=== PATIENT | female | born 1950 | race Caucasian/White ===

== ENCOUNTER 2024-01-29 17:59 | Inpatient (IN) | payer OTHER, SELFPAY ==
[2024-01-29] VITALS (7 sets, daily range): BP systolic 113–136; BP diastolic 71–103; BMI 17.2; BMI 16.2
[2024-01-29 16:18] LABS: % Basophils 0.7 % (0-2); % Eosinophils 0.4 % (0-6); % Immature Granulocytes 0.2 % (0-0.5); % Lymphocytes 27.6 % (20.5-51.1); % Monocytes 5.7 % (1.7-9.3); % Neutrophils 65.4 % (42.2-75.2); Absolute Basophils 0.1 10^3/uL (0-0.2); Absolute Lymphocytes 2.3 10^3/uL (1.2-3.4); Absolute Monocytes 0.5 10^3/uL (0.1-0.6); Absolute Neutrophils 5.4 10^3/uL (1.4-6.5); Hematocrit 34.7 % (37.0-47.0); Hemoglobin 11.2 g/dL (12.0-16.0); Mean Corp Hgb Conc. 32.3 g/dL (33.0-37.0); Mean Corpuscular Hgb 35.6 pg (27.0-31.0); Mean Corpuscular Volume 110.2 fL (81.0-99.0); Mean Platelet Volume 10.3 fL (7.4-10.4); Nucleated Red Blood Cells % 0 %; Platelet Count 320 10^3/uL (130-400); Red Blood Cell Count 3.15 10^6/uL (4.20-5.40); Red Cell Dist. Width 14.7 % (11.5-14.5); White Blood Cell Count 8.2 10^3/uL (4.8-10.8)
[2024-01-29 16:34] LABS: ALT (SGPT) 16 U/L (0-35); AST (SGOT) 24 U/L (14-36); Alkaline Phosphatase 95 U/L (38-126); Blood Urea Nitrogen 10 mg/dl (7-17); Calcium 8.8 mg/dl (8.4-10.2); Carbon Dioxide 17 mmol/L (22-30); Chloride 105 mmol/L (98-107); Glucose 169 mg/dl (70-99); Potassium 3.7 mmol/L (3.5-5.1); Sodium 135 mmol/L (135-145); Total Bilirubin 0.5 mg/dl (0.2-1.3); Total Protein 6.6 g/dl (6.3-8.2); eGFR > 60.00
[2024-01-29 16:42] LABS: NT-proBNP 15500 pg/ml; Troponin I < 0.012 ng/ml
--- NOTE | 2024-01-29 17:10 | ED.GENMED ---
History of Present Illness
General
Chief Complaint: Chest Pain
Source: patient and family
Time Seen by Provider: 01/29/24 16:24
Travel History
Have you had any contact with someone who has COVID-19?: No
Do you have any symptoms of coronavirus? Fever > 100 degrees, chills, cough, shortness of breath, sore throat, loss of taste or smell, muscle aches, or headache?: No
History of Present Illness
History of Present Illness:
73-year-old female with past medical history of CAD status post coronary stenting, diabetes, hypertension presenting to the emergency department for evaluation of gradually worsening shortness of breath/dyspnea on exertion over the last few weeks,
yesterday started with bilateral lower extremity edema. Patient states she has been to her primary care provider a couple of times for the shortness of breath with no specific etiology found. Patient states primary care thought her symptoms may be
related to allergies she denies any cough, fevers, chills, rigors, abdominal pain, current chest pain, palpitations, diaphoresis. Patient states symptoms are exacerbated when laying reclined or when bending forward. She denies any history of
similar. Is not on any diuretics. Social history was significant for smoking 1/2 pack/day. Denies any recent travel or recent antibiotics.
Past History
Past History
ED Past Medical History: HTN, NIDDM and Other (Osteoporosis,)
ED Past Surgical History: Orthopedic (Multiple surgeries right elbow/forearm in 2003. Lumbar laminectomy 1992.) and Other (Umbilical hernia repair.)
Social History
Tobacco: Smoker
Alcohol: Occasional
Drug: None
Personal:
Living: with family
Employment: Disabled
Family History
Family History: Other (PE and coronary disease)
Review of Systems
Review of Systems
All Other Systems: ROS reviewed and negative except as documented in HPI and ROS
Phy Exam
Physical Exam
Physical Exam:
GENERAL: Alert , in no apparent distress
EYE: conjunctiva clear
NECK: Supple
ENT: o/p clr, mmm.
CARDIAC: Regular rate and rhythm, systolic murmur left sternal border
LUNGS: Faint bibasilar Rales, no wheezing, no respiratory distress, no accessory muscle use
NEUROLOGICAL: Alert and oriented
SKIN: Warm and dry, skin intact.
MUSCULOSKELETAL: well perfused. 1+ bilateral ankle edema extending into the distal third of the tib-fib region
PSYCH: Normal and appropriate interaction.
Scores
Heart Failure Risk
Heart Failure Risk Score: Yes
History of Stroke or TIA: No
History of intubation for respiratory distress: No
Heart rate on ED arrival >/= 110: No
SaO2 <90% on arrival on room air: No
HR >/=110 during 3min walk test (or too ill to perform test): Yes
ECG has acute ischemic changes: No
Urea >/=12mmol/L (BUN 33.6mg/dL): No
Serum CO2>/=35mmol/L: No
Troponin I or T elevated to WA Level (0.4mg/dL): No
NT-proBNP >/=5,000ng/L (5,000pg/ml): Yes
HF Risk Score: 3
Admission Status: HIGH RISK 15.9% Consider SNF treatment or admission to hospital
Heart Score for Chest Pain Patients
STEMI patient?: Not applicable
Withdrawal Assessment of Alcohol
Withdrawal Assessment Completed?: Not applicable
Course
Orders/Labs/Results
Orders:
Orders
01/29/24 15:43
ECG [Electrocardiogram (*1)] Urgent
Reason for Study: Chest Pain
EKG- Treatment ONCE
01/29/24 16:05
Complete Blood Count/With Diff Urgent
Comprehensive Metabolic Panel Urgent
NT-proBNP Urgent
Troponin I Urgent
01/29/24 16:53
Furosemide [Lasix] 40 mg IV NOW STA
01/29/24 16:54
CR Chest - 2 Views Urgent
Comment:
Reason For Exam: SOB, CHF
01/29/24 17:34
Admit/Transfer Patient As Directed
Co-Sign Provider:
Level of Care: Inpatient admission
Assign to:: Telemetry
Physician / Group: Vince
Diagnosis: Heart Failure
Reason for Telemetry: Acute Heart Failure
Date to Stop Telemetry: 02/01/24
Time to Stop Telemetry: 11:00
Reason for Hospitalization: IV diuretics
Expected length of stay greater than two midnights?: Yes
ELOS- Estimated Length of Stay in days: 3
I certify the patient meets the requirements for IP care: Yes
01/29/24 17:48
DNR Bracelet Application ONCE
01/29/24 17:56
Code Status As Directed
Resuscitation Status: Full Code
02/01/24 11:00
DC Protocol for Telemetry ONCE
Abnormal Lab Results
01/29/24
16:05
RBC 3.15 L 10^6/uL
(4.20-5.40)
Hgb 11.2 L g/dL
(12.0-16.0)
Hct 34.7 L %
(37.0-47.0)
MCV 110.2 H fL
(81.0-99.0)
MCH 35.6 H pg
(27.0-31.0)
MCHC 32.3 L g/dL
(33.0-37.0)
RDW 14.7 H %
(11.5-14.5)
Carbon Dioxide 17 L mmol/L
(22-30)
Creatinine 0.5 L mg/dL
(0.6-1.0)
Glucose 169 H mg/dl
(70-99)
01/29/24 16:05
01/29/24 16:05
Vital Signs
Initial and Last Documented VS:
Initial Vital Signs
Temp Pulse Resp BP Pulse Ox
97.7 F 94 18 136/82 97
01/29/24 15:45 01/29/24 15:45 01/29/24 15:45 01/29/24 15:45 01/29/24 15:45
Last Documented Vital Signs
Temp Pulse Resp BP Pulse Ox
97.7 F 96 22 113/77 97
01/29/24 15:45 01/29/24 17:45 01/29/24 17:45 01/29/24 17:00 01/29/24 15:45
MDM/Problems Addressed
Differential Diagnosis Includes:
Valvular dysfunction, volume overload, kidney disease, CHF
MDM/Problems Addressed:
73-year-old female present emergency department for multiple weeks of gradually worsening shortness of breath and exertional dyspnea, 24 hours of bilateral lower extremity edema. Labs were initiated from triage which show a mild anemia but patient
does have a significant BNP of greater than 15,000. Suspect acute CHF. Patient states she does not believe she has ever had an echocardiogram. She did have a echocardiogram done in October of this year which showed a dilated left ventricle with
severely reduced left ventricular systolic function and ejection fraction of 20 to 25%. There is also mild valvular dysfunction. I suspect this is the main reason for patient's presenting symptoms. 40 mg Lasix IV ordered. Will admit to
hospitalist team and cardiology team to consult.
Chronic conditions affecting care: Other (CHF)
Acute Exacerbation and/or Progression of Chronic Illness: Other (CHF)
*Pulse Oximetry
Patient hypoxic: no
*EKG
Interpreted by ED Provider?: Yes
Comparison EKG: no changes
Heart Rate: 102
Rate: tachycardiac
Rhythm: sinus and PVC's
Pamplico: normal axis
Ischemia: no ischemia
*Proof Technician Helper Interpretation
Rate: normal
Rhythm: sinus
*Critical Care Note
Total Time (30-74mins, 75-104mins- exclusive of procedures): Not Applicable
Data Reviewed
Review of Other/Old Records Reveals: Labs, Records and Testing
Source: patient and family
Patient Management
Discussion with other providers: Hospitalist
Escalation/DeEscalation of care consider admission/obs:
Hospitalist team was notified and accepts patient for continued evaluation and treatment.
ED Attending Note
-
Portions of this chart may have been created with voice recognition software.� Occasional wrong word or��sound alike� substitutions may have occurred due to the inherent limitations of voice recognition software.
Discharge Plan
Departure
Patient Disposition: Admit
Date of Disposition: 01/29/24
Time of Disposition: 17:10
Presentation/result/management discussed w/ accepting MD/DO: Hospitalist
Discharge Problem:
Acute CHF (congestive heart failure)
Prescriptions:
No Action
latanoprost 0.005 % Drops
1 drp BOTH EYES HS
atorvastatin 20 mg Tablet
20 mg PO HS
metoprolol succinate 25 mg Tablet Extended Release 24 Hr
25 mg PO DAILY
acetaminophen 325 mg tablet
650 mg PO Q6H
tramadol 50 mg Tablet
50 mg PO TID
lisinopril 5 mg Tablet
5 mg PO DAILY
ipratropium-albuterol 0.5 mg-3 mg(2.5 mg base)/3 mL solution for nebulization
3 ml inhalation R QID
albuterol sulfate 90 mcg/actuation HFA aerosol inhaler
2 puff inhalation R QIDPRN PRN (Reason: sob)
Referrals:
Raad Randhawa MD [Family Provider] -
Discharge Date and Time
Print Language: WOLOF
[2024-01-29] MEDS: LASIX 40 MG IV (17:16)
--- NOTE | 2024-01-29 17:53 | HPS.HSE ---
Addendum entered and electronically signed by Neftali Clarke MD 01/29/24 18:28:
Seen and examined by me independently in collaboration with the [facility].
Past medical history/social history/medication/allergies reviewed.
Lab data and imaging data reviewed.
Patient presents with increasing shortness of breath. Lower extremity edema and orthopnea. She has bilateral crackles up to mid zones but not in any respiratory distress. Not hypoxic. Chest x-ray pending. BNP is very elevated. She is diagnosed
to have cardiomyopathy October this year but has not followed up with cardiology. Not on any diuretics.
Clinical presentation consistent with acute CHF decompensation. Admit to telemetry. Start on IV diuretics. Consult cardiology. Repeat echocardiogram.
She wishes to be a full code.
Original Note:
Family Physician
-
Family Physician: Raad Randhawa MD
Chief Complaint
-
Shortness of breath and lower ext edema
History of Present Illness
Patient is a 73 y/o female past medical history of CAD, CHF, HTN and DM who presents with increased shortness of breath and lower extremity edema. She reports increased shortness of breath over the past several weeks. She notes she has been using
her nebulizer with only minimal improvement in symptoms. She reports dyspnea on exertion and orthopnea. Over the last day she has noted increased lower extremity edema to the point she could not put on her shoes today. She does not weight herself
on a daily basis, but review of records show a 14lb gain since October.
Medical History
Past Medical History
Past Medical History: Reports Other
Additional Past Medical History:
Coronary Artery Disease s/p Stents
Chronic HFrEF
Essential Hypertension
Hyperlipidemia
Diabetes Mellitus, Type II
COPD
Past Surgical History: Reports Other
Additional Past Surgical History:
Lumbar surgery
Cervical spinal surgery
Umbilical hernia repair
Right arm surgery
Left Hip Replacement
Social History
Tobacco: Former Smoker
Alcohol: Occasional
Drug: None
Personal: Single
Family History
Family History: Not pertinent
Allergies / Home Medications
Allergies reflects when Allergies were last updated in [facility].
Home Medications with original date entered in [facility]
Allergy/Medication List:
Allergies
Allergy/AdvReac Type Severity Reaction Status Date / Time
cat dander Allergy Itching Verified 10/24/23 16:42
house dust Allergy SNEEZING Verified 10/24/23 16:42
pollen extracts Allergy SNEEZING Verified 10/24/23 16:42
pregabalin [From Lyrica] Allergy psychosis Verified 10/04/23 17:41
Home Medications
atorvastatin 20 mg tablet 20 mg PO HS High Cholesterol 10/04/23
latanoprost 0.005 % eye drops 1 drp BOTH EYES HS glaucoma 10/04/23
metoprolol succinate 25 mg tablet,extended release 24 hr 25 mg PO DAILY Blood Pressure 10/04/23
acetaminophen 325 mg tablet 650 mg PO Q6H 10/24/23
albuterol sulfate 90 mcg/actuation aerosol inhaler 2 puff inhalation R QIDPRN PRN sob 01/29/24
ipratropium 0.5 mg-albuterol 3 mg (2.5 mg base)/3 mL nebulization soln 3 ml inhalation R QID 01/29/24
lisinopril 5 mg tablet 5 mg PO DAILY 01/29/24
tramadol 50 mg tablet 50 mg PO TID 01/29/24
Review of Systems
-
A 12 point ROS was completed and negative except as noted: Yes
Constitutional: Reports Weight Gain; Denies Fever or Chills
Respiratory: Reports Trouble Breathing; Denies Cough
Cardiac: Denies Chest Pain or Palpitations
Physical Exam
Vital Signs
Vital Signs
Temp Pulse Resp BP Pulse Ox
97.7 F 98 20 136/82 97
01/29/24 15:45 01/29/24 16:37 01/29/24 16:37 01/29/24 15:45 01/29/24 15:45
Physical Exam
General: Comfortable, Conversant (Slight conversational dyspnea) and Appears Chronically Ill
HEENT: NormoCephalic, Anicteric and Atraumatic
Respiratory: Rales (Diffuse) and Non Labored Respirations
Cardiac: S1/S2 and Regular Rhythm; No Murmur
GI: Soft and Non Tender
Rectal: Deferred by Provider
Musculoskeletal: No Clubbing, No Cyanosis and Other (+4 pitting edema bilateral lower ext)
Skin: Warm and Dry
Neuro: Awake, Alert, Oriented and Nonfocal/grossly intact
Psych: Calm
Laboratory Results
-
01/29/24 16:05
01/29/24 16:05
Laboratory Results
PT Cancelled 01/29/24 15:51
INR Cancelled 01/29/24 15:51
Total Bilirubin 0.5 mg/dl (0.2-1.3) 01/29/24 16:05
AST 24 U/L (14-36) 01/29/24 16:05
ALT 16 U/L (0-35) 01/29/24 16:05
Alkaline Phosphatase 95 U/L (38-126) 01/29/24 16:05
Troponin I < 0.012 ng/ml 01/29/24 16:05
Data Reviewed
-
Lab Data: Labs Reviewed by me
Old Records: Reviewed
Impression/Plan
-
Acute on Chronic HFrEF
-Echo Oct 2023: Dilated left ventricular with severely reduced left ventricular systolic function of 20-25%. Stage I diastolic dysfunction
-Consult Cardiology
-Continue Lasix
-Monitor Is& Os and Daily Weights
Macrocytosis
-Check vitamin b12 and folate level
Coronary Artery Disease s/p Bare Metal Stent
-Patient not on antiplatelets
Essential Hypertension
-Hold lisinopril
-Continue metoprolol
Hyperlipidemia
-Continue atorvastatin
Diabetes Mellitus, Type II
-Check HgbA1c
-Patient is not on any meds as outpatient
-Monitor sugars and continue coverage insulin
COPD, no acute exacerbation
-Continue Duoneb QID
DVT proph: Lovenox
Code Status: Full Code
[2024-01-29] MEDS: DUONEB 3 ML INH (20:09)
[2024-01-29] MEDS: LOVENOX 30 MG SC (20:26)
[2024-01-29] MEDS: LIPITOR 20 MG PO (21:05)
[2024-01-29] MEDS: ULTRAM 50 MG PO (21:06)
[2024-01-29 21:15] LABS: Glucose - Point of Care 188 mg/dl (70-99)
[2024-01-29 22:33] LABS: Troponin I 0.013 ng/ml
--- NOTE | 2024-01-29 22:53 | PTCARENOTE ---
Received pt from ER @ 1950. Pt slid self from stretcher to bed. AAOx3, VSS. 97% on RA, very PHILLIPS. Sinus tach on monitor. Oriented to room, call [facility] and plan of care.
[2024-01-30] VITALS (8 sets, daily range): BP systolic 97–138; BP diastolic 61–83; PULSE 107–117; O2SAT 95; BMI 16.3
[2024-01-30] MEDS: TYLENOL 650 MG PO ×4 (01:56→19:43)
[2024-01-30 02:28] LABS: Troponin I 0.019 ng/ml
[2024-01-30 07:26] LABS: Glucose - Point of Care 145 mg/dl (70-99)
[2024-01-30 07:40] LABS: Hemoglobin 11.2 g/dL (12.0-16.0); Mean Corpuscular Volume 102.9 fL (81.0-99.0); Platelet Count 283 10^3/uL (130-400); Red Blood Cell Count 3.11 10^6/uL (4.20-5.40); Red Cell Dist. Width 14.2 % (11.5-14.5); White Blood Cell Count 11.1 10^3/uL (4.8-10.8)
[2024-01-30 07:49] LABS: Blood Urea Nitrogen 15 mg/dl (7-17); Calcium 8.9 mg/dl (8.4-10.2); Carbon Dioxide 19 mmol/L (22-30); Chloride 105 mmol/L (98-107); Estimated Creatinine Clearance 50 ml/min; Glucose 132 mg/dl (70-99); HDL Cholesterol 59 mg/dl; LDL Cholesterol, Calculated 11 mg/dl; Magnesium 1.2 mg/dl (1.6-2.3); Potassium 3.2 mmol/L (3.5-5.1); Sodium 137 mmol/L (135-145); Total Cholesterol 92 mg/dl (50-199); Triglyceride 113 mg/dl (10-149); Very Low Density Lipoprotein 22 mg/dl (0-30); eGFR > 60.00
[2024-01-30 08:14] LABS: TSH Reflex To Free T4 1.17 uIU/ml (0.47-4.68)
[2024-01-30] MEDS: DUONEB 3 ML INH ×3 (08:14→20:20)
[2024-01-30] MEDS: NOVOLOG FLEXPEN-LOW RESISTANCE SC ×2 (08:22→16:50)
[2024-01-30] MEDS: TOPROL XL 25 MG PO (08:23)
[2024-01-30] MEDS: ASPIR LOW (ENTERIC COATED) 81 MG PO (08:24)
[2024-01-30] MEDS: ULTRAM 50 MG PO ×3 (08:24→21:17)
[2024-01-30] MEDS: LASIX 40 MG IV (08:24)
[2024-01-30 08:50] LABS: Folate 7.8 ng/ml (2.76-20); Vitamin B12 702 pg/ml (239-931)
--- NOTE | 2024-01-30 09:58 | PTCARENOTE ---
Notified provider that while the patient was ambulating with PT, her HR ivy to the 150's. At rest in the chair, the patient's heart went down to the 110-120's and sustained after some time. Patient had received morning dosage of Toprol XL 25 mg PO,
no c/o dizziness, CP, and VSS. MD advised to await therapeutic effects of PO medications. Will continue to monitor.
[2024-01-30] MEDS: KCL 40 MEQ PO (10:13)
[2024-01-30] MEDS: MAGNESIUM SULFATE 50 IV (10:13)
--- NOTE | 2024-01-30 10:39 | CM ---
Patient seen in chair, initial assessment completed. Patient reports she resides independently in an apartment on the first floor, one step to enter, also has a ramp. Patient reports she has two sons who live local, her one son and daughter in law
visit her weekly to assist with cleaning and groceries. Patient reports she has a walker and wheelchair at home. Patient reports history with [facility], patient reports she would not return to any SNF as it was a waist of time and she
did better at home. Patient reports PCP Dr. De La Fuente through [facility], pharmacy [facility] - [place], [place]. Patient reports she does not have pharmacy coverage, denies food insecurities. CM will continue to follow for discharge planning needs.
Plan; watch for PT/OT evals for recommendations.
[2024-01-30 11:20] LABS: Glucose - Point of Care 190 mg/dl (70-99)
--- NOTE | 2024-01-30 11:45 | W.PN.HOSP.TC ---
Today's Communication/Plan
-
Continue the Lasix.
Check an echocardiogram.
Follow cardiology recommendations.
Replete potassium and magnesium.
Assessment / Plan
Assessment / Plan
Acute on Chronic HFrEF
-Echo Oct 2023: Dilated left ventricular with severely reduced left ventricular systolic function of 20-25%. Stage I diastolic dysfunction
-Consulted Cardiology
-Continue Lasix; check ECHO
-Monitor Is& Os and Daily Weights
Tachycardia-telemetry rhythm ?A-fib.
Continue with beta-miryam. Await cardiology input.
Hypokalemia and hypomagnesemia-replete IV
Macrocytosis
-Check vitamin b12 and folate level
Coronary Artery Disease s/p Bare Metal Stent
-cw ASA
Essential Hypertension
-Hold lisinopril
-Continue metoprolol
Hyperlipidemia
-Continue atorvastatin
Diabetes Mellitus, Type II
-Follow HgbA1c
-Patient is not on any meds as outpatient
-Monitor sugars and continue coverage insulin
COPD, no acute exacerbation
-Continue Duoneb QID
DVT proph: Lovenox
Code Status: Full Code
DW RN
Total time spent on today's encounter was 52 minutes which included time spent in counseling the patient regarding diagnosis and treatment plan as listed above, goals of care, and symptom management. Case was discussed with nursing staff,
specialists . All labs and imaging personally reviewed by me. Remainder the time spent in detailed review of previous records, lab data, imaging, and other medical provider documentation.
Anticipated Discharge: > 48 hours
Subjective/Interval History
-
Date of Service: January 30, 2024
Cannot sleep much last night because of interruptions.
Still orthopneic.
No chest pain or palpitations.
When she ambulated to the bathroom her heart rate went to 150s but she did not feel the tachycardia. No dizziness.
Objective Data
-
Labs:
Laboratory Results
01/30/24
06:04
WBC 11.1 H
Hgb 11.2 L
Hct 32.0 L
Plt Count 283
Sodium 137
Potassium 3.2 L
Chloride 105
Carbon Dioxide 19 L
BUN 15
Creatinine 0.5 L
Glucose 132 H
Calcium 8.9
Vital Signs:
Vital Signs
Temp Pulse Resp BP Pulse Ox
97.7 F 104 16 121/77 95
01/30/24 07:18 01/30/24 08:15 01/30/24 08:15 01/30/24 07:18 01/30/24 08:15
I&O
01/29/24 01/30/24 01/31/24
06:59 06:59 06:59
Intake Total 60 / 60
Output Total 900 / 900
Balance -840 / -840
Review of Systems
-
Constitutional: Denies Fever
EENT: Denies Sore Throat
Respiratory: Denies Cough
Abdomen/GI: Denies Abdominal Pain, Nausea or Vomiting
Physical Exam
-
General: No Apparent Distress
HEENT: Moist Mucous Membranes
Respiratory: Crackles (bl basilar area today ;improved from yesterday) and Non Labored Respirations; Negative Wheezes or Accessory Resp Muscle Use
Cardiac: S1/S2, Irregular Rhythm and Tachycardic
GI: Soft
Musculoskeletal: Edema, Right Lower Extrem and Edema, Left Lower Extrem
Neuro: AO x 3
Psych: Calm and Confused
Data Reviewed
-
Labs: Labs Reviewed by me
[2024-01-30] MEDS: NOVOLOG FLEXPEN-LOW RESISTANCE 1 UNITS SC (11:56)
--- NOTE | 2024-01-30 12:12 | CON.CAR ---
Addendum entered and electronically signed by Williams Malik MD 01/30/24 15:52:
I saw and examined the patient.
The Epic Ambulatory Analyst's note was reviewed and I agree with the note.
Comment: Briefly, 73-year-old man past medical history of recent diagnosis of heart failure with reduced ejection fraction presenting in decompensated heart failure
Patient is mildly volume overloaded on exam, agree with IV Lasix, monitor daily weights and renal function
Replete lytes
Cont BB and JONNY as treatment of cardiomyopathy
Would consider adding SGLT2
BP is unlikely to tolerate spironolactone
Was not on diuretic as an outpatient, would discharge on maintainence dose of lasix
Would benefit from outpatient cardiology follow up and consideration of ischemic evaluation
Original Note:
Consultation
Consultation Request
Date/Time Consultation Requested: 01/29/24 at 1940
Date/Time Consultation Performed: 01/30/24 at 1100
Requesting Provider: Dr. Clarke
Performing Provider: Dr. Malik
Reason for Consultation: Acute HF
Medical History
-
History of Present Illness:
Patient came to [facility] yesterday with months worth of SOB and newer LE edema and is now admitted with acute HF so cardiology has been consulted. Patient lives alone, but her sons visit her weekly and help with grocery shopping. Patient says she does
not have a bank and savings securities trader, but that she saw her PCP twice recently for SOB and PHILLIPS. She says that she started with LE edema within in the last 2 days so she came to [facility]. [place]BNP [place] [phone]. Patient was started on Lasix 40 mg IV daily and her edema
and SOB have improved. Patient was admitted to twice in October, during her initial visit she was teated for PNA and influenza, but also for acute HF. She was diuresed and had an echo that showed a worsened EF down to 20-25%. Patient was
recommended to follow up with cardiology, but never did. Patient was not taking a daily diuretic prior to admission.
PMH:
CM EF 20-25% by echo 10/25/23
CAD s/p DE and 2.5 mm Mini Vision BMS to prox OM-2 and 2.5 mm Mini Vision BMS to distal OM-2 08/28/10
Admitted to with CHF, new CM, influenza and PNA 10/04/23 until 10/17/23
Admitted to with diarrhea, hypokalemia and heme positive stools 10/24/23 until 10/26/23
Possible Plavix allergy with h/o rash in 2009
DM 2
Active smoker
Past Medical History
Past Medical History: Other (in HPI)
Past Surgical History: Cardiac (OM-2 BMS x2 2009) and Orthopedic
Social History
Tobacco: Smoker (10/02 ppd now)
Alcohol: None
Drug: None
Living: Alone
Family History
Family History: CAD and Other (FH of PE in brother and 2 sisters)
Allergies / Home Medications
Allergy/AdvReac Type Severity Reaction Status Date / Time
cat dander Allergy Itching Verified 10/24/23 16:42
house dust Allergy SNEEZING Verified 10/24/23 16:42
pollen extracts Allergy SNEEZING Verified 10/24/23 16:42
pregabalin [From Lyrica] Allergy psychosis Verified 10/04/23 17:41
�Medication �Instructions �Recorded �Confirmed �Type
atorvastatin 20 mg tablet 20 mg PO HS High Cholesterol 10/04/23 01/29/24 History
latanoprost 0.005 % eye drops 1 drp BOTH EYES HS glaucoma 10/04/23 01/29/24 History
metoprolol succinate 25 mg 25 mg PO DAILY Blood Pressure 10/04/23 01/29/24 History
tablet,extended release 24 hr
acetaminophen 325 mg tablet 650 mg PO Q6H pain 10/24/23 01/29/24 History
albuterol sulfate 90 mcg/actuation 2 puff inhalation R QIDPRN PRN 01/29/24 01/29/24 History
aerosol inhaler shortness of breath
ipratropium 0.5 mg-albuterol 3 mg 3 ml inhalation R QID 01/29/24 01/29/24 History
(2.5 mg base)/3 mL nebulization Lung/Breathing Issues
soln
lisinopril 5 mg tablet 5 mg PO DAILY Blood Pressure 01/29/24 01/29/24 History
tramadol 50 mg tablet 50 mg PO TID pain 01/29/24 01/29/24 History
Review of Systems
-
History Source: Patient
All other systems: Negative unless noted
Physical Exam
Vital Signs
Temp Pulse Resp BP Pulse Ox
97.7 F 104 16 121/77 95
01/30/24 07:18 01/30/24 08:15 01/30/24 08:15 01/30/24 07:18 01/30/24 08:15
GEN: NAD. AAO to person, place and situation
HEENT: EOMI, MMM
LUNGS: CTA B/L without wheeze or rales
CV: Reg, S1/S2, no murmur
ABD: soft, BS+, NT, ND
EXT: +1 B/L LE edema. No clubbing, cyanosis or lesions B/L
NEURO: Gross non-focal
SKIN: Warm, dry and pink. No rash
Lab Results
01/30/24 06:04
01/30/24 06:04
Troponin I 0.019 ng/ml D 01/30/24 01:59
Dhh-E-Gcoeoqtjjwn Pept 88587 pg/ml 01/29/24 16:05
Impression / Plan
-
PCP: Dr. Chester De La Fuente
Cardiology: None
Impression:
SOB and LE edema in the ER 01/29/24
Acute HFrEF
CM EF 20-25% by echo 10/25/23
CAD s/p DE and 2.5 mm Mini Vision BMS to prox OM-2 and 2.5 mm Mini Vision BMS to distal OM-2 08/28/10
Admitted to with CHF, new CM, influenza and PNA 10/04/23 until 10/17/23
Admitted to with diarrhea, hypokalemia and heme positive stools 10/24/23 until 10/26/23
Possible Plavix allergy with h/o rash in 2009
DM 2
Active smoker
Hypokalemia
Echo 2009: EF 46%
Echo 10/05/23: EF 20-25%, stage I diastolic dysfunction, mild MR, no significant or AR, mild TR with PAP 35 mmHg
Plan:
-Patient came to [facility] yesterday with months worth of SOB and newer LE edema and is now admitted with acute HF so cardiology has been consulted. Patient lives alone, but her sons visit her weekly and help with grocery shopping. Patient says she does
not have a bank and savings securities trader, but that she saw her PCP twice recently for SOB and PHILLIPS. She says that she started with LE edema within in the last 2 days so she came to [facility]. [place] pro-BNP was [phone]. Patient was started on Lasix 40 mg IV daily and her edema
and SOB have improved. Patient was admitted to twice in October, during her initial visit she was teated for PNA and influenza, but also for acute HF. She was diuresed and had an echo that showed a worsened EF down to 20-25%. Patient was
recommended to follow up with cardiology, but never did. Patient was not taking a daily diuretic prior to admission.
-Patient with acute HF and known CM EF 20-25%. Agree with Lasix 40 mg IV daily diuresis.
-EF down to 20-25% by echo 10/05/23. Patient has been taking GDMT including Toprol XL 25 mg daily and lisinopril 5 mg daily although she says she was unaware of a h/o CHF and unaware that she was supposed to be seeing a bank and savings securities trader with her h/o CAD
and DE.
-Will add spironolactone 25 mg daily
-Check on cost of SGLT-2
-Patient lives alone, smokes and weighs 83 lbs. She gave me permission to call her son. I called and talked to her son, Jose, for 17:37 min. Reviewed HF diagnosis, he is a mine analyst and very medically knowledgeable. He is agreeable to the addition
of spironolactone for now. Also agreeable to arranging cardiology f/u with [facility] and for VN services upon discharge. Talked about possible consideration for ICD in the future depending on EF and he would be agreeable to consideration.
-ECG reviewed by me shows SR with PVCs.
[2024-01-30] MEDS: DUONEB INH ×2 (12:29→12:30)
[2024-01-30 16:39] LABS: Glucose - Point of Care 116 mg/dl (70-99)
[2024-01-30] MEDS: LOVENOX 30 MG SC (17:41)
[2024-01-30] MEDS: LIPITOR 20 MG PO (21:17)
[2024-01-30 21:39] LABS: Glucose - Point of Care 164 mg/dl (70-99)
[2024-01-31] VITALS (7 sets, daily range): BP systolic 94–120; BP diastolic 63–73; PULSE 102; O2SAT 98; BMI 15.1
[2024-01-31] MEDS: TYLENOL PO (02:29)
[2024-01-31] MEDS: DUONEB 3 ML INH ×4 (07:14→20:02)
[2024-01-31 08:13] LABS: Glucose - Point of Care 168 mg/dl (70-99)
[2024-01-31 08:21] LABS: Blood Urea Nitrogen 14 mg/dl (7-17); Calcium 8.8 mg/dl (8.4-10.2); Carbon Dioxide 22 mmol/L (22-30); Chloride 101 mmol/L (98-107); Estimated Creatinine Clearance 46 ml/min; Glucose 142 mg/dl (70-99); Magnesium 1.4 mg/dl (1.6-2.3); Potassium 3.6 mmol/L (3.5-5.1); Sodium 134 mmol/L (135-145); eGFR > 60.00
--- NOTE | 2024-01-31 08:40 | PN.CDI ---
CDI
- -
CDI:
Physician Documentation Request
Admit Date: 01/29/24 17:59
Dear Doctor Vince,
Please review the following and provide your response in the progress notes.
Clinical Indicators:
Height: 5 ft
Weight: 77 lbs
BMI:15.1
Other Clinical Notes:
If possible, please provide an associated diagnosis related to the abnormal BMI, such as:
BMI < or = to 19
Cachectic
Underweight
- Other
Use of terms such as suspected, likely, concern for, or probable (associated with a specific diagnosis that is being evaluated, monitored, or treated as if it exists) are acceptable and can be coded in the inpatient setting, when documented at the
time of discharge.
Thank you,
Loretta Turner RN
CDI Specialist
[place] [employer]
Please use your independent medical judgment in providing your response.
[2024-01-31] MEDS: KCL 20 MEQ PO (09:22)
[2024-01-31] MEDS: ASPIR LOW (ENTERIC COATED) 81 MG PO (09:22)
[2024-01-31] MEDS: ULTRAM 50 MG PO ×3 (09:22→21:16)
[2024-01-31] MEDS: TYLENOL 650 MG PO ×3 (09:22→20:09)
[2024-01-31] MEDS: NOVOLOG FLEXPEN-LOW RESISTANCE 1 UNITS SC (09:22)
[2024-01-31] MEDS: TOPROL XL 25 MG PO (09:23)
[2024-01-31] MEDS: LASIX 40 MG IV (09:23)
--- NOTE | 2024-01-31 10:20 | PTCARENOTE ---
Notified provider in person on unit that the patient was c/o SOB, satting fine 96% RA, and HR 100-110's.
--- NOTE | 2024-01-31 10:41 | W.PN.CARDCBS ---
Today's Communication / Plan
-
Cont IV diuresis. Her wt continues to come down and her cr is stable. Her dry wt is unclear and she is very frail.
PT eval.
Reviewed CM with her and discussed eval of coronary anatomy and volume status with left and right heart cath for tomorrow. Pt was agreeable.
Will discuss with son as well.
Replete lytes
Cont beta miryam and ACEI for her CM
Consider Jardiance if affordable.
Consider Aldactone if bp can tolerate.
Will likely need diuretic as outpt.
Cont to monitor for arrhythmia. She has had PACs and PVCs and atrial tachycardia evelin on monitors. Consider outpt monitor as well.
Impression / Plan
-
PCP: Dr. Chester De La Fuente
Cardiology: None
Impression:
SOB and LE edema in the ER 01/29/24
Acute HFrEF
CM EF 20-25% by echo 10/25/23
CAD s/p [place] and 2.5 mm Mini Vision BMS to prox OM-2 and 2.5 mm Mini Vision BMS to distal OM-2 08/28/10
Admitted to with CHF, new CM, influenza and PNA 10/04/23 until 10/17/23
Admitted to with diarrhea, hypokalemia and heme positive stools 10/24/23 until 10/26/23
Possible Plavix allergy with h/o rash in 2009
DM 2
Active smoker
Hypokalemia
Echo 2009: EF 46%
Echo 10/05/23: EF 20-25%, stage I diastolic dysfunction, mild MR, no significant or AR, mild TR with PAP 35 mmHg
Plan:
Cont IV diuresis. Her wt continues to come down and her cr is stable. Her dry wt is unclear and she is very frail.
PT eval.
Reviewed CM with her and discussed eval of coronary anatomy and volume status with left and right heart cath for tomorrow. Pt was agreeable.
Will discuss with son as well.
Replete lytes
Cont beta miryam and ACEI for her CM
Consider Jardiance if affordable.
Consider Aldactone if bp can tolerate.
Will likely need diuretic as outpt.
Cont to monitor for arrhythmia. She has had PACs and PVCs and atrial tachycardia evelin on monitors. Consider outpt monitor as well.
HPI: Patient came to [facility] yesterday with months worth of SOB and newer LE edema and is now admitted with acute HF so cardiology has been consulted. Patient lives alone, but her sons visit her weekly and help with grocery shopping. Patient says she
does not have a sleeve sewer, but that she saw her PCP twice recently for SOB and PHILLIPS. She says that she started with LE edema within in the last 2 days so she came to [facility]. [place] [phone]. Patient was started on Lasix 40 mg IV daily and her
edema and SOB have improved. Patient was admitted to twice in October, during her initial visit she was teated for PNA and influenza, but also for acute HF. She was diuresed and had an echo that showed a worsened EF down to 20-25%. Patient was
recommended to follow up with cardiology, but never did. Patient was not taking a daily diuretic prior to admission.
Progress Note - [employer]
Subjective
Date of Service: January 31, 2024
Pt seen and examined. No cp or dyspnea.
Objective
Labs:
01/30/24 06:04
01/31/24 07:39
Labs
Hgb 11.2 g/dL (12.0-16.0) L 01/30/24 06:04
Hct 32.0 % (37.0-47.0) L 01/30/24 06:04
Plt Count 283 10^3/uL (130-400) 01/30/24 06:04
PT Cancelled 01/29/24 15:51
INR Cancelled 01/29/24 15:51
Sodium 134 mmol/L (135-145) L 01/31/24 07:39
Potassium 3.6 mmol/L (3.5-5.1) 01/31/24 07:39
BUN 14 mg/dl (7-17) 01/31/24 07:39
Creatinine 0.4 mg/dL (0.6-1.0) L 01/31/24 07:39
Glucose 142 mg/dl (70-99) H 01/31/24 07:39
Troponins
01/29/24 01/29/24 01/30/24
16:05 22:04 01:59
Troponin I < 0.012 0.013 0.019 D
Vital Signs and I&O:
Vital Signs
Temp Pulse Resp BP Pulse Ox
97.9 F 109 18 120/64 95
01/31/24 07:30 01/31/24 07:30 01/31/24 07:30 01/31/24 07:30 01/31/24 07:30
Vital Signs
Temp Pulse Resp BP Pulse Ox
97.9 F 109 18 120/64 95
01/31/24 07:30 01/31/24 07:30 01/31/24 07:30 01/31/24 07:30 01/31/24 07:30
Intake & Output
01/29/24 01/30/24 01/31/24 02/01/24
06:59 06:59 06:59 06:59
Intake Total 60 / 60 120 / 120
Output Total 900 / 900
Balance -840 / -840 120 / 120
Physical Exam
Physical Exam
General: No acute distress, AAOX3, frail
Neck: Negative JVD
Heart: Regular, Negative S3 positive S1/S2, Negative S4, No murmur
Lungs: CTA b/l, negative wheezes/rales/rhonchi
Abd: Positive BS, NT/ND, neg rebound/rigidity/guarding
Ext: Negative cyanosis/clubbing/edema
Neuro: nonfocal
[2024-01-31 11:32] LABS: Glucose - Point of Care 139 mg/dl (70-99)
[2024-01-31] MEDS: NOVOLOG FLEXPEN-LOW RESISTANCE SC ×2 (11:34→17:09)
--- NOTE | 2024-01-31 11:42 | W.PN.HOSP.TC ---
Addendum entered and electronically signed by Neftali Clarke MD 02/01/24 17:50:
Sacrum stage 2 pressure injury ,silicone border foam placed.
Pt currently meeting criteria for severe protein/calorie malnutrition (ASPEN/AND guidelines, chronic illness) due to NFPE (nutrition focused physical exam) and decreased intakes estimated to be less than or equal to 75% for greater than or equal to
1 month.
Original Note:
Today's Communication/Plan
-
Continue with diuresis
Assessment / Plan
Assessment / Plan
Acute on Chronic HFrEF
-Echo Oct 2023: Dilated left ventricular with severely reduced left ventricular systolic function of 20-25%. Stage I diastolic dysfunction
-Echo on this admission shows persistently reduced EF currently 19%, moderate MR, stage II diastolic dysfunction.
-Improved clinically and as well as weight.
-Continue Lasix
-Cardiology considering left heart cath and right heart cath.
-Monitor Is& Os and Daily Weights
Tachycardia-telemetry rhythm discussed with cardiology-thinks A. tach. Continue to follow telemetry.
Continue with beta-miryam
Hypomagnesemia-replete IV
Macrocytosis
-TSH, vitamin b12 and folate level normal.
Coronary Artery Disease s/p Bare Metal Stent
-cw ASA
Essential Hypertension
-Hold lisinopril
-Continue metoprolol
Hyperlipidemia
-Continue atorvastatin
Diabetes Mellitus, Type II
- HgbA1c 7.0
-Patient is not on any meds as outpatient
-Monitor sugars and continue coverage insulin
COPD, no acute exacerbation
-Continue Duoneb QID
DVT proph: Lovenox
Code Status: Full Code
DW RN
Discussed with cardiology
Anticipated Discharge: 24 - 48 hours
Subjective/Interval History
-
Date of Service: January 31, 2024
Feeling improved. Denies any chest pain. No palpitations. Improved breathing.
Objective Data
-
Labs:
Laboratory Results
01/31/24
07:39
Sodium 134 L
Potassium 3.6
Chloride 101
Carbon Dioxide 22
BUN 14
Creatinine 0.4 L
Glucose 142 H
Calcium 8.8
Vital Signs:
Vital Signs
Temp Pulse Resp BP Pulse Ox
97.7 F 90 16 102/63 99
01/31/24 11:00 01/31/24 11:14 01/31/24 11:14 01/31/24 11:00 01/31/24 11:14
I&O
01/30/24 01/31/24 02/01/24
06:59 06:59 06:59
Intake Total 60 / 60 120 / 120
Output Total 900 / 900
Balance -840 / -840 120 / 120
Review of Systems
-
Constitutional: Denies Fever
Abdomen/GI: Denies Abdominal Pain, Nausea or Vomiting
Neuro: Denies Dizzy
Physical Exam
-
General: No Apparent Distress
HEENT: Moist Mucous Membranes
Respiratory: Crackles (few bibasal); Negative Wheezes
Cardiac: Regular Rhythm, S1/S2 and Tachycardic
Neuro: AO x 3
Psych: Calm; Negative Confused
Data Reviewed
-
Labs: Labs Reviewed by me
[2024-01-31] MEDS: MAGNESIUM SULFATE 100 IV (12:20)
--- NOTE | 2024-01-31 13:54 | PN.CDI ---
CDI
- -
CDI:
Physician Documentation Request
Admit Date: 01/29/24 17:59
Dear Doctor Vince,
Please review the following and provide your response in the progress notes.
Clinical Indicators:
Pt admitted with Acute on chronic Systolic CHF
Documented in the record BMI 15.1
Nutrition consult 01/29@1730, 'Pt reporting losing weight after her greater than a year ago; feels at one time she was 125 lbs. She also reported just not being hungry with reduced intakes for > 1 month. Estimated needs: .....
During visit today RD observed appearance of severe depression at temples, orbital, protrusion of clavicle, shoulders, visible ribs, arms. Pt currently meeting criteria for severe protein/calorie malnutrition (ASPEN/AND guidelines, chronic illness)
due to NFPE (nutrition focused physical exam) and decreased intakes estimated to be less than or equal to 75% for greater than or equal to [address] to continue to follow and provide education as appropriate per level of care during
hospitalization. '
Based on the information, which of the following most accurately represents the patient's nutritional status?
Severe Protein Calorie Malnutrition
Other (please specify)
Goddard Criteria (ACP Hospitalist 2017)
2 or more criteria must be present for either
non severe or severe malnutrition
Note that the criteria differs related to the
presence of an acute or chronic illness
Acute Illness Chronic Illness
Energy Intake Non Severe: <75% for >7 days Non Severe: <75% for >1 month
Severe: <50% for >5 days Severe: <75% for >1 month
Weight Loss Non Severe: 1-2% over 1 week Non Severe: 5% over 1 month
5% over 1 month 7.5% over 3 months
7.5% over 3 months 10% over 6 months
1 year N/A 20% over 1 year
Severe: >2% over 1 week Severe: >5% over 1 month
>5% over 1 month >7.5% over 3 months
>7.5% over 3 months >10% over 6 months
1 year N/A >20% over 1 year
Body Fat Non Severe: Mild Decrease Non Severe: Mild Loss
Severe: Moderate Decrease Severe: Severe Loss
Muscle Mass Non Severe: Mild Decrease Non Severe: Mild Loss
Severe: Moderate Decrease Severe: Severe Loss
Fluid Accumulation Non Severe: Mild Accumulation Non Severe: Mild Accumulation
Severe: Moderate to severe Severe: Moderate to severe
accumulation accumulation
Reduced Song Writer Strength Non Severe: N/A Non Severe: N/A
Severe: Measurably reduced Severe: Measurably reduced
Use of terms such as suspected, likely, concern for, or probable (associated with a specific diagnosis that is being evaluated, monitored, or treated as if it exists) are acceptable and can be coded in the inpatient setting, when documented at the
time of discharge.
Thank you,
Loretta Truner RN
CDI Specialist
[place] [employer]
Please use your independent medical judgment in providing your response.
--- NOTE | 2024-01-31 14:45 | PN.CDI ---
CDI
- -
CDI:
Physician Documentation Request
Admit Date: 01/29/24 17:59
Dear Doctor Vince,
Please review the following and provide your response in the progress notes.
Clinical Indicators:
Pt admitted with Acute on Chronic Systolic CHF
Documented per Wound care panel 01/28 Sacrum stage 2 pressure injury ,silicone border foam placed.
Physician documentation of the type and location of wounds is required for compliant documentation. Based on the above clinical findings and your assessment, please provide the following in your progress note:
1. Location of the ulcer/wound, including laterality.
2. Type (etiology) of ulcer/wound:
- Pressure (decubitus) ulcer
- Non-pressure ulcer
- Other
Use of terms such as suspected, likely, concern for, or probable (associated with a specific diagnosis that is being evaluated, monitored, or treated as if it exists) are acceptable and can be coded in the inpatient setting, when documented at the
time of discharge.
Thank you,
Loretta Turner RN
CDI Specialist
[place] [employer]
Please use your independent medical judgment in providing your response.
*Source: National Pressure Ulcer Advisory Panel (NPUAP)
--- NOTE | 2024-01-31 15:23 | CM ---
Chapis currently appears safe for discharge home with home care; she has used [facility] in the past and agreeable to referral being sent for services after discharge. Cardiac cath is being considered for tomorrow. Case Management will continue to
follow to coordinate discharge plans/needs.
[2024-01-31] MEDS: ALDACTONE PO (16:05)
--- NOTE | 2024-01-31 16:09 | CM ---
[facility] referral placed via [facility].
[2024-01-31 16:41] LABS: Glucose - Point of Care 127 mg/dl (70-99)
[2024-01-31] MEDS: LOVENOX 30 MG SC (17:10)
[2024-01-31] MEDS: LIPITOR 20 MG PO (21:16)
[2024-01-31 21:37] LABS: Glucose - Point of Care 166 mg/dl (70-99)
[2024-02-01] VITALS (14 sets, daily range): BP systolic 107–158; BP diastolic 62–115; BMI 15.3
[2024-02-01] MEDS: TYLENOL PO (02:20)
[2024-02-01] MEDS: TYLENOL 650 MG PO ×4 (03:34→20:15)
[2024-02-01 06:05] LABS: Glucose - Point of Care 161 mg/dl (70-99)
[2024-02-01] MEDS: NOVOLOG FLEXPEN-LOW RESISTANCE 1 UNITS SC ×3 (07:10→18:29)
[2024-02-01] MEDS: DUONEB 3 ML INH ×3 (07:35→19:34)
[2024-02-01] MEDS: ASPIR LOW (ENTERIC COATED) 81 MG PO (07:50)
[2024-02-01] MEDS: LASIX 40 MG IV (07:50)
[2024-02-01] MEDS: TOPROL XL PO (07:51)
[2024-02-01] MEDS: ULTRAM 50 MG PO ×3 (07:51→21:48)
[2024-02-01 07:54] LABS: Blood Urea Nitrogen 18 mg/dl (7-17); Calcium 9.3 mg/dl (8.4-10.2); Carbon Dioxide 26 mmol/L (22-30); Chloride 98 mmol/L (98-107); Estimated Creatinine Clearance 47 ml/min; Glucose 151 mg/dl (70-99); Magnesium 1.6 mg/dl (1.6-2.3); Potassium 5.4 mmol/L (3.5-5.1); Sodium 132 mmol/L (135-145); eGFR > 60.00
[2024-02-01] MEDS: ALDACTONE PO (08:45)
[2024-02-01] MEDS: KCL PO (11:18)
[2024-02-01] MEDS: DUONEB INH (11:26)
[2024-02-01 12:18] LABS: Glucose - Point of Care 172 mg/dl (70-99)
--- NOTE | 2024-02-01 13:48 | W.PN.HOSP.TC ---
Addendum entered and electronically signed by Neftali Clarke MD 02/01/24 17:41:
Mild hyponatremia -continue to follow
Original Note:
Today's Communication/Plan
-
CW lasix
Hold KCL
Assessment / Plan
Assessment / Plan
Acute on Chronic HFrEF
- Echo Oct 2023: Dilated left ventricular with severely reduced left ventricular systolic function of 20-25%. Stage I diastolic dysfunction
- Echo on this admission shows persistently reduced EF currently 19%, moderate MR, stage II diastolic dysfunction.
- Improved clinically and as well as weight.
- Continue Lasix
- status post left heart cath that-official report pending.
Tachycardia-telemetry rhythm discussed with cardiology-thinks A. tach. Continue to follow telemetry.
Continue with beta-miryam
Hyperkalemia - Hold potassium supplements
Macrocytosis
-TSH, vitamin b12 and folate level normal.
Coronary Artery Disease s/p Bare Metal Stent
-cw ASA
Essential Hypertension
-Hold lisinopril
-Continue metoprolol
Hyperlipidemia
-Continue atorvastatin
Diabetes Mellitus, Type II
- HgbA1c 7.0
-Patient is not on any meds as outpatient
-Monitor sugars and continue coverage insulin
COPD, no acute exacerbation
-Continue Duoneb QID
DVT proph: Lovenox
Code Status: Full Code
DW RN
Discussed with son on phone - asked him to expect a call from cards about plan; report of cath not out yet.
Anticipated Discharge: Today
Subjective/Interval History
-
Date of Service: February 01, 2024
seen in IVU post cardiac cath
No CP
No SOB
Lying comfortable flat in bed
Objective Data
-
Labs:
Laboratory Results
02/01/24
06:40
Sodium 132 L
Potassium 5.4 H D
Chloride 98
Carbon Dioxide 26
BUN 18 H
Creatinine 0.5 L
Glucose 151 H
Calcium 9.3
Vital Signs:
Vital Signs
Temp Pulse Resp BP Pulse Ox
97.7 F 106 16 126/113 95
02/01/24 12:11 02/01/24 13:30 02/01/24 12:11 02/01/24 13:00 02/01/24 12:21
I&O
01/31/24 02/01/24 02/02/24
06:59 06:59 06:59
Intake Total 120 / 120 720 / 720
Balance 120 / 120 720 / 720
Review of Systems
-
Constitutional: Denies Fever
EENT: Denies Sore Throat
Respiratory: Denies Cough
Neuro: Denies Dizzy
Physical Exam
-
General: No Apparent Distress
HEENT: Moist Mucous Membranes
Respiratory: Clear to Auscultation
Cardiac: Regular Rhythm and S1/S2
GI: Soft, Nontender, Nondistended and Normal Bowel Sounds
Neuro: AO x 3
Psych: Calm
Data Reviewed
-
Labs: Labs Reviewed by me
--- NOTE | 2024-02-01 14:00 | CM ---
Chart reviewed. Patient is independent of ADLS, lives in apartment 1st floor, ramp or 1 [address]ACH[address], ambulates with a rolling walker and SPC. Plan is for the patient to return home with Jodie. CM to follow
--- NOTE | 2024-02-01 15:34 | PN.CDI ---
CDI
- -
CDI:
Physician Documentation Request
Admit Date: 01/29/24 17:59
Dear Doctor Vince,
Please review the following and provide your response in the progress notes.
Clinical Indicators:
Pt admitted for Acute on Chronic Diastolic CHF on Lasix
Sodium levels as below / Did get IVFs NS
01/31/24 02/01/24
07:39 06:40
Sodium 134 L 132 L
Based on the above, could you clarify in the progress notes, the appropriate diagnosis, if significant, that supports the above abnormalities and additional evaluation, monitoring and/or treatment rendered:
Hyponatremia
Abnormal lab value only
Other
Use of terms such as suspected, likely, concern for, or probable (associated with a specific diagnosis that is being evaluated, monitored, or treated as if it exists) are acceptable and can be coded in the inpatient setting, when documented at the
time of discharge.
Thank you,
Loretta Turner RN
CDI Specialist
[place] [employer]
Please use your independent medical judgment in providing your response.
[2024-02-01] MEDS: TOPROL XL 25 MG PO (15:38)
--- NOTE | 2024-02-01 18:22 | ITS.CL.CATH ---
Potato Sorter - Catheterization
Cardiac Catheterization
Procedure Report:
LEFT HEART CATHETERIZATION
Date of Procedure: February 01, 2024
Referring: Yadiel Barnes D.O.
PROCEDURES:
1. Left heart catheterization, coronary angiogram.
2. Right heart catheterization.
3. Ultrasound-guided access
INDICATION: Chapis is a 73-year-old female with past medical history of hypertension, hyperlipidemia, type 2 diabetes mellitus, active tobacco abuse, myocardial infarction in 2009 with coronary artery disease status post 2.5 mm mini vision
bare-metal stent to proximal and distal OM 2, 2 recent hospitalizations in early October for decompensated heart failure, new cardiomyopathy, influenza and pneumonia and again at the end of October for diarrhea, hypokalemia and heme positive stools,
questionable Plavix allergy with history of rash in 2009 who is being referred for a left and right heart catheterization in the setting of severe LV dysfunction, LVEF of 19%
ACCESS:
1. Bilateral common femoral arterial access with 5 Polish sheath using a micropuncture kit and ultrasound guidance.
2. Right common femoral vein with 6 Polish sheath under ultrasound guidance using a micropuncture kit
HEMODYNAMICS : (mmHg)
We were unable to complete the right heart catheterization as we could not unfortunately advance the catheter from the RV into the PA despite multiple different attempts using wires as well.
RA (m) : 14
RV (s/d,m) : 43/11, 17
PA (s/d, m) : Not obtained
PCWP (m) : Not obtained
PA saturation: Not obtained
AO saturation: 93% on room air
RA saturation: 46.8% on room air
We were unable to calculate any cardiac output/cardiac index, systemic or pulmonary vascular resistance
AO (s/d) : 132/69
LV (s/d) : 132/20
LVEDP : 30
CORONARY FINDINGS
DOMINANCE: Left
LEFT MAIN: There is a dual LAD and left circumflex takeoff. The left circumflex was engaged using a 5 Polish JL 4 diagnostic catheter and the LAD was selectively engaged using a 5 Polish JL 3.5 diagnostic catheter.
LEFT ANTERIOR DESCENDING: The left anterior descending artery is a medium caliber vessel which gives rise to 1 major diagonal branch. There is pressure dampening and ventricularization upon engagement at the ostium with an eccentric 70% stenosis.
Mid LAD at the level of the takeoff of the diagonal branch has a focal 80% stenosis. Both of these lesions are moderately calcified.
CIRCUMFLEX: The left circumflex artery is a small to medium caliber, dominant vessel which gives rise to a high first obtuse marginal branch which courses in a ramus distribution. There is moderate degree of tortuosity and eccentric 50 to 60%
stenosis in the proximal to midportion. Previously stented OM 2 appears to be a chronically occluded vessel with left to left collaterals. The circumflex also gives rise to posterolateral branches and the left posterior descending artery with mild
diffuse atherosclerotic plaque.
RIGHT CORONARY ARTERY: The right coronary artery is a small, nondominant vessel which gives rise to a large RV marginal branch. There is minimal luminal irregularities.
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 Abdominal aorta into the common iliac arteries all the way up to the femoral arteries appear
to be heavily calcified under fluoroscopy. We had some difficulty also on the left side however with some catheter manipulation we were able to successfully advance despite heavily calcified vessel.
SEDATION: 42 minutes of procedural sedation was utilized. An independent medical assistant per diem was present to assist with and help manage the patient's level of consciousness and physiologic status.
RADIATION SUMMARY: Fluoro Time (min): 22.1, Dose (mGy): 241.4, DAP (Gy.cm2) : 25.4
Closure Device: Manual pressure was held at all access sites with successful hemostasis.
CONCLUSIONS
1. Dual LAD and left circumflex takeoff. Left dominant circulation
2. 70% eccentric ostial LAD and 80% focal mid LAD stenosis at the level of the takeoff of the diagonal branch which is moderately calcified.
3. 50 to 60% stenosis in the proximal to midportion of OM1 and a chronically occluded, previously stented OM 2 with left to left collaterals.
3. Significantly elevated LVEDP and RA pressure as noted above.
RECOMMENDATIONS
1. Heart team discussion with patient and CT surgery in regards to management of LAD and left circumflex disease in the setting of severe LV dysfunction, LVEF of 19% along with multiple significant comorbid conditions and severe protein
malnutrition, frailty and cachexia (BMI of 15 kg/m�) and significant peripheral artery disease.
2. In the meantime we will focus on IV diuresis with goal to improve filling pressures.
3. Optimization of goal-directed medical therapy for ischemic cardiomyopathy.
Copy to: Yadiel Barnes D.O.
Isidra Amador MD, FACC, [facility]
[2024-02-01 18:26] LABS: Glucose - Point of Care 180 mg/dl (70-99)
[2024-02-01] MEDS: LOVENOX 30 MG SC (18:28)
--- NOTE | 2024-02-01 18:49 | PTCARENOTE ---
Pt received post cardiac cath done via bilateral femoral groin sites, both dressings dry and intact, no sign of bleeding or hematoma, doppler pedal pulses. Telemetry shows sinus tach/atrial tachycardia to 120. Pt identified as a fall risk, all
precautions in place as well as bed and chair alarms. Pt is oriented but impetuous with impaired gait. Sacrum stage 2 pressure sore present prior to admission. Pt learning about CHF and CAD.
[2024-02-01 21:12] LABS: Glucose - Point of Care 141 mg/dl (70-99)
[2024-02-01] MEDS: LIPITOR 20 MG PO (21:48)
[2024-02-02] VITALS (8 sets, daily range): BP systolic 91–111; BP diastolic 63–86; BMI 14.9
[2024-02-02] MEDS: TYLENOL PO ×2 (03:48→09:49)
[2024-02-02 04:06] LABS: Hematocrit 32.3 % (37.0-47.0); Hemoglobin 10.7 g/dL (12.0-16.0); Mean Corp Hgb Conc. 33.1 g/dL (33.0-37.0); Mean Corpuscular Hgb 35.5 pg (27.0-31.0); Mean Corpuscular Volume 107.3 fL (81.0-99.0); Mean Platelet Volume 10.4 fL (7.4-10.4); Platelet Count 228 10^3/uL (130-400); Red Blood Cell Count 3.01 10^6/uL (4.20-5.40); Red Cell Dist. Width 14.6 % (11.5-14.5); White Blood Cell Count 8.8 10^3/uL (4.8-10.8)
[2024-02-02 04:52] LABS: Blood Urea Nitrogen 15 mg/dl (7-17); Calcium 9.2 mg/dl (8.4-10.2); Carbon Dioxide 25 mmol/L (22-30); Chloride 95 mmol/L (98-107); Estimated Creatinine Clearance 47 ml/min; Glucose 138 mg/dl (70-99); Potassium 4.8 mmol/L (3.5-5.1); Sodium 130 mmol/L (135-145); eGFR > 60.00
[2024-02-02] MEDS: DUONEB 3 ML INH ×3 (07:27→15:09)
[2024-02-02 07:55] LABS: Glucose - Point of Care 150 mg/dl (70-99)
[2024-02-02] MEDS: NOVOLOG FLEXPEN-LOW RESISTANCE 1 UNITS SC (08:17)
[2024-02-02] MEDS: ASPIR LOW (ENTERIC COATED) 81 MG PO (09:48)
[2024-02-02] MEDS: ALDACTONE 12.5 MG PO (09:48)
--- NOTE | 2024-02-02 09:48 | W.PN.HOSP.TC ---
Today's Communication/Plan
-
Continue with medical treatment for CAD and cardiomyopathy.
Follow weights.
Follow sodium.
Assessment / Plan
Assessment / Plan
Acute on Chronic HFrEF
- Echo Oct 2023: Dilated left ventricular with severely reduced left ventricular systolic function of 20-25%. Stage I diastolic dysfunction
- Echo on this admission shows persistently reduced EF currently 19%, moderate MR, stage II diastolic dysfunction.
- Improved clinically and as well as weight.
- Continue Lasix
Multivessel CAD-cardiology input noted. For medical management. Patient asymptomatic without chest pain..
History of coronary Artery Disease s/p Bare Metal Stent
-cw ASA, statins
Tachycardia-telemetry rhythm discussed with cardiology-thinks A. tach. Continue to follow telemetry.
Continue with beta-miryam
Hyperkalemia -resolved.
Hyponatremia-in the setting of CHF. Continue the Lasix. Mild in nature. Continue to follow.
Macrocytosis
-TSH, vitamin b12 and folate level normal.
Essential Hypertension
-Hold lisinopril
-Continue metoprolol
Hyperlipidemia
-Continue atorvastatin
Diabetes Mellitus, Type II
- HgbA1c 7.0
-Patient is not on any meds as outpatient
-Monitor sugars and continue coverage insulin
COPD, no acute exacerbation
-Continue Duoneb QID
DVT proph: Lovenox
Code Status: Full Code
Anticipated Discharge: 24 - 48 hours
Subjective/Interval History
-
Date of Service: February 02, 2024
Patient feels comfortable. No shortness of breath or chest pain.
Objective Data
-
Labs:
Laboratory Results
02/02/24
03:42
WBC 8.8
Hgb 10.7 L
Hct 32.3 L
Plt Count 228
Sodium 130 L
Potassium 4.8
Chloride 95 L
Carbon Dioxide 25
BUN 15
Creatinine 0.5 L
Glucose 138 H
Calcium 9.2
Vital Signs:
Vital Signs
Temp Pulse Resp BP Pulse Ox
98.0 F 94 18 103/68 98
02/02/24 07:00 02/02/24 08:00 02/02/24 07:30 02/02/24 07:07 02/02/24 09:05
I&O
02/01/24 02/02/24 02/03/24
06:59 06:59 06:59
Intake Total 720 / 720 160 / 160
Output Total 400 / 400
Balance 720 / 720 -240 / -240
Review of Systems
-
Constitutional: Denies Fever
Respiratory: Denies Trouble Breathing
Cardiac: Denies Chest Pain or Palpitations
Abdomen/GI: Denies Abdominal Pain, Nausea or Vomiting
Neuro: Denies Dizzy
Physical Exam
-
General: No Apparent Distress
HEENT: Moist Mucous Membranes
Respiratory: Crackles (Right basilar more than left base); Negative Wheezes
Cardiac: Regular Rhythm, S1/S2 and Tachycardic
GI: Soft
Neuro: AO x 3
Data Reviewed
-
Labs: Labs Reviewed by me
[2024-02-02] MEDS: ULTRAM PO ×2 (09:49→16:58)
[2024-02-02] MEDS: LASIX 20 MG IV (09:57)
[2024-02-02] MEDS: TOPROL XL 25 MG PO (10:02)
--- NOTE | 2024-02-02 10:40 | W.PN.CARDCBS ---
Addendum entered and electronically signed by Yennifer Apodaca MD 02/02/24 12:27:
Dr. Amador spoke with the patient's son Jose for 25 minutes and leaning towards medications only and conservative management right now but will confirm with the patient and rest of the family. Will continue ongoing discussions. Continue to
optimize guideline directed medical therapy.
Original Note:
Today's Communication / Plan
-
Await decision with interventional radiology regarding candidacy for high risk LAD intervention.
Continue diuresis.
Guideline directed medical therapy for heart failure with reduced ejection fraction as tolerates.
Nutrition and physical therapy.
Impression / Plan
-
PCP: Dr. Chester De La Fuente
Cardiology: None
Impression:
Coronary artery disease with severe complex LAD lesion 70% ostial and 80% mid with 50 to 60% proximal to mid OM1 lesion.
Cachexia
Acute HFrEF
CM EF 20-25% by echo 10/25/23
CAD s/p MT and 2.5 mm Mini Vision BMS to prox OM-2 and 2.5 mm Mini Vision BMS to distal OM-2 08/28/10
Admitted to with CHF, new CM, influenza and PNA 10/04/23 until 10/17/23
Admitted to with diarrhea, hypokalemia and heme positive stools 10/24/23 until 10/26/23
Possible Plavix allergy with h/o rash in 2009
DM 2
Active smoker
Hypokalemia
Anemia
Echo 2009: EF 46%
Echo 10/05/23: EF 20-25%, stage I diastolic dysfunction, mild MR, no significant or AR, mild TR with PAP 35 mmHg
Cardiac catheterization 02/01/2024: RV pressure 43/11 with mean of 17 other pressures unable to be obtained. LVEDP 30. Dual LAD and left circumflex takeoff. There is a 70% eccentric ostial LAD and 80% focal mid LAD stenosis at the level of the
takeoff of the diagonal branch which is moderately calcified. There is a 50 to 60% stenosis in the proximal to midportion of OM1 and a chronically occluded, previously stented OM 2 with left to left collaterals.
Plan:
Significant coronary disease discussed. High risk for interventional procedure on LAD. CT surgery did see the patient and await official consult. Patient declines any CT surgical intervention.
Interventional cardiology to discuss with her son. They tried to reach yesterday x 2 unsuccessfully.
Given cachexia patient is at high risk for any procedures.
Unknown cause of cachexia but may be cardiac cachexia and failure to thrive.
Heart failure with reduced ejection fraction. Cont IV diuresis. Her wt continues to decrease. Her creatinine is stable.
PT and nutritional consults.
Currently on beta miryam and spironolactone for guideline directed medical treatment in the setting of heart failure with reduced ejection fraction. Eventually add back JONNY inhibitor or Entresto. Hold for now until plan with interventional
cardiology known. Follow blood pressure which is on the low side.
Consider Jardiance if affordable.
Will likely need diuretic as outpt.
Cont to monitor for arrhythmia. She has had PACs and PVCs and PAT atrial tachycardia evelin on monitors. Consider outpt monitor as well. No clear A-fib noted.
HPI: Patient came to [facility] yesterday with months worth of SOB and newer LE edema and is now admitted with acute HF so cardiology has been consulted. Patient lives alone, but her sons visit her weekly and help with grocery shopping. Patient says she
does not have a forestry consultant, but that she saw her PCP twice recently for SOB and PHILLIPS. She says that she started with LE edema within in the last 2 days so she came to [facility]. [place] [id number]. Patient was started on Lasix 40 mg IV daily and her
edema and SOB have improved. Patient was admitted to twice in October, during her initial visit she was teated for PNA and influenza, but also for acute HF. She was diuresed and had an echo that showed a worsened EF down to 20-25%. Patient was
recommended to follow up with cardiology, but never did. Patient was not taking a daily diuretic prior to admission.
Progress Note - Salvage Grinder
Subjective
Date of Service: February 02, 2024
She denies chest pain palpitations and dizziness.
Objective
Labs:
02/02/24 03:42
02/02/24 03:42
Labs
Hgb 10.7 g/dL (12.0-16.0) L 02/02/24 03:42
Hct 32.3 % (37.0-47.0) L 02/02/24 03:42
Plt Count 228 10^3/uL (130-400) 02/02/24 03:42
PT Cancelled 01/29/24 15:51
INR Cancelled 01/29/24 15:51
Sodium 130 mmol/L (135-145) L 02/02/24 03:42
Potassium 4.8 mmol/L (3.5-5.1) 02/02/24 03:42
BUN 15 mg/dl (7-17) 02/02/24 03:42
Creatinine 0.5 mg/dL (0.6-1.0) L 02/02/24 03:42
Glucose 138 mg/dl (70-99) H 02/02/24 03:42
Vital Signs and I&O:
Vital Signs
Temp Pulse Resp BP Pulse Ox
98.0 F 94 18 107/69 98
02/02/24 07:00 02/02/24 10:02 02/02/24 07:30 02/02/24 10:02 02/02/24 09:05
Vital Signs
Temp Pulse Resp BP Pulse Ox
98.0 F 94 18 107/69 98
02/02/24 07:00 02/02/24 10:02 02/02/24 07:30 02/02/24 10:02 02/02/24 09:05
Intake & Output
01/31/24 02/01/24 02/02/24 02/03/24
06:59 06:59 06:59 06:59
Intake Total 120 / 120 720 / 720 160 / 160
Output Total 400 / 400
Balance 120 / 120 720 / 720 -240 / -240
Physical Exam
Physical Exam
General: Cachectic
Heart: Tachycardia lateral PMI, 3/6 apical holosystolic murmur
Lungs: Crackles at the bases bilateral
Extremities: No clubbing, cyanosis or edema bilaterally.
Neuro: Grossly nonfocal, awake, alert
[2024-02-02 12:15] LABS: Glucose - Point of Care 129 mg/dl (70-99)
--- NOTE | 2024-02-02 12:23 | W.PN.UPDATE ---
Update Note
Progress Note Update
Interventional Cardiology Update Note
Spoke to Jose, patient's son at length over the phone just now.
We discussed patients recent admissions and current admission, LVEF 19%, significant LAD CAD, her other co-morbid conditions, severe cachexia and frailty, significant PAD and limited vascular access options etc.
We discussed management options including medications only, vs. medications and high risk PCI vs medications and CABG. We discussed risk and benefits in detail associated with each treatment option.
Similar to patient's view during my conversation yesterday, Jose is also leaning towards medications only option given he says he doesnt think his mom would want additional procedures but rather to just be home. He understands potential risk of
this option including increased morbidity and mortality. He would like the day to discuss again with his mom and remainder of family to make sure everyone on same page and we plan to follow up tomorrow.
For now plan is to continue Iv diuresis given elevated filling pressures and optimized GDMT with goal to discharge home. Requesting CM to weigh in regarding PT/OT and visiting nursing support services at home.
Son knows to reach out with additional questions/concerns.
Discussed all of the above with rounding senior water resources engineer, Dr. Yennifer Apodaca.
Isidra Amador MD, FAC, [facility]
--- NOTE | 2024-02-02 12:46 | CONSULT.CT ---
Consultation
-
Date/Time Consultation Requested: 01/31
Date/Time Consultation Performed: 02/01
Requesting Provider: Isidra Amador
Performing Provider: Chrystal Staley for Shawn Ashton
Reason for Consultation: CABG evaluation
Patient History
Physicians
Family Physician: Raad Randhawa
History of Present Illness
73 year old female with known CAD with prior OM2 stent (2009) and recent admission for decompensated heart failure (10/04-10/17/23) was admitted 01/29/24 for increasing shortness of breath over past week, with associated B/L LE edema and
orthopnea. Pro BNP 15,500 from 3140 (10/2023). TTE on 01/29 reported severely depressed LV function (19%) and cardiac cath on 01/31 reported multivessel CAD. Patient is extremely thin and frail appearing. States she uses a walker @ home for balance.
Patient lives alone and states is able to afford her food and cooks for herself. States max weight was 105lb. Denies dysphagia or dental issues preventing adequate caloric intake.
TTE 01/29:
LVEF 19%. Stage II diastolic dysfunction. Normal right ventricular size and function. Moderate mitral regurgitation.
Cardiac Cath 01/31:
LVEDP 30
DOMINANCE: Left
LEFT MAIN: There is a dual LAD and left circumflex takeoff. The left circumflex was engaged using a 5 Moldovan JL 4 diagnostic catheter and the LAD was selectively engaged using a 5 Moldovan JL 3.5 diagnostic catheter.
LEFT ANTERIOR DESCENDING: The left anterior descending artery is a medium caliber vessel which gives rise to 1 major diagonal branch. There is pressure dampening and ventricularization upon engagement at the ostium with an eccentric 70% stenosis.
Mid LAD at the level of the takeoff of the diagonal branch has a focal 80% stenosis. Both of these lesions are moderately calcified.
CIRCUMFLEX: The left circumflex artery is a small to medium caliber, dominant vessel which gives rise to a high first obtuse marginal branch which courses in a ramus distribution. There is moderate degree of tortuosity and eccentric 50 to 60%
stenosis in the proximal to midportion. Previously stented OM 2 appears to be a chronically occluded vessel with left to left collaterals. The circumflex also gives rise to posterolateral branches and the left posterior descending artery with mild
diffuse atherosclerotic plaque.
RIGHT CORONARY ARTERY: The right coronary artery is a small, nondominant vessel which gives rise to a large RV marginal branch. There is minimal luminal irregularities.
Past Medical History
Past Medical History: CAD (BMS OM2 2009), PHILLIPS, HTN, Hypercholesterolemia, NIDDM ((A1C 7)), [place] (2010), SOB and Other (deformity RUE d/t fracture R radius/ulna; fracture C2 s/p fall; sacral pressure sore)
Past Surgical History
Past Surgical History: Orthopedic (L THR) and Other (umbilical hernia repair)
Family History
Mother: N/A
Father: N/A
Family Medical History: CAD
Social History
Alcohol: None
Drug: None
Tobacco: Former Smoker (quit 10/2023)
Personal:
Living: Alone
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
Allergies
Allergy/AdvReac Type Severity Reaction Status Date / Time
cat dander Allergy Itching Verified 10/24/23 16:42
house dust Allergy SNEEZING Verified 10/24/23 16:42
pollen extracts Allergy SNEEZING Verified 10/24/23 16:42
pregabalin [From Lyrica] Allergy psychosis Verified 10/04/23 17:41
Home Medications
�Medication �Instructions �Recorded �Confirmed �Type
atorvastatin 20 mg tablet 20 mg PO HS High Cholesterol 10/04/23 01/29/24 History
latanoprost 0.005 % eye drops 1 drp BOTH EYES HS glaucoma 10/04/23 01/29/24 History
metoprolol succinate 25 mg 25 mg PO DAILY Blood Pressure 10/04/23 01/29/24 History
tablet,extended release 24 hr
acetaminophen 325 mg tablet 650 mg PO Q6H pain 10/24/23 01/29/24 History
albuterol sulfate 90 mcg/actuation 2 puff inhalation R QIDPRN PRN 01/29/24 01/29/24 History
aerosol inhaler shortness of breath
ipratropium 0.5 mg-albuterol 3 mg 3 ml inhalation R QID 01/29/24 01/29/24 History
(2.5 mg base)/3 mL nebulization Lung/Breathing Issues
soln
lisinopril 5 mg tablet 5 mg PO DAILY Blood Pressure 01/29/24 01/29/24 History
tramadol 50 mg tablet 50 mg PO TID pain 01/29/24 01/29/24 History
Review of Systems
-
History Source: Patient
HEENT: Reports No Symptoms
Respiratory: Reports SOB
Cardiac: Reports Edema
Abdomen/GI: Reports No Symptoms
: Reports No Symptoms
Musculoskeletal: Reports No Symptoms
Skin: Reports Other (sacral pressure sore)
Neurological: Reports No Symptoms
Vascular: Reports No Symptoms
Physical Exam
Vital Signs
Temp 98.0 F 02/02/24 07:00
Temp route: Oral 02/02/24 07:00
Pulse 93 02/02/24 11:24
Rhythm: Normal sinus rhythm 02/02/24 08:10
With- PVC's Monomorphic, Atrial tachycardia 02/02/24 08:10
Resp Rate 16 02/02/24 11:24
Blood pressure 107/69 02/02/24 10:02
Blood pressure extremity used: Right upper arm 02/02/24 07:00
Position: Lying 02/02/24 07:00
MAP (cuff-Pete Monitor) 77 02/02/24 09:51
SaO2 98 02/02/24 09:05
Oxygen Mode of Delivery Room air 02/02/24 09:05
Pulse Ox at Rest 98 01/31/24 10:42
Can the patient verbally communicate their pain? Yes 02/02/24 08:10
Pain scale ratin 02/01/24 15:01
Actual Weight 34.5 kg 02/02/24 06:00
Body Mass Index (BMI) 14.9 02/02/24 06:00
Supine- Blood Pressure 138/83 01/30/24 09:30
Supine- Pulse 107 01/30/24 09:30
Sitting- Blood Pressure 102/63 01/31/24 10:42
Sitting- Pulse 102 01/31/24 10:42
Heart rate after activity 107 01/31/24 10:42
Oxygen Saturation with Activity 98 01/31/24 10:42
Labs
02/02/24 03:42
02/02/24 03:42
PT Cancelled 01/29/24 15:51
Hemoglobin A1c 7.0 % (4.0-5.6) H 01/30/24 06:04
Troponin I 0.019 ng/ml D 01/30/24 01:59
Jxz-D-Lliqpdnhppn Pept 70723 pg/ml 01/29/24 16:05
Exam
General: Other (extremely underweight (BMI 15), frail, chronically ill appearing)
HEENT: PERRLA and Other (temporal wasting)
Neck: JVD (+JVD @ 45 degree HOB elevation; HJR)
Respiratory: Crackles (bibase)
Cardiac: S1/S2, Regular Rhythm, Murmur (II/ HSM LSB 5th ICS), JVD, Carotid Pulses (no bruit) and HJR
GI: Soft, Non Tender and Normal Bowel Sounds
Rectal: Deferred by Provider
Skin: Warm and Dry
Neuro: AO x 3
Extremities: Lower Level Edema (trace B/L tibial edema)
Lymph: No Lymphadenopathy
Psych: Calm
Assessment / Plan
-
73 year old female admitted with decompensated HF (EF 19%) and found to have multivessel coronary disease and PAD with R common iliac occlusion
- Dr Ashton reviewed imaging and spoke with patient who does not want to pursue surgical intervention. Cachexia and severe LV dysfunction make surgical risk prohibitive
- current GDMT includes ASA, beta-miryam, statin, spironolactone with plans to maximize per primary and cardiology teams
STS RISK SCORE
Procedure Type:�Isolated CABG
PERIOPERATIVE OUTCOME ESTIMATE %
Operative Mortality 11.3%
Morbidity & Mortality 25.6%
Stroke 4.15%
Renal Failure 3.71%
Reoperation 7.65%
Prolonged Ventilation 14.9%
Deep Sternal Wound Infection 0.18%
Long Hospital Stay (>14 days) 18%
Short Hospital Stay (<6 days)* 15.4%
Clinical Summary
Planned Surgery: Isolated CABG, Urgent, First cardiovascular surgery
Demographics: 73 year old, White, female, 35.5kg, 152cm, BMI: 15.4 kg/m�
Lab Values: Creatinine: 0.5 mg/dL, Hematocrit: 32.3%, WBC Count: 8.8 10�/�L, Platelet Count: 546566 cells/�L
Substance Abuse: Former smoker
Risk Factors / Comorbidities: Diabetes Mellitus , Hypertension
Pulmonary RF: Mild CLD
Vascular RF: Cerebrovascular Disease: Other CVD, Peripheral Artery Disease
Cardiac Status: Acute heart failure, NYHA Class III, Ejection Fraction = 19%
Coronary Artery Disease: 2 vessels diseased, Proximal LAD Stenosis >=70%, Unstable Angina, [place]: > 21 Days
Valve Disease: Moderate MR
Prev. Cardiac Interv: Previous PCI: At this facility, > 6 hours
Data Reviewed
-
EKG: Report Reviewed by me
Esl Instructor: Report Reviewed by me and Discussed with Physician
Echo: Report Reviewed by me and Discussed with Physician
Radiology: Report Reviewed by me and Discussed with Physician
Labs: Labs Reviewed by me and Discussed with Physician
Old Records: Reviewed
[2024-02-02] MEDS: NOVOLOG FLEXPEN-LOW RESISTANCE SC ×2 (13:03→16:59)
[2024-02-02] MEDS: TYLENOL 650 MG PO ×2 (14:11→20:17)
[2024-02-02 16:48] LABS: Glucose - Point of Care 149 mg/dl (70-99)
[2024-02-02] MEDS: LOVENOX 30 MG SC (17:29)
--- NOTE | 2024-02-02 18:23 | PTCARENOTE ---
Pt 's diet switched to regular, pt eating more protein but still small portions. Pt denies any SOB today, pt OOB independently to bedside commode and walked in halls with PT without problem. Telemetry shows sinus tach/atrial tach @90-110.
[2024-02-02 21:50] LABS: Glucose - Point of Care 152 mg/dl (70-99)
[2024-02-02] MEDS: LIPITOR 20 MG PO (22:28)
[2024-02-02] MEDS: ULTRAM 50 MG PO (22:28)
[2024-02-03] VITALS (7 sets, daily range): BP systolic 105–131; BP diastolic 59–78; BMI 15.2
[2024-02-03] MEDS: TYLENOL PO (02:47)
[2024-02-03 06:00] LABS: Blood Urea Nitrogen 21 mg/dl (7-17); Calcium 8.8 mg/dl (8.4-10.2); Carbon Dioxide 27 mmol/L (22-30); Chloride 96 mmol/L (98-107); Estimated Creatinine Clearance 40 ml/min; Glucose 141 mg/dl (70-99); Potassium 4.3 mmol/L (3.5-5.1); Sodium 131 mmol/L (135-145); eGFR > 60.00
[2024-02-03 08:38] LABS: Glucose - Point of Care 184 mg/dl (70-99)
[2024-02-03] MEDS: TYLENOL 650 MG PO ×3 (08:57→19:55)
[2024-02-03] MEDS: ASPIR LOW (ENTERIC COATED) 81 MG PO (08:57)
[2024-02-03] MEDS: TOPROL XL 25 MG PO ×2 (08:57→19:55)
[2024-02-03] MEDS: ALDACTONE 12.5 MG PO (08:57)
[2024-02-03] MEDS: LASIX 20 MG IV (08:58)
[2024-02-03] MEDS: NOVOLOG FLEXPEN-LOW RESISTANCE 1 UNITS SC ×2 (08:58→17:41)
[2024-02-03] MEDS: ULTRAM PO ×2 (09:33→17:40)
--- NOTE | 2024-02-03 09:35 | W.PN.HOSP.TC ---
Addendum entered and electronically signed by Yennifer Apodaca MD 02/04/24 13:44:
I saw and examined the patient.
The [employer] Consultant's note was reviewed and I agree with the note.
Comment: Patient tolerating low-dose guideline directed medical therapy. Unfortunately SGLT2 inhibitor is not can to be affordable given she does not have prescription coverage.
proBNP has improved from initial now down to 9700. She received 20 mg of IV Lasix today we will give another 20 mg of IV Lasix.
Likely will be able to switch to 40 mg oral Lasix tomorrow.
She will need close follow-up in the office.
Continue medical management of coronary artery disease. Continue medical management of heart failure.
On discharge VN, heart failure team.
On discharge will need chemistry and proBNP in 1 week.
1 week follow-up in office.
Original Note:
Today's Communication/Plan
-
CW Diuretics
DC planning
Assessment / Plan
Assessment / Plan
Acute on Chronic HFrEF
- Echo Oct 2023: Dilated left ventricular with severely reduced left ventricular systolic function of 20-25%. Stage I diastolic dysfunction
- Echo on this admission shows persistently reduced EF currently 19%, moderate MR, stage II diastolic dysfunction.
- Improved clinically and as well as weight.
- Continue Lasix per cards
- GDMT as tolerated
- Cr is ok
Multivessel CAD-cardiology input noted. For medical management -see CTS and cardiology discussions With patient and family in the recommendation.. Patient asymptomatic without chest pain..
History of coronary Artery Disease s/p Bare Metal Stent
-cw ASA, statins
Tachycardia-telemetry rhythm discussed with cardiology-thinks A. tach. Continue to follow telemetry.
Continue with beta-miryam
Hyperkalemia -resolved.
Hyponatremia-in the setting of CHF. Continue the Lasix. Mild in nature. Continue to follow.
Macrocytosis
-TSH, vitamin b12 and folate level normal.
Essential Hypertension
-Hold lisinopril
-Continue metoprolol
Hyperlipidemia
-Continue atorvastatin
Diabetes Mellitus, Type II
- HgbA1c 7.0
-Patient is not on any meds as outpatient
-Monitor sugars and continue coverage insulin
COPD, no acute exacerbation
-Continue Duoneb QID
DVT proph: Lovenox
Code Status: Full Code
DC when ok from cardiology standpoint
Anticipated Discharge: 24 - 48 hours
Subjective/Interval History
-
Date of Service: February 03, 2024
Patient without any chest pain or shortness of breath. Not feeling any dizzy with the new medications.
Objective Data
-
Labs:
Laboratory Results
02/03/24
05:12
Sodium 131 L
Potassium 4.3
Chloride 96 L
Carbon Dioxide 27
BUN 21 H
Creatinine 0.7
Glucose 141 H
Calcium 8.8
Vital Signs:
Vital Signs
Temp Pulse Resp BP Pulse Ox
98.1 F 102 24 131/76 96
02/03/24 08:51 02/03/24 08:57 02/03/24 08:51 02/03/24 08:57 02/03/24 08:51
I&O
02/02/24 02/03/24 02/04/24
06:59 06:59 06:59
Intake Total 160 / 160 420 / 420 120 / 120
Output Total 400 / 400 1400 / 1400 400 / 400
Balance -240 / -240 -980 / -980 -280 / -280
Review of Systems
-
Constitutional: Denies Fever
Respiratory: Denies Cough
Abdomen/GI: Denies Abdominal Pain, Nausea or Vomiting
Physical Exam
-
General: No Apparent Distress
HEENT: Moist Mucous Membranes
Respiratory: Clear to Auscultation
Cardiac: Regular Rhythm and S1/S2
GI: Soft
Neuro: AO x 3
Psych: Calm
Data Reviewed
-
Labs: Labs Reviewed by me
--- NOTE | 2024-02-03 10:08 | W.PN.CARDCBS ---
Today's Communication / Plan
-
After discussion with her son she request conservative management/medical management of coronary artery disease at this time.
Check proBNP in the morning. If elevated would increase diuretic. Weight is flat.
Very low-dose JONNY inhibitor added. Toprol-XL increased.
Await case management assessment of cost of SGLT2 inhibitor.
Primary service has replete electrolytes.
Impression / Plan
-
PCP: Dr. Chester De La Fuente
Cardiology: None
Impression:
Coronary artery disease with severe complex LAD lesion 70% ostial and 80% mid with 50 to 60% proximal to mid OM1 lesion.
Cachexia
Acute HFrEF
CM EF 20-25% by echo 10/25/23
CAD s/p SC and 2.5 mm Mini Vision BMS to prox OM-2 and 2.5 mm Mini Vision BMS to distal OM-2 08/28/10
Admitted to with CHF, new CM, influenza and PNA 10/04/23 until 10/17/23
Admitted to with diarrhea, hypokalemia and heme positive stools 10/24/23 until 10/26/23
Possible Plavix allergy with h/o rash in 2009
DM 2
Active smoker
Hypokalemia
Anemia
Echo 2009: EF 46%
Echo 10/05/23: EF 20-25%, stage I diastolic dysfunction, mild MR, no significant or AR, mild TR with PAP 35 mmHg
Cardiac catheterization 02/01/2024: RV pressure 43/11 with mean of 17 other pressures unable to be obtained. LVEDP 30. Dual LAD and left circumflex takeoff. There is a 70% eccentric ostial LAD and 80% focal mid LAD stenosis at the level of the
takeoff of the diagonal branch which is moderately calcified. There is a 50 to 60% stenosis in the proximal to midportion of OM1 and a chronically occluded, previously stented OM 2 with left to left collaterals.
Plan:
Stable overnight with no complaints. Still feels some shortness of breath but overall improved.
Significant coronary disease discussed and discussed with Dr. Amador and patient's son yesterday as noted. High risk for interventional procedure on LAD. CT surgery did see the patient in consultation. Patient declines any CT surgical
intervention and given comorbidities is not an acceptable candidate.
Interventional cardiology discussed with her son. The patient and her son also discussed. And she request conservative management/medical management of coronary artery disease at this time.
Given cachexia patient is at high risk for any procedures.
Unknown cause of cachexia but may be cardiac cachexia and failure to thrive.
Heart failure with reduced ejection fraction. Her weight is without change overnight. Her diet is liberalized to help with her nutrition. Cont IV diuresis. Her creatinine is stable.
PT and nutritional consults. Check proBNP in the morning. If still elevated may need to increase dose of diuretic.
Currently on beta miryam and spironolactone for guideline directed medical treatment in the setting of heart failure with reduced ejection fraction. At this time had added low-dose JONNY inhibitor and have increased Toprol-XL. Blood pressure is on
the low side. Eventually could consider Entresto if blood pressure is stable. Await case management assessment of cost of SGLT2 inhibitor.
Cont to monitor for arrhythmia. She has had PACs and PVCs and PAT atrial tachycardia previously on monitor. Currently sinus rhythm. No clear A-fib noted.
HPI: Patient came to [facility] yesterday with months worth of SOB and newer LE edema and is now admitted with acute HF so cardiology has been consulted. Patient lives alone, but her sons visit her weekly and help with grocery shopping. Patient says she
does not have a data analyst report writer, but that she saw her PCP twice recently for SOB and PHILLIPS. She says that she started with LE edema within in the last 2 days so she came to [facility]. [place] pro-BNP was 9[address]24. Patient was started on Lasix 40 mg IV daily and her
edema and SOB have improved. Patient was admitted to twice in October, during her initial visit she was teated for PNA and influenza, but also for acute HF. She was diuresed and had an echo that showed a worsened EF down to 20-25%. Patient was
recommended to follow up with cardiology, but never did. Patient was not taking a daily diuretic prior to admission.
Progress Note - Radiation Protection Technician
Subjective
Date of Service: February 03, 2024
Shortness of breath but improving. Denies chest pain and edema.
Objective
Labs:
02/02/24 03:42
02/03/24 05:12
Labs
Hgb 10.7 g/dL (12.0-16.0) L 02/02/24 03:42
Hct 32.3 % (37.0-47.0) L 02/02/24 03:42
Plt Count 228 10^3/uL (130-400) 02/02/24 03:42
PT Cancelled 01/29/24 15:51
INR Cancelled 01/29/24 15:51
Sodium 131 mmol/L (135-145) L 02/03/24 05:12
Potassium 4.3 mmol/L (3.5-5.1) 02/03/24 05:12
BUN 21 mg/dl (7-17) H 02/03/24 05:12
Creatinine 0.7 mg/dL (0.6-1.0) 02/03/24 05:12
Glucose 141 mg/dl (70-99) H 02/03/24 05:12
Vital Signs and I&O:
Vital Signs
Temp Pulse Resp BP Pulse Ox
98.1 F 102 24 131/76 96
02/03/24 08:51 02/03/24 08:57 02/03/24 08:51 02/03/24 08:57 02/03/24 08:51
Vital Signs
Temp Pulse Resp BP Pulse Ox
98.1 F 102 24 131/76 96
02/03/24 08:51 02/03/24 08:57 02/03/24 08:51 02/03/24 08:57 02/03/24 08:51
Intake & Output
0502/02/24 02/03/24 02/04/24
06:59 06:59 06:59 06:59
Intake Total 720 / 720 160 / 160 420 / 420 120 / 120
Output Total 400 / 400 1400 / 1400 400 / 400
Balance 720 / 720 -240 / -240 -980 / -980 -280 / -280
Physical Exam
Physical Exam
General: Cachexia
Neck: JVD 7 cm with positive HJR
Heart: Lateral PMI, RRR, 2/6 basal systolic murmur and positive S3
Lungs: Crackles bilateral
Extremities: No clubbing, cyanosis or edema bilaterally.
Neuro: Grossly nonfocal, awake, alert
[2024-02-03] MEDS: ZESTRIL 2.5 MG PO (10:37)
[2024-02-03 11:51] LABS: Glucose - Point of Care 122 mg/dl (70-99)
[2024-02-03] MEDS: NOVOLOG FLEXPEN-LOW RESISTANCE SC (11:51)
[2024-02-03 16:57] LABS: Glucose - Point of Care 176 mg/dl (70-99)
[2024-02-03] MEDS: LOVENOX 30 MG SC (17:41)
--- NOTE | 2024-02-03 18:12 | PTCARENOTE ---
Pt tolerating lisinopril. Pt enjoying a regular diet but eats small amounts only. Pt walked in [place] with walker @200 feet with a rest group home. Left groin cyst/lipoma noted verified by Chrystal Staley NP. Telemetry shows sinus rhythm at rate of
80-105.
[2024-02-03 22:13] LABS: Glucose - Point of Care 135 mg/dl (70-99)
[2024-02-03] MEDS: LIPITOR 20 MG PO (22:54)
[2024-02-03] MEDS: ULTRAM 50 MG PO (22:57)
[2024-02-04] VITALS (9 sets, daily range): BP systolic 94–106; BP diastolic 52–66; PULSE 81; O2SAT 94; BMI 14.8
--- NOTE | 2024-02-04 01:09 | PTCARENOTE ---
No complaints of pain or discomfort. Sleeping at intervals. SR on the monitor in the 80's.
[2024-02-04] MEDS: TYLENOL PO (02:00)
[2024-02-04 04:29] LABS: Blood Urea Nitrogen 20 mg/dl (7-17); Calcium 8.6 mg/dl (8.4-10.2); Carbon Dioxide 27 mmol/L (22-30); Chloride 98 mmol/L (98-107); Estimated Creatinine Clearance 46 ml/min; Glucose 160 mg/dl (70-99); Sodium 133 mmol/L (135-145); eGFR > 60.00
[2024-02-04 04:36] LABS: NT-proBNP 9700 pg/ml
[2024-02-04 07:03] LABS: Glucose - Point of Care 165 mg/dl (70-99)
--- NOTE | 2024-02-04 08:00 | PTCARENOTE ---
Assumed care of patient at 0645.
Assessed patient and documented in shift assessment. Patient is pleasant, cooperative and appropriate. Presently ordering breakfast. No true complaints.
[2024-02-04] MEDS: TYLENOL 650 MG PO ×3 (08:28→20:01)
[2024-02-04] MEDS: ULTRAM 50 MG PO ×3 (08:28→21:36)
[2024-02-04] MEDS: LASIX 20 MG IV ×2 (08:29→13:45)
[2024-02-04] MEDS: ALDACTONE 12.5 MG PO (08:29)
[2024-02-04] MEDS: ASPIR LOW (ENTERIC COATED) 81 MG PO (08:29)
[2024-02-04] MEDS: TOPROL XL 25 MG PO (08:29)
[2024-02-04] MEDS: NOVOLOG FLEXPEN-LOW RESISTANCE 1 UNITS SC (08:30)
[2024-02-04] MEDS: ZESTRIL 2.5 MG PO (08:30)
--- NOTE | 2024-02-04 09:26 | W.PN.HOSP.TC ---
Today's Communication/Plan
-
IV Lasix today. Monitor renal function.
Assessment / Plan
Assessment / Plan
Physical exam:
General: Acute and chronically ill
HEENT: Normocephalic, Atraumatic and Moist Mucous Membranes
Respiratory: Decreased breath sounds bilateral; Negative Wheezes, Rales or Rhonchi
Cardiac: Regular Rhythm and S1/S2
GI: Soft, Nontender and Nondistended
Musculoskeletal: No Clubbing, No Cyanosis and No Edema
Neuro: Awake, Alert and Oriented
Psych: Calm
A/P:
Acute on Chronic HFrEF
-IV Lasix today by cardiology. Might be able to switch to oral over the next 24 hours
-Cardiology recommend probably schedule oral diuretics upon discharge
-BNP overall down today
Prior to today:
- Echo Oct 2023: Dilated left ventricular with severely reduced left ventricular systolic function of 20-25%. Stage I diastolic dysfunction
- Echo on this admission shows persistently reduced EF currently 19%, moderate MR, stage II diastolic dysfunction.
- Improved clinically and as well as weight.
- Continue Lasix per cards
- GDMT as tolerated
- Cr is ok
Multivessel CAD-cardiology input noted. For medical management -see CTS and cardiology discussions With patient and family in the recommendation.. Patient asymptomatic without chest pain..
History of coronary Artery Disease s/p Bare Metal Stent
-cw ASA, statins
Tachycardia-telemetry rhythm discussed with cardiology-thinks A. tach. Continue to follow telemetry.
Continue with beta-miryam
Hyperkalemia -resolved.
Hyponatremia-in the setting of CHF. Continue the Lasix. Mild in nature. Continue to follow.
Macrocytosis
-TSH, vitamin b12 and folate level normal.
Essential Hypertension
-Hold lisinopril
-Continue metoprolol
Hyperlipidemia
-Continue atorvastatin
Diabetes Mellitus, Type II
- HgbA1c 7.0
-Patient is not on any meds as outpatient
-Monitor sugars and continue coverage insulin
COPD, no acute exacerbation
-Continue Duoneb QID
DVT proph: Lovenox
Code Status: Full Code
Anticipated Discharge: Within 24 hours
Subjective/Interval History
-
Date of Service: February 04, 2024
Patient denies worsening shortness of breath. No chest pain.
Objective Data
-
Labs:
Laboratory Results
02/04/24
03:43
Sodium 133 L
Potassium 4.0
Chloride 98
Carbon Dioxide 27
BUN 20 H
Creatinine 0.5 L
Glucose 160 H
Calcium 8.6
Vital Signs:
Vital Signs
Temp Pulse Resp BP Pulse Ox
98.0 F 80 20 106/59 92
02/04/24 07:06 02/04/24 08:30 02/04/24 07:06 02/04/24 08:30 02/04/24 07:06
I&O
02/03/24 02/04/24 02/05/24
06:59 06:59 06:59
Intake Total 420 / 420 360 / 360 240 / 240
Output Total 1400 / 1400 1600 / 1600
Balance -980 / -980 -1240 / -1240 240 / 240
--- NOTE | 2024-02-04 12:43 | CM ---
Chart reviewed. Patient is independent of ADLS, lives alone a 1st level apartment , [address] along with a ramp, patient uses a rolling walker and wheelchair. Referral sent to [facility]. Plan is for the patient to return home with [facility]. CM to follow
--- NOTE | 2024-02-04 12:44 | CM ---
Pricing on Farxiga and Jardiance through patient's [employer] plan. Patient does not have drug coverage. Printed out information on [employer], along with an application for the patient
--- NOTE | 2024-02-04 13:14 | W.PN.CARDCBS ---
Today's Communication / Plan
-
Lasix 20 mg IV x1 now
Will need to go home on Lasix 20 mg PO daily as well
Agreeable to VN
Impression / Plan
-
PCP: Dr. Chester De La Fuente
Cardiology: None
Impression:
Cachexia
Acute HFrEF
CM EF 20-25% by echo 10/25/23
CAD
s/p TN and 2.5 mm Mini Vision BMS to prox OM-2 and 2.5 mm Mini Vision BMS to distal OM-2 08/28/10
severe complex LAD lesion 70% ostial and 80% mid with 50 to 60% proximal to mid OM1 lesion by cath 02/01/24
Admitted to with CHF, new CM, influenza and PNA 10/04/23 until 10/17/23
Admitted to with diarrhea, hypokalemia and heme positive stools 10/24/23 until 10/26/23
Possible Plavix allergy with h/o rash in 2009
DM 2
Active smoker
Hypokalemia
Anemia
Echo 2009: EF 46%
Echo 10/05/23: EF 20-25%, stage I diastolic dysfunction, mild MR, no significant or AR, mild TR with PAP 35 mmHg
Cardiac catheterization 02/01/2024: RV pressure 43/11 with mean of 17 other pressures unable to be obtained. LVEDP 30. Dual LAD and left circumflex takeoff. There is a 70% eccentric ostial LAD and 80% focal mid LAD stenosis at the level of the
takeoff of the diagonal branch which is moderately calcified. There is a 50 to 60% stenosis in the proximal to midportion of OM1 and a chronically occluded, previously stented OM 2 with left to left collaterals.
Plan:
-pro[place] [address] to 9700. Weight is down 2 lbs overnight after Lasix 20 mg IV x1. Will give another Lasix 20 mg IV x1 now. Patient was not taking a diuretic prior to admission, patient should probably go home on Lasix 20 mg PO daily.
-EF down to 20-25%. LAD disease seen on cath will be medically managed following conversations with patient and her son, Jose. New to aspirin 81 mg daily this admission.
-Outpatient dose of Toprol XL increased to 25 mg BID
-Outpatient dose of lisinopril decreased to 2.5 mg daily
-New to spironolactone 12.5 mg daily
-Cannot add SGLT-2 because patient does not have an Rx plan.
-Cont to monitor for arrhythmia. She has had PACs and PVCs and PAT atrial tachycardia previously on monitor. Currently sinus rhythm. No clear A-fib noted.
-Patient is agreeable to VN, will arrange for cardiology f/u as well
HPI: Patient came to [facility] yesterday with months worth of SOB and newer LE edema and is now admitted with acute HF so cardiology has been consulted. Patient lives alone, but her sons visit her weekly and help with grocery shopping. Patient says she
does not have a animal physiology teacher, but that she saw her PCP twice recently for SOB and PHILLIPS. She says that she started with LE edema within in the last 2 days so she came to [facility]. Her pro-BNP was 84828. Patient was started on Lasix 40 mg IV daily and her
edema and SOB have improved. Patient was admitted to twice in October, during her initial visit she was teated for PNA and influenza, but also for acute HF. She was diuresed and had an echo that showed a worsened EF down to 20-25%. Patient was
recommended to follow up with cardiology, but never did. Patient was not taking a daily diuretic prior to admission.
Progress Note - It Audit Manager
Subjective
Date of Service: February 04, 2024
She says she feels well enough to go home
Objective
Labs:
02/02/24 03:42
02/04/24 03:43
Labs
Hgb 10.7 g/dL (12.0-16.0) L 02/02/24 03:42
Hct 32.3 % (37.0-47.0) L 02/02/24 03:42
Plt Count 228 10^3/uL (130-400) 02/02/24 03:42
PT Cancelled 01/29/24 15:51
INR Cancelled 01/29/24 15:51
Sodium 133 mmol/L (135-145) L 02/04/24 03:43
Potassium 4.0 mmol/L (3.5-5.1) 02/04/24 03:43
BUN 20 mg/dl (7-17) H 02/04/24 03:43
Creatinine 0.5 mg/dL (0.6-1.0) L 02/04/24 03:43
Glucose 160 mg/dl (70-99) H 02/04/24 03:43
Vital Signs and I&O:
Vital Signs
Temp Pulse Resp BP Pulse Ox
97.7 F 84 16 94/52 94
02/04/24 12:15 02/04/24 13:00 02/04/24 12:15 02/04/24 11:19 02/04/24 12:15
Vital Signs
Temp Pulse Resp BP Pulse Ox
97.7 F 84 16 94/52 94
02/04/24 12:15 02/04/24 13:00 02/04/24 12:15 02/04/24 11:19 02/04/24 12:15
Intake & Output
02/02/24 02/03/24 02/04/24 02/05/24
06:59 06:59 06:59 06:59
Intake Total 160 / 160 420 / 420 360 / 360 240 / 240
Output Total 400 / 400 1400 / 1400 1600 / 1600
Balance -240 / -240 -980 / -980 -1240 / -1240 240 / 240
Physical Exam
Physical Exam
GEN: AAO to person, place and situation
HEENT: EOMI, MMM
LUNGS: CTA B/L without wheeze or rales
CV: Reg, S1/S2, no murmur
ABD: soft, BS+, NT, ND
EXT: Trace B/L LE edema. No clubbing, cyanosis or lesions B/L
NEURO: Gross non-focal
SKIN: Warm, dry and pink. No rash
[2024-02-04 13:32] LABS: Glucose - Point of Care 163 mg/dl (70-99)
[2024-02-04] MEDS: NOVOLOG FLEXPEN-LOW RESISTANCE SC ×2 (13:35→16:41)
[2024-02-04 16:42] LABS: Glucose - Point of Care 139 mg/dl (70-99)
[2024-02-04] MEDS: LOVENOX 30 MG SC (17:49)
--- NOTE | 2024-02-04 19:00 | PTCARENOTE ---
Assumed care at 1900. Patient sitting up watching TV. Denies pain, NSR, VSS, call hamilton with in reach
[2024-02-04] MEDS: TOPROL XL PO (20:01)
[2024-02-04 21:36] LABS: Glucose - Point of Care 211 mg/dl (70-99)
[2024-02-04] MEDS: LIPITOR 20 MG PO (21:36)
--- NOTE | 2024-02-04 21:59 | PTCARENOTE ---
Report called to [facility].Patient agreeable to transfer to a telemetry floor
[2024-02-05] MEDS: TYLENOL PO (03:01)
--- NOTE | 2024-02-05 03:30 | PTCARENOTE ---
Patient arrive on unit @2225 from IVU via wheelchair. Patient AAOx3, denies any pain or discomfort, skin assessment completed, oriented to unit, call hamilton within reach.
[2024-02-05 03:43] VITALS: BP 118/72
[2024-02-05 06:00] VITALS: BMI 14.6
[2024-02-05 07:00] VITALS: BP 114/69
[2024-02-05 07:00] LABS: Hematocrit 32.6 % (37.0-47.0); Hemoglobin 10.7 g/dL (12.0-16.0); Mean Corp Hgb Conc. 32.8 g/dL (33.0-37.0); Mean Corpuscular Hgb 35.5 pg (27.0-31.0); Mean Corpuscular Volume 108.3 fL (81.0-99.0); Mean Platelet Volume 10.7 fL (7.4-10.4); Platelet Count 232 10^3/uL (130-400); Red Blood Cell Count 3.01 10^6/uL (4.20-5.40); Red Cell Dist. Width 14.6 % (11.5-14.5); White Blood Cell Count 8.2 10^3/uL (4.8-10.8)
[2024-02-05 07:25] LABS: Blood Urea Nitrogen 15 mg/dl (7-17); Calcium 8.9 mg/dl (8.4-10.2); Carbon Dioxide 31 mmol/L (22-30); Chloride 97 mmol/L (98-107); Estimated Creatinine Clearance 45 ml/min; Glucose 142 mg/dl (70-99); Potassium 4.3 mmol/L (3.5-5.1); Sodium 135 mmol/L (135-145); eGFR > 60.00
[2024-02-05 07:49] LABS: Glucose - Point of Care 149 mg/dl (70-99)
[2024-02-05] MEDS: NOVOLOG FLEXPEN-LOW RESISTANCE SC ×2 (07:53→11:40)
[2024-02-05] MEDS: ULTRAM 50 MG PO ×2 (07:53→15:49)
[2024-02-05] MEDS: ASPIR LOW (ENTERIC COATED) 81 MG PO (07:53)
[2024-02-05] MEDS: ZESTRIL 2.5 MG PO (07:53)
[2024-02-05] MEDS: TOPROL XL 25 MG PO (07:54)
[2024-02-05] MEDS: TYLENOL 650 MG PO ×2 (07:54→13:00)
[2024-02-05] MEDS: ALDACTONE 12.5 MG PO (07:54)
[2024-02-05] MEDS: LASIX 20 MG IV (07:54)
--- NOTE | 2024-02-05 09:00 | W.PN.HOSP.TC ---
Today's Communication/Plan
-
Continue current management. Discharge planning possibly today.
Assessment / Plan
Assessment / Plan
Physical exam:
General: chronically ill
HEENT: Normocephalic, Atraumatic and Moist Mucous Membranes
Respiratory: Decreased breath sounds bilateral; Negative Wheezes, Rales or Rhonchi
Cardiac: Regular Rhythm and S1/S2
GI: Soft, Nontender and Nondistended
Musculoskeletal: No Clubbing, No Cyanosis and No Edema
Neuro: Awake, Alert and Oriented
Psych: Calm
A/P:
Acute on Chronic HFrEF
-IV Lasix by cardiology. Might be able to switch to oral over the next 24 hours
-Cardiology recommend probably schedule oral diuretics upon discharge
-BNP overall down yesterday
-Will arrange for possible discharge today as long as cardiology okay
Prior to today:
- Echo Oct 2023: Dilated left ventricular with severely reduced left ventricular systolic function of 20-25%. Stage I diastolic dysfunction
- Echo on this admission shows persistently reduced EF currently 19%, moderate MR, stage II diastolic dysfunction.
- Improved clinically and as well as weight.
- Continue Lasix per cards
- GDMT as tolerated
- Cr is ok
Multivessel CAD-cardiology input noted. For medical management -see CTS and cardiology discussions With patient and family in the recommendation.. Patient asymptomatic without chest pain..
History of coronary Artery Disease s/p Bare Metal Stent
-cw ASA, statins
Tachycardia-telemetry rhythm discussed with cardiology-thinks A. tach. Continue to follow telemetry.
Continue with beta-miryam
Hyperkalemia -resolved.
Hyponatremia-in the setting of CHF. Continue the Lasix. Mild in nature. Continue to follow.
Macrocytosis
-TSH, vitamin b12 and folate level normal.
Essential Hypertension
-Hold lisinopril
-Continue metoprolol
Hyperlipidemia
-Continue atorvastatin
Diabetes Mellitus, Type II
- HgbA1c 7.0
-Patient is not on any meds as outpatient. Ideally she should be on SGLT-2 inhibitor that cannot afford. Metformin not ideal in heart failure. Will start low-dose of glipizide 2.5 mg p.o. daily.
-Monitor sugars and continue coverage insulin while inpatient.
COPD, no acute exacerbation
-Continue Duoneb QID
DVT proph: Lovenox
Code Status: Full Code
Anticipated Discharge: Today
Subjective/Interval History
-
Date of Service: February 05, 2024
She denies any chest pain or shortness of breath.
Objective Data
-
Labs:
Laboratory Results
02/05/24
06:31
WBC 8.2
Hgb 10.7 L
Hct 32.6 L
Plt Count 232
Sodium 135
Potassium 4.3
Chloride 97 L
Carbon Dioxide 31 H
BUN 15
Creatinine 0.5 L
Glucose 142 H
Calcium 8.9
Vital Signs:
Vital Signs
Temp Pulse Resp BP Pulse Ox
97.6 F 82 18 114/62 96
02/05/24 07:00 02/05/24 07:54 02/05/24 07:00 02/05/24 07:54 02/05/24 07:00
I&O
02/04/24 02/05/24 02/06/24
06:59 06:59 06:59
Intake Total 360 / 360 360 / 360
Output Total 1600 / 1600
Balance -1240 / -1240 360 / 360
--- NOTE | 2024-02-05 09:05 | CM ---
Addendum entered by GAYLA Mejia 02/05/24 15:17:
Patient updated that [facility] is aware of discharge. She had no further questions or concerns.
Addendum entered by GAYLA Mejia 02/05/24 14:14:
Received return call from Breanna who stated that fax# for discharge summary is [phone]
Addendum entered by GAYLA Mejia 02/05/24 13:48:
Placed a call to Breanna at [facility]. Left message to notify her of patient's discharge.
Original Note:
Reviewed chart, patient progressing well in PT. Would like to return home when stable for discharge.
Plan: Case management will continue to follow and assist with discharge planning. Home with [facility].
[2024-02-05 11:00] VITALS: BP 102/53
[2024-02-05 11:40] LABS: Glucose - Point of Care 131 mg/dl (70-99)
--- NOTE | 2024-02-05 11:57 | W.PN.CARDCBS ---
Today's Communication / Plan
-
Change lasix to 20 mg daily.
Wt is down to 74.
VN as outpt
EF 20-25%, LAD seen on cath to be managed medially as family wishes conservative care
Cont ASA.
Cont Toprl and Lisinopril. Toprol XL increased to 25 mg BID and her Lisinopril was decreased to 2.5 mg daily
New to spironolactone 12.5 mg daily
She can not take SGLT-2 because patient does not have an Rx plan.
Outpt follow up with cardiology to be arranged.
Impression / Plan
-
PCP: Dr. Chester De La Fuente
Cardiology: None
Impression:
Cachexia
Acute HFrEF
CM EF 20-25% by echo 10/25/23
CAD
s/p GA and 2.5 mm Mini Vision BMS to prox OM-2 and 2.5 mm Mini Vision BMS to distal OM-2 08/28/10
severe complex LAD lesion 70% ostial and 80% mid with 50 to 60% proximal to mid OM1 lesion by cath 02/01/24
Admitted to with CHF, new CM, influenza and PNA 10/04/23 until 10/17/23
Admitted to with diarrhea, hypokalemia and heme positive stools 10/24/23 until 10/26/23
Possible Plavix allergy with h/o rash in 2009
DM 2
Active smoker
Hypokalemia
Anemia
Echo 2009: EF 46%
Echo 10/05/23: EF 20-25%, stage I diastolic dysfunction, mild MR, no significant or AR, mild TR with PAP 35 mmHg
Cardiac catheterization 02/01/2024: RV pressure 43/11 with mean of 17 other pressures unable to be obtained. LVEDP 30. Dual LAD and left circumflex takeoff. There is a 70% eccentric ostial LAD and 80% focal mid LAD stenosis at the level of the
takeoff of the diagonal branch which is moderately calcified. There is a 50 to 60% stenosis in the proximal to midportion of OM1 and a chronically occluded, previously stented OM 2 with left to left collaterals.
Plan:
Change lasix to 20 mg daily.
Wt is down to 74.
VN as outpt
EF 20-25%, LAD seen on cath to be managed medially as family wishes conservative care
Cont ASA.
Cont Toprl and Lisinopril. Toprol XL increased to 25 mg BID and her Lisinopril was decreased to 2.5 mg daily
New to spironolactone 12.5 mg daily
She can not take SGLT-2 because patient does not have an Rx plan.
Outpt follow up with cardiology to be arranged.
Discussed with primary service
HPI: Patient came to [facility] yesterday with months worth of SOB and newer LE edema and is now admitted with acute HF so cardiology has been consulted. Patient lives alone, but her sons visit her weekly and help with grocery shopping. Patient says she
does not have a manager voice, but that she saw her PCP twice recently for SOB and PHILLIPS. She says that she started with LE edema within in the last 2 days so she came to [facility]. [place] [id number]. Patient was started on Lasix 40 mg IV daily and her
edema and SOB have improved. Patient was admitted to twice in October, during her initial visit she was teated for PNA and influenza, but also for acute HF. She was diuresed and had an echo that showed a worsened EF down to 20-25%. Patient was
recommended to follow up with cardiology, but never did. Patient was not taking a daily diuretic prior to admission.
Progress Note - Adjunct Mathematics Instructor
Subjective
Date of Service: February 05, 2024
Pt seen and examined. No complaints. No chest pain or shortness of breath.
Objective
Labs:
02/05/24 06:31
02/05/24 06:31
Labs
Hgb 10.7 g/dL (12.0-16.0) L 02/05/24 06:31
Hct 32.6 % (37.0-47.0) L 02/05/24 06:31
Plt Count 232 10^3/uL (130-400) 02/05/24 06:31
PT Cancelled 01/29/24 15:51
INR Cancelled 01/29/24 15:51
Sodium 135 mmol/L (135-145) 02/05/24 06:31
Potassium 4.3 mmol/L (3.5-5.1) 02/05/24 06:31
BUN 15 mg/dl (7-17) 02/05/24 06:31
Creatinine 0.5 mg/dL (0.6-1.0) L 02/05/24 06:31
Glucose 142 mg/dl (70-99) H 02/05/24 06:31
Vital Signs and I&O:
Vital Signs
Temp Pulse Resp BP Pulse Ox
98.3 F 80 16 102/53 94
02/05/24 11:00 02/05/24 11:00 02/05/24 11:00 02/05/24 11:00 02/05/24 11:00
Vital Signs
Temp Pulse Resp BP Pulse Ox
98.3 F 80 16 102/53 94
02/05/24 11:00 02/05/24 11:00 02/05/24 11:00 02/05/24 11:00 02/05/24 11:00
Intake & Output
02/03/24 02/04/24 02/05/24 02/06/24
06:59 06:59 06:59 06:59
Intake Total 420 / 420 360 / 360 360 / 360
Output Total 1400 / 1400 1600 / 1600
Balance -980 / -980 -1240 / -1240 360 / 360
Physical Exam
Physical Exam
General: No acute distress, frail appearing
Neck: Negative JVD
Heart: Regular, Negative S3 positive S1/S2, Negative S4, No murmur
Lungs: CTA b/l, negative wheezes/rales/rhonchi
Abd: Positive BS, NT/ND, neg rebound/rigidity/guarding
Ext: Negative cyanosis/clubbing/edema
Neuro: nonfocal
--- NOTE | 2024-02-05 12:10 | W.DCSUMMARY ---
Discharge Summary
Discharge Data
Date of Admission: 01/29/24
Date of Discharge: 02/05/24
-
Pending Results: No
Hospital Course
Patient 73 years old female who has history of CAD, CHF, probable COPD, presented to the hospital with shortness of breath and found to be in decompensated heart failure. She was started on IV Lasix. Cardiology was consulted. Echocardiogram
showed severe reduced left ventricular function at 19% and stage II diastolic dysfunction with moderate mitral regurgitation and global hypokinesis. She underwent cardiac catheterization and was found multiple obstructive CAD and increased filling
pressures. She had the followin% eccentric ostial LAD and 80% focal mid LAD stenosis at the level of the takeoff of the diagonal branch which is moderately calcified and also 50 to 60% stenosis in the proximal to midportion of OM1 and a
chronically occluded, previously stented OM 2 with left to left collaterals. CT surgery was consulted for evaluation. CT surgery noticed that given her underlying multiple comorbidities including but not limited to her severe left ventricular
dysfunction and cachexia makes her surgical risk very prohibitive and also patient and family decided medical management. Her medications were adjusted as per her discharge medications list. Otherwise, patient is hemodynamically stable and feels
symptomatically improved. Overall prognosis remains guarded but noticed improvement during this hospitalization. Cardiology cleared her for discharge today. She will be discharged in stable condition today.
Discharge duration: 38 minutes
Discharge Plan
-
Patient Disposition: Home with Home Care
Discharge Diagnosis/Procedures: Acute on chronic systolic congestive heart failure. Coronary artery disease. Sinus tachycardia. Anemia. Hyponatremia. Hypokalemia. Hypertension. Hyperlipidemia. Diabetes mellitus type 2. Chronic obstructive
pulmonary disease.
Diet: 2 Gram Sodium, Diabetic, Carb Controlled and Restrict fluids to 48 oz
Activity: As tolerated
Blood Work: Please PCP to order CBC, BMP within 1 week.
Other Services: VN
Specialty Instructions: Weigh Daily- Call MD for wt gain/loss 3 lbs overnight/5 lbs in 1 week
Instructions: *PCP/Other Sulky Driver Heart Failure Instructions
Stand Alone Forms: DC Instructions- Cath/EP Lab
Referrals:
[facility] [Outside]
Monica Muir CRNP [Specified Professional Personl] - 02/18/24 4:00 pm
Raad Randhawa MD [Family Provider] -
Prescriptions:
New
aspirin 81 mg Tablet,Delayed Release (Dr/Ec)
81 mg PO DAILY 30 Days Qty: 30 0RF
spironolactone 25 mg Tablet
12.5 mg PO DAILY 30 Days Qty: 15 0RF
metoprolol succinate 25 mg Tablet Extended Release 24 Hr
25 mg PO BID 30 Days Qty: 60 0RF
lisinopril 2.5 mg Tablet
2.5 mg PO DAILY 30 Days Qty: 30 0RF
furosemide [Lasix] 20 mg tablet
20 mg PO DAILY Qty: 30 0RF
glipizide 2.5 mg tablet
2.5 mg PO DAILY Qty: 30 0RF
Continued
latanoprost 0.005 % Drops
1 drp BOTH EYES HS
atorvastatin 20 mg Tablet
20 mg PO HS
acetaminophen 325 mg tablet
650 mg PO Q6H
tramadol 50 mg Tablet
50 mg PO TID
albuterol sulfate 90 mcg/actuation HFA aerosol inhaler
2 puff inhalation R QIDPRN PRN (Reason: shortness of breath )
Changed
ipratropium-albuterol 0.5 mg-3 mg(2.5 mg base)/3 mL solution for nebulization
3 ml inhalation R QID Qty: 90 0RF
Discontinued
metoprolol succinate 25 mg Tablet Extended Release 24 Hr
25 mg PO DAILY
lisinopril 5 mg Tablet
5 mg PO DAILY
Discharge Orders:
Discharge Patient (As Directed); Ordered 02/05/24
Ordered By: Sundar Guerrero
Care Plan Goals
Care Plan Goals:
Problem: Readiness for enhanced knowledge related to diagnosis and treatment plan
Goal: Understand your diagnosis and treatment plan needs, including medications if applicable.
Instructions: Know your diagnosis, underlying causes and treatment plan options, including medications if applicable. Consult with your health care team to learn about your diagnosis and treatment plan, including medications if applicable.
Discharge Date and Time
Discharge Date/Time: 02/05/24 16:32
Print Language: DANISH
[2024-02-05] MEDS: GLUCOTROL 2.5 MG PO (12:56)
[2024-02-05 15:00] VITALS: BP 125/63
--- NOTE | 2024-02-06 08:48 | W.HF.CON ---
Heart Failure
- LV Function
Left ventricular function study result: LV Ejection fraction </= 35%
Ejection Fraction Percentage: 19
- ARNI
Patient already on ARNI: No
Heart Failure ARNI Contraindication: Hypotension
- ACEI/ARB
Patient already on ACEI/ARB: Yes
- Beta Eliu
Patient already on Evidence Based Beta Eliu: Yes
- Mineralocorticord Receptor Antagonist
Patient already on MRA: Yes
- SGLT-2 Inhibitor
Patient already on SGLT-2 Inhibitor: No
Heart Failure SGLT-2 Inhibitor Contraindication: Patient Refusal
- NYHA CHF Classification
NYHA CHF Classification Level: Class III - Symptoms w/ min exertion, interferes w/ nml daily activity (active smoker)
- ACC/AHA Stage
ACC/AHA Stage: Stage C: Symptomatic Heart Failure
== END 2024-02-05 16:32 | disposition home health service (06) | DRG 286 ==
LOC: 3 WEST ACU 17:59
PROVIDERS: Internal Medicine Cardiovascular Disease; Nuclear Medicine Nuclear Cardiology; Nurse Practitioner Adult Health; Physician Assistant Medical; ADMITTING PHYSICIAN Internal Medicine; ATTENDING PHYSICIAN Hospitalist; EMERGENCY PHYSICIAN Emergency Medicine; FAMILY PHYSICIAN Family Medicine; OTHER PHYSICIAN Internal Medicine Cardiovascular Disease; OTHER PHYSICIAN Thoracic Surgery (Cardiothoracic Vascular Surgery)
PROC: B2111ZZ Fluoroscopy of Multiple Coronary Arteries using Low Osmolar Contrast (ICD-10-PCS; 2024-02-01)
PROC: B2151ZZ Fluoroscopy of Left Heart using Low Osmolar Contrast (ICD-10-PCS; 2024-02-01)
PROC: 4A023N8 Measurement of Cardiac Sampling and Pressure, Bilateral, Percutaneous Approach (ICD-10-PCS; 2024-02-01)
DX: I11.0 Hypertensive heart disease with heart failure (principal); E43 Unspecified severe protein-calorie malnutrition; I50.23 Acute on chronic systolic (congestive) heart failure; J44.0 Chronic obstructive pulmonary disease with (acute) lower respiratory infection; Z68.1 Body mass index [BMI] 19.9 or less, adult; E87.1 Hypo-osmolality and hyponatremia; R64 Cachexia; F17.210 Nicotine dependence, cigarettes, uncomplicated; I42.9 Cardiomyopathy, unspecified; Z66 Do not resuscitate; E87.6 Hypokalemia; D75.89 Other specified diseases of blood and blood-forming organs; I25.119 Atherosclerotic heart disease of native coronary artery with unspecified angina pectoris; E78.00 Pure hypercholesterolemia, unspecified; E11.51 Type 2 diabetes mellitus with diabetic peripheral angiopathy without gangrene; L89.152 Pressure ulcer of sacral region, stage 2; E87.5 Hyperkalemia
CPT/HCPCS: 71046; 80048; 80053; 80061; 82607; 82746; 82962; 83036; 83735; 83880; 84443; 84484; 85025; 85027; 93005; 93306; 93460; 94640; 96374; 97116; 97162; 97166; 97530; 99152; 99153; 99285; C1769; C1894; Q9967

== ENCOUNTER 2024-03-27 18:34 | Inpatient (IN) | payer OTHER, SELFPAY ==
[2024-03-27] VITALS (11 sets, daily range): BP systolic 106–140; BP diastolic 64–96; BMI 18.9; BMI 15.6
[2024-03-27 13:21] LABS: % Basophils 0.2 % (0-2); % Immature Granulocytes 0.6 % (0-0.5); % Lymphocytes 7.1 % (20.5-51.1); % Monocytes 2.3 % (1.7-9.3); % Neutrophils 89.8 % (42.2-75.2); Absolute Immature Granulocytes 0.1 10^3/uL (0-0.05); Absolute Lymphocytes 0.7 10^3/uL (1.2-3.4); Absolute Monocytes 0.2 10^3/uL (0.1-0.6); Absolute Neutrophils 9.2 10^3/uL (1.4-6.5); Hematocrit 38.9 % (37.0-47.0); Hemoglobin 13.4 g/dL (12.0-16.0); Mean Corp Hgb Conc. 34.4 g/dL (33.0-37.0); Mean Corpuscular Hgb 34.1 pg (27.0-31.0); Mean Platelet Volume 11.2 fL (7.4-10.4); Nucleated Red Blood Cells % 0.2 %; Platelet Count 209 10^3/uL (130-400); Red Blood Cell Count 3.93 10^6/uL (4.20-5.40); Red Cell Dist. Width 15.7 % (11.5-14.5); White Blood Cell Count 10.2 10^3/uL (4.8-10.8)
[2024-03-27] MEDS: NSS 1000 IV (14:58)
[2024-03-27] MEDS: PROTONIX IV 40 MG IV (15:02)
[2024-03-27 15:12] LABS: Urine Albumin 2+ (Neg - Trace); Urine Bilirubin Negative (Negative); Urine Character Slightly Cloudy (Clear); Urine Color Yellow; Urine Glucose Negative (Negative); Urine Ketone Trace (Negative); Urine Leukocyte 2+ (Negative); Urine Nitrite Negative (Negative); Urine Occult Blood 1+ (Negative); Urine Urobilinogen Negative (Neg - 1+)
[2024-03-27 15:28] LABS: Urine Bacteria Many (Negative); Urine Red Blood Cell 0-2 /HPF (0-2); Urine White Cell 30-40 /HPF (0-5)
[2024-03-27 15:32] LABS: ALT (SGPT) 150 U/L (0-35); AST (SGOT) 156 U/L (14-36); Albumin 3.9 g/dl (3.5-5.0); Alkaline Phosphatase 129 U/L (38-126); Blood Urea Nitrogen 29 mg/dl (7-17); Calcium 9.4 mg/dl (8.4-10.2); Carbon Dioxide 19 mmol/L (22-30); Chloride 99 mmol/L (98-107); Estimated Creatinine Clearance 50 ml/min; Glucose 199 mg/dl (70-99); Lipase 36 U/L (23-300); Potassium 5.2 mmol/L (3.5-5.1); Sodium 132 mmol/L (135-145); Total Bilirubin 1.5 mg/dl (0.2-1.3); Total Protein 6.5 g/dl (6.3-8.2); eGFR > 60.00
--- NOTE | 2024-03-27 15:32 | ED.GENMED ---
History of Present Illness
General
Chief Complaint: Failure to Thrive
Source: patient and family (son)
Exam Limitations: none
Time Seen by Provider: 03/27/24 14:05
Nursing documentation reviewed up to this point in time: agreed with
History of Present Illness
History of Present Illness:
73-year-old female with a past medical history of CAD, CHF, COPD, diabetes who presents to the emergency room with her son for evaluation of shortness of breath and nausea, severe weakness. Patient reports onset of symptoms over the past 24 hours
and have been constant and worsening since that time. She reports that she has been feeling weak since yesterday evening and that last night she had significant nausea and she has been running to the bathroom multiple times to vomit since. She
describes mostly nonbloody vomitus but did have few episodes of dark-colored vomitus prior to arrival. She says she has had some associated diarrhea. She reports increased shortness of breath and increased swelling as compared to usual. She
denies any chest pain. She denies any abdominal pain. She has not had any fevers or chills and has not had any coughing recently. Son notes that she recently started calcium chloride supplementation for hypokalemia in the settings of chronic
diuretic�he thinks that swallowing large pills may be contributory to nausea.
Past History
Past History
ED Past Medical History: HTN, NIDDM and Other (Osteoporosis,)
ED Past Surgical History: Orthopedic (Multiple surgeries right elbow/forearm in 2003. Lumbar laminectomy 1992.) and Other (Umbilical hernia repair.)
Social History
Tobacco: Smoker
Alcohol: Occasional
Drug: None
Personal:
Living: with family
Employment: Disabled
Family History
Family History: Other (PE and coronary disease)
Review of Systems
Review of Systems
All Other Systems: ROS reviewed and negative except as documented in HPI and ROS
Constitutional: Reports fatigue; Denies fever or chills
EENT: Denies sore throat or runny nose
Respiratory: Reports trouble breathing; Denies cough
Cardiac: Denies chest pain or palpitations
ABD/GI: Reports nausea, vomiting and diarrhea; Denies abdominal pain
Musculoskeletal: Reports edema
Neurological: Denies headache
Phy Exam
Physical Exam
Physical Exam:
General: Awake, alert, chronically ill-appearing and cachectic
Head: Normocephalic, atraumatic
Eyes: Conjunctiva normal, EOMI
Throat: Airway intact, handling secretions
Neck: Trachea midline, supple without meningismus
Lungs: Breath sounds somewhat diminished at the lung bases, mildly tachypneic, acceptable pulse ox on room air
Heart: Tachycardia with regular rhythm, no murmurs, gallops, or rubs
Abd: Soft, non distended, nontender
Neuro: Cranial nerves grossly intact, speech fluid
Extremities: Bilateral lower extremity pitting edema, equal pulses in all extremities
Scores
Heart Failure Risk
Heart Failure Risk Score: Yes
History of Stroke or TIA: No
History of intubation for respiratory distress: No
Heart rate on ED arrival >/= 110: Yes
SaO2 <90% on arrival on room air: No
HR >/=110 during 3min walk test (or too ill to perform test): Yes
ECG has acute ischemic changes: No
Urea >/=12mmol/L (BUN 33.6mg/dL): No
Serum CO2>/=35mmol/L: No
Troponin I or T elevated to MO Level (0.4mg/dL): No
NT-proBNP >/=5,000ng/L (5,000pg/ml): Yes
HF Risk Score: 3
Admission Status: HIGH RISK 15.9% Consider SNF treatment or admission to hospital
Heart Score for Chest Pain Patients
STEMI patient?: Not applicable
Withdrawal Assessment of Alcohol
Withdrawal Assessment Completed?: Not applicable
Course
Orders/Labs/Results
Orders:
Orders
03/27/24 12:43
Electrocardiogram (*1) Urgent
Reason for Study: Fatigue / Weakness
03/27/24 12:44
EKG- Treatment ONCE
03/27/24 12:45
Complete Blood Count/With Diff Urgent
03/27/24 14:18
Pantoprazole [Protonix IV] 40 mg IV NOW STA
03/27/24 14:19
0.9% Sodium Chloride 1000 ml [Nss] 1,000 ml IV BOLUS
03/27/24 14:23
CR Chest Portable - 1 View Urgent
Comment:
Reason For Exam: sob
Reason Study Needs to be Portable: Unable to Transport
03/27/24 14:54
Comprehensive Metabolic Panel Urgent
Lipase Urgent
Urinalysis Reflex To Culture Urgent
Date Specimen was Collected: 03/27/24
Time Specimen was Collected: 14:42
Urine Microscopic Reflex Cult Urgent
Urine Culture Urgent
CROW Source: U
Specimen Description:
Date Specimen was Collected: 03/27/24
Time Specimen was Collected: 14:42
03/27/24 15:31
CefTRIAXone [Rocephin] 1,000 mg IV NOW STA
Furosemide [Lasix] 40 mg IV NOW STA
03/27/24 15:45
NT-proBNP Urgent
Troponin I Urgent
Abnormal Lab Results
03/27/24 03/27/24 03/27/24
12:45 14:54 15:45
RBC 3.93 L 10^6/uL
(4.20-5.40)
MCH 34.1 H pg
(27.0-31.0)
RDW 15.7 H %
(11.5-14.5)
MPV 11.2 H fL
(7.4-10.4)
Abs Immat Gran (auto) 0.1 H 10^3/uL
(0-0.05)
Absolute Neuts (auto) 9.2 H 10^3/uL
(1.4-6.5)
Absolute Lymphs (auto) 0.7 L 10^3/uL
(1.2-3.4)
Immature Gran % 0.6 H %
(0-0.5)
Neutrophils % 89.8 H %
(42.2-75.2)
Lymphocytes % 7.1 L %
(20.5-51.1)
Sodium 132 L mmol/L
(135-145)
Potassium 5.2 H mmol/L
(3.5-5.1)
Carbon Dioxide 19 L mmol/L
(22-30)
BUN 29 H mg/dl
(7-17)
Glucose 199 H mg/dl
(70-99)
Total Bilirubin 1.5 H mg/dl
(0.2-1.3)
AST 156 H U/L
(14-36)
ALT 150 H U/L
(0-35)
Alkaline Phosphatase 129 H U/L
(38-126)
Troponin I 0.047 H* ng/ml
Urine Ketones Trace A
(Negative)
Ur Occult Blood Reflex 1+ A
(Negative)
Leukocyte Esterase Rfl 2+ A
(Negative)
Urine WBC (Reflex) 30-40 A /HPF
(0-5)
Urine Bacteria (Reflex) Many A
(Negative)
Urine Albumin (Reflex) 2+ A
(Neg - Trace)
03/27/24 12:45
03/27/24 14:54
Vital Signs
Initial and Last Documented VS:
Initial Vital Signs
BP
140/96
03/27/24 12:37
Last Documented Vital Signs
Temp Pulse Resp BP Pulse Ox
36.9 C 111 25 120/92 97
03/27/24 12:38 03/27/24 13:45 03/27/24 13:45 03/27/24 13:00 03/27/24 13:45
MDM/Problems Addressed
Differential Diagnosis Includes:
Nausea/vomiting: Gastroenteritis, gastritis, pill esophagitis, anginal equivalent
Shortness of breath: CHF, anemia, dehydration, deconditioning, dysrhythmia
MDM/Problems Addressed:
73-year-old female presents to the emergency room for evaluation of nausea, vomiting, profound fatigue and shortness of breath. Vital signs significant for tachycardia and mild tachypnea. Physical exam as above. Plan to place an IV check labs
including a CBC and a CMP, troponin, BNP. Will check urinalysis. Will check chest x-ray. EKG reviewed shows sinus rhythm. Will provide some fluids as she does appear somewhat dry and reports vomiting and diarrhea. Reassess after the above.
Labs reviewed: CBC unremarkable, CMP shows mild hyperkalemia to 5.2, mild transaminitis with markedly elevated proBNP greater than 27,000. Troponin marginally elevated. Chest x-ray shows pulmonary edema. Suspect likely CHF with hepatic congestion
resulting in transaminitis and significantly elevated BNP and troponin. Her urinalysis did show positive bacteria and pyuria, UTI also consideration. She has no abdominal pain or tenderness to suggest cholelithiasis or acute cholecystitis. Will
cover with Rocephin for possible UTI. Will treat with IV Lasix. Fluids were discontinued due to concern for CHF. Will admit for continued management. Case discussed with hospitalist.
Chronic conditions affecting care:
CHF
*Radiology
Radiology exam reviewed: radiology read reviewed
*Pulse Oximetry
Patient hypoxic: no
*EKG
Interpreted by ED Provider?: Yes
Heart Rate: 111
Rate: tachycardiac
Rhythm: sinus
[place]: left axis deviation
QRS Pattern: low voltage
Ischemia: other (Nonspecific T wave abnormalities)
*Critical Care Note
Total Time (30-74mins, 75-104mins- exclusive of procedures): Not Applicable
Data Reviewed
Review of Other/Old Records Reveals: Labs and Records
Source: patient, records and family
Further Testing Considered But Not Given:
Considered need for emergent upper abdominal ultrasound but with no pain or tenderness suspect abnormal LFTs more likely due to CHF
Patient Management
Discussion with other providers: Hospitalist (Discussed with hospitalist)
Escalation/DeEscalation of care consider admission/obs:
Admission indicated
ED Attending Note
-
Portions of this chart may have been created with voice recognition software.� Occasional wrong word or��sound alike� substitutions may have occurred due to the inherent limitations of voice recognition software.
Discharge Plan
Departure
Patient Disposition: Admit
Date of Disposition: 03/27/24
Time of Disposition: 16:40
Admit to doctor: [place]
Presentation/result/management discussed w/ accepting MD/DO: Hospitalist
Discharge Problem:
Acute exacerbation of congestive heart failure, Acute UTI
Prescriptions:
No Action
latanoprost 0.005 % Drops
1 drp BOTH EYES HS
atorvastatin 20 mg Tablet
20 mg PO HS
acetaminophen 325 mg tablet
650 mg PO Q6HPRN PRN (Reason: MILD PAIN)
tramadol 50 mg Tablet
50 mg PO BID
albuterol sulfate 90 mcg/actuation HFA aerosol inhaler
2 puff inhalation R QIDPRN PRN (Reason: shortness of breath )
aspirin 81 mg Tablet,Delayed Release (Dr/Ec)
81 mg PO DAILY 30 Days Qty: 30 0RF
spironolactone 25 mg Tablet
12.5 mg PO DAILY 30 Days Qty: 15 0RF
glipizide 2.5 mg tablet
2.5 mg PO DAILY Qty: 30 0RF
potassium chloride 20 mEq Tablet Extended Release
20 meq PO BID
ipratropium-albuterol 0.5 mg-3 mg(2.5 mg base)/3 mL solution for nebulization
3 ml inhalation R QIDPRN PRN (Reason: sob)
furosemide [Lasix] 20 mg tablet
20 mg PO SUTUTHSA
metoprolol succinate 25 mg tablet extended release 24 hr
25 mg PO DAILY
lisinopril 2.5 mg tablet
5 mg PO DAILY
Referrals:
Chester De La Fuente MD [Family Provider] -
Interventions
Interventions:
*Risk Screen - Suicide Last Done: 03/27/24 12:38
*General Assessment Last Done: 03/27/24 12:38
*Neglect/Abuse Screening Last Done: 03/27/24 12:38
ED- Fall Risk Assessment Last Done: 03/27/24 12:41
*ED COVID-19 Vaccine History Last Done: 03/27/24 12:38
Discharge Date and Time
Print Language: TURKISH
[2024-03-27] MEDS: LASIX 40 MG IV (15:46)
[2024-03-27] MEDS: ROCEPHIN 1000 MG IV (15:46)
[2024-03-27 16:31] LABS: NT-proBNP > 27000 pg/ml; Troponin I 0.047 ng/ml
--- NOTE | 2024-03-27 16:56 | HPS.HSE ---
Family Physician
-
Family Physician: Chester De La Fuente
Chief Complaint
-
Shortness of breath
History of Present Illness
73F CAD stent Multivessel Disease, HFrEF, COPD, Diabetes p/w shortness of breath, nausea, vomiting, severe weakness. Progressively worsening over past 24 hours. Reports nonbloody vomitus but few episodes of dark-colored vomitus prior to arrival.
Patient also reported diarrhea. Reported leg swelling with associate 10 lb weight gain since discharge from this facility a month ago. Ambulates with walker at baseline. Denied chest abdominal pain fevers chills coughing. Stable respiratory
status on room air, sinus tachy, afebrile, BP stable, labs were notable for mild hyponatremia hyperkalemia transaminitis and significant BNP elevation>75171 (increased from last BNP 9700). CXR noted cardiomegaly w/ mild pulm edema and small left
pleural effusion.
Medical History
Past Medical History
Past Medical History: Reports Other (as above)
Past Surgical History: Reports Other (as above)
Social History
Tobacco: Former Smoker (smoked for years before quitting in October)
Alcohol: Occasional
Drug: None
Personal:
Living: Alone
Family History
Family History: Not pertinent (reviewed)
Allergies / Home Medications
Allergies reflects when Allergies were last updated in [facility].
Home Medications with original date entered in [facility]
Allergy/Medication List:
Allergies
Allergy/AdvReac Type Severity Reaction Status Date / Time
cat dander Allergy Itching Verified 10/24/23 16:42
house dust Allergy SNEEZING Verified 10/24/23 16:42
pollen extracts Allergy SNEEZING Verified 10/24/23 16:42
pregabalin [From Lyrica] Allergy psychosis Verified 10/04/23 17:41
Home Medications
atorvastatin 20 mg tablet 20 mg PO HS High Cholesterol 10/04/23
latanoprost 0.005 % eye drops 1 drp BOTH EYES HS glaucoma 10/04/23
acetaminophen 325 mg tablet 650 mg PO Q6HPRN PRN MILD PAIN 10/24/23
albuterol sulfate 90 mcg/actuation aerosol inhaler 2 puff inhalation R QIDPRN PRN shortness of breath 01/29/24
tramadol 50 mg tablet 50 mg PO BID pain 01/29/24
aspirin 81 mg tablet,delayed release 81 mg PO DAILY 30 days #30 tabs 02/05/24
glipizide 2.5 mg tablet 2.5 mg PO DAILY #30 tabs 02/05/24
spironolactone 25 mg tablet 12.5 mg (1/2 x 25 mg) PO DAILY 30 days #15 tabs 02/05/24
furosemide 20 mg tablet (Lasix) 20 mg PO SUTUTHSA 03/27/24
ipratropium 0.5 mg-albuterol 3 mg (2.5 mg base)/3 mL nebulization soln 3 ml inhalation R QIDPRN PRN sob 03/27/24
lisinopril 2.5 mg tablet 5 mg PO DAILY 03/27/24
metoprolol succinate 25 mg tablet,extended release 24 hr 25 mg PO DAILY 03/27/24
potassium chloride 20 mEq tablet,extended release 20 meq PO BID 03/27/24
Review of Systems
-
A 12 point ROS was completed and negative except as noted: Yes
Constitutional: Reports Other (as below)
Physical Exam
Vital Signs
Vital Signs
Temp Pulse Resp BP Pulse Ox
98.4 F 111 27 124/77 96
03/27/24 12:38 03/27/24 16:30 03/27/24 16:30 03/27/24 16:00 03/27/24 16:30
Physical Exam
General: Other (as below)
Laboratory Results
-
03/27/24 12:45
03/27/24 14:54
Laboratory Results
Total Bilirubin 1.5 mg/dl (0.2-1.3) H 03/27/24 14:54
AST 156 U/L (14-36) H 03/27/24 14:54
ALT 150 U/L (0-35) H 03/27/24 14:54
Alkaline Phosphatase 129 U/L (38-126) H 03/27/24 14:54
Troponin I 0.047 ng/ml H* 03/27/24 15:45
Lipase 36 U/L (23-300) 03/27/24 14:54
Impression/Plan
-
ROS
General: Denies fever chills night sweats unexpected weight loss
Neuro: Denies seizure shaking loss of consciousness dizziness vertigo
Psych: denies depression hallucinations confusion manic episodes
Endocrine: Denies polyuria polydipsia polyphagia heat/cold intolerance
HEENT: Denies blindness visual disturbances epistaxis
Pulmonary: denies coughing hemoptysis sneezing sob dyspnea on exertion
Cardiovascular: denies chest pain palpitations leg swelling
Hematology: denies signs symptoms of anemia easy bruising/bleeding
Gastrointestinal: denies nausea vomiting diarrhea constipation hematemesis hematochezia melena
Genito-Urinary: denies retention incontinence dysuria
Musculoskeletal: denies joint pain weakness
Dermatology: denies rash laceration bruising
Physical Exam
General: No pallor, cyanosis, or jaundice. Cachectic Appearing
HEENT: Throat clear. PERRLA Normocephalic atraumatic
NECK: Supple. No JVD Carotid Bruits
RESPIRATORY: Bibasilar crackles
CVS: Sinus tachy. No murmur, rub or gallop.
ABDOMEN: Soft, non-tender. No distension. BS+/normal.
EXTREMITIES: No peripheral cyanosis. +2 pitting edema lower ext's.
CUSTOMER SERVICE DRIVER: AOx3.
IMPRESSION:
73F CAD stent Multivessel Disease, HFrEF, COPD, Diabetes p/w shortness of breath, nausea, vomiting, severe weakness. Progressively worsening over past 24 hours. Reports nonbloody vomitus but few episodes of dark-colored vomitus prior to arrival.
Patient also reported diarrhea. Reported leg swelling with associate 10 lb weight gain since discharge from this facility a month ago. Ambulates with walker at baseline. Denied chest abdominal pain fevers chills coughing. Stable respiratory
status on room air, sinus tachy, afebrile, BP stable, labs were notable for mild hyponatremia hyperkalemia transaminitis and significant BNP elevation>39419 (increased from last BNP 9700). CXR noted cardiomegaly w/ mild pulm edema and small left
pleural effusion
PLAN:
#Acute on Chronic HFrEF
#CAD stent Multivessel Disease
Tele admit
daily weights I/O
Lasix 40 mg IV BID
Cardio eval
Check ECHO
cont home metoprolol with holding parameters
cont ASA statin
cont home metoprolol with holding parameters
lisinopril and spironolactone on hold d/t hyperkalemia
#Mild Hyponatremia likely d/t fluid overload
monitor
#Mild Hyperkalemia
will likely correct with lasix diuresis
monitor
#Urinalysis suggestive UTI
Patient however denies urinary symptoms
received IV ceftriaxone in ED
follow urine cx
observe off abx at this time
#Nausea/vomiting/diarrhea
appears resolved at this time
will cont to monitor
#SIRs criteria positive tachycardia tachypnea
most likely d/t heart failure
check lactic acid procalcitatonin
#COPD
no wheezing noted
stable respiratory status room air
Xopenex prn d/t tachycardia
#Diabetes
Low dose sliding scale
cont home glipizide
#Glaucoma
cont home latanoprost
dvt ppx Lovenox
Full Code as per patient
I spent a total of 80 minutes with the patient or on the floor. More than 50% of this time involved counseling and coordination of care.
--- NOTE | 2024-03-27 19:12 | EDRN ---
Report received, patient yelling needed to go to the bathroom, placed on bedpan and pulled up in bed, will be going upstairs shortly. Made sure call hamilton working for patient so she doesn't have to yell
[2024-03-27 20:08] LABS: Lactic Acid 1.9 mmol/L (0.7-2.0)
[2024-03-27 20:24] LABS: Procalcitonin 0.11 ng/ml (0.0-0.25)
[2024-03-27 20:57] LABS: Troponin I 0.108 ng/ml
[2024-03-27 21:01] LABS: COVID-19 Antigen Negative (Negative)
[2024-03-27] MEDS: XALATAN OPHTHALMIC SOLUTION 1 DROP BOTH EYES (21:49)
[2024-03-27] MEDS: TYLENOL 650 MG PO (21:49)
[2024-03-27] MEDS: LIPITOR 20 MG PO (21:49)
[2024-03-27 23:58] LABS: Glucose - Point of Care 139 mg/dl (70-99)
[2024-03-28] VITALS (24 sets, daily range): BP systolic 88–133; BP diastolic 51–83; BMI 15.4
--- NOTE | 2024-03-28 00:55 | PTCARENOTE ---
Addendum entered by Reed Sanabria RN 03/28/24 07:41:
Pt hr in 99-115 not sustaining. PT asymptomatic.resting comfortably.
Addendum entered by Reed Sanabria RN 03/28/24 06:30:
INTERNET SECURITY SPECIALIST made aware of pt Troponin level is 0.144. Pt asymptomatic, pt resting comfortably. Denies pain or SOB.No new orders at this time.Plan of care continued.
Original Note:
Pt received from ER oob with 1 person assist. LUMBER STRAIGHTENER installation specialist made aware of pt repeat troponin 0.108 & before 0.047. EKG done as ordered.Plan of care continued as ordered.Pt oriented to room & call hamilton in reach.
[2024-03-28 03:42] LABS: Troponin I 0.144 ng/ml
[2024-03-28 07:07] LABS: Glucose - Point of Care 114 mg/dl (70-99)
--- NOTE | 2024-03-28 07:20 | W.PN.HOSP.TC ---
Today's Communication/Plan
-
cont diuresis
Transfer to IVU, nitro gtt as per cardio
pain control
Glycemic control
Assessment / Plan
Assessment / Plan
Physical Exam
General: No pallor, cyanosis, or jaundice. Cachectic Appearing
HEENT: Throat clear. PERRLA Normocephalic atraumatic
NECK: Supple. No JVD Carotid Bruits
RESPIRATORY: Bibasilar crackles
CVS: Sinus tachy. No murmur, rub or gallop.
ABDOMEN: Soft, non-tender. No distension. BS+/normal.
EXTREMITIES: No peripheral cyanosis. +2 pitting edema lower ext's.
COMMAND AND CONTROL OFFICER: AOx3.
IMPRESSION:
73F CAD stent Multivessel Disease, HFrEF, COPD, Diabetes p/w shortness of breath, nausea, vomiting, severe weakness. Progressively worsening over past 24 hours. Reports nonbloody vomitus but few episodes of dark-colored vomitus prior to arrival.
Patient also reported diarrhea. Reported leg swelling with associate 10 lb weight gain since discharge from this facility a month ago. Ambulates with walker at baseline. Denied chest abdominal pain fevers chills coughing. Stable respiratory
status on room air, sinus tachy, afebrile, BP stable, labs were notable for mild hyponatremia hyperkalemia transaminitis and significant BNP elevation>62581 (increased from last BNP 9700). CXR noted cardiomegaly w/ mild pulm edema and small left
pleural effusion
PLAN:
#Acute on Chronic HFrEF
#CAD stent Multivessel Disease
Tele admit transferred to IVU as per cardiology significant concern incipient cardiogenic shock
daily weights I/O
Lasix 40 mg IV BID
Cardio eval appreciated nitro gtt started prn morphine
ECHO appreciated EF 10-15% mod severe MR
BB discontinued as per cardio
cont ASA statin
lisinopril and spironolactone on hold d/t hyperkalemia
Troponin trended to peak 0.144 since trended down
#Mild Hyponatremia likely d/t fluid overload
improved w/ diuresis
#Mild Hyperkalemia
resolved w/ diuresis
#Urinalysis suggestive UTI
Patient however denies urinary symptoms
received IV ceftriaxone in ED
urine cx notes mixed sunitha
observe off abx at this time
#Nausea/vomiting/diarrhea
appears resolved at this time
will cont to monitor
#SIRs criteria positive tachycardia tachypnea
most likely d/t heart failure
lactic acid procalcitatonin wnl
#COPD
no wheezing noted
stable respiratory status room air
Xopenex prn d/t tachycardia
#Diabetes
Low dose sliding scale
cont home glipizide
#Glaucoma
cont home latanoprost
dvt ppx Lovenox
DNR as per patient's discussion w/ cardio, patient agreeable to pressor use if necesary
discussed with patient and updated patient's son Temo over phone.
Total Critical Care Time___40__ minutes. I was immediately available to the patient and staff. I personally examined, reviewed labs, diagnostic images/reports, interpretations, treatment plans, discussed patient care with other providers, patient
and her son Temo, entered orders as appropriate and documented the medical record.
Anticipated Discharge: > 48 hours
Subjective/Interval History
-
Date of Service: March 28, 2024
Seen and examined at bedside in no acute distress resting comfortably in bed. Stable respiratory status on room air at rest. Endorses exertional dyspnea. Lower ext swelling significantly improved since start of diuresis.
Objective Data
-
Labs:
Laboratory Results
03/28/24
06:00
WBC Pending
Hgb Pending
Hct Pending
Plt Count Pending
Sodium Pending
Potassium Pending
Chloride Pending
Carbon Dioxide Pending
BUN Pending
Creatinine Pending
Glucose Pending
Calcium Pending
Total Bilirubin Pending
AST Pending
ALT Pending
Alkaline Phosphatase Pending
Vital Signs:
Vital Signs
Temp Pulse Resp BP Pulse Ox
98.2 F 108 16 131/76 93
03/28/24 03:35 03/28/24 03:35 03/28/24 03:35 03/28/24 03:35 03/28/24 05:50
I&O
03/27/24 03/28/24 03/29/24
06:59 06:59 06:59
Intake Total 480 / 480
Output Total 700 / 700
Balance -220 / -220
--- NOTE | 2024-03-28 08:27 | CON.CAR ---
Addendum entered and electronically signed by Christine Cornelius PA-C 03/28/24 11:55:
discussed with patient's son, Jose via telephone for 8:49 and updated. he is very in tune with his mother's medical conditions and care. he expressed understanding of severity of her conditions. he confirmed her code status wishes as outlined below
as consistent with what they had previously discussed. He states she did not respond as well on 20mg lasix days as she did on 40mg lasix days, so we discussed increased po lasix dose upon DC. we also discussed that more frequent OP visits would
hopefully help to prevent decompensations such as this and would help to keep her out of the hospital. For time being she may need to be followed closely with visits every 1-2 months.
Addendum entered and electronically signed by Tino Blunt MD 03/28/24 11:33:
Complex 73-year-old woman admitted yesterday with chest pain and CHF, proBNP greater than 70,000, troponin of approximately 0.2. History of 2 bare-metal stents to the obtuse marginal for non-ST segment elevation VA in 2009, lost to cardiac
follow-up until October 2023 at which time she had influenza A with bacterial pneumonia and EF 20-25%. Subsequently patient underwent cardiac catheterization early January with LVEDP 30, cloacal left main with ostial 70% LAD followed by 80% mid LAD
stenosis with 50 to 60% mid circumflex and occluded obtuse marginal with nondominant RCA, turndown for CABG and PCI. She had very severe peripheral arterial disease. EF was approximately 20%'s. Now readmitted with chest pain, marginal blood
pressure, heart rate 110, proBNP greater than 27,000, normal lactic acid and peak troponin 0.144. Intermittent mild waxing and waning chest pressure. EKG without acute ST segment changes, sinus tach, right axis deviation, low voltage, nonspecific
T wave changes, PVCs
PMH: CAD, ischemic cardiomyopathy, EF 20-25%, influenza pneumonia in October 2023, diabetes, ongoing smoker, cachexia, COPD, glaucoma, history of UTIs, hyponatremia, decubitus ulcers, peripheral arterial disease, degenerative joint disease,
hypertension, hyperlipidemia
PSH: Lumbar surgery, umbilical hernia, cervical spine surgery, left hip, ORIF right arm
Tobacco: Reports ongoing tobacco use alcohol occasional, , lives alone, 2 sons
FH: Not pertinent
Allergies: Lyrica, possibly Plavix
Outpatient meds: Acetaminophen, albuterol, aspirin 81 mg a day, atorvastatin 20 mg a day, furosemide 20 mg 4 days a week, glipizide, DuoNebs,Potassium, spironolactone, tramadol
Current meds: Reviewed
ROS negative except as above
108/62, pulse 110, respiratory 20, afebrile, sats 93%
Cachectic, chronically ill, mildly distressed, temporal wasting, dentition poor, diminished breath sounds with some crackles, neck veins probably elevated, tachycardic, soft MR murmur urged, abdomen scaphoid, extremities with edema, distal pulses
diminished
Chest x-ray: Small left effusion, vascular congestion, COPD
White count 11.2, hemoglobin 12, platelets 175, BUN and creatinine 31 and 0.7
Echo: Global hypokinesis, EF 19%, normal RV, mildly dilated left atrium, moderate MR, aortic sclerosis, could not determine right heart pressure
Impression:
Ischemic cardiomyopathy with acute on chronic HFrEF and ischemic myocardial injury related to increased demand in the setting of HFrEF and CAD
Severe CAD, not amenable to PCI or CABG given comorbidities
Severe PAD
Diabetes
Hypertension
Hyperlipidemia
COPD
History of OM PCI 2009
History of spinal surgery
Tobacco abuse
DNR
Plan:
She presents with acute on chronic HFrEF and ongoing chest pain with what is likely incipient cardiogenic shock.
She is not a candidate for intervention based on her recent catheterization with severe comorbidities. She is now appropriately a DNR.
Options are very limited and risk for in-hospital mortality is significant. Long-term prognosis is very guarded.
At present, we will try to optimize treatment of heart failure and hopefully will alleviate ongoing angina. Her Killip class is high, she has a resting tachycardia with a marginal blood pressure and evidence of heart failure.
Will continue IV Lasix and use morphine and IV nitro. Currently she is not a candidate for beta-miryam.
It may be that best option will be ivabradine. Currently this is contraindicated with acute HFrEF but if we can stabilize her this may be of great benefit if she remains tachycardic as I suspect she will.
Ideally would like to add an SGLT2 antagonist, resume spironolactone, and JONNY inhibitor or possibly even Entresto. However it is unclear we can ever stabilize her to the point where we can institute these things.
The next step can be determined based upon her clinical response. Our team has updated her son.
Original Note:
Consultation
Consultation Request
Date/Time Consultation Performed: 03/28/24
Requesting Provider: Dr. Calabrese
Performing Provider: Christine Cornelius PA-C for Dr. LUPILLO Blunt
Reason for Consultation: CHF
Medical History
-
Chief Complaint: N/V/D
History of Present Illness:
Patient is a 73-year-old female with past medical history of multivessel CAD, previously turndown for CABG/intervention, so medically managed with ischemic cardiomyopathy EF 20 to 25% by echo 10/2023, chronic heart failure with reduced EF, type 2
diabetes, ongoing tobacco use who presents to due to complaints of N/V/D, LE edema. She had called to report weight gain to our office 03/11/24. She was placed on dose of po lasix 40mg MWF and 20mg SuTuThSa at office visit 02/26, so she was
recommended taking 40mg po lasix for following 3 days then go back to prior dosing. She then had blood work 03/17 with K of 3.1. She was prescribed potassium pills on 03/24 and advised to take 60mEq for 3 days then decrease to 20mEq BID. She states
she took this however then started with N/V/D and dark stools. She also reported continued LE edema. K 5.2, ProBNP on arrival >77115. This morning she complains of waxing and waning L chest discomfort and heart burn symptoms up to her neck/throat.
EKG sinus tachycardia. most recent trop 0.144. She lives alone independently. She has 2 sons, one of which lives locally. She reports compliance with her medications.
PMH:
Chronic HFrEF
ICM EF 20-25% by echo 10/25/23
CAD
s/p VA and 2.5 mm Mini Vision BMS to prox OM-2 and 2.5 mm Mini Vision BMS to distal OM-2 08/28/10
severe complex LAD lesion 70% ostial and 80% mid with 50 to 60% proximal to mid OM1 lesion by cath 02/01/24
Admitted to with CHF, new CM, influenza and PNA 10/04/23 until 10/17/23
Admitted to with diarrhea, hypokalemia and heme positive stools 10/24/23 until 10/26/23
Possible Plavix allergy with h/o rash in 2009
DM 2
Active smoker
Past Medical History
Past Medical History: Other (in HPI)
Past Surgical History: Cardiac (OM-2 BMS x2 2009) and Orthopedic
Social History
Tobacco: Smoker (10/02 ppd now)
Alcohol: None
Drug: None
Living: Alone
Family History
Family History: CAD and Other (FH of PE in brother and 2 sisters)
Allergies / Home Medications
Allergy/AdvReac Type Severity Reaction Status Date / Time
cat dander Allergy Itching Verified 10/24/23 16:42
house dust Allergy SNEEZING Verified 10/24/23 16:42
pollen extracts Allergy SNEEZING Verified 10/24/23 16:42
pregabalin [From Lyrica] Allergy psychosis Verified 10/04/23 17:41
�Medication �Instructions �Recorded �Confirmed �Type
atorvastatin 20 mg tablet 20 mg PO HS High Cholesterol 10/04/23 03/27/24 History
latanoprost 0.005 % eye drops 1 drp BOTH EYES HS glaucoma 10/04/23 03/27/24 History
acetaminophen 325 mg tablet 650 mg PO Q6HPRN PRN MILD PAIN 10/24/23 03/27/24 History
albuterol sulfate 90 mcg/actuation 2 puff inhalation R QIDPRN PRN 01/29/24 03/27/24 History
aerosol inhaler shortness of breath
tramadol 50 mg tablet 50 mg PO BID pain 01/29/24 03/27/24 History
aspirin 81 mg tablet,delayed 81 mg PO DAILY 30 days #30 tabs 02/05/24 03/27/24 Rx
release
glipizide 2.5 mg tablet 2.5 mg PO DAILY #30 tabs 02/05/24 03/27/24 Rx
spironolactone 25 mg tablet 12.5 mg (1/2 x 25 mg) PO DAILY 30 02/05/24 03/27/24 Rx
days #15 tabs
furosemide 20 mg tablet (Lasix) 20 mg PO SUTUTHSA 03/27/24 03/27/24 History
ipratropium 0.5 mg-albuterol 3 mg 3 ml inhalation R QIDPRN PRN sob 03/27/24 03/27/24 History
(2.5 mg base)/3 mL nebulization
soln
lisinopril 2.5 mg tablet 5 mg PO DAILY 03/27/24 03/27/24 History
metoprolol succinate 25 mg 25 mg PO DAILY 03/27/24 03/27/24 History
tablet,extended release 24 hr
potassium chloride 20 mEq 20 meq PO BID 03/27/24 03/27/24 History
tablet,extended release
Review of Systems
-
History Source: Patient
All other systems: Negative unless noted
Physical Exam
Vital Signs
Temp Pulse Resp BP Pulse Ox
98.2 F 108 16 131/76 93
03/28/24 03:35 03/28/24 03:35 03/28/24 03:35 03/28/24 03:35 03/28/24 05:50
Lab Results
Troponin I 0.144 ng/ml H* D 03/28/24 02:57
Sux-S-Jlwprheobul Pept > 80477 pg/ml 03/27/24 15:45
Physical Exam
General: Other (frail, cachectic, chronically ill appearing)
HEENT: Anicteric and Moist Mucous Membranes
Respiratory: Crackles and Non Labored Respirations
Cardiac: S1/S2, Regular Rhythm and Murmur
GI: Soft, Non Tender, Non Distended and Normal Bowel Sounds
Musculoskeletal: No Clubbing, No Cyanosis and Edema (trace of B/L LE)
Skin: Warm and Dry
Neuro: AO x 3
Impression / Plan
-
Primary Automotive Airconditioning Mechanic: Dr. Malik
Assessment:
Presentation with N/V/D
Acute on chronic HFrEF
Concern for cardiogenic shock
Sinus tachycardia
Elevated LFTs
CP with elevated troponin, suspected type 2
ICM EF 20-25% by echo 10/25/23
CAD
s/p VA and 2.5 mm Mini Vision BMS to prox OM-2 and 2.5 mm Mini Vision BMS to distal OM-2 08/28/10
severe complex LAD lesion 70% ostial and 80% mid with 50 to 60% proximal to mid OM1 lesion by cath 02/01/24
Admitted to with CHF, new CM, influenza and PNA 10/04/23 until 10/17/23
Admitted to with diarrhea, hypokalemia and heme positive stools 10/24/23 until 10/26/23
Possible Plavix allergy with h/o rash in 2009
DM 2
Active smoker
Hypomagnesemia
ECHO 10/05/23: EF 20 to 25%, stage I diastolic dysfunction, dilated LV, MAC, mild MR, mild TR, PAP 35 mmHg, IVC dilated
ECHO 01/30/2024: EF 19%, global hypokinesis, stage II diastolic dysfunction, moderate MR, aortic sclerosis
Plan:
-Patient presents with nausea/vomiting/diarrhea in the setting of recent supplemental potassium initiation
-Holding further potassium at this time as potassium on arrival was 5.2
-Concern for cardiogenic shock with sinus tachycardia, elevated LFTs in setting of acute CHF with known significant ischemic cardiomyopathy from multivessel CAD with no revascularization options
-She complains of waxing and waning left-sided chest discomfort with 'heartburn' and radiation up to her neck and throat. obtained stat trop and EKG.
-Troponin peaked at 0.144 and trending down
-EKG sinus tachycardia with prior septal infarct, no evidence of acute ST changes
-proBNP greater than 27,000 on arrival. Chest x-ray with mild pulmonary edema and small left pleural effusion. Continue diuresis. Creatinine stable at 0.7. During 01/2024 admission, weight was ~75 pounds, dry weight unclear.
-transfer patient to IVU, order placed. d/w hospitalist and nursing
-IV morphine x1 ordered
-plan for IV nitro gtt @5 as concern her chest pain is ischemic. if hypotensive with this, could consider utility of inotrope.
-BPs fortunately stable. continue toprol with hold parameters. holding OP lisinopril/spironolactone
-continue asa, statin
-replete mag
-will give dose of maalox x1
-discussed code status with patient. she wishes to be DNR, however is agreeable to pressors if needed, but no intubation, compressions, defibrillation.
-prognosis appears poor
-comfort/hospice care would be appropriate
-will call to update patient's son
-CCT 35 minutes
Data Reviewed
-
EKG: Tracing Personally Visualized and interpreted
Radiology: Report Reviewed by me
Medical Tests (Nuc Med, Echo etc): Report Reviewed by me
Labs: Labs Reviewed by me
Old Records: Reviewed
[2024-03-28 08:50] LABS: Hematocrit 36.2 % (37.0-47.0); Mean Corp Hgb Conc. 33.1 g/dL (33.0-37.0); Mean Corpuscular Hgb 33.4 pg (27.0-31.0); Mean Corpuscular Volume 100.8 fL (81.0-99.0); Mean Platelet Volume 11.3 fL (7.4-10.4); Platelet Count 175 10^3/uL (130-400); Red Blood Cell Count 3.59 10^6/uL (4.20-5.40); Red Cell Dist. Width 15.9 % (11.5-14.5); White Blood Cell Count 11.2 10^3/uL (4.8-10.8)
[2024-03-28] MEDS: NOVOLOG FLEXPEN-LOW RESISTANCE SC ×3 (08:59→17:35)
[2024-03-28] MEDS: GLUCOTROL 2.5 MG PO (09:00)
[2024-03-28] MEDS: LASIX 40 MG IV ×2 (09:03→17:36)
[2024-03-28] MEDS: ASPIR LOW (ENTERIC COATED) 81 MG PO (09:04)
[2024-03-28] MEDS: TOPROL XL 25 MG PO (09:17)
[2024-03-28 09:28] LABS: ALT (SGPT) 150 U/L (0-35); AST (SGOT) 142 U/L (14-36); Albumin 3.8 g/dl (3.5-5.0); Alkaline Phosphatase 110 U/L (38-126); Blood Urea Nitrogen 31 mg/dl (7-17); Calcium 8.9 mg/dl (8.4-10.2); Carbon Dioxide 21 mmol/L (22-30); Chloride 102 mmol/L (98-107); Estimated Creatinine Clearance 43 ml/min; Glucose 112 mg/dl (70-99); Magnesium 1.3 mg/dl (1.6-2.3); Phosphorus 4.6 mg/dl (2.5-4.5); Potassium 4.4 mmol/L (3.5-5.1); Sodium 135 mmol/L (135-145); Total Bilirubin 1.1 mg/dl (0.2-1.3); Total Protein 6.3 g/dl (6.3-8.2); eGFR > 60.00
[2024-03-28 09:29] LABS: Troponin I 0.102 ng/ml
--- NOTE | 2024-03-28 09:30 | PTCARENOTE ---
Patient with complaints of chest pain that is substernal and radiates into neck area. EKG done. Troponin pending. Cardiology aware. Patient made DNR. DNR band placed. Cardiology will update patient's son.
[2024-03-28] MEDS: MAGNESIUM SULFATE 50 IV (09:40)
[2024-03-28] MEDS: MORPHINE SULFATE 1 MG IV (09:48)
--- NOTE | 2024-03-28 09:50 | PTCARENOTE ---
Patient given 0.5 mg IV morphine for CP. Morphine wasted as per protocol with another RN and was not scanned due to disposal in sharps bin. Patient started on Magnesium IV as ordered. Mag - 1.2 this morning.
[2024-03-28 09:52] LABS: TSH Reflex To Free T4 1.24 uIU/ml (0.47-4.68)
[2024-03-28] MEDS: NITROGLYCERIN PREMIX 250 IV (10:58)
--- NOTE | 2024-03-28 11:00 | PTCARENOTE ---
Report called to IVU RN. Patient transferred in bed to IVU without incident.
[2024-03-28] MEDS: MAALOX 30 ML PO (11:23)
[2024-03-28] MEDS: PROTONIX IV 40 MG IV (11:24)
[2024-03-28] MEDS: NSS (PRESERVATIVE FREE) 10 ML IV (11:24)
[2024-03-28] MEDS: DESENEX/MITRAZOL/ZEASORB 1 APPLIC TOPICAL ×2 (11:25→20:14)
--- NOTE | 2024-03-28 14:26 | PTCARENOTE ---
received pt from 4th floor. started nitro gtt due to CP 2/10. VSS. Pt is SR on the monitor, hr in the 80s-90s. pt c/o CP 2/10 radiating from sternum to back. pt found relief from CP with nitro gtt. pt also c/o of indigestion, maalox given as
ordered, see documentation. pt educated on plan of care and pt verbalized understanding of plan. call hamilton within reach.
--- NOTE | 2024-03-28 15:29 | CM ---
Reviewed chart. Met with Mrs. Cool to review discharge plans. She states prior to admission she resides alone in a first floor apartment with one step. She states theere is a ramp also. She states prior to admission she ambulates with a rolling
walker. She states she has a wheelchair she also uses for mobility. She states she has had [facility] in the past. She states she has been to SNF/Rehab at [facility] in the past. She states she has denise son who are supportive. One
resides locally and one in [place]. Her son in [place] stops in to see her on Sunday and helps with preparing food and cleaning. Will need to see her functional level to see if she will have any skilled care needs. If she needs SNF/Rehab. will
need to pre-cert with her insurance. Medical work-up in progress. The discharge plan is to return home with resumption of [facility] versus SNF/Rehab. if indicated when medically stable.
[2024-03-28 17:03] LABS: Glucose - Point of Care 130 mg/dl (70-99)
[2024-03-28] MEDS: LOVENOX 40 MG SC (17:36)
--- NOTE | 2024-03-28 19:13 | PTCARENOTE ---
pt continues to be SR/ST on the monitor, hr in the 90s-100s, vss. pt offers no complaints at this time. son is at bedside visiting. pt educated on plan of care and pt verbalized understanding. nitro gtt running per protocol, see documentation. call
hamilton within reach.
[2024-03-28 21:34] LABS: Glucose - Point of Care 165 mg/dl (70-99)
[2024-03-28] MEDS: XALATAN OPHTHALMIC SOLUTION 1 DROP BOTH EYES (22:23)
[2024-03-28] MEDS: LIPITOR 20 MG PO (22:23)
[2024-03-29] VITALS (11 sets, daily range): BP systolic 92–132; BP diastolic 48–81; BMI 13.7
--- NOTE | 2024-03-29 02:27 | PTCARENOTE ---
Patient drowsy but awakens easily to voice. SR-ST on the monitor. NTG drip continues at 5mcg/min. Patient without complaints.
--- NOTE | 2024-03-29 07:11 | W.PN.HOSP.TC ---
Today's Communication/Plan
-
diuresis
low dose lisinopril as per cardio
maalox w/ meals
glycemic control
Assessment / Plan
Assessment / Plan
Physical Exam
General: No pallor, cyanosis, or jaundice. Cachectic Appearing
HEENT: Throat clear. PERRLA Normocephalic atraumatic
NECK: Supple. No JVD Carotid Bruits
RESPIRATORY: Bibasilar crackles
CVS: Sinus tachy. No murmur, rub or gallop.
ABDOMEN: Soft, non-tender. No distension. BS+/normal.
EXTREMITIES: No peripheral cyanosis. +2 pitting edema lower ext's.
SKIP LOAD DRIVER: AOx3.
IMPRESSION:
73F CAD stent Multivessel Disease, HFrEF, COPD, Diabetes p/w shortness of breath, nausea, vomiting, severe weakness. Progressively worsening over past 24 hours. Reports nonbloody vomitus but few episodes of dark-colored vomitus prior to arrival.
Patient also reported diarrhea. Reported leg swelling with associate 10 lb weight gain since discharge from this facility a month ago. Ambulates with walker at baseline. Denied chest abdominal pain fevers chills coughing. Stable respiratory
status on room air, sinus tachy, afebrile, BP stable, labs were notable for mild hyponatremia hyperkalemia transaminitis and significant BNP elevation>[id number] (increased from last BNP 9700). CXR noted cardiomegaly w/ mild pulm edema and small left
pleural effusion
PLAN:
#Acute on Chronic HFrEF
#CAD stent Multivessel Disease
Tele admit transferred to IVU as per cardiology significant concern incipient cardiogenic shock
daily weights I/O
Lasix 40 mg IV BID
Cardio eval appreciated briefly treated w/ nitro gtt since completed
prn morphine
ECHO appreciated EF 10-15% mod severe MR
BB on hold as per cardio
cont ASA statin
lisinopril and spironolactone held d/t hyperkalemia since resolved
Lisinopril resumed 2.5 mg bid as per cardio
Troponin trended to peak 0.144 since trended down
#GERD/heartburn w/ meals
cont ppi
maalox w/ meals started
#Mild Hyponatremia likely d/t fluid overload
improved w/ diuresis
#Mild Hyperkalemia
resolved w/ diuresis
#Hypomagnesemia
monitor and replete as necessary
#Urinalysis suggestive UTI (ruled out)
Patient however denies urinary symptoms
received IV ceftriaxone in ED
urine cx notes mixed sunitha
observe off abx at this time
#Nausea/vomiting/diarrhea
appears resolved at this time
will cont to monitor
#SIRs criteria positive tachycardia tachypnea
most likely d/t heart failure
lactic acid procalcitonin wnl
#COPD
no wheezing noted
stable respiratory status room air
Xopenex prn d/t tachycardia
#Diabetes
Low dose sliding scale
cont home glipizide
#Glaucoma
cont home latanoprost
dvt ppx Lovenox
DNR as per patient's discussion w/ cardio, patient agreeable to pressor use if necesary
discussed with patient and updated patient's son Jose over phone.
I spent a total of 55 minutes with the patient or on the floor. More than 50% of this time involved counseling and coordination of care.
Anticipated Discharge: Today
Subjective/Interval History
-
Date of Service: March 29, 2024
Seen and examined at bedside in no acute distress sitting up comfortably in chair. Reports heartburn with meal. Continues to report exertional dyspnea.
Objective Data
-
Labs:
Laboratory Results
03/29/24
06:00
WBC Pending
Hgb Pending
Hct Pending
Plt Count Pending
Sodium Pending
Potassium Pending
Chloride Pending
Carbon Dioxide Pending
BUN Pending
Creatinine Pending
Glucose Pending
Calcium Pending
Total Bilirubin Pending
AST Pending
ALT Pending
Alkaline Phosphatase Pending
Vital Signs:
Vital Signs
Temp Pulse Resp BP Pulse Ox
98.3 F 102 20 117/79 95
03/29/24 06:48 03/29/24 06:48 03/29/24 04:46 03/29/24 04:47 03/29/24 06:48
I&O
03/28/24 03/29/24 03/30/24
06:59 06:59 06:59
Intake Total 480 / 480 240 / 240
Output Total 700 / 700 875 / 875
Balance -220 / -220 -635 / -635
[2024-03-29 08:41] LABS: Glucose - Point of Care 117 mg/dl (70-99)
[2024-03-29] MEDS: ZESTRIL 2.5 MG PO ×2 (08:43→19:35)
[2024-03-29] MEDS: NOVOLOG FLEXPEN-LOW RESISTANCE SC ×2 (08:43→16:55)
[2024-03-29] MEDS: GLUCOTROL 2.5 MG PO (08:43)
[2024-03-29] MEDS: ASPIR LOW (ENTERIC COATED) 81 MG PO (08:43)
[2024-03-29] MEDS: NSS (PRESERVATIVE FREE) 10 ML IV (08:44)
[2024-03-29] MEDS: PROTONIX IV 40 MG IV (08:44)
[2024-03-29] MEDS: LASIX 40 MG IV ×2 (08:44→16:07)
[2024-03-29] MEDS: FLUSH (NSS) 1 FLUSH IV ×2 (08:49→16:09)
--- NOTE | 2024-03-29 08:52 | W.PN.CARDCBS ---
Today's Communication / Plan
-
Low-dose afterload reduction
Diuresis
Follow labs
Prognosis poor
Impression / Plan
-
Primary Warehouse Supervisor: Dr. Malik
Assessment:
Presentation with N/V/D
Acute on chronic HFrEF
Concern for cardiogenic shock
Sinus tachycardia
Elevated LFTs
CP with elevated troponin, suspected type 2
ICM EF 20-25% by echo 10/25/23
CAD
s/p MT and 2.5 mm Mini Vision BMS to prox OM-2 and 2.5 mm Mini Vision BMS to distal OM-2 08/28/10
severe complex LAD lesion 70% ostial and 80% mid with 50 to 60% proximal to mid OM1 lesion by cath 02/01/24
Admitted to with CHF, new CM, influenza and PNA 10/04/23 until 10/17/23
Admitted to with diarrhea, hypokalemia and heme positive stools 10/24/23 until 10/26/23
Possible Plavix allergy with h/o rash in 2009
DM 2
Active smoker
Hypomagnesemia
ECHO 10/05/23: EF 20 to 25%, stage I diastolic dysfunction, dilated LV, MAC, mild MR, mild TR, PAP 35 mmHg, IVC dilated
ECHO 01/30/2024: EF 19%, global hypokinesis, stage II diastolic dysfunction, moderate MR, aortic sclerosis
Plan:
-Patient presents with nausea/vomiting/diarrhea in the setting of recent supplemental potassium initiation
-Concern for cardiogenic shock with sinus tachycardia, elevated LFTs in setting of acute CHF with known significant ischemic cardiomyopathy from multivessel CAD with no revascularization options
-EKG sinus tachycardia with prior septal infarct, no evidence of acute ST changes
-proBNP greater than 27,000 on arrival. Chest x-ray with mild pulmonary edema and small left pleural effusion. Continue diuresis. Creatinine stable at 0.7. During 01/2024 admission, weight was ~75 pounds, dry weight unclear.
-plan for IV nitro gtt @5 as concern her chest pain is ischemic. if hypotensive with this, could consider utility of inotrope.
-Holding Toprol for now but will plan to resume in the next few days
-continue asa, statin
-discussed code status with patient. she wishes to be DNR, however is agreeable to pressors if needed, but no intubation, compressions, defibrillation.
-Continue diuresis
-Will add low-dose lisinopril given relatively tolerable blood pressures for some afterload reduction to see if we can improve diuresis and cardiac performance. Follow daily BMP particularly potassium
Progress Note - Warehouse Supervisor
Subjective
Date of Service: March 29, 2024
Total Time Spent with Patient (in minutes): Feels about the same
Objective
Labs:
Labs
Hgb 12.0 g/dL (12.0-16.0) 03/28/24 08:38
Hct 36.2 % (37.0-47.0) L 03/28/24 08:38
Plt Count 175 10^3/uL (130-400) 03/28/24 08:38
Sodium 135 mmol/L (135-145) 03/28/24 08:38
Potassium 4.4 mmol/L (3.5-5.1) 03/28/24 08:38
BUN 31 mg/dl (7-17) H 03/28/24 08:38
Creatinine 0.7 mg/dL (0.6-1.0) 03/28/24 08:38
Glucose 112 mg/dl (70-99) H 03/28/24 08:38
Troponins
03/27/24 03/27/24 03/27/24
14:54 15:45 20:27
Troponin I Cancelled 0.047 H* 0.108 H* D
03/28/24 03/28/24 03/28/24
02:57 08:38 08:59
Troponin I 0.144 H* D 0.102 H* D Cancelled
03/28/24
14:00
Troponin I Cancelled
Vital Signs and I&O:
Vital Signs
Temp Pulse Resp BP Pulse Ox
98.3 F 105 20 129/81 95
03/29/24 06:48 03/29/24 08:44 03/29/24 04:46 03/29/24 08:44 03/29/24 06:48
Vital Signs
Temp Pulse Resp BP Pulse Ox
98.3 F 105 20 129/81 95
03/29/24 06:48 03/29/24 08:44 03/29/24 04:46 03/29/24 08:44 03/29/24 06:48
Intake & Output
03/27/24 03/28/24 03/29/24 03/30/24
06:59 06:59 06:59 06:59
Intake Total 480 / 480 240 / 240
Output Total 700 / 700 875 / 875
Balance -220 / -220 -635 / -635
Physical Exam
Physical Exam
�
����Physical Exam
�
��������������������General:�Cachectic, distress
�
��������������������������Neck:� supple. no meningeal signs. normal psoterior pharynx
������������������������
���������������������������Heart:� s1/s2 regular rate and rhythm, no murmur. equal radial pulses.
�
��������������������������Lungs:�� no acute respiratory distress. clear bilaterally
�
����������������������Abdomen:normal bowel sounds. not tender. no CVAT
�
��������������������������Neuro:� alert and oriented. no focal neurological deficits
�
������������������������������Skin:�� no rash
�
�����������������������Psychiatric:well kept. interactive and cooperative
�
����������������������Extremities:� no edema. no calf tenderness. negative homans. good distal pulses
�
�
�
��
�
[2024-03-29 09:04] LABS: Hematocrit 37.5 % (37.0-47.0); Hemoglobin 12.4 g/dL (12.0-16.0); Mean Corp Hgb Conc. 33.1 g/dL (33.0-37.0); Mean Corpuscular Hgb 33.2 pg (27.0-31.0); Mean Corpuscular Volume 100.5 fL (81.0-99.0); Mean Platelet Volume 10.9 fL (7.4-10.4); Platelet Count 199 10^3/uL (130-400); Red Blood Cell Count 3.73 10^6/uL (4.20-5.40); Red Cell Dist. Width 15.8 % (11.5-14.5); White Blood Cell Count 9.1 10^3/uL (4.8-10.8)
[2024-03-29 09:22] LABS: ALT (SGPT) 148 U/L (0-35); AST (SGOT) 110 U/L (14-36); Albumin 3.6 g/dl (3.5-5.0); Alkaline Phosphatase 110 U/L (38-126); Blood Urea Nitrogen 21 mg/dl (7-17); Calcium 8.6 mg/dl (8.4-10.2); Carbon Dioxide 33 mmol/L (22-30); Chloride 96 mmol/L (98-107); Estimated Creatinine Clearance 50 ml/min; Glucose 120 mg/dl (70-99); Magnesium 1.4 mg/dl (1.6-2.3); Phosphorus 3.5 mg/dl (2.5-4.5); Potassium 3.6 mmol/L (3.5-5.1); Sodium 136 mmol/L (135-145); Total Bilirubin 1.1 mg/dl (0.2-1.3); Total Protein 6.1 g/dl (6.3-8.2); eGFR > 60.00
[2024-03-29] MEDS: MAGNESIUM SULFATE 50 IV (10:09)
[2024-03-29] MEDS: MAALOX 30 ML PO ×3 (10:09→16:08)
--- NOTE | 2024-03-29 10:16 | PTCARENOTE ---
received patient this am in bed, patient awake, oriented, patient states that it is difficult for her to walk with out assistance, informed patient that we will use walker for her to get OOB today for meals, patient verbalizes understanding. morning
labs were drawn by me and sent to lab. mag level 1.4, supplemented as ordered please see MAR. INT in right ant. leaking, therefore D/C'd. patient c/o indigestion, Maalox po given as ordered. IV nitroglycerin @ 5mcg or .8cc/hr via left arm without
difficulties. monitor shows NSR, VSS.
[2024-03-29] MEDS: DESENEX/MITRAZOL/ZEASORB 1 APPLIC TOPICAL ×2 (12:48→19:34)
[2024-03-29 12:51] LABS: Glucose - Point of Care 161 mg/dl (70-99)
[2024-03-29] MEDS: NOVOLOG FLEXPEN-LOW RESISTANCE 1 UNITS SC (13:26)
[2024-03-29] MEDS: TYLENOL 650 MG PO (16:25)
[2024-03-29 16:47] LABS: Glucose - Point of Care 88 mg/dl (70-99)
[2024-03-29] MEDS: LOVENOX 40 MG SC (17:14)
[2024-03-29] MEDS: LIPITOR 20 MG PO (21:39)
[2024-03-29] MEDS: XALATAN OPHTHALMIC SOLUTION 1 DROP BOTH EYES (21:39)
[2024-03-29 22:03] LABS: Glucose - Point of Care 114 mg/dl (70-99)
[2024-03-30] VITALS (14 sets, daily range): BP systolic 82–119; BP diastolic 54–77; PULSE 103; O2SAT 88; BMI 13.3
--- NOTE | 2024-03-30 00:40 | SUR.OPER ---
Denies any complaints of pain or discomfort. Sleeping at intervals, Silicone border foam changed to sacral area, skin intact. Purewick in use thru the nite.
[2024-03-30 05:01] LABS: Hematocrit 35.5 % (37.0-47.0); Hemoglobin 12.1 g/dL (12.0-16.0); Mean Corp Hgb Conc. 34.1 g/dL (33.0-37.0); Mean Corpuscular Hgb 33.2 pg (27.0-31.0); Mean Corpuscular Volume 97.3 fL (81.0-99.0); Mean Platelet Volume 10.6 fL (7.4-10.4); Platelet Count 211 10^3/uL (130-400); Red Blood Cell Count 3.65 10^6/uL (4.20-5.40); Red Cell Dist. Width 15.5 % (11.5-14.5); White Blood Cell Count 10.3 10^3/uL (4.8-10.8)
[2024-03-30 05:17] LABS: ALT (SGPT) 128 U/L (0-35); AST (SGOT) 92 U/L (14-36); Albumin 3.5 g/dl (3.5-5.0); Alkaline Phosphatase 117 U/L (38-126); Blood Urea Nitrogen 19 mg/dl (7-17); Calcium 8.5 mg/dl (8.4-10.2); Carbon Dioxide 35 mmol/L (22-30); Chloride 91 mmol/L (98-107); Estimated Creatinine Clearance 44 ml/min; Glucose 103 mg/dl (70-99); Magnesium 1.6 mg/dl (1.6-2.3); Potassium 3.1 mmol/L (3.5-5.1); Sodium 133 mmol/L (135-145); Total Bilirubin 1.2 mg/dl (0.2-1.3); Total Protein 5.9 g/dl (6.3-8.2); eGFR > 60.00
--- NOTE | 2024-03-30 06:32 | W.PN.HOSP.TC ---
Today's Communication/Plan
-
cont diuresis
PT/OT
replete Mg
home oxygen assessment
glycemic control
blood pressure control
Assessment / Plan
Assessment / Plan
Physical Exam
General: No pallor, cyanosis, or jaundice. Cachectic Appearing
HEENT: Throat clear. PERRLA Normocephalic atraumatic
NECK: Supple. No JVD Carotid Bruits
RESPIRATORY: Bibasilar crackles
CVS: Sinus tachy. No murmur, rub or gallop.
ABDOMEN: Soft, non-tender. No distension. BS+/normal.
EXTREMITIES: No peripheral cyanosis. +2 pitting edema lower ext's.
IRISH MOSS OPERATOR: AOx3.
IMPRESSION:
73F CAD stent Multivessel Disease, HFrEF, COPD, Diabetes p/w shortness of breath, nausea, vomiting, severe weakness. Progressively worsening over past 24 hours. Reports nonbloody vomitus but few episodes of dark-colored vomitus prior to arrival.
Patient also reported diarrhea. Reported leg swelling with associate 10 lb weight gain since discharge from this facility a month ago. Ambulates with walker at baseline. Denied chest abdominal pain fevers chills coughing. Stable respiratory
status on room air, sinus tachy, afebrile, BP stable, labs were notable for mild hyponatremia hyperkalemia transaminitis and significant BNP elevation>53739 (increased from last BNP 9700). CXR noted cardiomegaly w/ mild pulm edema and small left
pleural effusion
PLAN:
#Acute on Chronic HFrEF
#CAD stent Multivessel Disease
Tele admit transferred to IVU as per cardiology significant concern incipient cardiogenic shock
daily weights I/O
Lasix 40 mg IV BID
Cardio eval appreciated briefly treated w/ nitro gtt since completed
prn morphine
ECHO appreciated EF 10-15% mod severe MR
BB on hold as per cardio
cont ASA statin
lisinopril and spironolactone held d/t hyperkalemia since resolved
Lisinopril resumed 2.5 mg bid as per cardio, tolerating well
Troponin trended to peak 0.144 since trended down
#GERD/heartburn w/ meals
cont ppi
maalox w/ meals started, symptoms since improved
#Mild Hyponatremia likely d/t fluid overload
improved w/ diuresis
#Mild Hyperkalemia
resolved w/ diuresis
#Hypomagnesemia
monitor and replete as necessary
#Urinalysis suggestive UTI (ruled out)
Patient however denies urinary symptoms
received IV ceftriaxone in ED
urine cx notes mixed sunitha
observe off abx at this time
#Nausea/vomiting/diarrhea
appears resolved at this time
will cont to monitor
#SIRs criteria positive tachycardia tachypnea
most likely d/t heart failure
lactic acid procalcitonin wnl
#COPD
no wheezing noted
stable respiratory status room air
Xopenex prn d/t tachycardia
Patient is in need of oxygen on exertion due to pulse oximetry of 95% on room air at rest; 87% on room air with exertion.
Patient was placed on 1.5L O2 via nasal cannula with saturation of 95%. Oxygen will help to improve hypoxemia.
Patient is mobile within the home. Albuterol therapy has been discussed and is ineffective in treating hypoxemia-related symptoms.
Oxygen will improve the patient's symptoms.
#Diabetes
Low dose sliding scale
cont home glipizide
#Glaucoma
cont home latanoprost
PT/OT eval appreciated SNF rehab (patient family however prefer home rehab)
dvt ppx Lovenox
DNR as per patient's discussion w/ cardio, patient agreeable to pressor use if necessary
discussed with patient and updated patient's son Jose over phone.
I spent a total of 55 minutes with the patient or on the floor. More than 50% of this time involved counseling and coordination of care.
Anticipated Discharge: 24 - 48 hours
Subjective/Interval History
-
Date of Service: March 30, 2024
no acute distress resting comfortably in bed. reports heartburn improved with premeal maalox. Reports generalized fatigue.
Objective Data
-
Labs:
Laboratory Results
03/30/24
04:49
WBC 10.3
Hgb 12.1
Hct 35.5 L
Plt Count 211
Sodium 133 L
Potassium 3.1 L
Chloride 91 L
Carbon Dioxide 35 H
BUN 19 H
Creatinine 0.5 L
Glucose 103 H
Calcium 8.5
Total Bilirubin 1.2
AST 92 H
ALT 128 H
Alkaline Phosphatase 117
Vital Signs:
Vital Signs
Temp Pulse Resp BP Pulse Ox
97.6 F 99 20 103/66 97
03/30/24 05:23 03/30/24 06:00 03/30/24 05:23 03/30/24 05:08 03/30/24 05:23
I&O
03/28/24 03/29/24 03/30/24
06:59 06:59 06:59
Intake Total 480 / 480 240 / 240
Output Total 700 / 700 875 / 875 1250 / 1250
Balance -220 / -220 -635 / -635 -1250 / -1250
--- NOTE | 2024-03-30 08:25 | W.PN.CARDCBS ---
Today's Communication / Plan
-
Continue diuresis as blood pressure and creatinine allow
Tolerating afterload reduction with lisinopril
Stopped IV nitroglycerin
PT OT evaluation
Goals of care
Impression / Plan
-
Primary Bottom Liquor Attendant: Dr. Malik
Assessment:
Presentation with N/V/D
Acute on chronic HFrEF
Concern for cardiogenic shock
Sinus tachycardia
Elevated LFTs
CP with elevated troponin, suspected type 2
ICM EF 20-25% by echo 10/25/23
CAD
s/p OR and 2.5 mm Mini Vision BMS to prox OM-2 and 2.5 mm Mini Vision BMS to distal OM-2 08/28/10
severe complex LAD lesion 70% ostial and 80% mid with 50 to 60% proximal to mid OM1 lesion by cath 02/01/24
Admitted to with CHF, new CM, influenza and PNA 10/04/23 until 10/17/23
Admitted to with diarrhea, hypokalemia and heme positive stools 10/24/23 until 10/26/23
Possible Plavix allergy with h/o rash in 2009
DM 2
Active smoker
Hypomagnesemia
ECHO 10/05/23: EF 20 to 25%, stage I diastolic dysfunction, dilated LV, MAC, mild MR, mild TR, PAP 35 mmHg, IVC dilated
ECHO 01/30/2024: EF 19%, global hypokinesis, stage II diastolic dysfunction, moderate MR, aortic sclerosis
Plan:
-Patient presents with nausea/vomiting/diarrhea in the setting of recent supplemental potassium initiation
-Concern for cardiogenic shock with sinus tachycardia, elevated LFTs in setting of acute CHF with known significant ischemic cardiomyopathy from multivessel CAD with no revascularization options
-EKG sinus tachycardia with prior septal infarct, no evidence of acute ST changes
-proBNP greater than 27,000 on arrival. Chest x-ray with mild pulmonary edema and small left pleural effusion. Continue diuresis. Creatinine stable at 0.7. During 01/2024 admission, weight was ~75 pounds, dry weight unclear.
-Discontinued IV nitro to allow afterload reduction
-Holding Toprol for now but will plan to resume in the next few days
-continue asa, statin
-discussed code status with patient. she wishes to be DNR, however is agreeable to pressors if needed, but no intubation, compressions, defibrillation.
-Continue diuresis
-Will add low-dose lisinopril given relatively tolerable blood pressures for some afterload reduction to see if we can improve diuresis and cardiac performance. Follow daily BMP particularly potassium and agree with repletion
-PT OT evaluation
Progress Note - Bottom Liquor Attendant
Subjective
Date of Service: March 30, 2024
Total Time Spent with Patient (in minutes): Feels a little better today with diuresis
Objective
Labs:
03/30/24 04:49
03/30/24 04:49
Labs
Hgb 12.1 g/dL (12.0-16.0) 03/30/24 04:49
Hct 35.5 % (37.0-47.0) L 03/30/24 04:49
Plt Count 211 10^3/uL (130-400) 03/30/24 04:49
Sodium 133 mmol/L (135-145) L 03/30/24 04:49
Potassium 3.1 mmol/L (3.5-5.1) L 03/30/24 04:49
BUN 19 mg/dl (7-17) H 03/30/24 04:49
Creatinine 0.5 mg/dL (0.6-1.0) L 03/30/24 04:49
Glucose 103 mg/dl (70-99) H 03/30/24 04:49
Troponins
03/27/24 03/27/24 03/27/24
14:54 15:45 20:27
Troponin I Cancelled 0.047 H* 0.108 H* D
03/28/24 03/28/24 03/28/24
02:57 08:38 08:59
Troponin I 0.144 H* D 0.102 H* D Cancelled
03/28/24
14:00
Troponin I Cancelled
Vital Signs and I&O:
Vital Signs
Temp Pulse Resp BP Pulse Ox
97.6 F 99 20 103/66 97
03/30/24 05:23 03/30/24 06:00 03/30/24 05:23 03/30/24 05:08 03/30/24 05:23
Vital Signs
Temp Pulse Resp BP Pulse Ox
97.6 F 99 20 103/66 97
03/30/24 05:23 03/30/24 06:00 03/30/24 05:23 03/30/24 05:08 03/30/24 05:23
Intake & Output
03/28/24 03/29/24 03/30/24 03/31/24
06:59 06:59 06:59 06:59
Intake Total 480 / 480 240 / 240
Output Total 700 / 700 875 / 875 1250 / 1250
Balance -220 / -220 -635 / -635 -1250 / -1250
Physical Exam
Physical Exam
�
����Physical Exam
�
��������������������General:� no apparent distress, not acutely ill
�
��������������������������Neck:� supple. no meningeal signs. normal psoterior pharynx
������������������������
���������������������������Heart:� s1/s2 regular rate and rhythm, no murmur. equal radial pulses.
�
��������������������������Lungs:�� no acute respiratory distress. clear bilaterally
�
����������������������Abdomen:normal bowel sounds. not tender. no CVAT
�
��������������������������Neuro:� alert and oriented. no focal neurological deficits
�
������������������������������Skin:�� no rash
�
�����������������������Psychiatric:well kept. interactive and cooperative
�
����������������������Extremities:� no edema. no calf tenderness. negative homans. good distal pulses
�
�
�
��
�
[2024-03-30] MEDS: NOVOLOG FLEXPEN-LOW RESISTANCE SC ×2 (08:30→17:51)
[2024-03-30] MEDS: ASPIR LOW (ENTERIC COATED) 81 MG PO (08:39)
[2024-03-30] MEDS: PROTONIX IV 40 MG IV (08:39)
[2024-03-30] MEDS: ZESTRIL 2.5 MG PO ×2 (08:39→20:17)
[2024-03-30] MEDS: NSS (PRESERVATIVE FREE) 10 ML IV (08:39)
[2024-03-30] MEDS: LASIX 40 MG IV ×2 (08:39→16:09)
[2024-03-30] MEDS: MAALOX 30 ML PO ×3 (08:40→16:09)
[2024-03-30] MEDS: DESENEX/MITRAZOL/ZEASORB 1 APPLIC TOPICAL ×2 (08:40→20:14)
[2024-03-30] MEDS: MAGNESIUM SULFATE 50 IV (08:41)
[2024-03-30] MEDS: FLUSH (NSS) 1 FLUSH IV ×2 (08:41→16:11)
[2024-03-30] MEDS: GLUCOTROL 2.5 MG PO (08:49)
[2024-03-30] MEDS: KCL 270 MEQ IV (08:50)
[2024-03-30] MEDS: KCL ELIXIR 40 MEQ PO (08:50)
--- NOTE | 2024-03-30 09:02 | PTCARENOTE ---
received patient lying in bed, monitor shows ST, VSS. K 3.1 and mag levels this am 1.6, supplemented as ordered, please see MAR. patient repositioned in bed, breakfast was ordered.
[2024-03-30 12:02] LABS: Glucose - Point of Care 246 mg/dl (70-99)
[2024-03-30] MEDS: NOVOLOG FLEXPEN-LOW RESISTANCE 2 UNITS SC (12:03)
--- NOTE | 2024-03-30 16:06 | PTCARENOTE ---
Addendum entered by Mkcenzie Dolan RN 03/30/24 16:44:
patient was working with OT.
Original Note:
patient was working with o2 and o2 sat on RA below 90%, put 2 LNC on patient, o2 sat 95%.
[2024-03-30 17:50] LABS: Glucose - Point of Care 114 mg/dl (70-99)
[2024-03-30] MEDS: LOVENOX 40 MG SC (18:06)
[2024-03-30] MEDS: TYLENOL 650 MG PO (20:19)
[2024-03-30 21:32] LABS: Glucose - Point of Care 152 mg/dl (70-99)
[2024-03-30] MEDS: LIPITOR 20 MG PO (21:37)
[2024-03-30] MEDS: XALATAN OPHTHALMIC SOLUTION 1 DROP BOTH EYES (21:37)
[2024-03-31] VITALS (10 sets, daily range): BP systolic 81–110; BP diastolic 43–66; PULSE 99; BMI 13.8
[2024-03-31 04:58] LABS: Hematocrit 37.1 % (37.0-47.0); Hemoglobin 12.4 g/dL (12.0-16.0); Mean Corp Hgb Conc. 33.4 g/dL (33.0-37.0); Mean Corpuscular Hgb 32.9 pg (27.0-31.0); Mean Corpuscular Volume 98.4 fL (81.0-99.0); Mean Platelet Volume 10.8 fL (7.4-10.4); Platelet Count 216 10^3/uL (130-400); Red Blood Cell Count 3.77 10^6/uL (4.20-5.40); Red Cell Dist. Width 15.3 % (11.5-14.5); White Blood Cell Count 7.8 10^3/uL (4.8-10.8)
[2024-03-31 05:23] LABS: ALT (SGPT) 109 U/L (0-35); AST (SGOT) 75 U/L (14-36); Albumin 3.9 g/dl (3.5-5.0); Alkaline Phosphatase 116 U/L (38-126); Blood Urea Nitrogen 19 mg/dl (7-17); Carbon Dioxide 32 mmol/L (22-30); Chloride 88 mmol/L (98-107); Estimated Creatinine Clearance 43 ml/min; Glucose 121 mg/dl (70-99); Magnesium 1.8 mg/dl (1.6-2.3); Phosphorus 2.4 mg/dl (2.5-4.5); Potassium 4.4 mmol/L (3.5-5.1); Sodium 128 mmol/L (135-145); Total Bilirubin 1.3 mg/dl (0.2-1.3); Total Protein 6.4 g/dl (6.3-8.2); eGFR > 60.00
[2024-03-31 06:52] LABS: Glucose - Point of Care 124 mg/dl (70-99)
--- NOTE | 2024-03-31 07:36 | W.PN.CARDCBS ---
Today's Communication / Plan
-
Transition to PO lasix 40mg daily
Follow BMP in 1 week
Continue lisinopril 2.5mg BID
Resume Toprol 12.5mg daily as BP allows
Wean O2 as able
Follow up arranged
Impression / Plan
-
Primary Tax Senior Associate: Dr. Malik
Assessment:
Presentation with N/V/D
Acute on chronic HFrEF
Concern for cardiogenic shock
Sinus tachycardia
Elevated LFTs
CP with elevated troponin, suspected type 2
ICM EF 10-15% by echo 03/28/2024
CAD
s/p VT and 2.5 mm Mini Vision BMS to prox OM-2 and 2.5 mm Mini Vision BMS to distal OM-2 08/28/10
severe complex LAD lesion 70% ostial and 80% mid with 50 to 60% proximal to mid OM1 lesion by cath 02/01/24
Admitted to with CHF, new CM, influenza and PNA 10/04/23 until 10/17/23
Admitted to with diarrhea, hypokalemia and heme positive stools 10/24/23 until 10/26/23
Possible Plavix allergy with h/o rash in 2009
DM 2
Active smoker
Hypomagnesemia
ECHO 10/05/2023: EF 20 to 25%, stage I diastolic dysfunction, dilated LV, MAC, mild MR, mild TR, PAP 35 mmHg, IVC dilated
ECHO 01/30/2024: EF 19%, global hypokinesis, stage II diastolic dysfunction, moderate MR, aortic sclerosis
Echo 03/28/2024: EF 10-15%, severe global hypokinesis, stage II diastolic dysfunction
Plan:
-Presented with nausea/vomiting/diarrhea. Concern for cardiogenic shock on arrival w/ evidence of acute heart failure.
-Diuresing with IV lasix 40mg BID. Weight down to 74lbs 03/31. Previously dry weight felt to be about 75lbs.
-Creat stable at 0.5. Would transition to PO lasix 40mg daily. Check BMP in 1 week
-Breathing feels improved. Edema resolved.
-Still on 2L NC. Wean as able.
-Toprol remains on hold due to hypotension. HRs elevated at times, around 90 - 100 in SR. Will resume at low dose 12.5mg daily.
-Lisinopril continued at 2.5mg BID.
-Continue aspirin, statin.
-Code status noted. She wishes to be DNR, however is agreeable to pressors if needed, but no intubation, compressions, defibrillation.
-PCI of LAD would potentially be an option for patient, however procedure would be higher risk and unclear if this would improve her symptoms.
-Follow up arranged.
Progress Note - Tax Senior Associate
Subjective
Date of Service: March 31, 2024
Reports she is feeling better. Edema resolved. No SOB.
Objective
Labs:
03/31/24 04:49
03/31/24 04:49
Labs
Hgb 12.4 g/dL (12.0-16.0) 03/31/24 04:49
Hct 37.1 % (37.0-47.0) 03/31/24 04:49
Plt Count 216 10^3/uL (130-400) 03/31/24 04:49
Sodium 128 mmol/L (135-145) L 03/31/24 04:49
Potassium 4.4 mmol/L (3.5-5.1) D 03/31/24 04:49
BUN 19 mg/dl (7-17) H 03/31/24 04:49
Creatinine 0.5 mg/dL (0.6-1.0) L 03/31/24 04:49
Glucose 121 mg/dl (70-99) H 03/31/24 04:49
Troponins
03/28/24 03/28/24 03/28/24
08:38 08:59 14:00
Troponin I 0.102 H* D Cancelled Cancelled
Vital Signs and I&O:
Vital Signs
Temp Pulse Resp BP Pulse Ox
98.2 F 90 20 82/59 100
03/31/24 06:45 03/31/24 06:00 03/31/24 06:45 03/30/24 22:47 03/31/24 06:45
Vital Signs
Temp Pulse Resp BP Pulse Ox
98.2 F 90 20 82/59 100
03/31/24 06:45 03/31/24 06:00 03/31/24 06:45 03/30/24 22:47 03/31/24 06:45
Intake & Output
03/29/24 03/30/24 03/31/24 04/01/24
06:59 06:59 06:59 06:59
Intake Total 240 / 240 420 / 420
Output Total 875 / 875 1250 / 1250 650 / 650
Balance -635 / -635 -1250 / -1250 -230 / -230
Physical Exam
Physical Exam
GEN: No distress, awake, alert, oriented x3, cachectic
HEENT: supple, anicteric, mmm
LUNGS: CTA b/l, no wheezes/rales
CV: Reg, S1/S2, no murmur
EXT: No clubbing, cyanosis, or edema
NEURO: Gross non-focal
SKIN: Warm, dry, no rash
[2024-03-31] MEDS: NOVOLOG FLEXPEN-LOW RESISTANCE SC ×3 (08:13→17:06)
[2024-03-31] MEDS: DESENEX/MITRAZOL/ZEASORB 1 APPLIC TOPICAL ×2 (09:03→19:42)
[2024-03-31] MEDS: ASPIR LOW (ENTERIC COATED) 81 MG PO (09:03)
[2024-03-31] MEDS: ZESTRIL 2.5 MG PO ×2 (09:03→19:42)
[2024-03-31] MEDS: GLUCOTROL 2.5 MG PO (09:03)
[2024-03-31] MEDS: MAALOX 30 ML PO ×3 (09:03→17:31)
[2024-03-31] MEDS: PROTONIX IV 40 MG IV (09:04)
[2024-03-31] MEDS: LASIX 40 MG IV (09:04)
[2024-03-31] MEDS: NSS (PRESERVATIVE FREE) 10 ML IV (09:04)
--- NOTE | 2024-03-31 09:13 | W.PN.HOSP.TC ---
Today's Communication/Plan
-
Discharge tomorrow if cleared by cardiology
Assessment / Plan
Assessment / Plan
IMPRESSION:
73F CAD stent Multivessel Disease, HFrEF, COPD, Diabetes p/w shortness of breath, nausea, vomiting, severe weakness. Progressively worsening over past 24 hours. Reports nonbloody vomitus but few episodes of dark-colored vomitus prior to arrival.
Patient also reported diarrhea. Reported leg swelling with associate 10 lb weight gain since discharge from this facility a month ago. Ambulates with walker at baseline. Denied chest abdominal pain fevers chills coughing. Stable respiratory
status on room air, sinus tachy, afebrile, BP stable, labs were notable for mild hyponatremia hyperkalemia transaminitis and significant BNP elevation>25648 (increased from last BNP 9700). CXR noted cardiomegaly w/ mild pulm edema and small left
pleural effusion
PLAN:
#Acute on Chronic HFrEF
#CAD stent Multivessel Disease
Status post nitroglycerin drip
Appreciate cardiology input, resolving status post Lasix 40 mg IV twice daily
Changed to Lasix 40 mg p.o. daily starting 04/01
ECHO appreciated EF 10-15% mod severe MR
cont ASA statin
lisinopril and spironolactone held d/t hyperkalemia since resolved
Metoprolol resumed on 03/28, lisinopril 2.5 mg twice a day resumed on 03/29
Troponin trended to peak 0.144 since trended down
PT/OT eval appreciated SNF rehab (patient family however prefer home rehab)
#GERD/heartburn w/ meals
cont ppi
maalox w/ meals started, symptoms since improved
#Mild Hyponatremia likely d/t fluid overload
improved w/ diuresis
#Mild Hyperkalemia
resolved w/ diuresis
#Hypomagnesemia
monitor and replete as necessary
#Urinalysis suggestive UTI (ruled out)
Patient however denies urinary symptoms
received IV ceftriaxone in ED
urine cx notes mixed sunitha
observe off abx at this time
#Nausea/vomiting/diarrhea
appears resolved at this time
will cont to monitor
#SIRs criteria positive tachycardia tachypnea
most likely d/t heart failure
lactic acid procalcitonin wnl
#COPD
no wheezing noted
stable respiratory status room air
Xopenex prn d/t tachycardia
Patient is in need of oxygen on exertion due to pulse oximetry of 95% on room air at rest; 87% on room air with exertion.
Patient was placed on 1.5L O2 via nasal cannula with saturation of 95%. Oxygen will help to improve hypoxemia.
Patient is mobile within the home. Albuterol therapy has been discussed and is ineffective in treating hypoxemia-related symptoms.
Oxygen will improve the patient's symptoms.
#Diabetes
Low dose sliding scale
cont home glipizide
#Glaucoma
cont home latanoprost
DVT prophylaxis�subcu Lovenox
DNR as per patient's discussion w/ cardio, patient agreeable to pressor use if necessary
Total time spent to see the patient on the floor, examine the patient, review data and lab results, discuss treatment plan with patient, nursing staff around 37 minutes.
Physical Exam
General: No pallor, cyanosis, or jaundice. Cachectic Appearing
HEENT: Throat clear. PERRLA Normocephalic atraumatic
NECK: Supple. No JVD Carotid Bruits
RESPIRATORY: Bibasilar crackles
CVS: Sinus tachy. No murmur, rub or gallop.
ABDOMEN: Soft, non-tender. No distension. BS+/normal.
EXTREMITIES: No peripheral cyanosis. +2 pitting edema lower ext's.
CHEMIST ASSISTANT: AOx3.
Anticipated Discharge: Within 24 hours
Subjective/Interval History
-
Date of Service: March 31, 2024
Patient reports feeling better. She denies chest pain, shortness of breath, palpitations. No nausea, no vomiting.
Objective Data
-
Labs:
Laboratory Results
03/31/24
04:49
WBC 7.8
Hgb 12.4
Hct 37.1
Plt Count 216
Sodium 128 L
Potassium 4.4 D
Chloride 88 L
Carbon Dioxide 32 H
BUN 19 H
Creatinine 0.5 L
Glucose 121 H
Calcium 9.0
Total Bilirubin 1.3
AST 75 H
ALT 109 H
Alkaline Phosphatase 116
Vital Signs:
Vital Signs
Temp Pulse Resp BP Pulse Ox
98.2 F 106 20 110/58 95
03/31/24 06:45 03/31/24 09:04 03/31/24 06:45 03/31/24 09:04 03/31/24 08:17
I&O
03/30/24 03/31/24 04/01/24
06:59 06:59 06:59
Intake Total 420 / 420
Output Total 1250 / 1250 650 / 650
Balance -1250 / -1250 -230 / -230
--- NOTE | 2024-03-31 12:56 | CM ---
Reviewed chart. Met [facility] Mrs. Cool to review discharge plans. We reviewed VNA services and she is agreeable to VNA Services with [facility], Telephone call to [facility] to make the referral. Sent the referral, Prior to admission she resides
alone in a first floor apartment with one step. She also has a ramp to enter. She ambulates 35 x 2 with a walker. She states she has a nebulizer and inhalers at home. Medical work-up in progress. The discharge plan is to return [facility] with
[facility] when medically stable. .
--- NOTE | 2024-03-31 14:09 | PTCARENOTE ---
received patient this am in bed, monitor showing NSR, VSS. patient voices no concerns at this time. I ordered breakfast for patient.
[2024-03-31 17:06] LABS: Glucose - Point of Care 91 mg/dl (70-99)
[2024-03-31] MEDS: LOVENOX 40 MG SC (17:30)
[2024-03-31] MEDS: LIPITOR 20 MG PO (22:26)
[2024-03-31] MEDS: XALATAN OPHTHALMIC SOLUTION 1 DROP BOTH EYES (22:27)
[2024-03-31 22:40] LABS: Glucose - Point of Care 157 mg/dl (70-99)
[2024-04-01] VITALS (11 sets, daily range): BP systolic 82–106; BP diastolic 52–72; PULSE 110; BMI 13.6
[2024-04-01 03:31] LABS: Hemoglobin 12.3 g/dL (12.0-16.0); Mean Corp Hgb Conc. 34.2 g/dL (33.0-37.0); Mean Corpuscular Hgb 32.9 pg (27.0-31.0); Mean Corpuscular Volume 96.3 fL (81.0-99.0); Mean Platelet Volume 10.5 fL (7.4-10.4); Platelet Count 257 10^3/uL (130-400); Red Blood Cell Count 3.74 10^6/uL (4.20-5.40); Red Cell Dist. Width 15.2 % (11.5-14.5)
[2024-04-01 03:56] LABS: ALT (SGPT) 93 U/L (0-35); AST (SGOT) 62 U/L (14-36); Albumin 3.6 g/dl (3.5-5.0); Alkaline Phosphatase 126 U/L (38-126); Blood Urea Nitrogen 17 mg/dl (7-17); Carbon Dioxide 34 mmol/L (22-30); Chloride 87 mmol/L (98-107); Estimated Creatinine Clearance 44 ml/min; Glucose 97 mg/dl (70-99); Magnesium 1.9 mg/dl (1.6-2.3); Phosphorus 2.6 mg/dl (2.5-4.5); Potassium 4.1 mmol/L (3.5-5.1); Sodium 128 mmol/L (135-145); Total Bilirubin 1.2 mg/dl (0.2-1.3); Total Protein 6.1 g/dl (6.3-8.2); eGFR > 60.00
--- NOTE | 2024-04-01 06:22 | PTCARENOTE ---
Patient with no complaints overnight. Incontinent of large amount of urine, purwick replaced. VSS, call hamilton in reach
[2024-04-01 08:11] LABS: Glucose - Point of Care 126 mg/dl (70-99)
[2024-04-01] MEDS: LASIX 40 MG PO (09:14)
[2024-04-01] MEDS: PROTONIX IV 40 MG IV (09:14)
[2024-04-01] MEDS: MAALOX 30 ML PO ×3 (09:14→17:07)
[2024-04-01] MEDS: NSS (PRESERVATIVE FREE) 10 ML IV (09:14)
[2024-04-01] MEDS: GLUCOTROL 2.5 MG PO (09:14)
[2024-04-01] MEDS: NOVOLOG FLEXPEN-LOW RESISTANCE SC ×2 (09:15→17:33)
[2024-04-01] MEDS: ASPIR LOW (ENTERIC COATED) 81 MG PO (09:15)
[2024-04-01] MEDS: ZESTRIL 2.5 MG PO ×2 (09:15→20:01)
[2024-04-01] MEDS: TOPROL XL 12.5 MG PO (09:15)
[2024-04-01] MEDS: DESENEX/MITRAZOL/ZEASORB 1 APPLIC TOPICAL ×2 (09:23→20:04)
--- NOTE | 2024-04-01 09:44 | W.PN.HOSP.TC ---
Today's Communication/Plan
-
see bold
Assessment / Plan
Assessment / Plan
IMPRESSION:
73F CAD stent Multivessel Disease, HFrEF, COPD, Diabetes p/w shortness of breath, nausea, vomiting, severe weakness. Progressively worsening over past 24 hours. Reports nonbloody vomitus but few episodes of dark-colored vomitus prior to arrival.
Patient also reported diarrhea. Reported leg swelling with associate 10 lb weight gain since discharge from this facility a month ago. Ambulates with walker at baseline. Denied chest abdominal pain fevers chills coughing. Stable respiratory
status on room air, sinus tachy, afebrile, BP stable, labs were notable for mild hyponatremia hyperkalemia transaminitis and significant BNP elevation>66514 (increased from last BNP 9700). CXR noted cardiomegaly w/ mild pulm edema and small left
pleural effusion
PLAN:
#Acute on Chronic HFrEF
#CAD stent Multivessel Disease
Status post nitroglycerin drip
Appreciate cardiology input, resolving status post Lasix 40 mg IV twice daily
Changed to Lasix 40 mg p.o. daily starting 04/01
ECHO appreciated EF 10-15% mod severe MR
cont ASA statin
lisinopril and spironolactone held d/t hyperkalemia since resolved
Metoprolol resumed on 03/28, lisinopril 2.5 mg twice a day resumed on 03/29
Troponin trended to peak 0.144 since trended down
PT/OT eval appreciated SNF rehab (patient family however prefer home rehab)
#Worsening hyponatremia
Sodium decreased to 128 today despite Lasix and fluid restriction
Check urine sodium, urine osmolality, serum osmolality, TSH, a.m. cortisol
Consult nephrology
#Severe protein calorie malnutrition
Start chocolate Ensure twice daily
Diet changed to regular
#GERD/heartburn w/ meals
cont ppi
maalox w/ meals started, symptoms since improved
#Mild Hyponatremia likely d/t fluid overload
improved w/ diuresis
#Mild Hyperkalemia
resolved w/ diuresis
#Hypomagnesemia
monitor and replete as necessary
#Urinalysis suggestive UTI (ruled out)
Patient however denies urinary symptoms
received IV ceftriaxone in ED
urine cx notes mixed sunitha
observe off abx at this time
#Nausea/vomiting/diarrhea
appears resolved at this time
will cont to monitor
#SIRs criteria positive tachycardia tachypnea
most likely d/t heart failure
lactic acid procalcitonin wnl
#COPD
no wheezing noted
stable respiratory status room air
Xopenex prn d/t tachycardia
Patient is in need of oxygen on exertion due to pulse oximetry of 95% on room air at rest; 87% on room air with exertion.
Patient was placed on 1.5L O2 via nasal cannula with saturation of 95%. Oxygen will help to improve hypoxemia.
Patient is mobile within the home. Albuterol therapy has been discussed and is ineffective in treating hypoxemia-related symptoms.
Oxygen will improve the patient's symptoms.
#Diabetes
Low dose sliding scale
cont home glipizide
#Glaucoma
cont home latanoprost
DVT prophylaxis�subcu Lovenox
DNR as per patient's discussion w/ cardio, patient agreeable to pressor use if necessary
Total time spent to see the patient on the floor, examine the patient, review data and lab results, discuss treatment plan with patient, nursing staff around 51 minutes.
Physical Exam
General: No pallor, cyanosis, or jaundice. Cachectic Appearing
HEENT: Throat clear. PERRLA Normocephalic atraumatic
NECK: Supple. No JVD Carotid Bruits
RESPIRATORY: Bibasilar crackles
CVS: Sinus tachy. No murmur, rub or gallop.
ABDOMEN: Soft, non-tender. No distension. BS+/normal.
EXTREMITIES: No peripheral cyanosis. +2 pitting edema lower ext's.
PHARMACY INFORMATICIST: AOx3.
Anticipated Discharge: 24 - 48 hours
Subjective/Interval History
-
Date of Service: April 01, 2024
No chest pain, shortness of breath, palpitations.
Objective Data
-
Labs:
Laboratory Results
04/01/24
03:01
WBC 8.0
Hgb 12.3
Hct 36.0 L
Plt Count 257
Sodium 128 L
Potassium 4.1
Chloride 87 L
Carbon Dioxide 34 H
BUN 17
Creatinine 0.5 L
Glucose 97
Calcium 9.0
Total Bilirubin 1.2
AST 62 H
ALT 93 H
Alkaline Phosphatase 126
Vital Signs:
Vital Signs
Temp Pulse Resp BP Pulse Ox
98.0 F 104 16 99/61 100
04/01/24 08:11 04/01/24 03:00 04/01/24 08:11 04/01/24 02:55 04/01/24 08:11
I&O
03/31/24 04/01/24 04/02/24
06:59 06:59 06:59
Intake Total 420 / 420 100 / 100
Output Total 650 / 650 500 / 500 450 / 450
Balance -230 / -230 -400 / -400 -450 / -450
--- NOTE | 2024-04-01 10:20 | W.PN.CARDCBS ---
Addendum entered and electronically signed by Isidra Amador MD 04/01/24 10:53:
I saw and examined the patient.
The Ip Counsel's note was reviewed and I agree with the note.
Comment: Overall patient does not offer any complaints. Improve appetite and denies any CP or SOB.
Vitals and labs reviewed. Borderline BPs. Tele with short runs of atrial tachycardia which are non-sustained. One exam patient is extremely cachectic and frail, NAD, A+Ox 3, RR, normal S1 and S2, 2/6 HSM, Lung CTAB, abd soft, NT, ND, +BS, warm ext.
Labs notable for hyponatremia, stable renal function, mildly elevated LFTs.
Reccs:
1. Natalia GDMT for ischemic CM--unable to further titrate ACEi and BB for now given borderline BPs. Cont ASA and statin. Daily 40mg PO lasix to maintain euvolemia.
2. Defer management of hyponatremia to primary team.
3. HF education and dietary/nutrition consult. Daily upright weights. OOB and ambulate. PT/OT/
4. Recommend overall goals of care discussions with patient and son per primary team. Previous discussions post cath with son and patient lead to agreement of conservative approach as given severe cachexia, patient and son did not want to pursue any
high risk procedures incluing PCI with plan for medical therapy only. Overall, prognosis is guarded.
5. Outpt cards follow up is arranged. We will sign off, please call with any questions or concerns.
Isidra Amador MD, FAC, [facility]
Original Note:
Today's Communication / Plan
-
po lasix 40mg daily
CMP in 1 week
hyponatremia mgmt per hospitalist
dietary consult
continue low dose toprol, lisinopril
OP cardiac follow up arranged
Impression / Plan
-
Primary Wire Coiner: Dr. Malik
Assessment:
Presentation with N/V/D
Acute on chronic HFrEF
Concern for cardiogenic shock
Sinus tachycardia
Elevated LFTs
CP with elevated troponin, suspected type 2
ICM EF 10-15% by echo 03/28/2024
CAD
s/p WI and 2.5 mm Mini Vision BMS to prox OM-2 and 2.5 mm Mini Vision BMS to distal OM-2 08/28/10
severe complex LAD lesion 70% ostial and 80% mid with 50 to 60% proximal to mid OM1 lesion by cath 02/01/24
Admitted to with CHF, new CM, influenza and PNA 10/04/23 until 10/17/23
Admitted to with diarrhea, hypokalemia and heme positive stools 10/24/23 until 10/26/23
Possible Plavix allergy with h/o rash in 2009
DM 2
Active smoker
Hypomagnesemia
ECHO 10/05/2023: EF 20 to 25%, stage I diastolic dysfunction, dilated LV, MAC, mild MR, mild TR, PAP 35 mmHg, IVC dilated
ECHO 01/30/2024: EF 19%, global hypokinesis, stage II diastolic dysfunction, moderate MR, aortic sclerosis
Echo 03/28/2024: EF 10-15%, severe global hypokinesis, stage II diastolic dysfunction
Plan:
-Presented with nausea/vomiting/diarrhea. with evidence of cardiogenic shock on arrival w/ acute heart failure. of note, with dusky fingertips of 2nd and 3rd fingers B/L (patient reports this is chronic).
-weight down over 10 pounds from admission if accurate, currently 72 pounds. now on RA
-LFTs trending down
-transitioned to po lasix 40mg daily 04/01.
-CMP in 1 week upon DC
-continue medical mgmt of CAD and ICM with asa, statin
-continue toprol 12.5mg daily, lisinopril 2.5mg BID as BP will tolerate
-remains in ST upon review of tele overnight. occasional brief runs of what appears to be atrial tachycardia. continue low dose toprol. could consider benefit of corlanor as OP
-mgmt of hyponatremia per primary service
-dietary consult due to significant cachexia. may benefit from dietary supplement ok with CHF
-Code status noted. She wishes to be DNR, however is agreeable to pressors if needed, but no intubation, compressions, defibrillation.
-OP cardiac follow up arranged.
Progress Note - Wire Coiner
Subjective
Date of Service: April 01, 2024
Patient feeling improved. No chest pain, shortness of breath. Eager for discharge.
Objective
Labs:
04/01/24 03:01
04/01/24 03:01
Labs
Hgb 12.3 g/dL (12.0-16.0) 04/01/24 03:01
Hct 36.0 % (37.0-47.0) L 04/01/24 03:01
Plt Count 257 10^3/uL (130-400) 04/01/24 03:01
Sodium 128 mmol/L (135-145) L 04/01/24 03:01
Potassium 4.1 mmol/L (3.5-5.1) 04/01/24 03:01
BUN 17 mg/dl (7-17) 04/01/24 03:01
Creatinine 0.5 mg/dL (0.6-1.0) L 04/01/24 03:01
Glucose 97 mg/dl (70-99) 04/01/24 03:01
Vital Signs and I&O:
Vital Signs
Temp Pulse Resp BP Pulse Ox
98.0 F 104 16 99/61 100
04/01/24 08:11 04/01/24 03:00 04/01/24 08:11 04/01/24 02:55 04/01/24 08:11
Vital Signs
Temp Pulse Resp BP Pulse Ox
98.0 F 104 16 99/61 100
04/01/24 08:11 04/01/24 03:00 04/01/24 08:11 04/01/24 02:55 04/01/24 08:11
Intake & Output
03/30/24 03/31/24 04/01/24 04/02/24
07:59 07:59 07:59 07:59
Intake Total 420 / 420 100 / 100
Output Total 1250 / 1250 650 / 650 500 / 500 450 / 450
Balance -1250 / -1250 -230 / -230 -400 / -400 -450 / -450
Physical Exam
Physical Exam
GEN: No distress, awake, alert, oriented to self, place. cachectic
HEENT: supple, anicteric, mmm, eomi
LUNGS: CTA B/L, no wheezes/rales
CV: Reg and tachy, S1/S2, no murmur
EXT: No cyanosis, clubbing, edema
NEURO: Gross non-focal
SKIN: Warm, pink, dry. No rash. dusky finger tips of 2nd and 3rd fingers B/L UE
[2024-04-01] MEDS: NOVOLOG FLEXPEN-LOW RESISTANCE 2 UNITS SC (12:29)
[2024-04-01 12:30] LABS: Glucose - Point of Care 207 mg/dl (70-99)
--- NOTE | 2024-04-01 14:19 | PN.CDI ---
CDI
- -
CDI:
Physician Documentation Request
Admit Date: 03/27/24 18:34
Dear Doctor Do,
03/31 learning disabilities resource teacher assessment reports severe subcutaneous loss over rib cab, severe muscle loss over calf, deltoids, clavicle, temporal. 03/31 BMI 13.8 underweight; 'as with recent admission pt meeting criteria for severe protein calorie malnutrition
(ASPEN/AND guidelines, chronic illness)'
Cardiology progress notes 'on exam patient is extremely cachectic and frail...'
Based on the above information and your assessment, which of the following most accurately represents the patient's nutritional status?
Severe Malnutrition
Cachexia without malnutrition
Underweight without malnutrition
Other (please specify)
Jarratt Criteria ([facility] Hospitalist 2017)
2 or more criteria must be present for either
non severe or severe malnutrition
Note that the criteria differs related to the
presence of an acute or chronic illness
Acute Illness Chronic Illness
Energy Intake Non Severe: <75% for >7 days Non Severe: <75% for >1 month
Severe: <50% for >5 days Severe: <75% for >1 month
Weight Loss Non Severe: 1-2% over 1 week Non Severe: 5% over 1 month
5% over 1 month 7.5% over 3 months
7.5% over 3 months 10% over 6 months
1 year N/A 20% over 1 year
Severe: >2% over 1 week Severe: >5% over 1 month
>5% over 1 month >7.5% over 3 months
>7.5% over 3 months >10% over 6 months
1 year N/A >20% over 1 year
Body Fat Non Severe: Mild Decrease Non Severe: Mild Loss
Severe: Moderate Decrease Severe: Severe Loss
Muscle Mass Non Severe: Mild Decrease Non Severe: Mild Loss
Severe: Moderate Decrease Severe: Severe Loss
Fluid Accumulation Non Severe: Mild Accumulation Non Severe: Mild Accumulation
Severe: Moderate to severe Severe: Moderate to severe
accumulation accumulation
Reduced Alignment Specialist Strength Non Severe: N/A Non Severe: N/A
Severe: Measurably reduced Severe: Measurably reduced
Additional criteria that can be used to Determine if Mild or Moderate Malnutrition (Merck Manual 2018)
Mild Moderate Severe
Albumin gm/dl <3.0 gm/dl <2.5 gm/dl <2.0 gm/dl
Pre Albumin mg/dl <15 gm/dl <10 mg/dl <5.0 mg/dl
BMI <18.5 <17 <16
Use of terms such as suspected, likely, concern for, or probable (associated with a specific diagnosis that is being evaluated, monitored, or treated as if it exists) are acceptable and can be coded in the inpatient setting, when documented at the
time of discharge.
Thank you,
Nicky Mendoza RN, BSN
CDI Specialist
tiger text
Please use your independent medical judgment in providing your response.
[2024-04-01 14:48] LABS: Osmolality Serum 268 mOsm/kg (275-300)
[2024-04-01] MEDS: LOVENOX 40 MG SC (17:07)
[2024-04-01 17:33] LABS: Glucose - Point of Care 117 mg/dl (70-99)
--- NOTE | 2024-04-01 17:47 | W.CON.NEPH ---
Consultation
-
Date/Time Consultation Requested: April 01, 2024 4 PM
Date/Time Consultation Performed: April 01, 2024 5 PM
Requesting Provider: Dr. Perkins
Performing Provider: Dr. Moura
Reason for Consultation: Hyponatremia
Medical History
-
Chief Complaint: Chest pain
History of Present Illness:
This is a 73-year-old female with met in the past around October of this year when she was initially admitted at that time with influenza A and bacterial pneumonia. She had hyponatremia which was treated conservatively. She also has heart failure
with reduced ejection fraction on chronic diuretic therapy. She had undergone cardiac catheterization in January which had shown multivessel disease but she was turned down for intervention given severe comorbidities and poor quality of life. She was
managed with medical therapy only. She has overall cardiac cachexia. There is history of diabetes but she is only on glipizide. She was admitted for chest pain hypotension. There was some concern that she was volume overloaded but given her
overall comorbidities like diuresis with Lasix 40 mg daily by mouth was preferred. In the last few days her sodium level has begun to fall now down to 128. We are asked to assist with management of her electrolyte issues.
Past Medical History
CAD, ischemic cardiomyopathy, EF 20-25%, influenza pneumonia in October 2023, diabetes, ongoing smoker, cachexia, COPD, glaucoma, history of UTIs, hyponatremia, decubitus ulcers, peripheral arterial disease, degenerative joint disease,
hypertension, hyperlipidemia
Social History
Tobacco: Smoker
Alcohol: Occasional
Family History
Family History: Not Pertinent
Allergies / Home Medications
Allergy/AdvReac Type Severity Reaction Status Date / Time
cat dander Allergy Itching Verified 10/24/23 16:42
house dust Allergy SNEEZING Verified 10/24/23 16:42
pollen extracts Allergy SNEEZING Verified 10/24/23 16:42
pregabalin [From Lyrica] Allergy psychosis Verified 10/04/23 17:41
�Medication �Instructions �Recorded �Confirmed �Type
atorvastatin 20 mg tablet 20 mg PO HS High Cholesterol 10/04/23 03/27/24 History
latanoprost 0.005 % eye drops 1 drp BOTH EYES HS glaucoma 10/04/23 03/27/24 History
acetaminophen 325 mg tablet 650 mg PO Q6HPRN PRN MILD PAIN 10/24/23 03/27/24 History
albuterol sulfate 90 mcg/actuation 2 puff inhalation R QIDPRN PRN 01/29/24 03/27/24 History
aerosol inhaler shortness of breath
tramadol 50 mg tablet 50 mg PO BID pain 01/29/24 03/27/24 History
aspirin 81 mg tablet,delayed 81 mg PO DAILY 30 days #30 tabs 02/05/24 03/27/24 Rx
release
glipizide 2.5 mg tablet 2.5 mg PO DAILY #30 tabs 02/05/24 03/27/24 Rx
spironolactone 25 mg tablet 12.5 mg (1/2 x 25 mg) PO DAILY 30 02/05/24 03/27/24 Rx
days #15 tabs
furosemide 20 mg tablet (Lasix) 20 mg PO SUTUTHSA 03/27/24 03/27/24 History
ipratropium 0.5 mg-albuterol 3 mg 3 ml inhalation R QIDPRN PRN sob 03/27/24 03/27/24 History
(2.5 mg base)/3 mL nebulization
soln
lisinopril 2.5 mg tablet 5 mg PO DAILY 03/27/24 03/27/24 History
metoprolol succinate 25 mg 25 mg PO DAILY 03/27/24 03/27/24 History
tablet,extended release 24 hr
potassium chloride 20 mEq 20 meq PO BID 03/27/24 03/27/24 History
tablet,extended release
Review of Systems
-
No current chest pain. No dyspnea on exertion. Mildly decreased urine output.
All other systems: Negative unless noted
Physical Exam
Vital Signs
Vital Signs
Temp Pulse Resp BP Pulse Ox
98.4 F 106 20 92/56 100
04/01/24 14:59 04/01/24 16:00 04/01/24 14:59 04/01/24 15:01 04/01/24 14:59
Lab Results
WBC 8.0 10^3/uL (4.8-10.8) 04/01/24 03:01
RBC 3.74 10^6/uL (4.20-5.40) L 04/01/24 03:01
Hgb 12.3 g/dL (12.0-16.0) 04/01/24 03:01
Hct 36.0 % (37.0-47.0) L 04/01/24 03:01
Plt Count 257 10^3/uL (130-400) 04/01/24 03:01
Sodium 128 mmol/L (135-145) L 04/01/24 03:01
Potassium 4.1 mmol/L (3.5-5.1) 04/01/24 03:01
Chloride 87 mmol/L (98-107) L 04/01/24 03:01
Carbon Dioxide 34 mmol/L (22-30) H 04/01/24 03:01
BUN 17 mg/dl (7-17) 04/01/24 03:01
Creatinine 0.5 mg/dL (0.6-1.0) L 04/01/24 03:01
eGFR > 60.00 04/01/24 03:01
Glucose 97 mg/dl (70-99) 04/01/24 03:01
Calcium 9.0 mg/dl (8.4-10.2) 04/01/24 03:01
Phosphorus 2.6 mg/dl (2.5-4.5) 04/01/24 03:01
Epm-N-Reutukxsmsh Pept > 52688 pg/ml 03/27/24 15:45
Albumin 3.6 g/dl (3.5-5.0) 04/01/24 03:01
Physical Exam
Patient is awake alert oriented and in no distress. Severely cachectic. Mood and affect were pleasant, insight and judgment were good. Pupils are equal round and reactive to light, extraocular movements are intact, sclera were anicteric. Hearing
was normal, ears and nose are intact. Oropharynx was clear. Neck was supple with trachea midline and no thyromegaly. Heart was regular rate and rhythm without rubs. Lower extremities without edema. Lungs were clear to auscultation bilaterally and
with normal excursion. Abdomen was soft, nontender, with normal active bowel sounds, and no hepatosplenomegaly. Skin was without rash and with normal turgor.
Data Reviewed
-
Radiology: Image Personally Visualized and interpreted (Chest x-ray on March 27, 2024 shows cardiomegaly with vascular prominence)
Medical Tests (Nuc Med, Echo etc): Image Personally Visualized and interpreted (EKG on 03/28/2023 by my read shows sinus tachycardia right axis deviation septal infarct) and Report Reviewed by me (Echocardiogram on March 28, 2024 shows EF 10% global
hypokinesis stage II diastolic dysfunction severe MR mild TR)
Labs: Labs Reviewed by me (Hemoglobin 12.3, sodium 128, chloride 87, bicarbonate 34, creatinine 0.5, BUN 17, AST 62, ALT 93)
Assessment/Plan
-
Assessment
Acute on chronic HFrEF
cardiogenic shock
Sinus tachycardia
Elevated LFTs
ICM EF 10-15% by echo 03/28/2024
CAD multivessel
DM 2
Active smoker
Hyponatremia
Plan
Samsca 7.5 mg today
Continue Lasix
If BP falls further, use midodrine to maintain systolic greater than 90
Follow LFTs likely due to hypotension/decompensated heart failure
Prognosis poor
--- NOTE | 2024-04-01 18:00 | PTCARENOTE ---
Pt remains SR/ST 90's-112. BP 92/56 MAP 69. Pulse oximetry 96-100% on room air. Pt with purewick in place. Awaiting urine sample. Bladder scanned 195mL. Pt remains awake, alert, and oriented. Improved appetite. Pt with bowel movement today.
Discussed fluid restriction. Encouraged ambulation and being OOB. Currently resting comfortably in bed with call hamilton within reach.
[2024-04-01] MEDS: SAMSCA 7.5 MG PO (19:06)
[2024-04-01] MEDS: XALATAN OPHTHALMIC SOLUTION 1 DROP BOTH EYES (20:04)
[2024-04-01] MEDS: LIPITOR 20 MG PO (20:04)
[2024-04-01 22:39] LABS: Glucose - Point of Care 192 mg/dl (70-99)
[2024-04-02 03:38] VITALS: BP 123/77
[2024-04-02 04:03] LABS: Hematocrit 36.7 % (37.0-47.0); Hemoglobin 12.4 g/dL (12.0-16.0); Mean Corp Hgb Conc. 33.8 g/dL (33.0-37.0); Mean Corpuscular Volume 97.6 fL (81.0-99.0); Mean Platelet Volume 10.2 fL (7.4-10.4); Platelet Count 278 10^3/uL (130-400); Red Blood Cell Count 3.76 10^6/uL (4.20-5.40); Red Cell Dist. Width 15.5 % (11.5-14.5); White Blood Cell Count 9.3 10^3/uL (4.8-10.8)
[2024-04-02 04:15] LABS: Osmolality Urine 90 mOsm/kg (300-900)
[2024-04-02 04:26] LABS: Urine Sodium 12 mmol/L (30-90)
[2024-04-02 04:32] LABS: ALT (SGPT) 76 U/L (0-35); AST (SGOT) 46 U/L (14-36); Albumin 3.8 g/dl (3.5-5.0); Alkaline Phosphatase 113 U/L (38-126); Blood Urea Nitrogen 19 mg/dl (7-17); Calcium 9.3 mg/dl (8.4-10.2); Carbon Dioxide 33 mmol/L (22-30); Chloride 93 mmol/L (98-107); Estimated Creatinine Clearance 44 ml/min; Glucose 125 mg/dl (70-99); Magnesium 2.1 mg/dl (1.6-2.3); Phosphorus 2.5 mg/dl (2.5-4.5); Potassium 4.3 mmol/L (3.5-5.1); Sodium 132 mmol/L (135-145); Total Bilirubin 1.4 mg/dl (0.2-1.3); Total Protein 6.4 g/dl (6.3-8.2); eGFR > 60.00
[2024-04-02 04:59] LABS: Cortisol, Random 14.1 ug/dl
[2024-04-02 06:00] VITALS: BMI 13.3
[2024-04-02 07:32] VITALS: BP 106/58
[2024-04-02 08:12] LABS: Glucose - Point of Care 137 mg/dl (70-99)
--- NOTE | 2024-04-02 08:29 | W.PN.HOSP.TC ---
Today's Communication/Plan
-
Discharge today
Assessment / Plan
Assessment / Plan
IMPRESSION:
73F CAD stent Multivessel Disease, HFrEF, COPD, Diabetes p/w shortness of breath, nausea, vomiting, severe weakness. Progressively worsening over past 24 hours. Reports nonbloody vomitus but few episodes of dark-colored vomitus prior to arrival.
Patient also reported diarrhea. Reported leg swelling with associate 10 lb weight gain since discharge from this facility a month ago. Ambulates with walker at baseline. Denied chest abdominal pain fevers chills coughing. Stable respiratory
status on room air, sinus tachy, afebrile, BP stable, labs were notable for mild hyponatremia hyperkalemia transaminitis and significant BNP elevation>21620 (increased from last BNP 9700). CXR noted cardiomegaly w/ mild pulm edema and small left
pleural effusion
PLAN:
#Acute on Chronic HFrEF
#CAD stent Multivessel Disease
Status post nitroglycerin drip
Appreciate cardiology input, resolving status post Lasix 40 mg IV twice daily
Changed to Lasix 40 mg p.o. daily starting 04/01
ECHO appreciated EF 10-15% mod severe MR
cont ASA statin
lisinopril and spironolactone held d/t hyperkalemia since resolved
Metoprolol resumed on 03/28, lisinopril 2.5 mg twice a day resumed on 03/29
Troponin trended to peak 0.144 since trended down
PT/OT eval appreciated SNF rehab (patient family however prefer home rehab)
Goals of care conversation held with her son Temo 04/02, her poor prognosis has been relayed
Family understands, and states she will be living with them
Cleared by cardiology for discharge today, follow-up cardiology in the office
#Worsening hyponatremia
#SIADH
Appreciate nephrology input, sodium improved status post Samsca
Will discharge on fluid restriction, needs repeat CMP with PCP in 1 week
#Elevated LFTs, likely from hepatic congestion
#Severe protein calorie malnutrition
BMI 13.3
Started chocolate Ensure twice daily
Diet changed to regular
#GERD/heartburn w/ meals
cont ppi
maalox w/ meals started, symptoms since improved
#Mild Hyperkalemia
resolved w/ diuresis
#Hypomagnesemia
monitor and replete as necessary
#Urinalysis suggestive UTI (ruled out)
Patient however denies urinary symptoms
received IV ceftriaxone in ED
urine cx notes mixed sunitha
observe off abx at this time
#Nausea/vomiting/diarrhea
appears resolved at this time
will cont to monitor
#SIRs criteria positive tachycardia tachypnea
Yes, cardiogenic shock is related to/associated with/due to SIRS.
most likely d/t heart failure
lactic acid procalcitonin wnl
#COPD
no wheezing noted
stable respiratory status room air
Xopenex prn d/t tachycardia
Patient is in need of oxygen on exertion due to pulse oximetry of 95% on room air at rest; 87% on room air with exertion.
Patient was placed on 1.5L O2 via nasal cannula with saturation of 95%. Oxygen will help to improve hypoxemia.
Patient is mobile within the home. Albuterol therapy has been discussed and is ineffective in treating hypoxemia-related symptoms.
Oxygen will improve the patient's symptoms.
#Diabetes
Low dose sliding scale
cont home glipizide
#Glaucoma
cont home latanoprost
DVT prophylaxis�subcu Lovenox
DNR as per patient's discussion w/ cardio, patient agreeable to pressor use if necessary
Updated son Temo on phone 04/02
Physical Exam
General: No pallor, cyanosis, or jaundice. Cachectic Appearing
HEENT: Throat clear. PERRLA Normocephalic atraumatic
NECK: Supple. No JVD Carotid Bruits
RESPIRATORY: Bibasilar crackles
CVS: Sinus tachy. No murmur, rub or gallop.
ABDOMEN: Soft, non-tender. No distension. BS+/normal.
EXTREMITIES: No peripheral cyanosis. +2 pitting edema lower ext's.
HEALTHCARE ECONOMICS CONSULTANT: AOx3.
Anticipated Discharge: Today
Subjective/Interval History
-
Date of Service: April 02, 2024
Patient denies shortness of breath, chest pain, palpitations. No fever, no vomiting.
Objective Data
-
Labs:
Laboratory Results
04/02/24
03:47
WBC 9.3
Hgb 12.4
Hct 36.7 L
Plt Count 278
Sodium 132 L
Potassium 4.3
Chloride 93 L
Carbon Dioxide 33 H
BUN 19 H
Creatinine 0.5 L
Glucose 125 H
Calcium 9.3
Total Bilirubin 1.4 H
AST 46 H
ALT 76 H
Alkaline Phosphatase 113
Vital Signs:
Vital Signs
Temp Pulse Resp BP Pulse Ox
99 F 100 20 106/58 96
04/02/24 07:32 04/02/24 07:32 04/02/24 07:32 04/02/24 07:32 04/02/24 07:32
I&O
04/01/24 04/02/24 04/03/24
06:59 06:59 06:59
Intake Total 100 / 100 240 / 240
Output Total 500 / 500 1550 / 1550 300 / 300
Balance -400 / -400 -1310 / -1310 -300 / -300
[2024-04-02] MEDS: TOPROL XL 12.5 MG PO (08:58)
[2024-04-02] MEDS: ASPIR LOW (ENTERIC COATED) 81 MG PO (08:58)
[2024-04-02] MEDS: GLUCOTROL 2.5 MG PO (08:58)
[2024-04-02] MEDS: ZESTRIL 2.5 MG PO (08:58)
[2024-04-02] MEDS: NSS (PRESERVATIVE FREE) 10 ML IV (08:59)
[2024-04-02] MEDS: PROTONIX IV 40 MG IV (08:59)
[2024-04-02] MEDS: FLUSH (NSS) 1 FLUSH IV (09:00)
[2024-04-02] MEDS: DESENEX/MITRAZOL/ZEASORB 1 APPLIC TOPICAL (09:00)
[2024-04-02] MEDS: NOVOLOG FLEXPEN-LOW RESISTANCE SC ×2 (09:00→17:30)
[2024-04-02] MEDS: MAALOX 30 ML PO ×3 (09:02→17:31)
[2024-04-02] MEDS: LASIX 40 MG PO (09:02)
--- NOTE | 2024-04-02 09:47 | W.PN.NEPH.PH ---
Today's Communication / Plan
-
samsca
Assessment/Plan
-
Assessment
Acute on chronic HFrEF
cardiogenic shock
Sinus tachycardia
Elevated LFTs
ICM EF 10-15% by echo 03/28/2024
CAD multivessel
DM 2
Active smoker
Hyponatremia
Plan
Samsca 7.5 mg today again
Continue Lasix
If BP falls further, use midodrine to maintain systolic greater than 90
Follow LFTs-improving
Prognosis poor
-
-
Date of Service: April 02, 2024
CC / HPI / ROS
-
Chief Complaint:
hyponatremia
History of Present Illness:
BP low stable
on lasix for severe HFrEF
Na up to 132 with samsca
Review of Systems:
no CP/SOB
Labs
-
Labs:
WBC 9.3 10^3/uL (4.8-10.8) 04/02/24 03:47
RBC 3.76 10^6/uL (4.20-5.40) L 04/02/24 03:47
Hgb 12.4 g/dL (12.0-16.0) 04/02/24 03:47
Hct 36.7 % (37.0-47.0) L 04/02/24 03:47
Plt Count 278 10^3/uL (130-400) 04/02/24 03:47
Sodium 132 mmol/L (135-145) L 04/02/24 03:47
Potassium 4.3 mmol/L (3.5-5.1) 04/02/24 03:47
Chloride 93 mmol/L (98-107) L 04/02/24 03:47
Carbon Dioxide 33 mmol/L (22-30) H 04/02/24 03:47
BUN 19 mg/dl (7-17) H 04/02/24 03:47
Creatinine 0.5 mg/dL (0.6-1.0) L 04/02/24 03:47
eGFR > 60.00 04/02/24 03:47
Glucose 125 mg/dl (70-99) H 04/02/24 03:47
Calcium 9.3 mg/dl (8.4-10.2) 04/02/24 03:47
Phosphorus 2.5 mg/dl (2.5-4.5) 04/02/24 03:47
Ujb-N-Eteyzbdwiao Pept > 01467 pg/ml 03/27/24 15:45
Albumin 3.8 g/dl (3.5-5.0) 04/02/24 03:47
Physical Exam
-
Vital Signs:
Vital Signs
Temp Pulse Resp BP Pulse Ox
99 F 100 20 106/58 96
04/02/24 07:32 04/02/24 07:32 04/02/24 07:32 04/02/24 07:32 04/02/24 09:33
Cardiovascular:: Regular rate and rhythm
Respiratory:: Bilateral: Coarse
Lung Excursion:: Normal
Abdomen:: Nontender and Soft
Bowel Sounds:: Normal
Extremity Edema:: None: Bilateral:
[2024-04-02] MEDS: SAMSCA 7.5 MG PO (10:07)
--- NOTE | 2024-04-02 11:02 | PN.CDI ---
CDI
- -
CDI:
Physician Documentation Request
Admit Date: 03/27/24 18:34
Dear Doctor Do,
Patient is admitted with acute on chronic HFrEF.
Hospitalist progress notes contain a diagnosis of 'SIRs criteria positive tachycardia tachypnea most likely d/t heart failure '
Cardiology progress notes state 'concern for cardiogenic shock'
Cardiology consult states 'She presents with acute on chronic HFrEF and ongoing chest pain with what is likely incipient cardiogenic shock.'
Please clarify if a relationship exist between these conditions:
Yes, cardiogenic shock is related to/associated with/due to SIRS.
No, cardiogenic shock is not related to/associated with/due to SIRS.
Unable to determine
Use of terms such as suspected, likely, concern for, or probable (associated with a specific diagnosis that is being evaluated, monitored, or treated as if it exists) are acceptable and can be coded in the inpatient setting, when documented at the
time of discharge.
Thank you,
Nicky Mendoza RN, BSN
CDI Specialist
tiger text
Please use your independent medical judgment in providing your response.
[2024-04-02 11:12] VITALS: BP 102/55
--- NOTE | 2024-04-02 11:54 | W.DCSUMMARY ---
Discharge Summary
Discharge Data
Date of Admission: 03/27/24
Date of Discharge: 04/02/24
-
Pending Results: No
Hospital Course
Discharge diagnosis:
Acute on chronic heart failure with reduced ejection fraction, ejection fraction 10-15%
Systemic inflammatory response syndrome likely due to cardiogenic shock
Coronary artery disease
Worsening hyponatremia
Syndrome of inappropriate antidiuretic hormone secretion
Elevated liver function test
Severe protein calorie malnutrition
Nausea/vomiting/diarrhea
Gastroesophageal reflux disease with heartburn
Hypokalemia
Hypomagnesemia
Pyuria
Type 2 diabetes
Glaucoma
Consults: Cardiology, nephrology
Chest x-ray:
Cardiomegaly with mild pulmonary edema and small left pleural effusion
B/l LE US:
No evidence of deep venous thrombosis in the bilateral lower extremities as described above.
Echo:
Left ventricle is mildly dilated. Normal left ventricular wall thickness.
Severely reduced left ventricular systolic function. Severe global hypokinesis.
LV ejection fraction is 10-15% by visual estimate, 20% by Mortensen's method of
discs. Stage II diastolic dysfunction suggestive of abnormal relaxation and
increased filling pressures.
Normal right ventricular size and function.
Indexed LA volume is moderately abnormal (42-48 mL/m2).
Mildly dilated right atrium.
Moderate to severe mitral regurgitation with likely restricted posterior
leaflet.
Mild tricuspid regurgitation. Estimated pulmonary artery pressure of 45-50
mmHg. Assuming a right atrial pressure of 8 mmHg.
Left pleural effusion present.
Compared to previous echo 01/30/24, the LVEF remains severely depressed.
Hospital course:
73-year-old female with a past medical history of coronary artery disease, heart failure with reduced ejection fraction, COPD, and type 2 diabetes was admitted for nausea, vomiting, severe weakness. Patient was found to have acute heart failure
with a reduced ejection fraction. Her chest x-ray shows pulmonary edema, her BNP was greater than 27,000.
Patient was seen in conjunction with cardiology. She was diuresed with IV Lasix. Patient had tachycardia and tachypnea, qualifying her for systemic inflammatory response syndrome. This is secondary to her cardiogenic shock, as her ejection
fraction is 10-15%. Patient's blood pressure was on the low side. Metoprolol was held, then resumed on 03/28. Her spironolactone was discontinued. After several days, her fluid status improved. Cardiology transitioned her to Lasix 40 mg p.o.
daily.
Patient had hyperkalemia. Her lisinopril was held, then resumed on 03/29.
Patient's hospital course was complicated by hyponatremia. Patient's sodium dropped to 128 despite Lasix and fluid restriction. TSH and a.m. cortisol were normal. Patient was seen in conjunction with nephrology, who suspects SIADH. She received
2 doses of Samsca, her sodium improved to 132.
Patient had nausea/vomiting/diarrhea upon admission. She received supportive care. Her symptoms improved. She did have some vomiting the night prior and the day of discharge. She was monitored during dinner, her vomiting resolved. She tolerated
dinner. She was adamant about going home.
Patient has a very guarded prognosis. Her ejection fraction is 10-15%. She also has severe protein malnutrition with a BMI of 13.3. Her poor prognosis was relayed to her family. She likely will need hospice sometime in the near future. Family
reports understanding.
Patient was seen in conjunction with PT, who recommended short-term rehab. Patient declines, and wishes to go home with home care.
Patient's multiple medical conditions have been optimized. She will be discharged home with home care. She needs to follow-up with her primary care doctor in 1 week, and cardiology in the office in 2-3 weeks.
Disposition: Home with home care
Discharge planning: Required 50 minutes
Discharge Plan
-
Patient Disposition: Home with Home Care
Discharge Diagnosis/Procedures: Acute on chronic heart failure with reduced ejection fraction, coronary artery disease, hyponatremia, severe protein calorie malnutrition, gastroesophageal reflux disease, nausea/vomiting/diarrhea, chronic obstructive
pulmonary disease, type 2 diabetes
Diet: 2 Gram Sodium and Restrict fluids to 48 oz
Activity: As tolerated
Blood Work: CMP in 1 week with your PCP
Other Services: VN, PT and OT
Specialty Instructions: Weigh Daily- Call MD for wt gain/loss 3 lbs overnight/5 lbs in 1 week
Instructions: *[facility] Heart Failure Instructions
Referrals:
[facility] [Outside]
Chester De La Fuente MD [Family Provider] - in one week ([phone])
Williams Malik MD [Active] - 04/18/24 8:40 am (You have a cardiology follow-up appointment at the [facility] in [facility]. Please call with questions or if you need to reschedule.)
Prescriptions:
New
furosemide 40 mg Tablet
40 mg PO DAILY Qty: 30 0RF
miconazole nitrate [Miconazorb AF] 2 % Powder
1 applic topical BID 7 Days Qty: 100 0RF
metoprolol succinate 25 mg Tablet Extended Release 24 Hr
12.5 mg PO DAILY Qty: 30 0RF
alum-mag hydroxide-simeth [Antacid-Antigas] 200-200-20 mg/5 mL Suspension
30 ml PO AC 30 Days Qty: 2700 0RF
pantoprazole [Protonix] 40 mg tablet,delayed release (DR/EC)
40 mg PO DAILY Qty: 30 0RF
Continued
latanoprost 0.005 % Drops
1 drp BOTH EYES HS
atorvastatin 20 mg Tablet
20 mg PO HS
acetaminophen 325 mg tablet
650 mg PO Q6HPRN PRN (Reason: MILD PAIN)
tramadol 50 mg Tablet
50 mg PO BID
albuterol sulfate 90 mcg/actuation HFA aerosol inhaler
2 puff inhalation R QIDPRN PRN (Reason: shortness of breath )
aspirin 81 mg Tablet,Delayed Release (Dr/Ec)
81 mg PO DAILY 30 Days Qty: 30 0RF
glipizide 2.5 mg tablet
2.5 mg PO DAILY Qty: 30 0RF
ipratropium-albuterol 0.5 mg-3 mg(2.5 mg base)/3 mL solution for nebulization
3 ml inhalation R QIDPRN PRN (Reason: sob)
Changed
lisinopril 2.5 mg tablet
5 mg PO BID Qty: 30 0RF
Discontinued
spironolactone 25 mg Tablet
12.5 mg PO DAILY 30 Days Qty: 15 0RF
potassium chloride 20 mEq Tablet Extended Release
20 meq PO BID
furosemide [Lasix] 20 mg tablet
20 mg PO SUTUTHSA
metoprolol succinate 25 mg tablet extended release 24 hr
25 mg PO DAILY
Discharge Orders:
Discharge Patient (As Directed); Ordered 04/02/24
Ordered By: Radhames Perkins
Care Plan Goals
Care Plan Goals:
Problem: Readiness for enhanced knowledge related to diagnosis and treatment plan
Goal: Understand your diagnosis and treatment plan needs, including medications if applicable.
Instructions: Know your diagnosis, underlying causes and treatment plan options, including medications if applicable. Consult with your health care team to learn about your diagnosis and treatment plan, including medications if applicable.
Discharge Date and Time
Discharge Date/Time: 04/02/24 18:43
Print Language: BELIZEAN
[2024-04-02 12:35] LABS: Glucose - Point of Care 177 mg/dl (70-99)
[2024-04-02] MEDS: NOVOLOG FLEXPEN-LOW RESISTANCE 1 UNITS SC (12:51)
--- NOTE | 2024-04-02 14:42 | PTCARENOTE ---
While going over the patient's discharge instructions, the patient began to vomit. After she vomited twice, she stated 'I'm not staying here, I'm going home!' Her [id number], who was in the room at the time, asked if she should be going home
now. I contacted Dr. dover and explained the situation. Dr. Dover ordered a Phenergan rectal suppository and said if she was okay after dinner, she could be discharged. I explained the plan of care with both the patient and her [id number] and both
were in agreement with the martins.
[2024-04-02 14:49] VITALS: BP 104/54
[2024-04-02] MEDS: PHENERGAN 25 MG RECTAL (14:53)
--- NOTE | 2024-04-02 15:19 | CM ---
Reviewed chart. Met with Mrs. Cool to review discharge plans. She states she is feeling well and maybe able to go home soon. Reviewed VNA services with [facility]. She is agreeable to [facility]. Medical work-up in progress. The
discharge plan is to return home with [facility] when medically stable.
[2024-04-02 17:15] LABS: Glucose - Point of Care 123 mg/dl (70-99)
[2024-04-02] MEDS: LOVENOX SC (18:09)
== END 2024-04-02 18:43 | disposition home health service (06) | DRG 280 ==
LOC: IVU 18:34
PROVIDERS: ADMITTING PHYSICIAN Internal Medicine; ATTENDING PHYSICIAN Family Medicine; CONSULT PHYSICIAN Specialist; EMERGENCY PHYSICIAN Emergency Medicine; FAMILY PHYSICIAN Family Medicine; OTHER PHYSICIAN Internal Medicine Cardiovascular Disease
DX: I11.0 Hypertensive heart disease with heart failure (principal); E43 Unspecified severe protein-calorie malnutrition; I21.A1 Myocardial infarction type 2; I50.23 Acute on chronic systolic (congestive) heart failure; R57.0 Cardiogenic shock; R65.11 Systemic inflammatory response syndrome (SIRS) of non-infectious origin with acute organ dysfunction; E22.2 Syndrome of inappropriate secretion of antidiuretic hormone; Z68.1 Body mass index [BMI] 19.9 or less, adult; E11.51 Type 2 diabetes mellitus with diabetic peripheral angiopathy without gangrene; I25.10 Atherosclerotic heart disease of native coronary artery without angina pectoris; Z66 Do not resuscitate; K21.9 Gastro-esophageal reflux disease without esophagitis; E87.6 Hypokalemia; E83.42 Hypomagnesemia; J44.9 Chronic obstructive pulmonary disease, unspecified; I25.5 Ischemic cardiomyopathy; R74.01 Elevation of levels of liver transaminase levels; H40.9 Unspecified glaucoma; E78.5 Hyperlipidemia, unspecified; E88.A Wasting disease (syndrome) due to underlying condition; F17.210 Nicotine dependence, cigarettes, uncomplicated; R74.8 Abnormal levels of other serum enzymes; R11.2 Nausea with vomiting, unspecified; R19.7 Diarrhea, unspecified; R82.81 Pyuria; I25.2 Old myocardial infarction; Z95.5 Presence of coronary angioplasty implant and graft; Z79.82 Long term (current) use of aspirin; Z79.84 Long term (current) use of oral hypoglycemic drugs; Z79.899 Other long term (current) drug therapy; Z82.49 Family history of ischemic heart disease and other diseases of the circulatory system; Z11.52 Encounter for screening for COVID-19
CPT/HCPCS: 93308; 71045; 80053; 81003; 81015; 82533; 82570; 82962; 83036; 83605; 83690; 83735; 83880; 83930; 83935; 84100; 84145; 84300; 84443; 84484; 85025; 85027; 87040; 87086; 87502; 87811; 93005; 93321; 93325; 93970; 96361; 96374; 96375; 97116; 97162; 97166; 97530; 99285

== ENCOUNTER 2024-09-05 23:52 | Inpatient (IN) | payer OTHER, SELFPAY ==
[2024-09-05 18:45] VITALS: BP 119/65
[2024-09-05 18:47] LABS: Glucose - Point of Care < 10 mg/dl (70-99)
[2024-09-05 18:48] VITALS: BP 119/65
[2024-09-05] MEDS: DEXTROSE 50% SYRINGE 25 GRAMS IV (18:50)
[2024-09-05 19:00] VITALS: BP 99/63
[2024-09-05 19:05] LABS: Glucose - Point of Care < 10 mg/dl (70-99)
[2024-09-05 19:29] LABS: % Basophils 0.2 % (0-2); % Lymphocytes 3.7 % (20.5-51.1); % Monocytes 2.1 % (1.7-9.3); Absolute Basophils 0.1 10^3/uL (0-0.2); Absolute Immature Granulocytes 0.2 10^3/uL (0-0.05); Absolute Lymphocytes 0.8 10^3/uL (1.2-3.4); Absolute Monocytes 0.4 10^3/uL (0.1-0.6); Absolute Neutrophils 19.6 10^3/uL (1.4-6.5); Hematocrit 27.1 % (37.0-47.0); Hemoglobin 9.5 g/dL (12.0-16.0); Mean Corp Hgb Conc. 35.1 g/dL (33.0-37.0); Mean Corpuscular Hgb 38.5 pg (27.0-31.0); Mean Corpuscular Volume 109.7 fL (81.0-99.0); Mean Platelet Volume 10.7 fL (7.4-10.4); Nucleated Red Blood Cells % 0 %; Platelet Count 183 10^3/uL (130-400); Red Blood Cell Count 2.47 10^6/uL (4.20-5.40); White Blood Cell Count 21.1 10^3/uL (4.8-10.8)
[2024-09-05 19:50] LABS: AST (SGOT) 72 U/L (14-36); Albumin 2.2 g/dl (3.5-5.0); Alkaline Phosphatase 125 U/L (38-126); Blood Urea Nitrogen 17 mg/dl (7-17); Calcium 7.2 mg/dl (8.4-10.2); Carbon Dioxide 32 mmol/L (22-30); Chloride 89 mmol/L (98-107); Estimated Creatinine Clearance 34 ml/min; Glucose 391 mg/dl (70-99); Potassium 2.3 mmol/L (3.5-5.1); Sodium 133 mmol/L (135-145); Total Bilirubin 1.2 mg/dl (0.2-1.3); Total Protein 4.4 g/dl (6.3-8.2); eGFR > 60.00
[2024-09-05 19:59] LABS: ALT (SGPT) 31 U/L (0-35)
[2024-09-05 20:00] VITALS: BP 113/63
[2024-09-05 20:02] LABS: Lactic Acid 4.1 mmol/L (0.7-2.0)
[2024-09-05] MEDS: NSS 1000 ML IV (20:19)
[2024-09-05 20:25] LABS: TSH Reflex To Free T4 0.98 uIU/ml (0.47-4.68)
[2024-09-05] MEDS: KCL ELIXIR 40 MEQ PO (20:46)
[2024-09-05] MEDS: ZOSYN 100 IV (20:47)
[2024-09-05 21:00] VITALS: BP 113/61
[2024-09-05] MEDS: KCL 270 MEQ IV (21:11)
--- NOTE | 2024-09-05 21:45 | ED.GENMED ---
History of Present Illness
General
Chief Complaint: Failure to Thrive
Source: patient and family (Son)
Exam Limitations: none
Time Seen by Provider: 09/05/24 19:07
History of Present Illness
History of Present Illness:
Patient was found on the floor. She apparently slid off the couch this morning was unable to get up. She did not answer her phone last evening or this morning. She however had no loss of consciousness. She had a low blood sugar reading was given
D10. Repeat blood sugar reading remain low and was given amp of D50. She complains of pain in the right hip. No other specific complaint.
Past History
Past History
ED Past Medical History: HTN, NIDDM and Other (Osteoporosis,)
ED Past Surgical History: Orthopedic (Multiple surgeries right elbow/forearm in 2003. Lumbar laminectomy 1992.) and Other (Umbilical hernia repair.)
Social History
Tobacco: Smoker
Alcohol: Occasional
Drug: None
Personal:
Living: with family
Employment: Disabled
Family History
Family History: Other (PE and coronary disease)
Review of Systems
Review of Systems
All Other Systems: Not applicable
Constitutional: Reports fatigue; Denies fever or chills
Respiratory: Reports no symptoms
Cardiac: Reports no symptoms
Phy Exam
Physical Exam
Physical Exam:
GENERAL: Alert. Very cachectic and thin. Emaciated. No signs of head trauma
EYE: Orbits normal.
NECK: Supple, nontender
ENT: Pharynx without erythema
CARDIAC: Regular rate and rhythm without any obvious murmurs.
LUNGS: Clear breath sounds,normal
ABDOMEN: Soft, without focal tenderness or distention
NEUROLOGICAL: Alert and oriented , grossly non-focal
SKIN: Warm and dry, no rash or lesion, no discoloration, skin intact.
MUSCULOSKELETAL: Bilateral cold lower extremities lower calf down. No palpable pulses distally however Doppler pulses dorsalis pedis bilaterally. Some chronic pressure sore appearance to both heels. Small pressure sore to the right knee. Pain
with right hip rotation. Pelvis is stable. Extremities unremarkable otherwise
PSYCH: Normal and appropriate interaction.
Course
Orders/Labs/Results
Orders:
Orders
09/05/24 18:44
EKG [Electrocardiogram (*1)] Urgent
Reason for Study: Fatigue / Weakness
09/05/24 18:48
Dextrose 50%-Water [Dextrose 50% Syringe] 25 grams .ROUTE .STK-MED ONE
09/05/24 18:50
Dextrose 50%-Water [Dextrose 50% Syringe] 25 grams IV NOW STA
09/05/24 19:08
CBC/With Diff [Complete Blood Count/With Diff] Urgent
CMP [Comprehensive Metabolic Panel] Urgent
Magnesium Urgent
Comment: ADD ON
TSH Reflex To Free T4 Urgent
Comment: ADD ON
09/05/24 19:31
Urinalysis Reflex To Culture Urgent
Date Specimen was Collected: 09/06/24
Time Specimen was Collected: 10:35
0.9% Sodium Chloride 1000 ml [Nss] 1,000 ml IV NOW STA
CR Chest Single View Urgent
Reason For Exam: Sepsis
Hip, Right 2-3 Views [CR Hip - RT w/wo Pel 2-3 Vw*] Urgent
Comment:
Reason For Exam: trauma
Include a pelvis x-ray?: Yes
Pulse Ox/cont/shift [RESP] Urgent
Quantity: 1
09/05/24 19:43
Lactic Acid Q4H
Comment: CANCEL 2nd LACTIC ACID IF 1st LACTIC ACID IS LESS THAN 2
Blood Culture Q30M
CROW Source: Blood/Venous
Specimen Description:
09/05/24 20:06
Piperacillin/Tazo 4.5 Gram [Zosyn] 4.5 gram in 100 ml IV NOW
Potassium Chloride 10% Elixir [KCl Elixir] 40 meq PO NOW STA
Vancomycin 1 Gram/200 ml [Vancocin] 1 gram in 200 ml IV NOW
09/05/24 20:23
Potassium Chloride [KCl] 40 meq 0.9% Sodium Chloride 250 ml [Nss] 250 ml IV NOW
09/05/24 20:46
Blood Culture Q30M
CROW Source: Blood/Venous
Specimen Description:
09/05/24 23:00
Flush (0.9% Sodium Chloride) [Flush (Nss)] See Dose Instructions IV PER PROTOCOL
09/05/24 23:23
COVID-19 Antigen Stat
Source: Nasal Swab
Influenza A+B Rapid Molecular Stat
CROW Source: Nasal Swab
Specimen Description:
09/05/24 23:24
Admit/Transfer Patient As Directed
Co-Sign Provider:
Level of Care: Inpatient admission
Assign to:: Telemetry
Physician / Group: hospitalist
Diagnosis: hypokalemia
Reason for Telemetry: Other
Other Reason for Telemetry: hypokalemia
Date to Stop Telemetry: 09/07/24
Time to Stop Telemetry: 11:00
Reason for Hospitalization: failure to thrive
Expected length of stay greater than two midnights?: Yes
ELOS- Estimated Length of Stay in days: 2
I certify the patient meets the requirements for IP care: Yes
09/05/24 23:25
PRN Pain Medication Management As Directed
May give lesser potent ordered pain med per pt: Yes
preference::
Protocol:: Medication orders for pain may be administered in a
manner that supports deferring to patient preference
when the pt is:
- Requesting an ordered lesser potent pain medication.
Least to most potent pain medications are defined
as: acetaminophen < NSAID < tramadol < opioids
(morphine, oxycodone, hydromorphone).
- Requesting a lesser dose of the same medication IF
ORDERED.
- Requesting a less intrusive route of administration
if both routes are prescribed by the provider (PO <
IV).
09/05/24 23:27
Code Status As Directed
Resuscitation Status: Full Code
09/05/24 23:30
Acetaminophen 10 mg/ml [Ofirmev] 500 mg Empty Viaflex Container 100 ml [Viaflex Empty Container] 0 ml IV ONCE
09/05/24 23:36
Add On- LAB Stat
Tests Added?: magnesium level
09/05/24 23:45
Lactic Acid Q4H
Comment: CANCEL 2nd LACTIC ACID IF 1st LACTIC ACID IS LESS THAN 2
09/06/24 00:10
CT Pelvis W/o Iv Contrast Stat
Reason For Exam: eval for right hip fracture
09/06/24 00:53
Acetaminophen [Tylenol] 650 mg PO Q6HPRN PRN
HYDROmorphone [Dilaudid] 0.25 mg IV Q4HPRN PRN
Lactated Ringers [Lr] 1,000 ml IV 75 mls/hr
Ondansetron Injectable [Zofran] 4 mg IV Q6HPRN PRN
Tramadol HCl [Ultram] 50 mg PO Q6HPRN PRN
09/06/24 00:53
Activity As Directed
Activity Level: With Assistance
Bedside Glucose Monitoring As Directed
Frequency: AC&HS
Intake/ Output As Directed
Frequency: Per unit guidelines
Vital Signs As Directed
Frequency: Per unit guidelines
Pulse Ox/spot Check [RESP] Routine
Quantity: 1
Special Instructions: pulse oximetry on admision then every shift if on oxygen
call if oxygen saturation < ___ %
DX Deep Vein Thrombosis Video Routine
09/06/24 01:40
Lactic Acid Q4H
Comment: repeat q4 hours x 4 or until less than 2 mmol/L
09/06/24 05:20
Lactic Acid Q4H
Comment: repeat q4 hours x 4 or until less than 2 mmol/L
09/06/24 07:06
Basic Metabolic Panel IN AM
Magnesium IN AM
Procalcitonin IN AM
PCT Algorithmm Indication: Sepsis
09/06/24 07:30
Insulin Aspart Corrective Low [Novolog Flexpen-Low Resistance] See Protocol SC AC
09/06/24 08:00
Aspirin Low Dose EC [Aspir Low (Enteric Coated)] 81 mg PO DAILY
Heparin 5,000 units SC Q8
Metoprolol Xl [Toprol Xl] 12.5 mg PO DAILY
Pantoprazole [Protonix] 40 mg PO DAILY
Sacubitril 24/Valsartan 26 [Entresto 24 mg/26 mg] 1 tab PO BID
09/06/24 Dinner
2000 calorie (17 carb) Diabetic
At Your Request: Limited Participation
09/06/24 22:00
Atorvastatin [Lipitor] 20 mg PO HS
Latanoprost [Xalatan Ophthalmic Solution] 1 drop BOTH EYES HS
09/07/24 06:00
US Abdomen Complete/Upper Urgent
Reason For Exam: transaminitis, nausea, seps eval for cholecystitis
09/07/24 11:00
DC Protocol for Telemetry ONCE
Abnormal Lab Results
09/05/24 09/05/24 09/05/24
18:45 19:04 19:08
WBC 21.1 H 10^3/uL
(4.8-10.8)
RBC 2.47 L 10^6/uL
(4.20-5.40)
Hgb 9.5 L g/dL
(12.0-16.0)
Hct 27.1 L %
(37.0-47.0)
MCV 109.7 H fL
(81.0-99.0)
MCH 38.5 H pg
(27.0-31.0)
RDW 19.0 H %
(11.5-14.5)
MPV 10.7 H fL
(7.4-10.4)
Abs Immat Gran (auto) 0.2 H 10^3/uL
(0-0.05)
Absolute Neuts (auto) 19.6 H 10^3/uL
(1.4-6.5)
Absolute Lymphs (auto) 0.8 L 10^3/uL
(1.2-3.4)
Immature Gran % 1.0 H %
(0-0.5)
Neutrophils % 93.0 H %
(42.2-75.2)
Lymphocytes % 3.7 L %
(20.5-51.1)
Sodium 133 L mmol/L
(135-145)
Potassium 2.3 L* mmol/L
(3.5-5.1)
Chloride 89 L mmol/L
(98-107)
Carbon Dioxide 32 H mmol/L
(22-30)
Glucose 391 H mg/dl
(70-99)
Lactic Acid
Calcium 7.2 L mg/dl
(8.4-10.2)
Magnesium 1.5 L mg/dl
(1.6-2.3)
AST 72 H U/L
(14-36)
Total Protein 4.4 L g/dl
(6.3-8.2)
Albumin 2.2 L g/dl
(3.5-5.0)
POC Glucose < 10 L* mg/dl < 10 L* mg/dl
(70-99) (70-99)
09/05/24
19:43
WBC
RBC
Hgb
Hct
MCV
MCH
RDW
MPV
Abs Immat Gran (auto)
Absolute Neuts (auto)
Absolute Lymphs (auto)
Immature Gran %
Neutrophils %
Lymphocytes %
Sodium
Potassium
Chloride
Carbon Dioxide
Glucose
Lactic Acid 4.1 H* mmol/L
(0.7-2.0)
Calcium
Magnesium
AST
Total Protein
Albumin
POC Glucose
09/05/24 19:08
09/05/24 19:08
Vital Signs
Initial and Last Documented VS:
Initial Vital Signs
Temp Pulse Resp BP
97.4 F 90 22 119/65
09/05/24 18:45 09/05/24 18:45 09/05/24 18:45 09/05/24 18:45
Last Documented Vital Signs
Temp Pulse Resp BP Pulse Ox
98.3 F 80 16 108/54 97
09/06/24 15:16 09/06/24 15:58 09/06/24 15:16 09/06/24 15:58 09/06/24 15:16
MDM/Problems Addressed
Differential Diagnosis Includes:
Patient thin emaciated cachectic. Do not feel she was ever likely hypoglycemic. May be the acidosis deflected the check machine. Elevated blood sugar likely from the D10 and 50. I do not feel she has acute vascular issue although clearly has
chronic vascular issues. Both lower extremities are symmetrically cool. They have relatively good color. Clearly failure to thrive. Possible sepsis. Severe hypokalemia. Possible right hip fracture. Workup in progress
*Radiology
Radiology exam reviewed: preliminary read by ED provider (neg)
*Pulse Oximetry
Patient hypoxic: no
*EKG
Interpreted by ED Provider?: Yes
Interpretation: abnormal
Comparison EKG: changes noted
Heart Rate: 89
Rate: normal
Rhythm: sinus and PAC's
[place]: normal axis
Interval: normal interval
QRS Pattern: normal QRS
Ischemia: non-specific ST changes
*Detective Chief Interpretation
Rate: normal
Interpretation: normal
Heart Rate: 70
*Critical Care Note
Total Time (30-74mins, 75-104mins- exclusive of procedures): 45
Data Reviewed
Review of Other/Old Records Reveals: Labs, Records, Testing and Discharge Summary
Update Note
Update Note:
2250... Patient rechecked. Blood pressure mildly low but has been stable here. Reexamined the legs. She clearly has poor circulation but this appears to be a diffuse issue likely secondary to her sepsis or shock. She still may have an occult hip
fracture although I do not see this on x-ray. Antibiotics have been ordered. Potassium replacement. Fluids.
ED Attending Note
-
Portions of this chart may have been created with voice recognition software.� Occasional wrong word or��sound alike� substitutions may have occurred due to the inherent limitations of voice recognition software.
Discharge Plan
Departure
Patient Disposition: Admit
Date of Disposition: 09/05/24
Time of Disposition: 22:25
Presentation/result/management discussed w/ accepting MD/DO: Hospitalist
Discharge Problem:
Severe hypokalemia, Possible sepsis, Anemia, Possible hip fracture
Interventions
Interventions:
*Risk Screen - Suicide Last Done: 09/05/24 18:45
*General Assessment Last Done: 09/05/24 18:45
*Neglect/Abuse Screening Last Done: 09/05/24 18:45
*Nursing Disposition Last Done: 09/06/24 00:49
Discharge Date and Time
Discharge Date/Time: 09/06/24 00:40
--- NOTE | 2024-09-05 23:04 | HPS.HSE ---
Family Physician
-
Family Physician: Chester De La Fuente
Chief Complaint
-
Fall, weakness and failure to thrive
History of Present Illness
This is a 73-year-old female with past medical history of CAD, CVA ischemic cardiomyopathy with a EF of 10 to 15%, CVA protein calorie malnutrition, GERD, chronic pain, diabetes not on insulin presenting to the emergency department after being found
on the floor at home and unable to get up.
Family member provided history. He reported that he was calling her all day today but she did not respond so he came to the house to check up on her. He found laying down on the floor next to the sofa. Patient herself said she slipped off of the
sofa at around 5 AM and has been unable to get up since then. When EMS arrived today apparently check the blood glucose which was reading low so they gave her amp of dextrose. She seemed to wake up and she received another amp en route to the
emergency department. Patient herself was in usual state of health the day before and her son spoke to her the day before without any new findings at that time.
Recently the patient has had immediate of issues including diarrhea for several weeks for which she she started taking antidiarrheal medications recently and has since stopped. She said she has had persistent nausea but no vomiting. She has had
very minimal appetite which appears to be chronic condition. She has ongoing weight loss. She denies any new abdominal pain. She denied having fevers or chills. She denied any other recent falls. Patient denies cough, shortness of breath,
dyspnea on exertion. She has been otherwise compliant with her medications.
Patient denies any urinary symptoms. She denies any joint swelling redness or tenderness. She has been unable to ambulate since being found on the floor today. No prior history of seizures. No loss of consciousness per patient.
On arrival in the emergency department she was afebrile, blood pressure was 119/65 with a pulse of 90. Oxygen saturation was 95% on room air. Chest x-ray shows no acute infiltrates. ECG showed sinus rhythm at 89 with P ACs but otherwise
unremarkable. CBC notable for white count of 21,000 with a left shift, hemoglobin and platelets were unchanged from prior. Sodium was 133 which is similar to prior potassium was markedly reduced at 2.3, the rest of her electrolytes were similar to
prior BUN and creatinine were also similar to prior. Glucose in the ED lab was 391. Lactic acid was elevated at 4. U/A is pending.
Medical History
Past Medical History
Past Medical History: Reports CHF (EF 10%), GERD, HTN and NIDDM
Additional Past Medical History:
chronic back pain
Past Surgical History: Reports Orthopedic (L LOGAN, back surgery, Right elbow surgery)
Social History
Tobacco: Non-smoker
Alcohol: None
Drug: None
Personal: Single
Living: With Family
Family History
Family History: Not pertinent
Allergies / Home Medications
Allergies reflects when Allergies were last updated in [facility].
Home Medications with original date entered in [facility]
Allergy/Medication List:
Allergies
Allergy/AdvReac Type Severity Reaction Status Date / Time
cat dander Allergy Itching Verified 09/05/24 18:44
house dust Allergy SNEEZING Verified 09/05/24 18:44
pollen extracts Allergy SNEEZING Verified 09/05/24 18:44
pregabalin [From Lyrica] Allergy psychosis Verified 09/05/24 18:44
Home Medications
atorvastatin 20 mg tablet 20 mg PO HS High Cholesterol 10/04/23
latanoprost 0.005 % eye drops 1 drp BOTH EYES HS glaucoma 10/04/23
tramadol 50 mg tablet 50 mg PO BIDPRN PRN moderate pain 01/29/24
aspirin 81 mg tablet,delayed release 81 mg PO DAILY 30 days #30 tabs 02/05/24
furosemide 40 mg tablet 40 mg PO DAILY #30 tabs 04/02/24
metoprolol succinate 25 mg tablet,extended release 24 hr 12.5 mg (1/2 x 25 mg) PO DAILY #30 tabs 04/02/24
pantoprazole 40 mg tablet,delayed release (Protonix) 40 mg PO DAILY #30 tabs 04/02/24
glipizide 5 mg tablet 2.5 mg PO DAILY 09/05/24
sacubitril 24 mg-valsartan 26 mg tablet (Entresto) 1 tab PO BID 09/05/24
Review of Systems
-
History Source: Patient
Constitutional: Reports Weight Loss
EENT: Reports No Symptoms
Respiratory: Reports No Symptoms
Cardiac: Reports No Symptoms
Abdomen/GI: Reports Nausea
: Reports No Symptoms
Musculoskeletal: Reports Joint Pain (right hip)
Skin: Reports No Symptoms
Neurological: Reports No Symptoms
Endocrine: Reports No Symptoms
Hematologic/Lymphatic: Reports No Symptoms
Psych: Reports No Symptoms
Physical Exam
Vital Signs
Vital Signs
Temp Pulse Resp BP
97.4 F 90 22 119/65
09/05/24 18:45 09/05/24 18:45 09/05/24 18:45 09/05/24 18:45
Physical Exam
General: Cachectic
HEENT: NormoCephalic, Anicteric, Atraumatic, PERRLA and Neck Nontender
Respiratory: Clear
Cardiac: S1/S2 and Regular Rhythm
Breast: Deferred by me
GI: Soft, Non Tender, Non Distended and Flat
Rectal: Deferred by Provider
Genito-urinary: Deferred by me
Musculoskeletal: No Clubbing
Skin: Warm
Neuro: AO x 3
Hematologic/Lymphatic: No Lymphadenopathy
Psych: Calm
Laboratory Results
-
09/05/24 19:08
09/05/24 19:08
Laboratory Results
Lactic Acid 4.1 mmol/L (0.7-2.0) H* 09/05/24 19:43
Total Bilirubin 1.2 mg/dl (0.2-1.3) 09/05/24 19:08
AST 72 U/L (14-36) H 09/05/24 19:08
ALT 31 U/L (0-35) 09/05/24 19:08
Alkaline Phosphatase 125 U/L (38-126) 09/05/24 19:08
Data Reviewed
-
Diagnostic Radiology: Image Personally Visualized and interpreted
Medical Tests (Nuc Med, Echo, EKG etc): Image Personally Visualized and interpreted
Lab Data: Labs Reviewed by me
Old Records: Reviewed
Impression/Plan
-
IMPRESSION:
73 y.o female with severe CHF EF 10%, chronic malnutrition and failure to thrive presenting to ED with weakness after being found down at home. ED w/u notable for leukocytosis and elevated lactic acid concerning for infection/sepsis. Patient has
no obvious infectious source on initial w/u. Reported to be hypoglycemic when found by EMS (likely laying there since 5 am and id not have any po intake today). Blood glucose elevated on ED arrival after 20g d10 given by MS.
PLAN:
1. Sepsis - Possible sepsis with unclear source versus hypoglycemia and CHF with poor forward flow. Unexplained leukocytosis.
- admit to imu for now
- checking blood cultures, u/a and urine cultures
- check covid, flu, procalcitonin
- skin is clear but there is a small dark spot in the right great toe, will get crp/esr
- empric vanc/zosyn given in ED
- will continue zosyn for now
- mrsa swab
- s/p 1 L resuscitation in ED due to lactic acidosis. Hold further IV fluids for now
- check abdominal u/s (slight elevation in AST)
2. Hip pain - fall wit hpossible right hip fracture.
- CT pelvis
- no weight bearing for now
- pain control
3. Hypokalemia - h/o diarrhea, poor po and on furosemide
- holding diuretics
- replete K, Mag and re-eval
4. CHF - she is dry with poor forward function
- hold diuretics for now
- attempt to restart entresto tomorrow as bp tollerates
- continue metoprolol succinate 12.5
5. DM II - hypoglycemic episode s/p 20g d10
- check fingersticks q 2 hours for now then achs
- hold glipizide
- sliding scale insulin achs
DVT PPX - heparin sq
Code status - Full Code
[2024-09-05] MEDS: VANCOCIN 200 IV (23:17)
[2024-09-05 23:46] LABS: COVID-19 Antigen Negative (Negative)
[2024-09-05] MEDS: OFIRMEV 50 MG IV (23:56)
[2024-09-05 23:57] VITALS: BP 93/64
[2024-09-06] VITALS (11 sets, daily range): BP systolic 83–113; BP diastolic 41–59; BMI 12.3
[2024-09-06 00:13] LABS: Magnesium 1.5 mg/dl (1.6-2.3)
[2024-09-06 00:25] LABS: Lactic Acid 2.7 mmol/L (0.7-2.0)
[2024-09-06] MEDS: LR 1000 IV (01:41)
[2024-09-06] MEDS: ZOSYN 50 IV ×4 (01:52→21:42)
[2024-09-06 02:19] LABS: Lactic Acid 2.4 mmol/L (0.7-2.0)
[2024-09-06] MEDS: DILAUDID 0.25 MG IV ×2 (02:37→08:29)
[2024-09-06] MEDS: ULTRAM 50 MG PO (05:24)
[2024-09-06 05:45] LABS: Lactic Acid 1.8 mmol/L (0.7-2.0)
[2024-09-06 07:26] LABS: Glucose - Point of Care 77 mg/dl (70-99)
[2024-09-06 07:50] LABS: Procalcitonin 21.09 ng/ml (0.0-0.25)
[2024-09-06 08:02] LABS: Blood Urea Nitrogen 15 mg/dl (7-17); Calcium 7.7 mg/dl (8.4-10.2); Carbon Dioxide 31 mmol/L (22-30); Chloride 99 mmol/L (98-107); Estimated Creatinine Clearance 29 ml/min; Glucose 95 mg/dl (70-99); Magnesium 1.5 mg/dl (1.6-2.3); Potassium 3.3 mmol/L (3.5-5.1); Sodium 139 mmol/L (135-145); eGFR > 60.00
[2024-09-06] MEDS: HEPARIN 5000 UNITS SC ×3 (08:12→23:33)
[2024-09-06] MEDS: NOVOLOG FLEXPEN-LOW RESISTANCE SC ×2 (08:12→16:50)
[2024-09-06] MEDS: ASPIR LOW (ENTERIC COATED) 81 MG PO (08:12)
[2024-09-06] MEDS: PROTONIX 40 MG PO (08:12)
[2024-09-06] MEDS: TOPROL XL 12.5 MG PO (08:15)
[2024-09-06] MEDS: ENTRESTO 24 MG/26 MG 1 TAB PO (08:15)
--- NOTE | 2024-09-06 08:33 | W.PN.HOSP.TC ---
Today's Communication/Plan
-
see bold
Assessment / Plan
Assessment / Plan
HPI: 73 y.o female with severe CHF EF 10%, chronic malnutrition and failure to thrive presenting to ED with weakness after being found down at home. ED w/u notable for leukocytosis and elevated lactic acid concerning for infection/sepsis. Patient
has no obvious infectious source on initial w/u. Reported to be hypoglycemic when found by EMS (likely laying there since 5 am and id not have any po intake today). Blood glucose elevated on ED arrival after 20g d10 given by MS.
PLAN:
1. Sepsis with hypotension without septic shock
Possible sepsis with unclear source versus hypoglycemia and CHF with poor forward flow. Unexplained leukocytosis
COVID/flu negative, CXR neg, UA pending, procalcitonin 21.09
Empric vanc/zosyn given in ED
Continue Zosyn, consult ID, follow-up on blood/urine cultures
Patient has a wet cough, consult SPL
Continue IV fluids, midodrine as needed, hold Lasix/metoprolol/Entresto
2. Right hip pain status post fall
CT negative for fracture
Continue pain meds, consult PT
3. Hypokalemia, hypomagnesemia
Hold diuretics, continue repletion
4. CHF - she is dry with poor forward function
Hold diuretics
Hold Entresto and metoprolol succinate secondary to hypotension
5. DM II - hypoglycemic episode s/p 20g d10
Hold glipizide, liberate diet due to hypoglycemia
6. Hypoglycemia
Change IV fluids to D5 NS
DVT prophylaxis�subcu heparin
Full code
Total time spent to see the patient on the floor, examine the patient, review data and lab results, discuss treatment plan with patient, nursing staff around 55 minutes.
Physical Exam
General: No acute distress
HEENT: Normocephalic, Atraumatic, EOMI, MMM
Respiratory: Clear to Auscultation bilaterally
Cardiac: Normal S1/S2, Regular Rate and Rhythm
GI: Soft, Nontender, Nondistended, Normal Bowel Sounds
Extremities: No Clubbing, Cyanosis, or Edema
Musculoskeletal: Right hip is tender to palpation
Neuro: Nonfocal/Grossly Intact
Psych: Calm, Cooperative
Anticipated Discharge: > 48 hours
Subjective/Interval History
-
Date of Service: September 06, 2024
Patient continues to cough, her cough is wet sounding. No fever. No nausea, no vomiting.
Objective Data
-
Labs:
Laboratory Results
09/06/24
07:06
Sodium 139
Potassium 3.3 L D
Chloride 99
Carbon Dioxide 31 H
BUN 15
Creatinine 0.8
Glucose 95
Calcium 7.7 L
Vital Signs:
Vital Signs
Temp Pulse Resp BP Pulse Ox
97.7 F 88 15 110/57 94
09/06/24 03:32 09/06/24 03:32 09/06/24 03:32 09/06/24 03:32 09/06/24 03:32
I&O
09/05/24 09/06/24 09/07/24
06:59 06:59 06:59
Intake Total 0 / 0
Balance 0 / 0
[2024-09-06 09:01] LABS: Hematocrit 31.9 % (37.0-47.0); Hemoglobin 10.7 g/dL (12.0-16.0); Mean Corp Hgb Conc. 33.5 g/dL (33.0-37.0); Mean Corpuscular Hgb 37.7 pg (27.0-31.0); Mean Corpuscular Volume 112.3 fL (81.0-99.0); Platelet Count 213 10^3/uL (130-400); Red Blood Cell Count 2.84 10^6/uL (4.20-5.40); Red Cell Dist. Width 19.3 % (11.5-14.5); White Blood Cell Count 27.5 10^3/uL (4.8-10.8)
[2024-09-06] MEDS: KCL 40 MEQ PO (09:23)
[2024-09-06] MEDS: MAGNESIUM SULFATE 50 IV (09:23)
[2024-09-06 10:46] LABS: Urine Albumin Negative (Neg - Trace); Urine Bilirubin Negative (Negative); Urine Character Clear (Clear); Urine Color Yellow; Urine Glucose Trace (Negative); Urine Ketone Negative (Negative); Urine Leukocyte 1+ (Negative); Urine Nitrite Negative (Negative); Urine Occult Blood 3+ (Negative); Urine Urobilinogen Negative (Neg - 1+)
[2024-09-06 11:23] LABS: Urine Bacteria Few (Negative)
--- NOTE | 2024-09-06 12:06 | PTCARENOTE ---
Addendum entered by Jo-Ann James RN 09/06/24 13:53:
250ml IVF bolus and midodrine ordered. Both given. BP 91/48. Dr Perkins notified.
Original Note:
BP 83/42, repeated 85/45, pulse 89. No fever. Pt resting in bed, responsive. Dr Perkins notified.
[2024-09-06 12:12] LABS: Glucose - Point of Care 163 mg/dl (70-99)
[2024-09-06] MEDS: TYLENOL 650 MG PO ×2 (12:27→21:44)
[2024-09-06] MEDS: NSS 250 IV (12:52)
[2024-09-06] MEDS: ProAmatine 5 MG PO ×2 (12:55→23:34)
[2024-09-06] MEDS: LIDOCAINE 4% PATCH 1 PATCH TOPICAL (12:56)
--- NOTE | 2024-09-06 13:20 | CON.ID ---
Consultation
-
Date/Time Consultation Requested: 09/06/2024 1212
Date/Time Consultation Performed: 09/06/2024 1321
Requesting Provider: Dr. Perkins
Performing Provider: Dr. Chand
Reason for Consultation: Sepsis
Chief Complaint / Past History
History of Present Illness
Chapis Cool is a 73-year-old female being evaluated at the request of Dr. Perkins regarding clinical sepsis. History is obtained from chart review, along with patient interview.
The patient presented to the emergency room here at [facility] following the development of weakness. According to reviewed documents from EMS, the ambulance was called to the hospital following the patient being found on the ground.
Patient's son reports that he had come into check on the patient and he found her on the floor next to the couch. She reportedly has been dealing with generalized weakness, and decreased p.o. intake for some time.
Workup in the emergency room revealed leukocytosis with left shift, along with an elevated lactate acid level. Infectious Diseases is asked to comment upon further antimicrobial therapy management.
Patient reports significant discomfort, but no generalized pain. She denies any cough or shortness of breath. She notes some fingertip numbness. She denies any abdominal pain, but previously noted some nausea. She denies any dysuria.
Past History
Additional Past Medical History:
HTN
DM type II
Osteoporosis
CHF
GERD
Additional Past Surgical History:
Right elbow/forearm surgery
Lumbar laminectomy
Umbilical hernia repair
Left hip replacement
Allergy History:
cat dander Allergy (Verified 09/05/24 18:44)
Itching
house dust Allergy (Verified 09/05/24 18:44)
SNEEZING
pollen extracts Allergy (Verified 09/05/24 18:44)
SNEEZING
pregabalin [From Lyrica] Allergy (Verified 09/05/24 18:44)
psychosis
Medications Reviewed: Yes
Current Antibiotics:
Zosyn 2.25 g IV every 6 hours
Vancomycin x 1 dose
Social History
Tobacco: Former Smoker
Alcohol: Occasional
Drug: None
Personal:
Living: With Family
Family History
Family History: Not Pertinent
Review of Systems
Vital Signs
Temp Pulse Resp BP Pulse Ox
97.3 F 79 16 91/48 100
09/06/24 11:31 09/06/24 13:17 09/06/24 11:31 09/06/24 13:17 09/06/24 07:25
Physical Exam
Physical Exam
Constitutional: No Acute Distress, Comfortable, Chronically Ill, Non-toxic and Cachetic (extreame)
Head: Normocephalic
Eyes: Pupils Equal, Pupils Round, No Conjunctival Hemorrhage and Sclera Anicteric
Oral: No Thrush and No Ulcers
Cardiovascular: S1/S2; Negative S3/S4
Pulmonary: Non Labored
Gastrointestinal: Soft and Non Distended
Extremities: Cyanosis (Mottled fingers noted.); Negative Edema
Skin: Negative Rash or Jaundice
Neurological: Awake
Psychological: Calm
.
Lab / Diagnostic Study Results
09/06/24 08:36
09/06/24 07:06
Abs Immat Gran (auto) 0.2 10^3/uL (0-0.05) H 09/05/24 19:08
Absolute Neuts (auto) 19.6 10^3/uL (1.4-6.5) H 09/05/24 19:08
Absolute Lymphs (auto) 0.8 10^3/uL (1.2-3.4) L 09/05/24 19:08
Absolute Monos (auto) 0.4 10^3/uL (0.1-0.6) 09/05/24 19:08
Absolute Basos (auto) 0.1 10^3/uL (0-0.2) 09/05/24 19:08
Immature Gran % 1.0 % (0-0.5) H 09/05/24 19:08
Neutrophils % 93.0 % (42.2-75.2) H 09/05/24 19:08
Lymphocytes % 3.7 % (20.5-51.1) L 09/05/24 19:08
Monocytes % 2.1 % (1.7-9.3) 09/05/24 19:08
Eosinophils % 0.0 % (0-6) 09/05/24 19:08
Basophils % 0.2 % (0-2) 09/05/24 19:08
Lactic Acid Cancelled 09/06/24 12:53
Procalcitonin 21.09 ng/ml (0.0-0.25) H* 09/06/24 07:06
Ur Squamous Epith Cells 6-10 /LPF (Few) 09/06/24 10:38
Microbiology Results
Micro:
09/06/24 10:38 Urine Culture - Pending
Urine
09/05/24 23:23 Influenza Types A & B (ANTONIO) - Final
Nasal Swab Negative for Influenza A & B, NAAT
Negative results must be combined with clinical observations
and patient history.
Nucleic Acid Amplification test (NAAT)performed on the
[employer] platform.
09/05/24 20:46 Blood Culture - Pending
Blood/Venous
09/05/24 19:43 Blood Culture - Pending
Blood/Venous
Imaging:
09/05/2024 CXR (portable): No acute cardiopulmonary process noted.
Assessment / Plan
Generalized weakness
Marked leukocytosis with significant left shift; rising
Elevated procalcitonin
Severe protein calorie malnutrition (BMI = 12.3)
Profound hypoglycemia at admission
Stage III sacral pressure ulcer
HTN
DM type II
Osteoporosis
CHF
GERD
Recommendations:
Continue with empiric Zosyn for now pending further culture data.
Will increase dose to 3.375 g IV every 6 hours as ideal body weight is approximately 47 kg, giving an estimated creatinine clearance of 46
Monitor white count and temperature curve.
Follow pending cultures.
Further recommendations as data is returned.
May consider nutrition consult
[2024-09-06] MEDS: NOVOLOG FLEXPEN-LOW RESISTANCE 1 UNITS SC (13:27)
[2024-09-06] MEDS: ZOSYN IV (14:35)
--- NOTE | 2024-09-06 15:20 | CM ---
Spoke to son, Jose as per RN patient able to finally sleep. Son reports patient was getting [facility] recently but ended. She is still with Palliative care. She lives in one level apt at ground level. She has rolling walker and w/c. son reports
she has been declining recently.
Patient has used [facility] in past. Son expects she will need snf rehab. He understands she has to go to a [employer] approved SNF.
Patient has started process of applying for AAA waiver services but has not completed process.
Son said part of the AAA program will be for patient to be given a medical alert system.
PCP Dr. Chester De La Fuente,
Patient will need PT and OT evals.
PLAN: SNF rehab.
[2024-09-06 16:44] LABS: Glucose - Point of Care 49 mg/dl (70-99)
[2024-09-06 17:16] LABS: Glucose - Point of Care 51 mg/dl (70-99)
[2024-09-06] MEDS: D5/0.9% SODIUM CHLORIDE 1000 IV (17:21)
[2024-09-06 17:47] LABS: Glucose - Point of Care 36 mg/dl (70-99)
[2024-09-06 21:29] LABS: Glucose - Point of Care 49 mg/dl (70-99)
[2024-09-06] MEDS: XALATAN OPHTHALMIC SOLUTION 1 DROP BOTH EYES (21:42)
[2024-09-06] MEDS: LIPITOR 20 MG PO (21:42)
[2024-09-06 22:01] LABS: Glucose - Point of Care 10 mg/dl (70-99)
[2024-09-06 23:21] LABS: Glucose 207 mg/dl (70-99)
--- NOTE | 2024-09-06 23:34 | W.PN.UPDATE ---
Update Note
Progress Note Update
Patient seen for reported accucheck of 39, treated as per protocol by RN, repeat accucheck 10. Venous glucose ordered, result 207. Due to patient's impaired peripheral circulation, accuchecks not reliable. Recommend venous draws for glucose levels.
[2024-09-07] VITALS (7 sets, daily range): BP systolic 87–122; BP diastolic 45–61; BMI 13.2
[2024-09-07] MEDS: ZOSYN 50 IV ×4 (04:02→21:06)
[2024-09-07 07:05] LABS: Hematocrit 26.3 % (37.0-47.0); Hemoglobin 8.9 g/dL (12.0-16.0); Mean Corp Hgb Conc. 33.8 g/dL (33.0-37.0); Mean Corpuscular Hgb 39.6 pg (27.0-31.0); Mean Corpuscular Volume 116.9 fL (81.0-99.0); Mean Platelet Volume 11.1 fL (7.4-10.4); Platelet Count 169 10^3/uL (130-400); Red Blood Cell Count 2.25 10^6/uL (4.20-5.40); Red Cell Dist. Width 19.9 % (11.5-14.5); White Blood Cell Count 20.1 10^3/uL (4.8-10.8)
[2024-09-07 07:35] LABS: Blood Urea Nitrogen 12 mg/dl (7-17); Calcium 7.4 mg/dl (8.4-10.2); Carbon Dioxide 30 mmol/L (22-30); Chloride 98 mmol/L (98-107); Estimated Creatinine Clearance 36 ml/min; Glucose 134 mg/dl (70-99); Magnesium 1.9 mg/dl (1.6-2.3); Potassium 3.7 mmol/L (3.5-5.1); Sodium 135 mmol/L (135-145); eGFR > 60.00
--- NOTE | 2024-09-07 07:45 | W.PN.HOSP.TC ---
Today's Communication/Plan
-
see bold
Assessment / Plan
Assessment / Plan
HPI: 73 y.o female with severe CHF EF 10%, chronic malnutrition and failure to thrive presenting to ED with weakness after being found down at home. ED w/u notable for leukocytosis and elevated lactic acid concerning for infection/sepsis. Patient
has no obvious infectious source on initial w/u. Reported to be hypoglycemic when found by EMS (likely laying there since 5 am and id not have any po intake today). Blood glucose elevated on ED arrival after 20g d10 given by MS.
PLAN:
1. Sepsis with hypotension without septic shock
Gram-positive cocci bacteremia, unclear primary source
COVID/flu negative, CXR neg, UA pending, procalcitonin 21.09
Empric vanc/zosyn given in ED
Appreciate ID input, Zosyn dose increased, follow-up on blood/urine cultures
Patient has a wet cough, SPL consulted
Continue IV fluids, midodrine as needed, hold Lasix/metoprolol/Entresto
2. Right hip pain status post fall
CT negative for fracture
Continue pain meds, PT/OT
Patient lives alone
3. Hypokalemia, hypomagnesemia
Hold diuretics, continue repletion prn
4. CHF - she is dry with poor forward function
Hold diuretics
Hold Entresto and metoprolol succinate secondary to hypotension
5. DM II - hypoglycemic episode s/p 20g d10
Hold glipizide, liberate diet due to hypoglycemia
Accu-Cheks are not accurate, she needs venous blood draws
Check hemoglobin A1c, she may not need any Accu-Cheks at all
6. Severe protein calorie malnutrition
BMI 13.2. She does not tolerate protein supplements
Diet liberalized to regular
Consult nutrition, consult palliative care�she is seen by them at home
7. Persistent nausea
Son reports she has nausea which limits her oral intake
Unable to order Reglan before meals due to prolonged QTc
Abdominal ultrasound shows gallbladder sludge, negative for cholecystitis
Repeat EKG, consider starting Reglan if QTc is improved, consider GI consult
DVT prophylaxis�subcu heparin
Full code
Updated son, Henry, on phone 09/07
Total time spent to see the patient on the floor, examine the patient, review data and lab results, discuss treatment plan with patient, nursing staff around 60 minutes.
Physical Exam
General: Cachectic, appears chronically ill, no acute distress
HEENT: Normocephalic, Atraumatic, EOMI, MMM
Respiratory: Clear to Auscultation bilaterally
Cardiac: Normal S1/S2, Regular Rate and Rhythm
GI: Soft, Nontender, Nondistended, Normal Bowel Sounds
Extremities: No Clubbing, Cyanosis, or Edema
Musculoskeletal: Right hip is tender to palpation
Neuro: Nonfocal/Grossly Intact
Anticipated Discharge: > 48 hours
Subjective/Interval History
-
Date of Service: September 07, 2024
Patient complains of lower back pain. Denies chest pain. Denies shortness of breath. No fever, no vomiting.
Objective Data
-
Labs:
Laboratory Results
09/06/24 09/07/24
23:06 06:04
WBC 20.1 H
Hgb 8.9 L
Hct 26.3 L
Plt Count 169 D
Sodium 135
Potassium 3.7
Chloride 98
Carbon Dioxide 30
BUN 12
Creatinine 0.7
Glucose 207 H 134 H
Calcium 7.4 L
Vital Signs:
Vital Signs
Temp Pulse Resp BP Pulse Ox
97.7 F 77 16 87/49 97
09/07/24 03:59 09/07/24 03:59 09/07/24 03:59 09/07/24 03:59 09/06/24 15:16
I&O
09/06/24 09/07/24 09/08/24
06:59 06:59 06:59
Intake Total 0 / 0 1390 / 1390
Output Total 200 / 200
Balance 0 / 0 1190 / 1190
[2024-09-07] MEDS: HEPARIN 5000 UNITS SC ×3 (07:49→23:00)
[2024-09-07] MEDS: NOVOLOG FLEXPEN-LOW RESISTANCE SC ×2 (07:49→11:11)
[2024-09-07] MEDS: LIDOCAINE 4% PATCH 1 PATCH TOPICAL (07:50)
[2024-09-07 08:01] LABS: Cortisol, Random 31.6 ug/dl
[2024-09-07] MEDS: ASPIR LOW (ENTERIC COATED) 81 MG PO (10:09)
[2024-09-07] MEDS: PROTONIX 40 MG PO (10:09)
[2024-09-07 11:00] LABS: Glucose 145 mg/dl (70-99)
[2024-09-07] MEDS: D5/0.9% SODIUM CHLORIDE 1000 IV (11:43)
[2024-09-07] MEDS: ULTRAM 50 MG PO (13:46)
--- NOTE | 2024-09-07 13:50 | PTCARENOTE ---
EKG done for QTC monitoring. Afib on EKG, HR 80-90s. Pt asymptomatic. Dr Perkins notified.
--- NOTE | 2024-09-07 14:37 | PTOTSP ---
Speech Therapy Evaluation:
Oral stage appears grossly WFL. Pt with clinical indications of pharyngeal dysphagia as characterized by intermittent s/sx of aspiration throughout PO trials. Of note, pt with coughing prior to PO intake and following PO intake, therefore difficult
to discern if related to aspiration events. Recent CXR unremarkable. Pt at an increased risk of post prandial aspiration d/t hx of GERD.
Recommend:
1. Continue IDDSI Level 7 (regular) solids and thin liquids
2. Medications as tolerated
3. General aspiration and reflux precautions
4. ST to follow to monitor tolerance of current diet and determine need for instrumental assessment.
--- NOTE | 2024-09-07 14:45 | W.PN.UPDATE ---
Update Note
Progress Note Update
Patient with new onset atrial fibrillation, likely from her sepsis.
Check echocardiogram, check TSH, start low-dose metoprolol.
She likely will need to be started on Eliquis -will need to discuss with her prior to starting.
--- NOTE | 2024-09-07 15:11 | W.PN.ID1 ---
Date of Service
Date of Service: September 07, 2024
Today's Communication
Continue antibiotics.
Assessment / Plan
Generalized weakness
Marked leukocytosis with significant left shift; rising
Elevated procalcitonin
Bacteremia with strep species (? Pneumococcus)
Severe protein calorie malnutrition (BMI = 12.3)
Profound hypoglycemia at admission
Stage III sacral pressure ulcer
HTN
DM type II
Osteoporosis
CHF
GERD
Recommendations:
Continue with empiric Zosyn for now pending further culture data.
Monitor white count and temperature curve.
Follow pending cultures.
Further recommendations as data is returned.
����������������������������������������������������������
Chief Complaint
-: Leukocytosis and Clinical Sepsis
Subjective / Review of Systems
Review of Systems: No Fever and No Chills
Vital Signs / Physical Exam
Vital Signs
Vital Signs
Temp Pulse Resp BP Pulse Ox
98.3 F 85 18 122/61 97
09/07/24 12:24 09/07/24 12:24 09/07/24 12:24 09/07/24 12:24 09/06/24 15:16
Physical Exam
Constitutional: Chronically Ill, Non-toxic and Cachetic
Cardiovascular: S1/S2; Negative S3/S4
Pulmonary: Non Labored
Gastrointestinal: Soft and Non Tender
Neurological: Awake and Alert
Psychological: Calm
Objective Data
Lab Data
Lab Results
09/07/24 06:04
Estimated Creat Clear 36 ml/min 09/07/24 06:04
Lactic Acid Cancelled 09/06/24 12:53
Total Bilirubin 1.2 mg/dl (0.2-1.3) 09/05/24 19:08
AST 72 U/L (14-36) H 09/05/24 19:08
ALT 31 U/L (0-35) 09/05/24 19:08
Alkaline Phosphatase 125 U/L (38-126) 09/05/24 19:08
Most recent labs reviewed.
Micro Results:
09/05/24 20:46 Blood Culture - Preliminary
Blood/Venous Streptococcus species
Gram Stain - Preliminary
09/06/24 10:38 Urine Culture - Final
Urine NO GROWTH
09/05/24 19:43 Blood Culture - Preliminary
Blood/Venous Positive culture in progress
Gram Stain - Final
09/05/24 23:23 Influenza Types A & B (ANTONIO) - Final
Nasal Swab Negative for Influenza A & B, NAAT
Negative results must be combined with clinical observations
and patient history.
Nucleic Acid Amplification test (NAAT)performed on the
[employer] platform.
Imaging:
09/05/2024 CXR (portable): No acute cardiopulmonary process noted.
[2024-09-07] MEDS: TOPROL XL 12.5 MG PO (15:20)
[2024-09-07 15:53] LABS: Glucose 171 mg/dl (70-99)
[2024-09-07] MEDS: NOVOLOG FLEXPEN-LOW RESISTANCE 1 UNITS SC (16:12)
[2024-09-07] MEDS: XALATAN OPHTHALMIC SOLUTION 1 DROP BOTH EYES (20:12)
[2024-09-07] MEDS: LIPITOR 20 MG PO (20:12)
[2024-09-07 23:12] LABS: Glucose 124 mg/dl (70-99)
[2024-09-08] VITALS (8 sets, daily range): BP systolic 93–122; BP diastolic 49–67; PULSE 92; BMI 13.8
[2024-09-08] MEDS: ULTRAM 50 MG PO ×3 (00:34→22:00)
[2024-09-08] MEDS: ZOSYN 50 IV ×3 (03:12→15:25)
[2024-09-08] MEDS: DILAUDID 0.25 MG IV (05:54)
[2024-09-08 06:53] LABS: Hematocrit 28.7 % (37.0-47.0); Hemoglobin 9.7 g/dL (12.0-16.0); Mean Corp Hgb Conc. 33.8 g/dL (33.0-37.0); Mean Corpuscular Hgb 39.9 pg (27.0-31.0); Mean Corpuscular Volume 118.1 fL (81.0-99.0); Mean Platelet Volume 10.5 fL (7.4-10.4); Platelet Count 152 10^3/uL (130-400); Red Blood Cell Count 2.43 10^6/uL (4.20-5.40); Red Cell Dist. Width 19.9 % (11.5-14.5); White Blood Cell Count 15.3 10^3/uL (4.8-10.8)
[2024-09-08 07:22] LABS: Blood Urea Nitrogen 8 mg/dl (7-17); Calcium 6.8 mg/dl (8.4-10.2); Carbon Dioxide 24 mmol/L (22-30); Chloride 100 mmol/L (98-107); Estimated Creatinine Clearance 44 ml/min; Glucose 120 mg/dl (70-99); Potassium 3.4 mmol/L (3.5-5.1); Sodium 132 mmol/L (135-145); eGFR > 60.00
[2024-09-08 07:44] LABS: TSH 2.94 uIU/ml (0.47-4.68)
--- NOTE | 2024-09-08 08:25 | VNURNOTE ---
Chart reviewed. Patient is current with [facility] nursing. Will continue to follow hospital course and DC plans.
[2024-09-08] MEDS: LIDOCAINE 4% PATCH 1 PATCH TOPICAL (08:55)
[2024-09-08] MEDS: NOVOLOG FLEXPEN-LOW RESISTANCE SC ×2 (08:55→13:23)
[2024-09-08] MEDS: ASPIR LOW (ENTERIC COATED) 81 MG PO (08:55)
[2024-09-08] MEDS: PROTONIX 40 MG PO (08:55)
[2024-09-08] MEDS: HEPARIN 5000 UNITS SC ×3 (08:55→23:09)
[2024-09-08] MEDS: TOPROL XL 12.5 MG PO (08:57)
[2024-09-08] MEDS: D5/0.9% SODIUM CHLORIDE 1000 IV (09:12)
--- NOTE | 2024-09-08 09:22 | WOUNDNOTE ---
R GREAT TOE TIP
--- NOTE | 2024-09-08 09:24 | WOUNDNOTE ---
[facility] RN note: Patient admitted with hypokalemia, recent diarrhea, found on floor at home. Patient lives alone.
See H&P for complete history.
PMH: CAD, CVA, CM, malnutrition, chronic back pain, CHF, NIDDM, CHF, HTN, L LOGAN, back surgery, R elbow surgery.
Wound Location and type/assessment: Patient admitted with: unstageable sacral/coccyx pressure injury. R heel small black scabbed skin fissures vs unstageable pressure injuries. Heels non blanchable red and boggy. R knee scabbed abrasion.
Appetite: poor.
Pressure redistribution devices in place: Waffle air overlay.
Plan: Sacral/coccyx silicone border foam maintained. Heel foam dressings changed by ALEJANDRINA Cabrera. Air chair cushion given.
Will confirm orders with Dr. Botello and discussed with ALEJANDRINA Mosqueda.
Care plan to be updated and will follow as needed.
Note to case management of equipment requested for discharge: Hospital bed with air mattress.
Recommend follow up at wound care center upon discharge.
--- NOTE | 2024-09-08 09:25 | WOUNDNOTE ---
[facility] RN note: Patient admitted with hypokalemia, recent diarrhea, found on floor at home. Patient lives alone.
See H&P for complete history.
PMH: CAD, CVA, CM, malnutrition, chronic back pain, CHF, NIDDM, CHF, HTN, L LOGAN, back surgery, R elbow surgery.
Wound Location and type/assessment: Patient admitted with: unstageable sacral/coccyx pressure injury. R heel small black scabbed skin fissures vs unstageable pressure injuries. R great toe tip black scabbed abrasion. Heels non blanchable red and
boggy. R knee scabbed abrasions. Pedal pulses heard via portable Doppler as per [facility] RN assist Rick.
Appetite: poor.
Pressure redistribution devices in place: Waffle air overlay.
Plan: Patient stood with assist of 2 during sacral skin assessment. Sacral/coccyx silicone border foam maintained. Air chair cushion placed in recliner chair. Heel foam dressings changed by ALEJANDRINA Cabrera.
Will confirm orders with Dr. Botello and discussed with ALEJANDRINA Mosqueda.
Care plan to be updated and will follow as needed.
Note to case management of equipment requested for discharge: Air mattress.
Recommend follow up at wound care center upon discharge.
--- NOTE | 2024-09-08 11:25 | W.PN.HOSP.TC ---
Addendum entered and electronically signed by Mague Botello MD 09/08/24 15:08:
Hypocalcemia
give oral calcium
recheck in am
Addendum entered and electronically signed by Mague Botello MD 09/08/24 15:02:
- Stage 1 left lower back pressure injury, POA
- Stage 1 left hip pressure injury, POA
Original Note:
Today's Communication/Plan
-
ok for regular diet
Resume home meds
Change to Acu check to BID
Assessment / Plan
Assessment / Plan
HPI: 73 y.o female with severe CHF EF 10%, chronic malnutrition and failure to thrive presenting to ED with weakness after being found down at home. ED w/u notable for leukocytosis and elevated lactic acid concerning for infection/sepsis. Patient
has no obvious infectious source on initial w/u. Reported to be hypoglycemic when found by EMS (likely laying there since 5 am and id not have any po intake today). Blood glucose elevated on ED arrival after 20g d10 given by MS.
PLAN:
# Sepsis with hypotension without septic shock
Gram-positive cocci bacteremia, unclear primary source
COVID/flu negative, CXR neg, procalcitonin 21.09
Empric vanc/zosyn given in ED
Appreciate ID input, Zosyn dose increased
Urine culture no growth
Blood culture showed Streptococcus
repeat blood culture
Patient has a wet cough, SPL consulted, ok to resume regular diet
Stop IV fluids, midodrine as needed,
Resume Lasix/metoprolol/Entresto
2. Right hip pain status post fall
CT negative for fracture
Continue pain meds, PT/OT
Patient lives alone
3. Hypokalemia, hypomagnesemia
Resume diuretics, continue repletion prn
# Chronic HFrEF
Not in acute failure
can resume diuretics
can resume Entresto and metoprolol succinate secondary to hypotension
# DM II - hypoglycemic episode s/p 20g d10
Hold glipizide, liberate diet due to hypoglycemia
Accu-Cheks are not accurate, she needs venous blood draws
Check hemoglobin A1c 6.0'
Change Acu checks to BID for now
# Severe protein calorie malnutrition
BMI 13.2. She does not tolerate protein supplements
Diet liberalized to regular
Consulted nutrition, consult palliative care�she is seen by them at home
# Persistent nausea
Son reports she has nausea which limits her oral intake
Unable to order Reglan before meals due to prolonged QTc
Abdominal ultrasound shows gallbladder sludge, negative for cholecystitis
DVT prophylaxis�subcu heparin
Full code
Total time spent to see the patient on the floor, examine the patient, review data and lab results, discuss treatment plan with patient, nursing staff around 63 minutes.
Physical Exam
General: Cachectic, appears chronically ill, no acute distress
HEENT: Normocephalic, Atraumatic, EOMI, MMM
Respiratory: Clear to Auscultation bilaterally
Cardiac: Normal S1/S2, Regular Rate and Rhythm
GI: Soft, Nontender, Nondistended, Normal Bowel Sounds
Extremities: No Clubbing, Cyanosis, or Edema
Musculoskeletal: Right hip is tender to palpation
Neuro: Nonfocal/Grossly Intact
Psych: calm
Anticipated Discharge: > 48 hours
Subjective/Interval History
-
Date of Service: September 08, 2024
No sob
No chest pain
Objective Data
-
Labs:
Laboratory Results
09/08/24 09/08/24 09/08/24
06:27 11:25 15:00
WBC 15.3 H
Hgb 9.7 L
Hct 28.7 L
Plt Count 152
Sodium 132 L
Potassium 3.4 L
Chloride 100
Carbon Dioxide 24
BUN 8
Creatinine 0.5 L
Glucose 120 H Pending Pending
Calcium 6.8 L*
09/08/24
22:00
WBC
Hgb
Hct
Plt Count
Sodium
Potassium
Chloride
Carbon Dioxide
BUN
Creatinine
Glucose Pending
Calcium
Vital Signs:
Vital Signs
Temp Pulse Resp BP Pulse Ox
97.6 F 76 16 113/58 97
09/08/24 06:45 09/08/24 06:45 09/08/24 06:45 09/08/24 06:45 09/08/24 06:45
I&O
09/07/24 09/08/24 09/09/24
06:59 06:59 06:59
Intake Total 1390 / 1390 2180 / 2180
Output Total 200 / 200
Balance 1190 / 1190 2180 / 2180
[2024-09-08 11:59] LABS: Glucose 105 mg/dl (70-99)
--- NOTE | 2024-09-08 13:05 | W.CON.PAL ---
Consultation
-
Date/Time Consultation Requested: 09/07
Date/Time Consultation Performed: 09/08
Performing Provider: Tamra MUKHERJEE
Reason for Consult: Goals of Care Discussion
Primary Diagnosis: end stage cardiomyopathy
Reason for Admission
Illness Course/HPI
73 year old F with PMH of CVA, end stage ischemic cardiomyopathy EF 10-15%, severe protein calorie malnutrition, GERD, chronic pain, diabetes admitted after being found on the floor at home and unable to get up.
Upon EMS arrival was hypoglycemic, given amp of D50. On admission to hospital was found to be septic - blood cultures growing strep, unclear source. Remains on IV ABX. Was initially on D50 due to persistent hypoglycemia, fluids discontinued this
morning.
Well known to palliative care service as an outpatient.
Functional Status
lives alone
Pain & Symptom Assessment
Berino Symptom Scale 0=none, 10=worst
Pain: 2
Nausea: 5
Appetite: 5
Shortness of Breath: 0
Objective Data
-
Objective Data:
Vital Signs
Temp Pulse Resp BP Pulse Ox
97.5 F 88 18 106/53 95
09/08/24 12:44 09/08/24 12:44 09/08/24 12:44 09/08/24 12:44 09/08/24 12:44
Laboratory Results
09/08/24 06:27
09/08/24 22:00
Hemoglobin A1c 6.0 % (4.0-5.6) H 09/07/24 06:04
Total Protein 4.4 g/dl (6.3-8.2) L 09/05/24 19:08
Albumin 2.2 g/dl (3.5-5.0) L 09/05/24 19:08
TSH 2.94 uIU/ml (0.47-4.68) 09/08/24 06:27
Urine Color Yellow 09/06/24 10:38
Urine Clarity Clear (Clear) 09/06/24 10:38
Urine pH 7.0 (5.0-9.0) 09/06/24 10:38
Ur Specific [place] 1.010 (<1.030) 09/06/24 10:38
Urine Ketones Negative (Negative) 09/06/24 10:38
Urine Bilirubin Negative (Negative) 09/06/24 10:38
Palliative Performance Scale
Palliative Performance Scale:
PPS Level Ambulation Activity & Evidence of Disease Self Care Intake Conscious Level
100% Full Normal Activity & Work; Full Intake Full
No Evidence of Disease
90% Full Normal Activity & Work; Full Normal Full
Some Evidence of Disease
80% Full Normal Activity with Effort Full Normal or Full
Some Evidence of Disease Reduced
70% Reduced Unable Normal Job/Work Full Normal or Full
Significant Disease Reduced
60% Reduced Unable Hobby/Housework Occasional Normal or Full or Confusion
Significant Disease Assistance Reduced
50% Mainly Sit/Lie Unable to do Any Work Considerable Normal or Full or Confusion
Extensive Disease Assistance Req'd Reduced
40% Mainly in Bed Unable to do Most Activity Mainly Assistance Normal or Full or Drowsy;
Extensive Disease Reduced +/- Confusion
30% Totally Bed Unable to do Any Activity Total Care Normal or Full or Drowsy;
Bound Extensive Disease Reduced +/- Confusion
20% Totally Bed Bound Unable to do Any Activity Total Care Minimal to Full or Drowsy;
Extensive Disease Sips +/- Confusion
10% Totally Bed Bound Unable to do Any Activity Total Care Mouth Care Drowsy or Coma;
Extensive Disease Only +/- Confusion
0%
PPS Score Level:
Palliative Performance Score Response
Palliative Performance Score Response: 60%
Physical Exam
-
General: Conversant, Appears Chronically Ill and Cachectic
HEENT: Other (temporal wasting )
Respiratory: Clear to Auscultation
Cardiac: Murmur
Peripheral Vascular: No Edema
GI: Soft and Normal Bowel Sounds
Skin: Warm
Neuro: AO x 3
Psych: Calm
Assessment / Plan
-
Assessment/Plan:
73 year old F with end stage ischemic cardiomyopathy admitted after being found down at home. +bacteremia, unclear source.
- seen at bedside this AM with no family present. Tells me she slid off her bed and couldnt get up and wasnt near her phone. Laid there for a while before someone came to help her. Knows she has an infection in her blood. States this is the 4th time
shes ended up in the hospital this year and doesnt understand why it keeps happening. She is well known to outpatient palliative team and hospice has been discussed on multiple occasions. Again discussed it with her today and explained if she doesnt
want to be coming back and forth to the hospital, which she is at high risk for due to the end stage nature of her heart condition, hospice is appropriate for her. Asked if theyre going to 'stop all of her medications' which I explained they will
not, although Entresto will likely not be covered. She is agreeable to an informational session with hospice.
Called and spoke with patients son Jose. Jose states he and his brother have been working on getting more help in the home for patient vs sending her to a facility although patient is resistant to a facility. They both are in agreement that her
being home alone is no longer sustainable after this event and being on the floor for 12 hours. Jose agrees his mother is declining and feels hospice is appropriate, and was considering a re- eval after her cardiology appointment on the . We
discussed that Entresto may not be covered under hospice - he is working to get it covered under an entresto fund - discussed if this is approved she can continue this on hospice, hospice will just not pay for it. Also discussed if entresto is
providing any benefit to her, as she is on the lowest possible dose, and encouraged continued conversation with cardiology about this. Jose is also interested in a hospice info session.
Updated team and hospice nurse practitioner to the above.
[2024-09-08] MEDS: KCL 20 MEQ PO (13:30)
--- NOTE | 2024-09-08 14:55 | PN.CDI ---
CDI
- -
CDI:
Physician Documentation Request
Admit Date: 09/05/24 23:52
Dear Doctor Rosmery,
Please review the following and provide your response in the progress notes.
Clinical Indicators:
- RN skin assessments indicate:
- Stage 1 left lower back pressure injury, POA
- Stage 1 left hip pressure injury, POA
Physician documentation of the type and location of wounds is required for compliant documentation. Based on the above clinical findings and your assessment, please provide the following in your progress note:
1. Location of the ulcer/wound, including laterality.
2. Type (etiology) of ulcer/wound:
- Diabetic ulcer
- Arterial (ischemic) ulcer
- Traumatic wound
- Venous stasis ulcer
- Pressure (decubitus) ulcer
- Non-healing surgical wound
- Other
- Unable to determine
Use of terms such as suspected, likely, concern for, or probable (associated with a specific diagnosis that is being evaluated, monitored, or treated as if it exists) are acceptable and can be coded in the inpatient setting, when documented at the
time of discharge.
Thank you,
Kathy Vargas RN
CDI Specialist
Please use your independent medical judgment in providing your response.
*Source: National Pressure Ulcer Advisory Panel (NPUAP)
--- NOTE | 2024-09-08 14:55 | WOUNDNOTE ---
WOC RN note: carlos Hendrickson re: recommend air mattress for patient. She came in with a stage 3 vs unstageable sacral pressure injury.
--- NOTE | 2024-09-08 15:00 | PN.CDI ---
CDI
- -
CDI:
Physician Documentation Request
Admit Date: 09/05/24 23:52
Dear Doctor Rosmery,
Please review the following and provide your response in the progress notes.
Clinical Indicators:
- 09/08 1000mg Calcium carbonate/Vitamin D ordered
Laboratory Tests
09/06/24 09/07/24 09/08/24
07:06 06:04 06:27
Calcium 7.7 L 7.4 L 6.8 L*
Please provide a diagnosis for the above lab values that were monitored and treatment rendered:
Hypocalcemia
Clinically insignificant abnormal lab value
Other (please specify)
Use of terms such as suspected, likely, concern for, or probable (associated with a specific diagnosis that is being evaluated, monitored, or treated as if it exists) are acceptable and can be coded in the inpatient setting, when documented at the
time of discharge.
Thank you,
Kathy Vargas RN
CDI Specialist
Please use your independent medical judgment in providing your response.
[2024-09-08] MEDS: ProAmatine 5 MG PO (15:19)
[2024-09-08] MEDS: OSCAL 500 + D 1000 MG PO (15:25)
--- NOTE | 2024-09-08 15:35 | PTCARENOTE ---
Midodrine given per orders. BP 84/59. Patient is asymptomatic.
[2024-09-08] MEDS: TYLENOL 650 MG PO ×2 (15:37→23:12)
--- NOTE | 2024-09-08 16:44 | W.PN.ID1 ---
Date of Service
Date of Service: September 08, 2024
Today's Communication
Continue antibiotics.
Assessment / Plan
Generalized weakness
Marked leukocytosis with significant left shift
Elevated procalcitonin
Bacteremia with strep species
Severe protein calorie malnutrition (BMI = 12.3)
Profound hypoglycemia at admission
Stage III sacral pressure ulcer
HTN
DM type II
Osteoporosis
CHF
GERD
Recommendations:
Narrow to Unasyn.
Monitor white count and temperature curve.
Follow pending cultures.
Further recommendations as data is returned.
Hospice evaluation noted.
����������������������������������������������������������
Chief Complaint
-: Leukocytosis and Clinical Sepsis
Subjective / Review of Systems
Review of Systems: No Fever and No Chills
Vital Signs / Physical Exam
Vital Signs
Vital Signs
Temp Pulse Resp BP Pulse Ox
97.5 F 88 18 84/59 95
09/08/24 12:44 09/08/24 12:44 09/08/24 12:44 09/08/24 15:19 09/08/24 12:44
Physical Exam
Constitutional: Chronically Ill, Non-toxic and Cachetic
Cardiovascular: S1/S2; Negative S3/S4
Pulmonary: Non Labored
Gastrointestinal: Soft and Non Tender
Neurological: Awake and Alert
Psychological: Calm
Objective Data
Lab Data
Lab Results
09/08/24 06:27
09/08/24 22:00
Estimated Creat Clear 44 ml/min 09/08/24 06:27
Lactic Acid Cancelled 09/06/24 12:53
Total Bilirubin 1.2 mg/dl (0.2-1.3) 09/05/24 19:08
AST 72 U/L (14-36) H 09/05/24 19:08
ALT 31 U/L (0-35) 09/05/24 19:08
Alkaline Phosphatase 125 U/L (38-126) 09/05/24 19:08
Most recent labs reviewed.
Micro Results:
09/08/24 12:27 Blood Culture - Pending
Blood/Venous
09/05/24 19:43 Blood Culture - Preliminary
Blood/Venous Diptheroids
Gram Stain - Final
09/05/24 20:46 Blood Culture - Preliminary
Blood/Venous Streptococcus species
Gram Stain - Preliminary
09/06/24 10:38 Urine Culture - Final
Urine NO GROWTH
09/05/24 23:23 Influenza Types A & B (ANTONIO) - Final
Nasal Swab Negative for Influenza A & B, NAAT
Negative results must be combined with clinical observations
and patient history.
Nucleic Acid Amplification test (NAAT)performed on the
[employer] platform.
Imaging:
09/05/2024 CXR (portable): No acute cardiopulmonary process noted.
--- NOTE | 2024-09-08 17:09 | CM ---
PT OT done today.
PT OT indicated SNF.
Pt has [employer] . Will need auth.
PLAN To SNf after located and auth obtained
[2024-09-08] MEDS: ENTRESTO 24 MG/26 MG PO (20:10)
[2024-09-08] MEDS: LIPITOR 20 MG PO (20:10)
[2024-09-08] MEDS: XALATAN OPHTHALMIC SOLUTION 1 DROP BOTH EYES (20:26)
[2024-09-08 21:40] LABS: Glucose - Point of Care 181 mg/dl (70-99)
[2024-09-08] MEDS: UNASYN IV (22:00)
[2024-09-09 03:19] VITALS: BP 95/48
[2024-09-09 06:00] VITALS: BMI 13.7
[2024-09-09] MEDS: UNASYN IV ×3 (06:15→22:15)
[2024-09-09 07:20] VITALS: BP 103/52
[2024-09-09 07:20] LABS: Glucose - Point of Care 73 mg/dl (70-99)
[2024-09-09 08:19] LABS: ALT (SGPT) 43 U/L (0-35); AST (SGOT) 124 U/L (14-36); Albumin 1.8 g/dl (3.5-5.0); Alkaline Phosphatase 114 U/L (38-126); Blood Urea Nitrogen 5 mg/dl (7-17); Calcium 6.8 mg/dl (8.4-10.2); Carbon Dioxide 28 mmol/L (22-30); Chloride 100 mmol/L (98-107); Estimated Creatinine Clearance 43 ml/min; Glucose 74 mg/dl (70-99); Potassium 3.1 mmol/L (3.5-5.1); Sodium 131 mmol/L (135-145); Total Bilirubin 0.7 mg/dl (0.2-1.3); Total Protein 3.8 g/dl (6.3-8.2); eGFR > 60.00
[2024-09-09] MEDS: TOPROL XL 12.5 MG PO (08:26)
[2024-09-09] MEDS: ENTRESTO 24 MG/26 MG PO ×2 (08:27→20:11)
[2024-09-09] MEDS: HEPARIN 5000 UNITS SC ×2 (08:28→15:32)
[2024-09-09] MEDS: PROTONIX 40 MG PO (08:28)
[2024-09-09] MEDS: ASPIR LOW (ENTERIC COATED) 81 MG PO (08:28)
[2024-09-09] MEDS: LIDOCAINE 4% PATCH 1 PATCH TOPICAL (08:28)
[2024-09-09] MEDS: LASIX 40 MG PO (08:28)
[2024-09-09] MEDS: OSCAL 500 + D 1000 MG PO (08:28)
[2024-09-09] MEDS: SANTYL OINTMENT 1 APPLIC TOPICAL (10:02)
--- NOTE | 2024-09-09 10:29 | W.PN.HOSP.TC ---
Today's Communication/Plan
-
Await hospice discussion
c/w potassium replacement
Calcium is normal
c/w Unasyn
Fall precautions.
Assessment / Plan
Assessment / Plan
HPI: 73 y.o female with severe CHF EF 10%, chronic malnutrition and failure to thrive presenting to ED with weakness after being found down at home. ED w/u notable for leukocytosis and elevated lactic acid concerning for infection/sepsis. Patient
has no obvious infectious source on initial w/u. Reported to be hypoglycemic when found by EMS (likely laying there since 5 am and id not have any po intake today). Blood glucose elevated on ED arrival after 20g d10 given by MS.
PLAN:
# Sepsis with hypotension without septic shock
Bacteremia, unclear primary source
COVID/flu negative, CXR neg, procalcitonin 21.09
Empric vanc/zosyn given in ED
Appreciate ID input, Zosyn changed to Unasyn.
WBC is coming down. Afebrile
Urine culture no growth
Blood culture showed Streptococcus & diphtheroids
Repeat blood culture 09/08
Patient has a wet cough, SPL consulted, ok to resume regular diet
Stopped IV fluids, midodrine as needed,
Resume Lasix/metoprolol/Entresto
# Right hip pain status post fall
CT negative for fracture
Continue pain meds, PT/OT
Patient lives alone
# Hypokalemia, hypomagnesemia
Resume diuretics, continue repletion prn
# hypocalcemia, not accurate due to hypoalbuminemia. Corrected calcium is normal.
# Chronic HFrEF, lwo BP at baseline due to advanced heart failure.
Not in acute failure
can resume diuretics
can resume Entresto and metoprolol succinate
# DM II - hypoglycemic episode s/p 20g d10
Hold glipizide, liberate diet due to hypoglycemia
Accu-Cheks are not accurate, she needs venous blood draws
Check hemoglobin A1c 6.0'
Changed Acu checks to BID for now
# Severe protein calorie malnutrition
BMI 13.2. She does not tolerate protein supplements
Diet liberalized to regular
Consulted nutrition, consult palliative care�she is seen by them at home
# Persistent nausea
Resolving. No abdominal pain.
Abdominal ultrasound shows gallbladder sludge, negative for cholecystitis
# Stage 1 left lower back pressure injury, POA
- Stage 1 left hip pressure injury, POA'
Consulted wound care
Change position
Encourage food intake.
DVT prophylaxis�subcu heparin
Full code
Total time spent to see the patient on the floor, examine the patient, review data and lab results, discuss treatment plan with patient, nursing staff around 63 minutes.
Physical Exam
General: Cachectic, appears chronically ill, no acute distress
HEENT: Normocephalic, Atraumatic, EOMI, MMM
Respiratory: Clear to Auscultation bilaterally
Cardiac: Normal S1/S2, Regular Rate and Rhythm
GI: Soft, Nontender, Nondistended, Normal Bowel Sounds
Extremities: No Clubbing, Cyanosis, or Edema
Musculoskeletal: Right hip is tender to palpation
Neuro: Nonfocal/Grossly Intact
Psych: calm
Anticipated Discharge: > 48 hours
Subjective/Interval History
-
Date of Service: September 09, 2024
No chest pain
No sob
Objective Data
-
Labs:
Laboratory Results
09/09/24
06:17
Sodium 131 L
Potassium 3.1 L
Chloride 100
Carbon Dioxide 28
BUN 5 L
Creatinine 0.4 L
Glucose 74
Calcium 6.8 L*
Total Bilirubin 0.7
AST 124 H
ALT 43 H
Alkaline Phosphatase 114
Vital Signs:
Vital Signs
Temp Pulse Resp BP Pulse Ox
97.7 F 81 18 103/52 95
09/09/24 07:20 09/09/24 08:26 09/09/24 07:20 09/09/24 08:26 09/09/24 07:20
I&O
09/08/24 09/09/24 09/10/24
06:59 06:59 06:59
Intake Total 2180 / 2180 480 / 480
Balance 2180 / 2180 480 / 480
--- NOTE | 2024-09-09 10:30 | HOSPNOTE ---
Spoke with son and discussed hospice and the philosophy. The son also needs to address code status. The family will have a meeting this evening to discuss. The family would like CM to start putting referrals to facilities SNF with hospice services.
The family needs to apply for Medicaid. CM updated.
[2024-09-09] MEDS: KCL 270 MEQ IV (11:26)
[2024-09-09 11:47] LABS: Glucose - Point of Care 128 mg/dl (70-99)
[2024-09-09 11:55] VITALS: BP 88/50
--- NOTE | 2024-09-09 13:32 | W.PN.ID1 ---
Date of Service
Date of Service: September 09, 2024
Today's Communication
Continue antibiotics.
Assessment / Plan
Generalized weakness
Marked leukocytosis with significant left shift
Elevated procalcitonin
Bacteremia with strep species
Severe protein calorie malnutrition (BMI = 12.3)
Profound hypoglycemia at admission
Stage III sacral pressure ulcer
HTN
DM type II
Osteoporosis
CHF
GERD
Recommendations:
Continue Unasyn.
Monitor white count and temperature curve.
Follow pending cultures.
Further recommendations as data is returned.
Hospice evaluation noted.
����������������������������������������������������������
Chief Complaint
-: Leukocytosis and Clinical Sepsis
Subjective / Review of Systems
Review of Systems: No Fever and No Chills
Vital Signs / Physical Exam
Vital Signs
Vital Signs
Temp Pulse Resp BP Pulse Ox
97.6 F 82 18 88/50 98
09/09/24 11:55 09/09/24 11:55 09/09/24 11:55 09/09/24 11:55 09/09/24 11:55
Physical Exam
Constitutional: Chronically Ill, Non-toxic and Cachetic
Eyes: Sclera Anicteric
Cardiovascular: S1/S2; Negative S3/S4
Pulmonary: Non Labored
Gastrointestinal: Soft and Non Tender
Neurological: Awake and Alert
Psychological: Calm
Objective Data
Lab Data
Lab Results
09/08/24 06:27
09/09/24 06:17
Estimated Creat Clear 43 ml/min 09/09/24 06:17
Lactic Acid Cancelled 09/06/24 12:53
Total Bilirubin 0.7 mg/dl (0.2-1.3) 09/09/24 06:17
AST 124 U/L (14-36) H 09/09/24 06:17
ALT 43 U/L (0-35) H 09/09/24 06:17
Alkaline Phosphatase 114 U/L (38-126) 09/09/24 06:17
Most recent labs reviewed.
Micro Results:
09/08/24 12:27 Blood Culture - Preliminary
Blood/Venous No Growth in 24 hours- Final report to follow
09/05/24 20:46 Blood Culture - Preliminary
Blood/Venous Streptococcus species
Gram Stain - Preliminary
09/05/24 19:43 Blood Culture - Final
Blood/Venous Diptheroids
Gram Stain - Final
09/06/24 10:38 Urine Culture - Final
Urine NO GROWTH
09/05/24 23:23 Influenza Types A & B (ANTONIO) - Final
Nasal Swab Negative for Influenza A & B, NAAT
Negative results must be combined with clinical observations
and patient history.
Nucleic Acid Amplification test (NAAT)performed on the
[employer] platform.
Imaging:
09/05/2024 CXR (portable): No acute cardiopulmonary process noted.
[2024-09-09] MEDS: TYLENOL 650 MG PO ×2 (14:05→20:19)
[2024-09-09] MEDS: ULTRAM 50 MG PO ×2 (14:06→20:12)
[2024-09-09] MEDS: ProAmatine 5 MG PO (14:10)
[2024-09-09 15:35] VITALS: BP 102/58
--- NOTE | 2024-09-09 17:19 | CM ---
Spoke with Jose son he requested referral for skilled rehab at [facility].
Referral placed in care port.
Spoke with Willow at [facility] she said she can accept pt with a [employer].
Will need to call [facility] for [employer] auth .
[facility]
report [phone]
fax [phone]
PLAN : To [facility] after auth
[2024-09-09 19:55] VITALS: BP 103/54
[2024-09-09] MEDS: LIPITOR 20 MG PO (20:11)
[2024-09-09] MEDS: XALATAN OPHTHALMIC SOLUTION 1 DROP BOTH EYES (20:13)
[2024-09-09 23:55] VITALS: BP 105/83
[2024-09-10] MEDS: HEPARIN 5000 UNITS SC ×4 (00:14→23:58)
[2024-09-10 03:59] VITALS: BP 111/61
[2024-09-10] MEDS: UNASYN IV ×3 (05:43→21:03)
[2024-09-10] MEDS: TYLENOL 650 MG PO ×3 (05:54→20:57)
[2024-09-10] MEDS: ULTRAM 50 MG PO ×3 (05:54→20:58)
[2024-09-10 06:00] VITALS: BMI 13.9
[2024-09-10 06:38] VITALS: BP 116/65
[2024-09-10 07:11] LABS: Glucose - Point of Care 92 mg/dl (70-99)
[2024-09-10] MEDS: TOPROL XL 12.5 MG PO (07:36)
[2024-09-10] MEDS: PROTONIX 40 MG PO (07:37)
[2024-09-10] MEDS: LASIX 40 MG PO (07:37)
[2024-09-10] MEDS: OSCAL 500 + D 1000 MG PO (07:37)
[2024-09-10] MEDS: SANTYL OINTMENT 1 APPLIC TOPICAL (07:48)
[2024-09-10] MEDS: ENTRESTO 24 MG/26 MG PO (07:54)
[2024-09-10] MEDS: LIDOCAINE 4% PATCH 1 PATCH TOPICAL (07:54)
[2024-09-10] MEDS: ASPIR LOW (ENTERIC COATED) 81 MG PO (07:54)
[2024-09-10 08:13] LABS: ALT (SGPT) 47 U/L (0-35); AST (SGOT) 107 U/L (14-36); Alkaline Phosphatase 126 U/L (38-126); Blood Urea Nitrogen 3 mg/dl (7-17); Calcium 6.5 mg/dl (8.4-10.2); Carbon Dioxide 30 mmol/L (22-30); Chloride 98 mmol/L (98-107); Estimated Creatinine Clearance 44 ml/min; Glucose 88 mg/dl (70-99); Potassium 3.8 mmol/L (3.5-5.1); Sodium 131 mmol/L (135-145); Total Bilirubin 0.8 mg/dl (0.2-1.3); Total Protein 4.3 g/dl (6.3-8.2); eGFR > 60.00
--- NOTE | 2024-09-10 11:21 | W.PN.HOSP.TC ---
Today's Communication/Plan
-
Likely dc to SNF
Await to finalize ABx regimen.
Assessment / Plan
Assessment / Plan
HPI: 73 y.o female with severe CHF EF 10%, chronic malnutrition and failure to thrive presenting to ED with weakness after being found down at home. ED w/u notable for leukocytosis and elevated lactic acid concerning for infection/sepsis. Patient
has no obvious infectious source on initial w/u. Reported to be hypoglycemic when found by EMS (likely laying there since 5 am and id not have any po intake today). Blood glucose elevated on ED arrival after 20g d10 given by MS.
PLAN:
# Sepsis with hypotension without septic shock
Bacteremia, unclear primary source
COVID/flu negative, CXR neg, procalcitonin 21.09
Empric vanc/zosyn given in ED
Appreciate ID input, Zosyn changed to Unasyn.
WBC is coming down. Afebrile
Urine culture no growth
Blood culture showed Streptococcus & diphtheroids
Repeat blood culture 09/08
Patient has a wet cough, SPL consulted, ok to resume regular diet
Stopped IV fluids, midodrine as needed,
Resume Lasix/metoprolol/Entresto
# Right hip pain status post fall
CT negative for fracture
Continue pain meds, PT/OT
Patient lives alone
# Hypokalemia, hypomagnesemia
Resume diuretics, continue repletion prn
# hypocalcemia, not accurate due to hypoalbuminemia. Corrected calcium is normal.
# Chronic HFrEF, lwo BP at baseline due to advanced heart failure.
Not in acute failure
can resume diuretics
can resume Entresto and metoprolol succinate
# DM II - hypoglycemic episode s/p 20g d10
Hold glipizide, liberate diet due to hypoglycemia
Accu-Cheks are not accurate, she needs venous blood draws
Check hemoglobin A1c 6.0'
Changed Acu checks to BID for now
# Severe protein calorie malnutrition
BMI 13.2. She does not tolerate protein supplements
Diet liberalized to regular
Consulted nutrition, consult palliative care�she is seen by them at home
# Persistent nausea
Resolving. No abdominal pain.
Abdominal ultrasound shows gallbladder sludge, negative for cholecystitis
# Stage 1 left lower back pressure injury, POA
- Stage 1 left hip pressure injury, POA'
Consulted wound care
Change position
Encourage food intake.
DVT prophylaxis�subcu heparin
Full code
Total time spent to see the patient on the floor, examine the patient, review data and lab results, discuss treatment plan with patient, nursing staff around 63 minutes.
Physical Exam
General: Cachectic, appears chronically ill, no acute distress
HEENT: Normocephalic, Atraumatic, EOMI, MMM
Respiratory: Clear to Auscultation bilaterally
Cardiac: Normal S1/S2, Regular Rate and Rhythm
GI: Soft, Nontender, Nondistended, Normal Bowel Sounds
Extremities: No Clubbing, Cyanosis, or Edema
Musculoskeletal: Right hip is tender to palpation
Neuro: Nonfocal/Grossly Intact
Psych: calm
Anticipated Discharge: Within 24 hours
Subjective/Interval History
-
Date of Service: September 10, 2024
No chest pain or sob
Objective Data
-
Labs:
Laboratory Results
09/10/24
07:08
Sodium 131 L
Potassium 3.8
Chloride 98
Carbon Dioxide 30
BUN 3 L
Creatinine 0.4 L
Glucose 88
Calcium 6.5 L*
Total Bilirubin 0.8
AST 107 H
ALT 47 H
Alkaline Phosphatase 126
Vital Signs:
Vital Signs
Temp Pulse Resp BP Pulse Ox
98.5 F 91 18 109/64 97
09/10/24 06:38 09/10/24 07:36 09/10/24 06:38 09/10/24 07:36 09/10/24 07:50
I&O
09/09/24 09/10/24 09/11/24
06:59 06:59 06:59
Intake Total 480 / 480 720 / 720
Balance 480 / 480 720 / 720
--- NOTE | 2024-09-10 11:25 | W.PN.ID1 ---
Date of Service
Date of Service: September 10, 2024
Today's Communication
Continue Unasyn for today.
Assessment / Plan
Generalized weakness
Marked leukocytosis with significant left shift
Elevated procalcitonin
Bacteremia with strep species
Severe protein calorie malnutrition (BMI = 12.3)
Profound hypoglycemia at admission
Stage III sacral pressure ulcer
HTN
DM type II
Osteoporosis
CHF
GERD
Recommendations:
Continue Unasyn.
Monitor white count and temperature curve.
Follow pending cultures.
Further recommendations as data is returned.
Hospice discussions ongoing.
����������������������������������������������������������
Chief Complaint
-: Leukocytosis and Clinical Sepsis
Subjective / Review of Systems
Review of Systems: No Fever and No Chills
Vital Signs / Physical Exam
Vital Signs
Vital Signs
Temp Pulse Resp BP Pulse Ox
98.5 F 91 18 109/64 97
09/10/24 06:38 09/10/24 07:36 09/10/24 06:38 09/10/24 07:36 09/10/24 07:50
Physical Exam
Constitutional: No Acute Distress and Cachetic (Severe)
Eyes: Sclera Anicteric
Cardiovascular: S1/S2; Negative S3/S4
Pulmonary: Non Labored
Gastrointestinal: Soft and Non Tender
Extremities: Negative Erythema
Neurological: Awake and Alert
Psychological: Calm
Objective Data
Lab Data
Lab Results
09/08/24 06:27
09/10/24 07:08
Estimated Creat Clear 44 ml/min 09/10/24 07:08
Lactic Acid Cancelled 09/06/24 12:53
Total Bilirubin 0.8 mg/dl (0.2-1.3) 09/10/24 07:08
AST 107 U/L (14-36) H 09/10/24 07:08
ALT 47 U/L (0-35) H 09/10/24 07:08
Alkaline Phosphatase 126 U/L (38-126) 09/10/24 07:08
Most recent labs reviewed.
Micro Results:
09/08/24 12:27 Blood Culture - Preliminary
Blood/Venous No Growth in 24 hours- Final report to follow
09/05/24 20:46 Blood Culture - Preliminary
Blood/Venous Streptococcus species
Gram Stain - Preliminary
09/05/24 19:43 Blood Culture - Final
Blood/Venous Diptheroids
Gram Stain - Final
09/06/24 10:38 Urine Culture - Final
Urine NO GROWTH
09/05/24 23:23 Influenza Types A & B (ANTONIO) - Final
Nasal Swab Negative for Influenza A & B, NAAT
Negative results must be combined with clinical observations
and patient history.
Nucleic Acid Amplification test (NAAT)performed on the
[employer] platform.
Imaging:
09/05/2024 CXR (portable): No acute cardiopulmonary process noted.
[2024-09-10 11:51] VITALS: BP 102/54
[2024-09-10 12:11] LABS: Glucose - Point of Care 125 mg/dl (70-99)
[2024-09-10 15:22] VITALS: BP 110/56
[2024-09-10 16:21] VITALS: BP 99/62; PULSE 100
[2024-09-10] MEDS: ENTRESTO 24 MG/26 MG 1 TAB PO (19:33)
[2024-09-10 19:56] LABS: Glucose - Point of Care 138 mg/dl (70-99)
[2024-09-10] MEDS: XALATAN OPHTHALMIC SOLUTION 1 DROP BOTH EYES (20:57)
[2024-09-10] MEDS: LIPITOR 20 MG PO (20:58)
[2024-09-10 23:25] VITALS: BP 120/65
--- NOTE | 2024-09-11 03:30 | DOWNTIME ---
There was a [employer] Client Director Safety Downtime on 09/11/2024 from 0200 to 09/11/2024 at 0325 . Downtime documentation of patient's care, including medication administrations, has been reconciled in the electronic record per guidelines. Refer to the
patient's paper chart under the miscellaneous tab to see printed paper medication records and downtime forms.
[2024-09-11 05:18] VITALS: BMI 14.8
[2024-09-11] MEDS: UNASYN IV ×2 (05:18→13:42)
[2024-09-11 08:03] VITALS: BP 105/63
[2024-09-11] MEDS: LIDOCAINE 4% PATCH 1 PATCH TOPICAL (08:07)
[2024-09-11] MEDS: ASPIR LOW (ENTERIC COATED) 81 MG PO (08:08)
[2024-09-11] MEDS: PROTONIX 40 MG PO (08:08)
[2024-09-11] MEDS: OSCAL 500 + D 1000 MG PO (08:08)
[2024-09-11] MEDS: ENTRESTO 24 MG/26 MG PO ×2 (08:09→20:29)
[2024-09-11] MEDS: TOPROL XL 12.5 MG PO (08:09)
[2024-09-11] MEDS: HEPARIN 5000 UNITS SC ×2 (08:10→16:01)
[2024-09-11] MEDS: LASIX 40 MG PO (08:10)
[2024-09-11] MEDS: SANTYL OINTMENT 1 APPLIC TOPICAL (08:11)
[2024-09-11 08:32] LABS: Glucose - Point of Care 89 mg/dl (70-99)
--- NOTE | 2024-09-11 11:03 | W.PN.HOSP.TC ---
Today's Communication/Plan
-
Discharge planning
Assessment / Plan
Assessment / Plan
HPI: 73 y.o female with severe CHF EF 10%, chronic malnutrition and failure to thrive presenting to ED with weakness after being found down at home. ED w/u notable for leukocytosis and elevated lactic acid concerning for infection/sepsis. Patient
has no obvious infectious source on initial w/u. Reported to be hypoglycemic when found by EMS (likely laying there since 5 am and id not have any po intake today). Blood glucose elevated on ED arrival after 20g d10 given by MS.
PLAN:
# Sepsis with hypotension without septic shock
Bacteremia, unclear primary source
COVID/flu negative, CXR neg, procalcitonin 21.09
Empric vanc/zosyn given in ED
Appreciate ID input, Zosyn changed to Unasyn.
WBC is coming down. Afebrile
Urine culture no growth
Blood culture showed Streptococcus & diphtheroids
Repeat blood culture 09/08, no growth
Patient has a wet cough, SPL consulted, ok to resume regular diet
Stopped IV fluids, midodrine as needed,
Resume Lasix/metoprolol/Entresto
# Right hip pain status post fall
CT negative for fracture
Continue pain meds, PT/OT
Patient lives alone
# Hypokalemia, hypomagnesemia
Resume diuretics, continue repletion prn
# hypocalcemia, not accurate due to hypoalbuminemia. Corrected calcium is normal.
# Chronic HFrEF, lwo BP at baseline due to advanced heart failure.
Not in acute failure
can resume diuretics
can resume Entresto and metoprolol succinate
# DM II - hypoglycemic episode s/p 20g d10
Hold glipizide, liberate diet due to hypoglycemia
Accu-Cheks are not accurate, she needs venous blood draws
Check hemoglobin A1c 6.0'
Changed Acu checks to BID for now
# Severe protein calorie malnutrition
BMI 13.2. She does not tolerate protein supplements
Diet liberalized to regular
Consulted nutrition, consult palliative care�she is seen by them at home
# Persistent nausea
Resolving. No abdominal pain.
Abdominal ultrasound shows gallbladder sludge, negative for cholecystitis
# Stage 1 left lower back pressure injury, POA
- Stage 1 left hip pressure injury, POA'
Consulted wound care
Change position
Encourage food intake.
DVT prophylaxis�subcu heparin
Full code
Total time spent to see the patient on the floor, examine the patient, review data and lab results, discuss treatment plan with patient, nursing staff around 63 minutes.
Physical Exam
General: Cachectic, appears chronically ill, no acute distress
HEENT: Normocephalic, Atraumatic, EOMI, MMM
Respiratory: Clear to Auscultation bilaterally
Cardiac: Normal S1/S2, Regular Rate and Rhythm
GI: Soft, Nontender, Nondistended, Normal Bowel Sounds
Extremities: No Clubbing, Cyanosis, or Edema
Musculoskeletal: Right hip is tender to palpation
Neuro: Nonfocal/Grossly Intact
Psych: calm
Anticipated Discharge: Today
Subjective/Interval History
-
Date of Service: September 11, 2024
No chest pain
No sob
No fevers
Objective Data
-
Vital Signs:
Vital Signs
Temp Pulse Resp BP Pulse Ox
97.7 F 93 18 105/63 100
09/11/24 08:03 09/11/24 08:10 09/11/24 08:03 09/11/24 08:10 09/11/24 08:06
I&O
09/10/24 09/11/24 09/12/24
06:59 06:59 06:59
Intake Total 720 / 720 600 / 600
Balance 720 / 720 600 / 600
[2024-09-11 12:11] VITALS: BMI 14.8
[2024-09-11] MEDS: FLUSH (NSS) 1 FLUSH IV (13:42)
[2024-09-11] MEDS: ULTRAM 50 MG PO ×2 (14:34→21:19)
[2024-09-11] MEDS: TYLENOL 650 MG PO ×2 (14:35→21:20)
--- NOTE | 2024-09-11 15:41 | W.PN.ID1 ---
Date of Service
Date of Service: September 11, 2024
Today's Communication
sign off
Assessment / Plan
Generalized weakness
Marked leukocytosis with significant left shift
Elevated procalcitonin
Bacteremia with strep species
- single blood culture, making contamination highly likely
Severe protein calorie malnutrition (BMI = 12.3)
Profound hypoglycemia at admission
Stage III sacral pressure ulcer
HTN
DM type II
Osteoporosis
CHF
GERD
Recommendations:
Repeat blood cultures negative. Single positive blood culture for strep species makes contamination highly likely.
White count may be reactive.
Narrow to amoxicillin 500 mg p.o. 3 times daily x 7 days.
Little more to offer from a Infectious Diseases standpoint.
Will see again at your request.
����������������������������������������������������������
Chief Complaint
-: Leukocytosis and Clinical Sepsis
Subjective / Review of Systems
Review of Systems: No Fever and No Chills
Vital Signs / Physical Exam
Vital Signs
Vital Signs
Temp Pulse Resp BP Pulse Ox
97.7 F 93 18 105/63 100
09/11/24 08:03 09/11/24 08:10 09/11/24 08:03 09/11/24 08:10 09/11/24 08:06
Physical Exam
Constitutional: No Acute Distress and Cachetic (Severe)
Eyes: Sclera Anicteric
Cardiovascular: S1/S2; Negative S3/S4
Pulmonary: Non Labored
Gastrointestinal: Soft and Non Tender
Extremities: Negative Erythema
Neurological: Awake and Alert
Psychological: Calm
Objective Data
Lab Data
Lab Results
09/08/24 06:27
09/10/24 07:08
Estimated Creat Clear 44 ml/min 09/10/24 07:08
Lactic Acid Cancelled 09/06/24 12:53
Total Bilirubin 0.8 mg/dl (0.2-1.3) 09/10/24 07:08
AST 107 U/L (14-36) H 09/10/24 07:08
ALT 47 U/L (0-35) H 09/10/24 07:08
Alkaline Phosphatase 126 U/L (38-126) 09/10/24 07:08
Most recent labs reviewed.
Micro Results:
09/08/24 12:27 Blood Culture - Preliminary
Blood/Venous No Growth in 72 hours- Final report to follow
09/05/24 20:46 Blood Culture - Preliminary
Blood/Venous Streptococcus species (1 of 2 bottles)
Gram Stain - Preliminary
09/05/24 19:43 Blood Culture - Final
Blood/Venous Diptheroids (1 of 2 bottles)
Gram Stain - Final
09/06/24 10:38 Urine Culture - Final
Urine NO GROWTH
09/05/24 23:23 Influenza Types A & B (ANTONIO) - Final
Nasal Swab Negative for Influenza A & B, NAAT
Negative results must be combined with clinical observations
and patient history.
Nucleic Acid Amplification test (NAAT)performed on the
[employer] platform.
Imaging:
09/05/2024 CXR (portable): No acute cardiopulmonary process noted.
[2024-09-11] MEDS: AMOXIL 500 MG PO (16:00)
[2024-09-11 16:20] VITALS: BP 110/68
--- NOTE | 2024-09-11 16:28 | PTCARENOTE ---
Pt AAO x3, KINCAID; legs weak. Able to turn with assistance; refuses offers of OOB to chair activity- 'I can't do it- that would be torture for me'. VSS. On room air- pulse ox 98%, no SOB noted. Abd soft, flat; abel PO; appetite fair. Incont large
amts urine. Resting quietly at present. Will continue to monitor.
[2024-09-11 20:28] VITALS: BP 107/56
[2024-09-11] MEDS: ZOFRAN 4 MG IV (20:34)
[2024-09-11 20:36] LABS: Glucose - Point of Care 153 mg/dl (70-99)
[2024-09-11] MEDS: LIPITOR 20 MG PO (21:19)
[2024-09-11] MEDS: XALATAN OPHTHALMIC SOLUTION 1 DROP BOTH EYES (21:20)
[2024-09-11 23:35] VITALS: BP 95/55
[2024-09-12] VITALS (9 sets, daily range): BP systolic 74–121; BP diastolic 46–68; BMI 14.4
[2024-09-12] MEDS: AMOXIL 500 MG PO ×3 (00:03→17:08)
[2024-09-12] MEDS: HEPARIN 5000 UNITS SC ×3 (00:03→17:08)
[2024-09-12 08:12] LABS: Glucose - Point of Care 158 mg/dl (70-99)
[2024-09-12] MEDS: ASPIR LOW (ENTERIC COATED) 81 MG PO (08:18)
[2024-09-12] MEDS: PROTONIX 40 MG PO (08:18)
[2024-09-12] MEDS: TOPROL XL 12.5 MG PO (08:18)
[2024-09-12] MEDS: ENTRESTO 24 MG/26 MG 1 TAB PO ×2 (08:18→21:04)
[2024-09-12] MEDS: OSCAL 500 + D 1000 MG PO (08:19)
[2024-09-12] MEDS: LASIX 40 MG PO (08:20)
[2024-09-12] MEDS: LIDOCAINE 4% PATCH 1 PATCH TOPICAL (08:21)
[2024-09-12] MEDS: SANTYL OINTMENT 1 APPLIC TOPICAL (08:22)
[2024-09-12] MEDS: ULTRAM 50 MG PO ×2 (10:17→21:05)
[2024-09-12] MEDS: ZOFRAN 4 MG IV ×2 (10:18→21:05)
[2024-09-12] MEDS: ProAmatine 5 MG PO (10:30)
--- NOTE | 2024-09-12 11:39 | W.PN.HOSP.TC ---
Today's Communication/Plan
-
Amoxicillin 500 mg 3 times daily for 6 more days (last day 09/18)
Discharge to SNF
Assessment / Plan
Assessment / Plan
# Sepsis with hypotension without septic shock
Bacteremia, unclear primary source
COVID/flu negative, CXR neg, procalcitonin 21.09
Empric vanc/zosyn given in ED
Appreciate ID input, Zosyn changed to Unasyn.
WBC is coming down. Afebrile
Urine culture no growth
Blood culture showed Streptococcus & diphtheroids
Repeat blood culture 09/08, no growth
Patient has a wet cough, SPL consulted, ok to resume regular diet
Stopped IV fluids, midodrine as needed,
Resume Lasix/metoprolol/Entresto
Transition antibiotics to amoxicillin 500 mg 3 times daily to complete 6 more days after discharge
# Right hip pain status post fall
CT negative for fracture
Continue pain meds, PT/OT
Patient lives alone
# Hypokalemia, hypomagnesemia
Resume diuretics, continue repletion prn
# hypocalcemia, not accurate due to hypoalbuminemia. Corrected calcium is normal.
# Chronic HFrEF, lwo BP at baseline due to advanced heart failure.
Not in acute failure
can resume diuretics
can resume Entresto and metoprolol succinate
# DM II - hypoglycemic episode s/p 20g d10
Hold glipizide, liberate diet due to hypoglycemia
Accu-Cheks are not accurate, she needs venous blood draws
Check hemoglobin A1c 6.0'
Changed Acu checks to BID for now
# Severe protein calorie malnutrition
BMI 13.2. She does not tolerate protein supplements
Diet liberalized to regular
Consulted nutrition, consult palliative care�she is seen by them at home
# Persistent nausea
Resolving. No abdominal pain.
Abdominal ultrasound shows gallbladder sludge, negative for cholecystitis
# Stage 1 left lower back pressure injury, POA
- Stage 1 left hip pressure injury, POA'
Consulted wound care
Change position
Encourage food intake.
DVT prophylaxis�subcu heparin
Full code
Anticipated Discharge: Today
Subjective/Interval History
-
Date of Service: September 12, 2024
Seen and examined at the bedside. No acute events reported overnight. AFVSS this morning
Patient states she has some mild nausea, denies diarrhea or other acute complaints
Objective Data
-
Vital Signs:
Vital Signs
Temp Pulse Resp BP Pulse Ox
97.5 F 108 18 93/55 97
09/12/24 07:30 09/12/24 08:18 09/12/24 07:30 09/12/24 10:35 09/12/24 07:30
I&O
09/11/24 09/12/24 09/13/24
06:59 06:59 06:59
Intake Total 600 / 600 660 / 660
Balance 600 / 600 660 / 660
Review of Systems
-
History Source: Patient
All other systems: Reviewed and negative
Physical Exam
-
General: No Apparent Distress, Comfortable and Cachectic
HEENT: Normocephalic, Atraumatic, Moist Mucous Membranes and Anicteric
Respiratory: Clear to Auscultation and Non Labored Respirations
Cardiac: Regular Rhythm and S1/S2; Negative Murmur, Rub or Gallop
GI: Soft, Nontender, Nondistended and Normal Bowel Sounds
Musculoskeletal: No Clubbing, No Cyanosis and No Edema
Skin: Warm and Dry; Negative Rash
Neuro: AO x 3, Nonfocal/Grossly Intact and Central Nerve's Intact
Psych: Anxious
--- NOTE | 2024-09-12 13:09 | CM ---
Addendum entered by Jenny Hendrickson RN 09/12/24 15:00:
Updated PT OT done today. .
Called [facility] for auth spoke with Jaylyn Reference #[id number] Clinical fax ed to [phone] .
To go to [facility] after auth obtained .
Will need ambulance set up
Original Note:
MD said ready for discharge.
Pt needs PT OT evals for auth.
Spoke with Jose son he agrees skilled rehab at [facility].
IMM reviewed emailed to Jose [email or web address]
Spoke with Willow yesterday and Ladi at [facility] today. They said she can accepted after auth with [employer].
Will need to call [facility] for [employer] auth .
Son requested ambulance transport.
[facility]
report [phone]
fax [phone]
PLAN : To [facility] after auth
[2024-09-12] MEDS: XALATAN OPHTHALMIC SOLUTION 1 DROP BOTH EYES (21:04)
[2024-09-12] MEDS: LIPITOR 20 MG PO (21:05)
[2024-09-12 21:54] LABS: Glucose - Point of Care 127 mg/dl (70-99)
[2024-09-12] MEDS: TYLENOL 650 MG PO (22:26)
[2024-09-13 00:04] VITALS: BP 112/57
[2024-09-13] MEDS: HEPARIN 5000 UNITS SC ×2 (00:22→08:43)
[2024-09-13] MEDS: AMOXIL 500 MG PO ×3 (00:22→16:14)
[2024-09-13 06:00] VITALS: BMI 14.8
[2024-09-13 07:13] LABS: Glucose - Point of Care 87 mg/dl (70-99)
[2024-09-13 07:20] VITALS: BP 109/59
[2024-09-13] MEDS: LASIX 40 MG PO (08:42)
[2024-09-13] MEDS: TOPROL XL 12.5 MG PO (08:42)
[2024-09-13] MEDS: ENTRESTO 24 MG/26 MG PO (08:42)
[2024-09-13] MEDS: PROTONIX 40 MG PO (08:42)
[2024-09-13] MEDS: ASPIR LOW (ENTERIC COATED) 81 MG PO (08:42)
[2024-09-13] MEDS: LIDOCAINE 4% PATCH 1 PATCH TOPICAL (08:42)
[2024-09-13] MEDS: OSCAL 500 + D 1000 MG PO (08:43)
[2024-09-13] MEDS: SANTYL OINTMENT 1 APPLIC TOPICAL (08:43)
--- NOTE | 2024-09-13 09:49 | W.PN.HOSP.TC ---
Today's Communication/Plan
-
dc planning
Assessment / Plan
Assessment / Plan
# Sepsis with hypotension without septic shock
Bacteremia, unclear primary source
COVID/flu negative, CXR neg, procalcitonin 21.09
Empric vanc/zosyn given in ED
Appreciate ID input, Zosyn changed to Unasyn.
WBC is coming down. Afebrile
Urine culture no growth
Blood culture showed Streptococcus & diphtheroids
Repeat blood culture 09/08, no growth
Patient has a wet cough, SPL consulted, ok to resume regular diet
Stopped IV fluids, midodrine as needed,
Resume Lasix/metoprolol/Entresto
Transition antibiotics to amoxicillin 500 mg 3 times daily to complete 6 more days after discharge
# Right hip pain status post fall
CT negative for fracture
Continue pain meds, PT/OT
Patient lives alone
# Hypokalemia, hypomagnesemia
Resume diuretics, continue repletion prn
# hypocalcemia, not accurate due to hypoalbuminemia. Corrected calcium is normal.
# Chronic HFrEF, lwo BP at baseline due to advanced heart failure.
Not in acute failure
can resume diuretics
can resume Entresto and metoprolol succinate
# DM II - hypoglycemic episode s/p 20g d10
Hold glipizide, liberate diet due to hypoglycemia
Accu-Cheks are not accurate, she needs venous blood draws
Check hemoglobin A1c 6.0'
Changed Acu checks to BID for now
# Severe protein calorie malnutrition
BMI 13.2. She does not tolerate protein supplements
Diet liberalized to regular
Consulted nutrition, consult palliative care�she is seen by them at home
# Persistent nausea
Resolving. No abdominal pain.
Abdominal ultrasound shows gallbladder sludge, negative for cholecystitis
# Stage 1 left lower back pressure injury, POA
- Stage 1 left hip pressure injury, POA'
Consulted wound care
Change position
Encourage food intake.
DVT prophylaxis�subcu heparin
Full code
Total time spent to see the patient on the floor, examine the patient, review data and lab results, discuss treatment plan with patient, nursing staff around 55 minutes.
Anticipated Discharge: Today
Subjective/Interval History
-
Date of Service: September 13, 2024
doing well
Objective Data
-
Vital Signs:
Vital Signs
Temp Pulse Resp BP Pulse Ox
97.1 F 59 14 109/59 96
09/13/24 07:20 09/13/24 08:42 09/13/24 07:20 09/13/24 08:42 09/13/24 07:20
I&O
09/12/24 09/13/24 09/14/24
06:59 06:59 06:59
Intake Total 660 / 660 240 / 240
Balance 660 / 660 240 / 240
[2024-09-13] MEDS: TYLENOL 650 MG PO ×2 (15:11→21:22)
[2024-09-13] MEDS: ULTRAM 50 MG PO ×2 (15:11→21:24)
[2024-09-13 15:20] VITALS: BP 109/57
[2024-09-13] MEDS: ZOFRAN 4 MG IV ×2 (16:15→22:25)
[2024-09-13 21:08] LABS: Glucose - Point of Care 139 mg/dl (70-99)
[2024-09-13 21:13] VITALS: BP 113/56
[2024-09-13] MEDS: XALATAN OPHTHALMIC SOLUTION 1 DROP BOTH EYES (21:22)
[2024-09-13] MEDS: ENTRESTO 24 MG/26 MG 1 TAB PO (21:23)
[2024-09-13] MEDS: LIPITOR 20 MG PO (21:24)
[2024-09-13 23:19] VITALS: BP 98/54
[2024-09-14] MEDS: AMOXIL 500 MG PO ×4 (00:09→23:27)
[2024-09-14 06:00] VITALS: BMI 14.6
[2024-09-14 07:07] LABS: Glucose - Point of Care 84 mg/dl (70-99)
[2024-09-14 07:20] VITALS: BP 105/47
[2024-09-14] MEDS: ENTRESTO 24 MG/26 MG PO ×2 (08:35→20:20)
[2024-09-14] MEDS: TOPROL XL 12.5 MG PO (08:35)
[2024-09-14] MEDS: LIDOCAINE 4% PATCH 1 PATCH TOPICAL (08:36)
[2024-09-14] MEDS: SANTYL OINTMENT 1 APPLIC TOPICAL (08:36)
[2024-09-14] MEDS: LASIX 40 MG PO (08:36)
[2024-09-14] MEDS: PROTONIX 40 MG PO (08:36)
[2024-09-14] MEDS: ASPIR LOW (ENTERIC COATED) 81 MG PO (08:36)
[2024-09-14] MEDS: OSCAL 500 + D 1000 MG PO (08:36)
--- NOTE | 2024-09-14 09:46 | W.PN.HOSP.TC ---
Today's Communication/Plan
-
Avoid diet food/ drinks
c/w current antibiotic
BMP & CBC
Assessment / Plan
Assessment / Plan
# Sepsis with hypotension without septic shock
Bacteremia, unclear primary source
COVID/flu negative, CXR neg, procalcitonin 21.09
Empric vanc/zosyn given in ED
Appreciate ID input, Zosyn changed to Unasyn.
WBC is coming down. Afebrile
Urine culture no growth
Blood culture showed Streptococcus & diphtheroids
Repeat blood culture 09/08, no growth
Patient has a wet cough, SPL consulted, ok to resume regular diet
Stopped IV fluids, midodrine as needed,
Resume Lasix/metoprolol/Entresto
Transition antibiotics to amoxicillin 500 mg 3 times daily to complete 6 more days after discharge
# Right hip pain status post fall
CT negative for fracture
Continue pain meds, PT/OT
Patient lives alone
# Hypokalemia, hypomagnesemia
Resumed diuretics, continue repletion prn
# hypocalcemia, not accurate due to hypoalbuminemia. Corrected calcium is normal.
# Chronic HFrEF, lwo BP at baseline due to advanced heart failure.
Not in acute failure
can resume diuretics
can resume Entresto and metoprolol succinate
# DM II - hypoglycemic episode s/p 20g d10
Hold glipizide, liberate diet due to hypoglycemia
Accu-Cheks are not accurate, she needs venous blood draws
Hemoglobin A1c 6.0'
Changed Acu checks to BID for now
# Severe protein calorie malnutrition due to cardiac cachexia
Some component of anorexia, advised the pt to avoid diet drinks-sodas/ food and focus on high protein- calorie food.
BMI 13.2. She reports intolerance to protein supplements
Diet liberalized to regular
Consulted nutrition, consulted palliative care�she is seen by them at home, she was seen on 09/08
# Persistent nausea
Resolving. No abdominal pain.
Abdominal ultrasound shows gallbladder sludge, negative for cholecystitis
# Stage 1 left lower back pressure injury, POA
- Stage 1 left hip pressure injury, POA'
Consulted wound care
Change position
Encourage food intake.
DVT prophylaxis�subcu heparin, intolerance to the shot due to lack of body fat
Full code, pt wants to be full code but no prolonged intubation or CPR
Total time spent to see the patient on the floor, examine the patient, review data and lab results, discuss treatment plan with patient, nursing staff around 55 minutes.
Anticipated Discharge: Within 24 hours
Subjective/Interval History
-
Date of Service: September 14, 2024
No chest pain
No sob
Objective Data
-
Vital Signs:
Vital Signs
Temp Pulse Resp BP Pulse Ox
97.4 F 82 16 105/47 96
09/14/24 07:20 09/14/24 08:35 09/14/24 07:20 09/14/24 08:35 09/14/24 07:20
I&O
09/13/24 09/14/24 09/15/24
06:59 06:59 06:59
Intake Total 240 / 240 480 / 480
Balance 240 / 240 480 / 480
[2024-09-14 12:04] LABS: Hematocrit 25.3 % (37.0-47.0); Hemoglobin 8.6 g/dL (12.0-16.0); Mean Corpuscular Hgb 38.6 pg (27.0-31.0); Mean Corpuscular Volume 113.5 fL (81.0-99.0); Mean Platelet Volume 11.2 fL (7.4-10.4); Platelet Count 176 10^3/uL (130-400); Red Blood Cell Count 2.23 10^6/uL (4.20-5.40); Red Cell Dist. Width 17.9 % (11.5-14.5); White Blood Cell Count 20.6 10^3/uL (4.8-10.8)
[2024-09-14 12:33] LABS: Blood Urea Nitrogen 7 mg/dl (7-17); Calcium 6.1 mg/dl (8.4-10.2); Carbon Dioxide 29 mmol/L (22-30); Chloride 89 mmol/L (98-107); Estimated Creatinine Clearance 46 ml/min; Glucose 115 mg/dl (70-99); Potassium 2.3 mmol/L (3.5-5.1); Sodium 126 mmol/L (135-145); eGFR > 60.00
[2024-09-14] MEDS: ZOFRAN IV (12:52)
[2024-09-14] MEDS: ULTRAM 50 MG PO ×2 (12:52→23:34)
[2024-09-14] MEDS: TYLENOL 650 MG PO (12:53)
--- NOTE | 2024-09-14 13:07 | HOSPNOTE ---
Spoke with the patient daughter in law today to follow up. Family reports she will not be able to return home and they will need to consider other options. Hospice will continue to communicate with the family.
[2024-09-14] MEDS: KCL ELIXIR 40 MEQ PO (13:28)
[2024-09-14] MEDS: ZOFRAN 4 MG PO (13:44)
[2024-09-14 15:20] VITALS: BP 111/49
[2024-09-14] MEDS: ZOFRAN 4 MG IV (20:23)
[2024-09-14] MEDS: LIPITOR 20 MG PO (21:42)
[2024-09-14] MEDS: XALATAN OPHTHALMIC SOLUTION 1 DROP BOTH EYES (21:42)
[2024-09-14] MEDS: COMPAZINE 5 MG IV (22:18)
[2024-09-14 23:18] VITALS: BP 90/47
[2024-09-14 23:33] LABS: Glucose - Point of Care 152 mg/dl (70-99)
[2024-09-15] VITALS (11 sets, daily range): BP systolic 56–108; BP diastolic 26–63; BMI 13.8; BMI 13.0
[2024-09-15] MEDS: ULTRAM 50 MG PO (06:07)
[2024-09-15] MEDS: ZOFRAN 4 MG IV (06:07)
[2024-09-15] MEDS: ProAmatine 5 MG PO (07:29)
[2024-09-15] MEDS: TOPROL XL PO (08:00)
[2024-09-15] MEDS: ENTRESTO 24 MG/26 MG PO (08:00)
[2024-09-15] MEDS: PROTONIX PO (08:00)
[2024-09-15] MEDS: AMOXIL PO (08:00)
[2024-09-15] MEDS: LASIX PO (08:00)
[2024-09-15] MEDS: ASPIR LOW (ENTERIC COATED) PO (08:00)
[2024-09-15] MEDS: LIDOCAINE 4% PATCH TOPICAL (08:00)
[2024-09-15] MEDS: OSCAL 500 + D PO (08:00)
[2024-09-15 08:32] LABS: Glucose - Point of Care 137 mg/dl (70-99)
--- NOTE | 2024-09-15 08:51 | W.PN.HOSP.TC ---
Today's Communication/Plan
-
Transferr to IMU
Consult pulmonology
Consult hospice
Assessment / Plan
Assessment / Plan
#Acute hypoxic respiratory failure
Transfer to IMU
Consult pulmonology
Consult hospice
# Sepsis with hypotension without septic shock
Bacteremia, unclear primary source
COVID/flu negative, CXR neg, procalcitonin 21.09
Empric vanc/zosyn given in ED
Appreciate ID input, Zosyn changed to Unasyn.
WBC is coming down. Afebrile
Urine culture no growth
Blood culture showed Streptococcus & diphtheroids
Repeat blood culture 09/08, no growth
Patient has a wet cough, SPL consulted, ok to resume regular diet
Stopped IV fluids, midodrine as needed,
Resumed Lasix/metoprolol/Entresto
Transitioned antibiotics to amoxicillin 500 mg 3 times daily to complete 6 more days after discharge
# Right hip pain status post fall
CT negative for fracture
Continue pain meds, PT/OT
Patient lives alone
# Hypokalemia, hypomagnesemia
Resumed diuretics, continue repletion prn
# hypocalcemia, not accurate due to hypoalbuminemia. Corrected calcium is normal.
# Chronic HFrEF, lwo BP at baseline due to advanced heart failure.
Not in acute failure
can resume diuretics
can resume Entresto and metoprolol succinate
# DM II - hypoglycemic episode s/p 20g d10
Hold glipizide, liberate diet due to hypoglycemia
Accu-Cheks are not accurate, she needs venous blood draws
Hemoglobin A1c 6.0'
Changed Acu checks to BID for now
# Severe protein calorie malnutrition due to cardiac cachexia
Some component of anorexia, advised the pt to avoid diet drinks-sodas/ food and focus on high protein- calorie food.
BMI 13.2. She reports intolerance to protein supplements
Diet liberalized to regular
Consulted nutrition, consulted palliative care�she is seen by them at home, she was seen on 09/08
# Persistent nausea
Resolving. No abdominal pain.
Abdominal ultrasound shows gallbladder sludge, negative for cholecystitis
# Stage 1 left lower back pressure injury, POA
- Stage 1 left hip pressure injury, POA'
Consulted wound care
Change position
Encourage food intake.
DVT prophylaxis�subcu heparin, intolerance to the shot due to lack of body fat
DNR
Total time spent to see the patient on the floor, examine the patient, review data and lab results, discuss treatment plan with patient, nursing staff around 55 minutes.
Physical Exam
General: Cachectic, appears chronically ill, respiratory distress noted
HEENT: Normocephalic, Atraumatic, EOMI, MMM
Respiratory: Clear to Auscultation bilaterally
Cardiac: Normal S1/S2, Regular Rate and Rhythm
GI: Soft, Nontender, Nondistended, Normal Bowel Sounds
Extremities: No Clubbing, Cyanosis, or Edema
Musculoskeletal: Right hip is tender to palpation
Neuro: Nonfocal/Grossly Intact
Anticipated Discharge: Within 24 hours
Subjective/Interval History
-
Date of Service: September 15, 2024
Responded to a rapid response, patient became hypoxic, short of breath, hypotensive. She is currently on a nonrebreather. Admits to being short of breath. No fever, no vomiting.
Objective Data
-
Labs:
Laboratory Results
09/15/24
07:38
WBC Pending
Hgb Pending
Hct Pending
Plt Count Pending
Sodium Pending
Potassium Pending
Chloride Pending
Carbon Dioxide Pending
BUN Pending
Creatinine Pending
Glucose Pending
Calcium Pending
Vital Signs:
Vital Signs
Temp Pulse Resp BP Pulse Ox
97.5 F 79 28 108/52 87
09/15/24 08:03 09/15/24 08:10 09/15/24 08:10 09/15/24 08:10 09/15/24 08:10
I&O
09/14/24 09/15/24 09/16/24
06:59 06:59 06:59
Intake Total 480 / 480 480 / 480
Balance 480 / 480 480 / 480
--- NOTE | 2024-09-15 09:10 | CON.PUL ---
Consultation
Consultation Request
Date/Time Consultation Requested: 09/15/2024-10 AM
Date/Time Consultation Performed: 09/15/2024-11 AM
Requesting Provider: Hospitalist
Performing Provider: Dr. Howard
Reason for Consultation: Shortness of breath
Medical History
-
Chief Complaint: Shortness of breath
History of Present Illness:
73-year-old female with a history of CAD, CVA, ischemic cardiomyopathy EF 10-15%, protein calorie malnutrition, GERD, chronic pain and diabetes presented 09/05/2024 with suspected sepsis and hip pain with ongoing deterioration with increasing
hypoxemia and pulmonary consulted 09/15/2024 with impending respiratory failure. Patient does complain of significant shortness of breath, vague chest pains, some headache as well but no nausea, chest congestion, productive sputum.
Past Medical History
Past Medical History: None (CHF-EF 10%. COPD dwjyrctia-75-cpwf-year smoker. Hypertension. Diabetes. Protein calorie malnutrition. Cachexia. Left LOGAN. Back surgery. Right elbow surgery.)
Social History
Tobacco: Former Smoker (85-brny-gyjx quit several months ago)
Alcohol: None
Drug: None
Personal: Single
Living: With Family
Occupational Exposures: No known asbestos exposure
Environmental Exposures: No known tuberculosis exposure
Family History
Family History: Reviewed & Not Pertinent
Allergies / Home Medications
Allergies
Allergy/AdvReac Type Severity Reaction Status Date / Time
cat dander Allergy Itching Verified 09/05/24 18:44
house dust Allergy SNEEZING Verified 09/05/24 18:44
pollen extracts Allergy SNEEZING Verified 09/05/24 18:44
pregabalin [From Lyrica] Allergy psychosis Verified 09/05/24 18:44
Home Medications
�Medication �Instructions �Recorded �Confirmed �Last Taken �Type
atorvastatin 20 mg tablet 20 mg PO HS High Cholesterol 10/04/23 09/05/24 09/04/24 History
latanoprost 0.005 % eye drops 1 drp BOTH EYES HS glaucoma 10/04/23 09/05/24 09/04/24 History
tramadol 50 mg tablet 50 mg PO BIDPRN PRN moderate pain 01/29/24 09/05/24 03/26/24 History
aspirin 81 mg tablet,delayed 81 mg PO DAILY 30 days #30 tabs 02/05/24 09/05/24 09/04/24 Rx
release
furosemide 40 mg tablet 40 mg PO DAILY #30 tabs 04/02/24 09/05/24 09/04/24 Rx
metoprolol succinate 25 mg 12.5 mg (1/2 x 25 mg) PO DAILY #30 04/02/24 09/05/24 09/04/24 Rx
tablet,extended release 24 hr tabs
pantoprazole 40 mg tablet,delayed 40 mg PO DAILY #30 tabs 04/02/24 09/05/24 09/04/24 Rx
release (Protonix)
sacubitril 24 mg-valsartan 26 mg 1 tab PO BID 09/05/24 09/05/24 09/04/24 History
tablet (Entresto)
amoxicillin 500 mg capsule 500 mg PO Q8H Infection 6 days #18 09/12/24 Unknown Rx
caps
midodrine 5 mg tablet 5 mg PO Q4HPRN PRN SBP < 90 1 09/12/24 Unknown Rx
month #90 tabs
ondansetron HCl 4 mg tablet 4 mg PO Q8H PRN nausea 7 days #30 09/12/24 Unknown Rx
tabs
Review of Systems
-
Unable to Obtain full review of systems at this time due to: Other (Per HPI)
Vitals / Labs / Diagnostic Testing
Vital Signs
Temp Pulse Resp BP Pulse Ox
97.5 F 98 28 100/58 80
09/15/24 08:03 09/15/24 08:15 09/15/24 08:15 09/15/24 08:15 09/15/24 08:15
Microbiology
09/08/24 12:27 Blood/Venous Blood Culture - Final
No Growth - Final Report
09/05/24 20:46 Blood/Venous Blood Culture - Final
Streptococcus species
09/05/24 20:46 Blood/Venous Gram Stain - Final
Diagnostic Testing:
Physical Exam
-
Exam:
Well-nourished and well-developed in no apparent distress
HEENT-atraumatic, normocephalic, cachexia, temporal wasting
Neck-supple, no JVD, no bruit
Heart-regular rate and rhythm-no murmurs, rubs or gallops
Chest-clear to auscultation, no wheezes, crackles
Back-no tenderness
Abdomen-soft, nontender, nondistended, no hepatosplenomegaly
Extremities-no cyanosis, clubbing, edema and good peripheral pulses
Integument-intact, no rashes, lesions or ecchymosis
Neurology-alert and oriented, nonfocal motor and sensory exam
Assessment
-
73-year-old female with a history of CAD, CVA, ischemic cardiomyopathy EF 10-15%, protein calorie malnutrition, GERD, chronic pain and diabetes presented 09/05/2024 with suspected sepsis and hip pain with ongoing deterioration with increasing
hypoxemia and pulmonary consulted 09/15/2024 with impending respiratory failure.
Sepsis
Chronic heart failure reduced EF
Right hip pain status post fall-CT negative for fracture
Severe protein calorie malnutrition due to cardiac cachexia
Persistent nausea
Leukocytosis
Altgjv-rfzcfyhqfv-umjqzoehnz 9.1
Hyponatremia
Hypokalemia
Hypocalcemia
Hypomagnesemia
Transaminitis
Hypoalbuminemia
DNR/DNI
Conditions present prior to admission:
CHF-EF 10%.
COPD lbblaatlg-10-tixp-year smoker-does not follow pulmonary
Hypertension.
Diabetes.
Protein calorie malnutrition.
Cachexia.
Left LOGAN. Back surgery. Right elbow surgery.
Plan
Patient transferred to higher level of care-significant increased FiO2 requirements
Continue supplemental oxygen-high flow and nonrebreather at this time
CODE STATUS established-DO NOT INTUBATE
Nebulizers
Do not suspect significant COPD exacerbation
Low threshold for steroids if ongoing aggressive resuscitative efforts pursued
Mucolytic's
Aspiration precautions
Severe cardiac cachexia noted
Diuresis as tolerated
Monitor renal function, electrolytes, intake/output, lower extremity edema and weight
Replace electrolytes as needed
DVT prophylaxis-on heparin
GI prophylaxis-on pantoprazole
Nutrition
Early mobilization
Reviewed with critical care nursing as well as son at the bedside
Comfort a priority-palliative care and hospice evaluation ongoing
Diagnostic data:
Chest x-ray 09/15/2024-elevated left hemidiaphragm, COPD changes
Echocardiogram 09/08/2024-EF 15-20%,
Data Reviewed
-
EKG: Report reviewed by me
Radiology: Image personally visualized and interpreted and Report reviewed by me
CT Scan: Report reviewed by me
Medical Tests (Nuc Med, Echo etc): Report reviewed by me
Labs: Labs reviewed by me
Old Records: Reviewed
Total Time Spent with Patient (in minutes): 65
--- NOTE | 2024-09-15 09:30 | PTCARENOTE ---
Patient now in icu on high flow and NRB. 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 She is cachectic, very frail, and pale appearing, able to tell me her name. She is oriented. She is drowsy, tachypneic with breath sounds decreased. Patient
is in a sinus tach rhythm on monitor. She is NPO at the moment, has been incontinent of stool, has wounds noted on backside and sacrum. Will review orders and clarify code status.
[2024-09-15 09:38] LABS: Hematocrit 27.9 % (37.0-47.0); Hemoglobin 9.1 g/dL (12.0-16.0); Mean Corp Hgb Conc. 32.6 g/dL (33.0-37.0); Mean Corpuscular Hgb 39.1 pg (27.0-31.0); Mean Corpuscular Volume 119.7 fL (81.0-99.0); Platelet Count 191 10^3/uL (130-400); Red Blood Cell Count 2.33 10^6/uL (4.20-5.40); Red Cell Dist. Width 18.8 % (11.5-14.5); White Blood Cell Count 33.7 10^3/uL (4.8-10.8)
[2024-09-15] MEDS: SANTYL OINTMENT TOPICAL (09:50)
--- NOTE | 2024-09-15 09:51 | W.PN.UPDATE ---
Update Note
Progress Note Update
Patient came to the ICU this morning as an IMU border. Patient clearly cachectic and appears chronically ill. Patient hypotensive and hypoxic. Saturating >90% on a high flow nasal cannula. Patient's family member, Jose, called her cell phone
and RN answered the phone. I discussed the patient's clinical status with Jose and he wishes to transition her to DNR/DNI. He is come to the hospital later today and possibly will transition to hospice care at that point. Until then continue
full medical management. All questions were answered.
--- NOTE | 2024-09-15 09:51 | CM ---
Prior to transfer to ICU.
Luz from [facility] called to say jessi approved form [facility] from 09/15/24 to 09/17/24. Auth # [id number].
NRD to [facility] # [phone] fax [phone].
Willow /Joseph informed pt transfer to ICU and pt is not dc today.
PLAN Ongoing discharge plan.
--- NOTE | 2024-09-15 10:11 | PTCARENOTE ---
Received patient this am AAOx3. 0730 Pt's B/P 78/46 HR 103. Pt given an dose of Midodrine by technical lead RN. 0800 Recheck B/P 108/52 HR-79. Pt complained of SOB. Pulse OX 70% on RA. Pt placed on O2 at 2L. O2 saturation remained in 70's. O2
increased to 3L, 4L and 6L via nasal cannula. Pt's O2 saturation remained in the 70-80 %. Patient place on a non rebreather mask- O2 sat remained at 80%. Dr. Perkins from medicine made aware. Rapid Response called.
--- NOTE | 2024-09-15 10:17 | RR ---
A Rapid Response was called on this patient, please see Rapid Response form.
[2024-09-15 10:21] LABS: Blood Urea Nitrogen 9 mg/dl (7-17); Calcium 6.4 mg/dl (8.4-10.2); Carbon Dioxide 15 mmol/L (22-30); Chloride 89 mmol/L (98-107); Estimated Creatinine Clearance 28 ml/min; Glucose 80 mg/dl (70-99); Sodium 129 mmol/L (135-145); eGFR > 60.00
[2024-09-15 10:28] LABS: Magnesium 1.1 mg/dl (1.6-2.3); Phosphorus 4.8 mg/dl (2.5-4.5)
[2024-09-15 10:35] LABS: NT-proBNP 5180 pg/ml
--- NOTE | 2024-09-15 11:17 | W.PN.PAL2 ---
Today's Communication
-
Palliative Care Follow up visit.
Patient was planned to be discharged to SNF today, but overnight developed hypoxia. transferred early this morning to ICU. Patient on highflow oxygen, tachypneic, tachycardic, appears uncomfortable but alert and able to answer questions. symptoms of
abdominal pain present. Agreeable to transition to comfort care. Son Temo arrived, also in agreement with comfort care/hospice. they understand that this means medications focused on comfort only. Another son grace, will arrive in about 30 mins.
Based on patient's level of dyspnea, needing high flow oxygen, patient would be appropriate for hospice at GIP level of care. If were to stabilize, would need SNF placement for hospice.
plan discused with attending, compressed yeast supervisor, RN, and hospice liason.
Total floor time 40 mins
Assessment / Plan
-
Assessment/Plan:
transition to comfort care/hospice
DNR/DNI code status already updated in chart earlier today.
Goals of Care Discussion
Patient Goals
in agreement with comfort care/hospice
Pain & Symptom Assessment
Patient Symptoms
Patient Symptoms: Pain and Dyspnea
Objective Data
-
Objective Data:
Vital Signs
Temp Pulse Resp BP Pulse Ox
97.5 F 98 28 100/58 95
09/15/24 08:03 09/15/24 08:15 09/15/24 08:15 09/15/24 08:15 09/15/24 09:15
Laboratory Results
09/15/24 07:38
09/15/24 07:38
Hemoglobin A1c 6.0 % (4.0-5.6) H 09/07/24 06:04
Total Protein 4.3 g/dl (6.3-8.2) L 09/10/24 07:08
Albumin 2.0 g/dl (3.5-5.0) L 09/10/24 07:08
TSH 2.94 uIU/ml (0.47-4.68) 12/09/24 06:27
Urine Color Yellow 09/06/24 10:38
Urine Clarity Clear (Clear) 09/06/24 10:38
Urine pH 7.0 (5.0-9.0) 09/06/24 10:38
Ur Specific [place] 1.010 (<1.030) 09/06/24 10:38
Urine Ketones Negative (Negative) 09/06/24 10:38
Urine Bilirubin Negative (Negative) 09/06/24 10:38
Palliative Performance Scale
Palliative Performance Scale:
PPS Level Ambulation Activity & Evidence of Disease Self Care Intake Conscious Level
100% Full Normal Activity & Work; Full Intake Full
No Evidence of Disease
90% Full Normal Activity & Work; Full Normal Full
Some Evidence of Disease
80% Full Normal Activity with Effort Full Normal or Full
Some Evidence of Disease Reduced
70% Reduced Unable Normal Job/Work Full Normal or Full
Significant Disease Reduced
60% Reduced Unable Hobby/Housework Occasional Normal or Full or Confusion
Significant Disease Assistance Reduced
50% Mainly Sit/Lie Unable to do Any Work Considerable Normal or Full or Confusion
Extensive Disease Assistance Req'd Reduced
40% Mainly in Bed Unable to do Most Activity Mainly Assistance Normal or Full or Drowsy;
Extensive Disease Reduced +/- Confusion
30% Totally Bed Unable to do Any Activity Total Care Normal or Full or Drowsy;
Bound Extensive Disease Reduced +/- Confusion
20% Totally Bed Bound Unable to do Any Activity Total Care Minimal to Full or Drowsy;
Extensive Disease Sips +/- Confusion
10% Totally Bed Bound Unable to do Any Activity Total Care Mouth Care Drowsy or Coma;
Extensive Disease Only +/- Confusion
0%
PPS Score Level:
Palliative Performance Score Response
Palliative Performance Score Response: 20%
Physical Exam
-
General: Respiratory Distress, Appears in Distress and Appears Chronically Ill
Neuro: Awake and Alert
Psych: Calm
[2024-09-15] MEDS: MORPHINE SULFATE 2 MG IV (11:21)
--- NOTE | 2024-09-15 11:32 | HOSPNOTE ---
Patient will be placed on hospice services and remain inpatient do to oxygen requirements. Patient and family in agreement. Admissions was called for a bed [facility]. CM and Attending aware of plan.
--- NOTE | 2024-09-15 12:11 | W.DCSUMMARY ---
Discharge Summary
Discharge Data
Date of Admission: 09/05/24
Date of Discharge: 09/15/24
-
Pending Results: No
Hospital Course
Discharge diagnosis:
Acute hypoxic respiratory failure
Sepsis with hypotension without septic shock
Bacteremia, unclear primary source
Right hip pain status post fall
Hypokalemia, hypomagnesemia
Hypocalcemia
Chronic heart failure with reduced ejection fraction
History of diabetes
Severe protein calorie malnutrition due to cardiac cachexia
Persistent nausea
Stage 1 left lower back pressure injury, present upon admission
Stage 1 left hip pressure injury, present upon admission
Stage III sacral pressure ulcer
Consults: ID, pulmonology
Hospital course:
73-year-old female with a past medical history of diabetes, heart failure, severe protein calorie malnutrition, and cardiac cachexia was admitted for sepsis with hypotension without septic shock. She was found to be bacteremic, and seen in
conjunction with ID. She was treated with IV antibiotics. She was intermittently hypotensive, and received midodrine as needed. Her blood pressure normalized. ID feels that since only 1 positive blood culture grew out strep, contamination is
highly likely. ID recommends she be transitioned to amoxicillin for 7 more days.
Patient initially improved, however developed acute hypoxic respiratory failure on the morning of 09/15/2024. She was transferred to the IMU. She was being followed by palliative care outpatient. Family understands her poor prognosis, and wished
to transition her to comfort measures only. She is discharged to general inpatient hospice.
Discharge planning: Required 66 minutes
Discharge Plan
-
Patient Disposition: Hospice - Inpatient [facility]
Discharge Orders:
Discharge Patient (As Directed); Ordered 09/15/24
Ordered By: Radhames Perkins
Discharge Date and Time
Discharge Date/Time: 09/15/24 12:17
Print Language: [place]
--- NOTE | 2024-09-15 12:12 | PTCARENOTE ---
transitioning patient to in patient hospice care
== END 2024-09-15 12:17 | disposition hospice, inpatient (51) | DRG 871 ==
LOC: ICU 23:52
PROVIDERS: Internal Medicine; Nurse Practitioner Family; ADMITTING PHYSICIAN Internal Medicine; ATTENDING PHYSICIAN Family Medicine; CONSULT PHYSICIAN Internal Medicine Critical Care Medicine; CONSULT PHYSICIAN Internal Medicine Infectious Disease; EMERGENCY PHYSICIAN Emergency Medicine; FAMILY PHYSICIAN Family Medicine
DX: A40.8 Other streptococcal sepsis (principal); E43 Unspecified severe protein-calorie malnutrition; L89.153 Pressure ulcer of sacral region, stage 3; J96.01 Acute respiratory failure with hypoxia; Z68.1 Body mass index [BMI] 19.9 or less, adult; I50.22 Chronic systolic (congestive) heart failure; E87.1 Hypo-osmolality and hyponatremia; Z66 Do not resuscitate; Z51.5 Encounter for palliative care; E87.6 Hypokalemia; I25.10 Atherosclerotic heart disease of native coronary artery without angina pectoris; I25.5 Ischemic cardiomyopathy; K21.9 Gastro-esophageal reflux disease without esophagitis; E11.649 Type 2 diabetes mellitus with hypoglycemia without coma; E83.42 Hypomagnesemia; M81.0 Age-related osteoporosis without current pathological fracture; R62.7 Adult failure to thrive; I48.91 Unspecified atrial fibrillation; L89.141 Pressure ulcer of left lower back, stage 1; L89.221 Pressure ulcer of left hip, stage 1; R11.0 Nausea; E83.51 Hypocalcemia; I11.0 Hypertensive heart disease with heart failure; J44.9 Chronic obstructive pulmonary disease, unspecified; M25.551 Pain in right hip; D64.9 Anemia, unspecified; E88.A Wasting disease (syndrome) due to underlying condition; W19.XXXA Unspecified fall, initial encounter; Z11.52 Encounter for screening for COVID-19; Z79.84 Long term (current) use of oral hypoglycemic drugs; Z79.899 Other long term (current) drug therapy; Z79.82 Long term (current) use of aspirin; Z96.642 Presence of left artificial hip joint; Z86.73 Personal history of transient ischemic attack (TIA), and cerebral infarction without residual deficits; Z87.891 Personal history of nicotine dependence
CPT/HCPCS: 71045; 72192; 73502; 76700; 80048; 80053; 81003; 81015; 82533; 82947; 82962; 83036; 83605; 83735; 83880; 84100; 84145; 84443; 85025; 85027; 87040; 87077; 87086; 87205; 87502; 87811; 92526; 92610; 93005; 93306; 96361; 96374; 96375; 96376; 97163; 97166; 97530; 97535; 99291; 99406

== ENCOUNTER 2024-09-15 12:21 | Inpatient (IN) | payer OTHER, SELFPAY ==
[2024-09-15] MEDS: ATIVAN 0.5 MG IV (12:37)
[2024-09-15] MEDS: NSS (PRESERVATIVE FREE) 0.25 ML IV (12:38)
[2024-09-15] MEDS: MORPHINE 100 IV (12:41)
--- NOTE | 2024-09-15 12:42 | HOSPNOTE ---
Patient will remain inpatient on hospice. Consents are signed and family and patient in agreement. Patient will be started on a morphine drip. CM was asked to send a referral. Patient is on high flow oxygen and will need to remain inpatient, a bed
on [address] was requested.
--- NOTE | 2024-09-15 12:45 | PTCARENOTE ---
Patient now inpatient hospice, morphine gtt verified and started.
--- NOTE | 2024-09-15 12:54 | ADM.HSP ---
Admission - Hospice
History of Present Illness
73-year-old female with a past medical history of diabetes, heart failure, severe protein calorie malnutrition, and cardiac cachexia was initially admitted for sepsis with hypotension without septic shock on 09/05/24. She was found to be bacteremic,
and seen in conjunction with ID. She was treated with IV antibiotics. She was intermittently hypotensive, and received midodrine as needed. Her blood pressure normalized. ID feels that since only 1 positive blood culture grew out strep,
contamination is highly likely. ID recommends she be transitioned to amoxicillin for 7 more days.
Patient initially improved, however developed acute hypoxic respiratory failure on the morning of 09/15/2024. She was transferred to the IMU. She was being followed by palliative care outpatient. Family understands her poor prognosis, and wished
to transition her to comfort care measures only.
Reason for Hospice Admission
IV morphine drip
Review of Systems
Unable to obtain full review of systems at this time due to: Acuity
Physical Exam
Pulse Resp
105 20
09/15/24 13:42 09/15/24 13:42
General: Respiratory Distress
Respiratory: Clear to Auscultation
Cardiology: Regular Rhythm
GI: Soft, Nontender and Nondistended
Musculoskeletal: No Clubbing, No Cyanosis and No Edema
Skin: Warm
Assessment/Medication Plan
Acute hypoxic respiratory failure
Sepsis with hypotension without septic shock
Bacteremia, unclear primary source
Right hip pain status post fall
Hypokalemia, hypomagnesemia
Hypocalcemia
Chronic heart failure with reduced ejection fraction
History of diabetes
Severe protein calorie malnutrition due to cardiac cachexia
Persistent nausea
Stage 1 left lower back pressure injury, present upon admission
Stage 1 left hip pressure injury, present upon admission
Stage III sacral pressure ulcer
-Comfort care measures only, IV morphine drip
--- NOTE | 2024-09-15 13:03 | RESPNOTE ---
patient taken off high flow at this time for comfort measures. family at bedside. patient remains on 100% NRM.
[2024-09-15] MEDS: MORPHINE SULFATE 2 MG IV ×3 (13:04→14:06)
--- NOTE | 2024-09-15 14:30 | PTCARENOTE ---
No spontaneous breaths, Dr. Perkins notified for pronouncing
--- NOTE | 2024-09-15 15:00 | W.PN.DEATH ---
Pronouncement of
-
Called to see patient to pronounce.
No spontaneous heart tones or respirations noted.
Patient not responsive to verbal stimuli.
Patient is pronounced .
Time of : 14:34
Date of : 09/15/24
Cause of : Acute hypoxic respiratory failure
--- NOTE | 2024-09-15 15:02 | W.DCSUMMARY ---
Discharge Summary
Discharge Data
Date of Admission: 09/15/24
Date of Discharge: 09/15/24
-
Pending Results: No
Hospital Course
Date of expiration: 09/15/2024
Time of expiration: 14:34
diagnosis:
Acute hypoxic respiratory failure
Sepsis with hypotension without septic shock
Bacteremia, unclear primary source
Right hip pain status post fall
Hypokalemia, hypomagnesemia
Hypocalcemia
Chronic heart failure with reduced ejection fraction
History of diabetes
Severe protein calorie malnutrition due to cardiac cachexia
Persistent nausea
Stage 1 left lower back pressure injury, present upon admission
Stage 1 left hip pressure injury, present upon admission
Stage III sacral pressure ulcer
Hospital course:
73-year-old female with a past medical history of diabetes, heart failure, severe protein calorie malnutrition, and cardiac cachexia was initially admitted for sepsis with hypotension without septic shock on 09/05/24. She was found to be bacteremic,
and seen in conjunction with ID. She was treated with IV antibiotics. She was intermittently hypotensive, and received midodrine as needed. Her blood pressure normalized. ID feels that since only 1 positive blood culture grew out strep,
contamination is highly likely. ID recommends she be transitioned to amoxicillin for 7 more days.
Patient initially improved, however developed acute hypoxic respiratory failure on the morning of 09/15/2024. She was transferred to the IMU. She was being followed by palliative care outpatient. Family understands her poor prognosis, and wished
to transition her to comfort care measures only. She was admitted to general inpatient hospice, and treated with an IV morphine drip. She peacefully on 09/15/2024 at 14:34. Family at bedside, condolences were offered.
Discharge Plan
-
Patient Disposition:
Date/Time
Date/Time: 09/15/24 14:34
Discharge Date and Time
Discharge Date/Time: 09/15/24 14:34
Print Language: CITIZEN OF [place]
== END 2024-09-15 14:34 | disposition expired | DRG 951 ==
LOC: ICU 12:21
PROVIDERS: ADMITTING PHYSICIAN Family Medicine
DX: Z51.5 Encounter for palliative care (principal); A41.9 Sepsis, unspecified organism; E43 Unspecified severe protein-calorie malnutrition; J96.01 Acute respiratory failure with hypoxia; L89.153 Pressure ulcer of sacral region, stage 3; I50.22 Chronic systolic (congestive) heart failure; Z68.1 Body mass index [BMI] 19.9 or less, adult; E11.9 Type 2 diabetes mellitus without complications; E83.42 Hypomagnesemia; E83.51 Hypocalcemia; E87.6 Hypokalemia; E88.A Wasting disease (syndrome) due to underlying condition; L89.141 Pressure ulcer of left lower back, stage 1; L89.221 Pressure ulcer of left hip, stage 1